=== PATIENT | female | born 1960 ===

== ENCOUNTER 2016-11-27 08:57 | Emergency (ER) | payer OTHER ==
[2016-11-27 09:00] VITALS: BP 109/67; PULSE 66; TEMP 98
[2016-11-27 09:01] VITALS: BMI 28.7
[2016-11-27 09:21] VITALS: O2SAT 98
[2016-11-27] MEDS ORDERED: Bacitracin OINT 15GM TOP STA (09:41)
--- NOTE | 2016-11-27 09:45 | ED PDOC ---
Arrival/HPI - General Chief Complaint: Trauma Time Seen by Provider: 11/27/16 09:14 - History of Present Illness Narrative History of Present Illness (Text): 11/27/16 10:08 Patient is a 55 y/o F with hx of DM, presenting after fall. She reports that she was walking into work today when she tripped on uneven step and fell forward , landing on her hands and knees. Denies head trauma. Denies LOC. She reports that she has numbness from her diabetic neuropathy in her feet and reports that because of this she trips easier. She denies any near syncope, dizziness or weakness causing fall. She denies chest pain or shortness of breath. She denies anticoagulant use and denies drug or alcohol use. She reports that she has ambulated since the fall and is complaining of abrasions to b/l knees and R elbow. Past Medical History - Provider Review Nursing Documentation Reviewed: Yes - Reproductive Menopause: No Family/Social History - Physician Review Nursing Documentation Reviewed: Yes Family/Social History: Diabetes Allergies/Home Meds Allergies/Adverse Reactions: Allergies No Known Allergies Allergy (Verified 11/27/16 09:12) Review of Systems - Review of Systems Constitutional: absent: Fevers Eyes: absent: Vision Changes Respiratory: absent: SOB, Cough, Sputum, Wheezing Cardiovascular: absent: Chest Pain, Palpitations, Edema, Calf Pain, HUDSON, Orthopnea, Syncope Gastrointestinal: absent: Abdominal Pain, Constipation, Nausea, Vomiting Genitourinary Female: absent: Dysuria Musculoskeletal: absent: Arthralgias, Back Pain, Neck Pain, Joint Swelling Skin: Other (abrasions) Neurological: absent: Headache, Dizziness, Focal Weakness, Gait Changes, Speech Changes, Facial Droop, Disequilibrium, Seizure Psychiatric: absent: Anxiety, Depression Physical Exam Vital Signs Temp Pulse BP Pulse Ox 11/27/16 09:13 98 11/27/16 09:00 98 F 66 109/67 97 Temperature: Afebrile Blood Pressure: Normal Pulse: Regular Respiratory Rate: Normal Appearance: Positive for: Well-Appearing, Non-Toxic, Comfortable Pain Distress: None Mental Status: Positive for: Alert and Oriented X 3 Finger Stick Blood Glucose: 428 - Systems Exam Head: Present: Atraumatic, Normocephalic Pupils: Present: PERRL Extroacular Muscles: Present: EOMI Conjunctiva: Present: Normal Mouth: Present: Moist Mucous Membranes Nose (External): Present: Atraumatic Neck: Present: Normal Range of Motion. No: MIDLINE TENDERNESS Respiratory/Chest: Present: Clear to Auscultation, Good Air Exchange. No: Respiratory Distress, Accessory Muscle Use Cardiovascular: Present: Regular Rate and Rhythm, Normal S1, S2. No: Murmurs Abdomen: No: Tenderness, Distention, Rebound, Guarding Genitourinary/Pelvic Exam: Present: Other (stable pelvis with no bony tenderness ) Upper Extremity: Present: Normal ROM, NORMAL PULSES, Neurovascularly Intact, Capillary Refill < 2s, Norm 2-Pt Discrimination, Other (abrasion to R elbow. Normal ROM and no bony tenderness). No: Edema, Tenderness, Swelling, Deformity Lower Extremity: Present: Normal ROM, Other (abrasions to b/l knees. Normal ROM. No bony tenderness. ). No: CALF TENDERNESS, Cyanosis, Tenderness, Swelling , Erythema, Deformity Neurological: Present: GCS=15, CN II-XII Intact, Speech Normal, Gait Normal ( steady gait) Psychiatric: Present: Alert, Oriented x 3 Medical Decision Making ED Course and Treatment: 11/27/16 09:42 Patient had fall from standing with abrasions to b/l knees and R arm. No head trauma. Normal gait and no bony tenderness. Spoke to Dr. Glaser about patient' s hyperglycemia and he is aware that her sugars have been running 300-400 and will follow-up with her in his office today. Spoke to patient at length and she agrees that xrays are not indicated and she has no pain with movement and will follow-up with her PMD for hyperglycemia and diabetic neuropathy. - Medication Orders Current Medication Orders: Discontinued Medications Bacitracin (Bacitracin Oint) 1 applic TOP STAT STA Stop: 11/27/16 09:42 Last Admin: 11/27/16 09:50 Dose: 1 applic Disposition/Present on Arrival - Present on Arrival Any Indicators Present on Arrival: No - Disposition Have Diagnosis and Disposition been Completed?: Yes Diagnosis: Fall, Hyperglycemia Disposition: HOME/ ROUTINE Disposition Time: 09:43 Patient Plan: Discharge Condition: GOOD Discharge Instructions (ExitCare): Diabetic Neuropathy (ED), Fall Prevention ( ED) Additional Instructions: Follow up with Dr. Glaser today or tmrw. Return to ED if condition worsens. Use neosporin twice daily on wounds.
== END 2016-11-27 10:07 | disposition home or self-care (01) ==
LOC: H.ER 08:57
DX: E11.65 Type 2 diabetes mellitus with hyperglycemia (principal); W10.9XXA Fall (on) (from) unspecified stairs and steps, initial encounter

== ENCOUNTER 2017-07-30 08:55 | Inpatient (IN) | payer OTHER ==
[2017-07-30 08:55] VITALS: BMI 28.7
--- NOTE | 2017-07-30 11:10 | ED PDOC ---
HPI:STROKE - Notes: Notes:: Pt reports lightheadedness X 1 month, unsteadiness X 1 week and visual loss X 2 seconds that occurred @ 8:30 AM today. Also reports L sided head pressure, L arm weakness, L leg weakness and bilateral foot weakness X 1 week. Denies CP, SOB, nausea, vomiting, LOC, incontinence. NIHSS Stroke Scale - Date/Time Evaluation Performed When Was NIHSS Performed: 24 hours post onset S/S - How Severe is the Stroke Level of Consciousness: 0=Alert LOC to Questions: 0=Both comments correct LOC to commands: 0=Obeys both correctly Best Gaze: 0=Normal Visual: 0=No visual loss Facial: 0=Normal Motor Arm - Left: 0=No drift Motor Arm - Right: 0=No drift Motor Leg - Left: 0=No drift Motor Leg - Right: 0=No drift Limb Ataxia: 0=Absent Sensory: 0=Normal Best Language: 0=No aphasia Dysarthia: 0=Normal articulation Extinction & Inattention (Neglect): 0=Normal, no object Score: 0 rTPA Inclusion/Exclusion - Refusal of Treatment Patient Refused Treatment: No - Inclusion Criteria for Altepase Patient is 18 years or Older: Yes The Clinical Diagnosis of Ischemic Stroke That is Causing a Potentially Disabling Neurological Deficit: No Time of Onset is Well Established to be Less Than 270 Minute Before Treatment Would Begin: No Risk/Benefit Discussed With Patient/Family Member Present: No Past Medical History Reviewed: Nursing Documentation, Vital Signs Vital Signs: Last Vital Signs Temp 97.0 F L 07/30/17 09:49 Pulse 72 07/30/17 09:49 Resp 18 07/30/17 09:49 BP 102/64 07/30/17 09:49 Pulse Ox 97 07/30/17 09:49 - Medical History PMH: Diabetes, Hypercholesterolemia - Family History Family History: States: Unknown Family Hx - Social History Current smoker - smoking cessation education provided: No Alcohol: None - Immunization History Hx Tetanus Toxoid Vaccination: No Hx Influenza Vaccination: No Hx Pneumococcal Vaccination: No - Home Medications Home Medications: Ambulatory Orders Medication Instructions Recorded ARIPiprazole [Abilify] 2 mg PO DAILY 07/30/17 Aspirin [Ecotrin] 81 mg PO DAILY 07/30/17 Desmopressin (Nonrefrigerated) 1 spray YAMILE BID 07/30/17 [Desmopressin 10 Mcg/0.1 ml Spr] Glimepiride [amaRYL] 4 mg PO BID 07/30/17 Insulin Detemir [Levemir] 30 unit SC BID 07/30/17 Insulin Lispro [humALOG] 20 unit SC ACTID 07/30/17 Isosorbide Mononitrate ER [Imdur 30 mg PO DAILY 07/30/17 ER] MetFORMIN [glucoPHAGE] 1,000 mg PO BID 07/30/17 Metoprolol Succinate [Toprol XL] 12.5 mg PO DAILY 07/30/17 Ranolazine [Ranexa] 500 mg PO Q12H 07/30/17 Rosuvastatin Calcium [Crestor] 20 mg PO HS 07/30/17 Sertraline [Zoloft] 50 mg PO DAILY 07/30/17 - Allergies Allergies/Adverse Reactions: Allergies Allergy/AdvReac Type Severity Reaction Status Date / Time No Known Allergies Allergy Verified 11/27/16 09:12 Review of Systems Constitutional: Negative for: Fever, Chills Eyes: Positive for: Vision Change Cardiovascular: Negative for: Chest Pain, Palpitations Gastrointestinal: Negative for: Nausea, Vomiting, Abdominal Pain, Diarrhea Genitourinary Female: Negative for: Dysuria, Hematuria Musculoskeletal: Negative for: Neck Pain, Back Pain Skin: Negative for: Rash, Lesions Neurological: Positive for: Weakness, Headache, Dizziness. Negative for: Numbness, Incoordination, Change in Speech, Confusion, Seizures, Altered Mental Status Physical Exam - Reviewed Nursing Documentation Reviewed: Yes Vital Signs Reviewed: Yes - Physical Exam Appears: Positive for: Well, No Acute Distress Head Exam: Positive for: ATRAUMATIC, NORMAL INSPECTION Skin: Positive for: Normal Color, Warm, Dry Eye Exam: Positive for: Normal appearance, EOMI, PERRL Neck: Positive for: Normal, Painless ROM, Supple Cardiovascular/Chest: Positive for: Regular Rate, Rhythm Respiratory: Positive for: Normal Breath Sounds Gastrointestinal/Abdominal: Positive for: Normal Exam Back: Positive for: Normal Inspection Extremity: Positive for: Normal ROM. Negative for: Deformity, Swelling Neurologic/Psych: Positive for: Alert, mold bunch trimmer II-XII, Oriented, Cerebellar Tests ( WNL). Negative for: Motor/Sensory Deficits, Aphasia, Facial Droop - Laboratory Results Result Diagrams: 08/05/17 04:20 08/05/17 04:20 - ECG O2 Sat by Pulse Oximetry: 97 Pulse Ox Interpretation: Normal - Critical Care Total Time (In Min): 45 Medical Decision Making Medical Decision Makin yo female with lightheadedness and temporary vision loss. - labs - EKG - CXR - CT head - Neuro consutl 11:18 CXR FINDINGS: LUNGS: Slight elevation right hemidiaphragm likely due to eventration. There may also be some minimal passive- dependent atelectasis right lung base PLEURA: No significant pleural effusion identified, no pneumothorax apparent. CARDIOVASCULAR: Cardiomegaly. OSSEOUS STRUCTURES: No mild scoliotic deformity centered at the lower thoracic region possibly compensatory for a mild levoscoliosis in the lumbar region. VISUALIZED UPPER ABDOMEN: Normal. OTHER FINDINGS: None. IMPRESSION: Slight elevation right hemidiaphragm likely due to eventration with suspected minimal passive/dependent atelectasis right lung base cardiomegaly. 12:[address] FINDINGS: HEMORRHAGE: No acute parenchymal, subarachnoid nor extra-axial hemorrhage. BRAIN: Mild diffuse/ confluent chronic white matter ischemic changes seen extending peripherally into the deep and subcortical white matter both cerebral hemispheres. Moderate generalized volume loss. VENTRICLES: No obstructive hydrocephalus. CALVARIUM: Unremarkable. PARANASAL SINUSES: There is complete opacification left chamber sphenoid sinus. Minor mucosal thickening right chamber sphenoid sinus as well as the several ethmoid air cells. MASTOID AIR CELLS: Unremarkable as visualized. No inflammatory changes. OTHER FINDINGS: Changes of bilateral cataract surgery noted. IMPRESSION: Mild chronic white matter ischemic changes. Moderate generalized volume loss. 14:10 --Spoke to Dr. Metz, notified on consult. --Patient will be admitted. Disposition - Clinical Impression Clinical Impression: TIA (transient ischemic attack) - Disposition Disposition Time: 14:14 Condition: STABLE - Pt Status Changed To: Hospital Disposition Of: Inpatient - Admit Certification Admit to Inpatient:: After my assessment, the patient will require hospitalization for at least two midnights. This is because of the severity of symptoms shown, intensity of services needed, and/or the medical risk in this patient being treated as an outpatient. - POA Present On Arrival: None
--- NOTE | 2017-07-30 11:23 | RAD ---
HISTORY: Code Stroke COMPARISON: No prior. FINDINGS: LUNGS: Slight elevation right hemidiaphragm likely due to eventration. There may also be some minimal passive- dependent atelectasis right lung base PLEURA: No significant pleural effusion identified, no pneumothorax apparent. CARDIOVASCULAR: Cardiomegaly. OSSEOUS STRUCTURES: No mild scoliotic deformity centered at the lower thoracic region possibly compensatory for a mild levoscoliosis in the lumbar region. VISUALIZED UPPER ABDOMEN: Normal. OTHER FINDINGS: None. IMPRESSION: Slight elevation right hemidiaphragm likely due to eventration with suspected minimal passive/dependent atelectasis right lung base cardiomegaly.
[2017-07-30 11:48] LABS: BASO % 0.5 % (0.0-2.0); EOS # 0.1 K/uL (0.0-0.7); EOS % 1.9 % (0.0-4.0); HEMOGLOBIN 12.8 g/dL (12.0-16.0); LYMPH # 1.9 K/uL (1.0-4.3); LYMPH % 29.3 % (20.0-40.0); MEAN CELL VOLUME 89.5 fl (81.0-99.0); MEAN CORPUSCULAR HEMOGLOBIN 29.8 pg (27.0-31.0); MEAN CORPUSCULAR HGB CONC 33.4 g/dL (33.0-37.0); MEAN PLATELET VOLUME 9.1 fl (7.2-11.7); MONO # 0.4 K/uL (0.0-0.8); MONO % 5.9 % (0.0-10.0); NEUT % 62.4 % (50.0-75.0); RBC 4.3 Mil/uL (3.80-5.20); RED CELL DISTRIBUTION WIDTH 14.1 % (11.5-14.5); WHITE BLOOD COUNT 6.4 K/uL (4.8-10.8)
[2017-07-30 11:52] LABS: PARTIAL THROMBOPLASTIN TIME 26.7 Seconds (25.6-37.1); PROTHROMBIN TIME 10.8 Seconds (9.8-13.1)
[2017-07-30 12:07] LABS: ALB/GLOB RATIO 1.2 (1.0-2.1); ALBUMIN 4.3 g/dL (3.5-5.0); ALT/SGPT 36 U/L (9-52); AST/SGOT 25 U/L (14-36); BLOOD UREA NITROGEN 21 mg/dl (7-17); CALCIUM 9.5 mg/dL (8.4-10.2); GFR AFRICAN-AMERICAN > 60; GFR NON-AFRICAN AMERICAN > 60; HDL CHOLESTEROL 46 MG/DL (30-70)
[2017-07-30] MEDS ORDERED: Sodium Chloride 0.9% 1,000 ML IV STA (12:15)
[2017-07-30 12:19] LABS: LDL CHOLESTEROL 137 mg/dL (0-129)
--- NOTE | 2017-07-30 12:26 | CT ---
PROCEDURE: CT HEAD WITHOUT CONTRAST. HISTORY: Lightheadedness, vision loss X 2 seconds COMPARISON: None available. TECHNIQUE: Axial computed tomography images were obtained through the head/brain without intravenous contrast. Radiation dose: Total exam DLP = 859.17 mGy-cm. This CT exam was performed using one or more of the following dose reduction techniques: Automated exposure control, adjustment of the mA and/or kV according to patient size, and/or use of iterative reconstruction technique. FINDINGS: HEMORRHAGE: No acute parenchymal, subarachnoid nor extra-axial hemorrhage. BRAIN: Mild diffuse/ confluent chronic white matter ischemic changes seen extending peripherally into the deep and subcortical white matter both cerebral hemispheres. Moderate generalized volume loss. VENTRICLES: No obstructive hydrocephalus. CALVARIUM: Unremarkable. PARANASAL SINUSES: There is complete opacification left chamber sphenoid sinus. Minor mucosal thickening right chamber sphenoid sinus as well as the several ethmoid air cells. MASTOID AIR CELLS: Unremarkable as visualized. No inflammatory changes. OTHER FINDINGS: Changes of bilateral cataract surgery noted. IMPRESSION: Mild chronic white matter ischemic changes. Moderate generalized volume loss.
[2017-07-30] MEDS: Sodium Chloride 0.9% 1,000 ML IV SCH ×2 (14:51→21:09)
[2017-07-30] MEDS ORDERED: Sodium Chloride 0.9% 50 ML IV ONE (15:43)
[2017-07-30] MEDS ORDERED: Iodixanol 320 MG/ML 100 ML BOTTLE IV ONE (15:43)
--- NOTE | 2017-07-30 17:18 | CT ---
PROCEDURE: CT Angiography of the neck and brain dated 07/30/2017 HISTORY: TIA. COMPARISON: Comparison made with prior CT scan brain earlier same day TECHNIQUE: Contiguous helical/transaxial images of the neck were obtained from the level of the skull-base to the superior mediastinum in the arteriographic phase of enhancement. Coronal and sagittal reformats or also generated. IV contrast dose: 90 cc Visipaque 320 contrast material Radiation Dose - DLP: 2142.74 mGy-cm This CT exam was performed using one or more of the following dose reduction techniques: Automated exposure control, adjustment of the mA and/or kV according to patient size, and/or use of iterative reconstruction technique. . FINDINGS: Minor partially calcified atherosclerotic plaque seen along the transverse portion of the aortic arch and origin of the left subclavian artery and at the bifurcation of the right brachiocephalic artery. The common carotid arteries are widely patent despite tiny partially calcified plaque seen proximally and then again at the level of the bifurcations. No evidence of significant stenosis. . The distal internal carotid arteries including the petrous, cavernous and supraclinoid segments are widely patent despite some tiny plaque changes along both carotid siphons. . The vertebral arteries are slightly asymmetric right-sided which is slightly larger in caliber/more dominant than the left however the vertebral arteries are patent throughout. The visualized major branches of the [place] including the distal cerebral vasculature of the anterior and posterior circulations are also patent and appear relatively symmetric. No evidence of large aneurysm nor vascular malformation. Apparent partially empty sella. IMPRESSION: No evidence of occlusion or significant stenosis. No evidence of large aneurysm nor vascular malformation.
[2017-07-30] MEDS: Insulin Detemir 100 Units/ml Inj SC SCH (22:50)
[2017-07-30] MEDS ORDERED: INSULIN DETEMIR 30 UNIT SC SCH (23:30)
[2017-07-31] MEDS ORDERED: Glucagon Recombinant 1 mg Inj IM PRN (08:03)
[2017-07-31] MEDS ORDERED: Dextrose 50% SYRINGE Inj (50 ml) IVP PRN (08:03)
[2017-07-31] MEDS: Insulin Detemir 100 Units/ml Inj SC SCH ×3 (08:32→10:10)
[2017-07-31] MEDS: Insulin Lispro (humaLOG) 100 Units/ml Inj SC SCH ×5 (08:33→22:00)
[2017-07-31] MEDS: Enoxaparin 40 mg Syringe SC SCH ×2 (08:34→08:43)
--- NOTE | 2017-07-31 09:41 | CP.PCM.HP ---
<SamCole - Last Filed: 07/31/17 14:40> History of Present Illness - History of Present Illness History of Present Illness: 56 y/o F with PMHx of IDDM, HTN, Bipolar disoder and Hyperchol, non compliant with meds, that presented to ED c/o persistent but brief episodes of vision loss in the past week that had happened about 3 times in the past weeks. She also c/o B/L UE and LE paresthesias. Patient also reported sensation of unsteadiness for the past few weeks, intermittent while at work. 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 Visual symptoms she describes them as "blackout" that resolve spontaneously and denies syncope, CP, SOB or headaches. Patient admits she stopped taking Levemir as prescribed about 6 m/a after 2 episodes of hypoglycemia. She currently uses only Glempiride and HUmalog BID adjusted dose. 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 SHx: Denies PMHx: Bipolar, IDDM, HTN, Hyperchol Diabetes Insipidus Present on Admission - Present on Admission Any Indicators Present on Admission: Yes History of Uncontrolled Diabetes: Yes Review of Systems - Review of Systems All systems: reviewed and no additional remarkable complaints except - EENT Eyes: Loss of Vision (Transient, as per HPI) - Neurological Neurological: Abnormal Gait, Paresthesias Past Patient History - Past Medical History & Family History Past Medical History?: Yes - Past Social History Smoking Status: Never Smoked - CARDIAC Hx Hypercholesterolemia: Yes - ENDOCRINE/METABOLIC Hx Endocrine Disorders: Yes (DM) Hx Diabetes Mellitus Type 2: Yes - MUSCULOSKELETAL/RHEUMATOLOGICAL Hx Falls: No - PSYCHIATRIC Hx Substance Use: No - SURGICAL HISTORY Other/Comment: X2 - ANESTHESIA Hx Anesthesia: Yes Hx Anesthesia Reactions: No Hx Malignant Hyperthermia: No Meds Allergies/Adverse Reactions: Allergies Allergy/AdvReac Type Severity Reaction Status Date / Time No Known Allergies Allergy Verified 11/27/16 09:12 Physical Exam - Constitutional Appears: Non-toxic, No Acute Distress - Eye Exam Eye Exam: EOMI, PERRL. absent: Nystagmus - ENT Exam ENT Exam: Mucous Membranes Moist - Neck Exam Neck exam: Positive for: Full Rom - Respiratory Exam Respiratory Exam: Clear to Auscultation Bilateral, NORMAL BREATHING PATTERN. absent: Decreased Breath Sounds, Rales - Cardiovascular Exam Cardiovascular Exam: REGULAR RHYTHM, +S1, +S2. absent: Systolic Murmur - GI/Abdominal Exam GI & Abdominal Exam: Normal Bowel Sounds, Soft. absent: Tenderness - Extremities Exam Extremities exam: Positive for: normal capillary refill, pedal pulses present. Negative for: calf tenderness, tenderness - Neurological Exam Neurological exam: Alert, CN II-XII Intact, Oriented x3 - Psychiatric Exam Psychiatric exam: Normal Affect, Normal Mood - Skin Skin Exam: Normal Color, Warm Results - Vital Signs Recent Vital Signs: Last Vital Signs Temp 98.2 F 07/31/17 08:00 Pulse 64 07/31/17 08:00 Resp 18 07/31/17 08:00 BP 98/63 L 07/31/17 08:00 Pulse Ox 97 07/31/17 08:00 - Labs Result Diagrams: 07/30/17 11:33 07/30/17 11:33 Labs: Laboratory Results - last 24 hr 07/30/17 07/30/17 07/30/17 11:33 11:33 11:33 WBC 6.4 RBC 4.30 Hgb 12.8 Hct 38.5 MCV 89.5 MCH 29.8 MCHC 33.4 RDW 14.1 Plt Count 261 MPV 9.1 Neut % (Auto) 62.4 Lymph % (Auto) 29.3 Kings % (Auto) 5.9 Eos % (Auto) 1.9 Baso % (Auto) 0.5 Neut # (Auto) 4.0 Lymph # (Auto) 1.9 Kings # (Auto) 0.4 Eos # (Auto) 0.1 Baso # (Auto) 0.0 PT INR APTT Sodium 134 Potassium 4.3 Chloride 97 L Carbon Dioxide 24 Anion Gap 17 BUN 21 H Creatinine 0.6 L Est GFR ( Amer) > 60 Est GFR (Non-Af Amer) > 60 POC Glucose (mg/dL) Random Glucose 376 H Hemoglobin A1c 13.2 H Calcium 9.5 Total Bilirubin 0.4 AST 25 ALT 36 Alkaline Phosphatase 71 Troponin I < 0.0120 Total Protein 7.8 Albumin 4.3 Globulin 3.6 Albumin/Globulin Ratio 1.2 Triglycerides 154 H Cholesterol 223 H LDL Cholesterol Direct 137 H HDL Cholesterol 46 Blood Type Blood Type Confirm Antibody Screen BBK History Checked 07/30/17 07/30/17 07/30/17 11:33 11:33 12:20 WBC RBC Hgb Hct MCV MCH MCHC RDW Plt Count MPV Neut % (Auto) Lymph % (Auto) Kings % (Auto) Eos % (Auto) Baso % (Auto) Neut # (Auto) Lymph # (Auto) Kings # (Auto) Eos # (Auto) Baso # (Auto) PT 10.8 INR 1.0 APTT 26.7 Sodium Potassium Chloride Carbon Dioxide Anion Gap BUN Creatinine Est GFR ( Amer) Est GFR (Non-Af Amer) POC Glucose (mg/dL) Random Glucose Hemoglobin A1c Calcium Total Bilirubin AST ALT Alkaline Phosphatase Troponin I Total Protein Albumin Globulin Albumin/Globulin Ratio Triglycerides Cholesterol LDL Cholesterol Direct HDL Cholesterol Blood Type A POSITIVE Blood Type Confirm A POSITIVE Antibody Screen Negative BBK History Checked No verified bt 07/30/17 07/30/17 07/31/17 16:34 23:26 05:45 WBC RBC Hgb Hct MCV MCH MCHC RDW Plt Count MPV Neut % (Auto) Lymph % (Auto) Kings % (Auto) Eos % (Auto) Baso % (Auto) Neut # (Auto) Lymph # (Auto) Kings # (Auto) Eos # (Auto) Baso # (Auto) PT INR APTT Sodium Potassium Chloride Carbon Dioxide Anion Gap BUN Creatinine Est GFR ( Amer) Est GFR (Non-Af Amer) POC Glucose (mg/dL) 246 H 276 H 323 H Random Glucose Hemoglobin A1c Calcium Total Bilirubin AST ALT Alkaline Phosphatase Troponin I Total Protein Albumin Globulin Albumin/Globulin Ratio Triglycerides Cholesterol LDL Cholesterol Direct HDL Cholesterol Blood Type Blood Type Confirm Antibody Screen BBK History Checked Assessment & Plan - Assessment and Plan (Free Text) Assessment: 56 y/o with PMHX of IDDM, HTN and bipolar disorder admitted for possible TIA and uncontrolled DM Near syncope vs TIA Acute on chronic Brief episodes of vision loss, unsteadiness and paresthesias CT and CTA of the head no acute changes: Please see full report VS: Slightly bradycardic on admission, rest WNL Still c/o mild UE paresthesias now No motorsensory impairment present at this time Neuro consult appreciated Patient refusing further imaging studies Uncontrolled IDDM with hyperglycemia Poss cause of patient's symptoms HgbA1c 13s Noncompliant with home treatment Endocrinology consult appreciated Levemir 30 units q12h. Patient refused AM dose and was given at noon after BS= 400 On Metformin and Glimepiride ISS AC CAD Chronic Asymptomatic Hold betablocker and isosorbide for now due to carole and near syncope Bipolar disorder C/w home meds <Wilfredo Katz - Last Filed: 07/31/17 16:55> Results - Vital Signs Recent Vital Signs: Last Vital Signs Temp 98.1 F 07/31/17 16:42 Pulse 64 07/31/17 16:42 Resp 14 07/31/17 16:42 BP 124/71 07/31/17 16:42 Pulse Ox 97 07/31/17 16:42 - Labs Result Diagrams: 07/30/17 11:33 07/30/17 11:33 Labs: Laboratory Results - last 24 hr 07/30/17 07/30/17 07/31/17 11:33 23:26 05:45 POC Glucose (mg/dL) 276 H 323 H Hemoglobin A1c 13.2 H 07/31/17 07/31/17 07/31/17 09:57 11:34 16:08 POC Glucose (mg/dL) 401 H* 300 H 102 Hemoglobin A1c Assessment & Plan - Assessment and Plan (Free Text) Assessment: Patient was personally seen and examined by me in rounds with residents. Available labs and diagnostic data reviewed. Case, Patient's condition and management plan discussed with residents in rounds. Agree with resident's documentation. Plan: As ordered. Wilfredo Katz MD
--- NOTE | 2017-07-31 12:13 | CP.PCM.CON ---
History of Present Illness - History of Present Illness History of Present Illness: Mrs. Frias is a 56-year-old woman with a past medical history of DM, HLD, bipolar depression, who presented with complaints of light-headedness and a very brief episode of bilateral visual loss that took place yesterday. She states that she is normally hypotensive, but was placed on anti-hypertensive medications and feels tired as a result and sleepy. She denies any recurrent episodes of vision loss and has refused testing, other than the CTA of the head/ neck, which was normal. Review of Systems - Review of Systems All systems: reviewed and no additional remarkable complaints except Past Patient History - Past Medical History & Family History Past Medical History?: Yes - Past Social History Smoking Status: Never Smoked - CARDIAC Hx Hypercholesterolemia: Yes - ENDOCRINE/METABOLIC Hx Endocrine Disorders: Yes (DM) Hx Diabetes Mellitus Type 2: Yes - MUSCULOSKELETAL/RHEUMATOLOGICAL Hx Falls: No - PSYCHIATRIC Hx Substance Use: No - SURGICAL HISTORY Other/Comment: X2 - ANESTHESIA Hx Anesthesia: Yes Hx Anesthesia Reactions: No Hx Malignant Hyperthermia: No Meds Allergies/Adverse Reactions: Allergies Allergy/AdvReac Type Severity Reaction Status Date / Time No Known Allergies Allergy Verified 11/27/16 09:12 - Medications Medications: Current Medications Aripiprazole (Abilify) 2 mg PO DAILY [facility] Last Admin: 07/31/17 08:38 Dose: 2 mg Aspirin (Ecotrin) 81 mg PO DAILY [facility] Last Admin: 07/31/17 08:33 Dose: 81 mg Atorvastatin Calcium (Lipitor) 20 mg PO DAILY [facility] Last Admin: 07/31/17 08:34 Dose: 20 mg Clopidogrel Bisulfate (Plavix) 75 mg PO DAILY [facility] Last Admin: 07/31/17 12:07 Dose: Not Given Desmopressin Acetate (Ddavp) 1 spr YAMILE BID [facility] Last Admin: 07/31/17 00:58 Dose: 1 spr Dextrose (Dextrose 50% Inj) 0 ml IVP STAT PRN; Protocol PRN Reason: Hypoglycemia Protocol Enoxaparin Sodium (Lovenox) 40 mg SC DAILY [facility] PRN Reason: Protocol Last Admin: 07/31/17 08:43 Dose: Not Given Glucagon (Glucagen Diagnostic Kit) 0 mg IM STAT PRN; Protocol PRN Reason: Hypoglycemia Protocol Insulin Detemir (Levemir) 30 units SC BID [facility] Last Admin: 07/31/17 10:10 Dose: 30 units Insulin Human Lispro (Humalog) 20 units SC ACTID [facility] Last Admin: 07/31/17 12:06 Dose: 20 unit Metformin HCl (Glucophage) 1,000 mg PO BID [facility] Last Admin: 07/31/17 08:33 Dose: 1,000 mg Sertraline HCl (Zoloft) 50 mg PO DAILY [facility] Last Admin: 07/31/17 08:34 Dose: 50 mg Physical Exam - Constitutional Appears: Well - Head Exam Head Exam: ATRAUMATIC, NORMAL INSPECTION, NORMOCEPHALIC - Eye Exam Pupil Exam: NORMAL ACCOMODATION, PERRL - Neck Exam Neck exam: Positive for: Normal Inspection - Cardiovascular Exam Cardiovascular Exam: REGULAR RHYTHM - GI/Abdominal Exam GI & Abdominal Exam: Normal Bowel Sounds, Soft. absent: Tenderness - Rectal Exam Rectal Exam: Deferred - Extremities Exam Extremities exam: Positive for: normal inspection - Neurological Exam Neurological exam: Alert, CN II-XII Intact, Normal Gait, Oriented x3, Reflexes Normal - Psychiatric Exam Psychiatric exam: Normal Affect, Normal Mood Results - Vital Signs Recent Vital Signs: Last Vital Signs Temp 98.2 F 07/31/17 08:00 Pulse 64 07/31/17 08:00 Resp 18 07/31/17 08:00 BP 98/63 L 07/31/17 08:00 Pulse Ox 97 07/31/17 08:00 - Labs Result Diagrams: 07/30/17 11:33 07/30/17 11:33 Labs: Laboratory Results - last 24 hr 07/30/17 07/30/17 07/30/17 11:33 11:33 11:33 POC Glucose (mg/dL) Hemoglobin A1c 13.2 H Troponin I < 0.0120 LDL Cholesterol Direct 137 H Blood Type A POSITIVE Blood Type Confirm Antibody Screen Negative 07/30/17 07/30/17 07/30/17 12:20 16:34 23:26 POC Glucose (mg/dL) 246 H 276 H Hemoglobin A1c Troponin I LDL Cholesterol Direct Blood Type Blood Type Confirm A POSITIVE Antibody Screen 07/31/17 07/31/17 07/31/17 05:45 09:57 11:34 POC Glucose (mg/dL) 323 H 401 H* 300 H Hemoglobin A1c Troponin I LDL Cholesterol Direct Blood Type Blood Type Confirm Antibody Screen Assessment & Plan (1) Neurocardiogenic pre-syncope Assessment and Plan: The visual loss took place for 2-3 seconds and resolved completely. She is currently asymptomatic. Her symptoms occurred while she was light-headed and possibly hypotensive. I recommend re-evaluation of her medications by the primary team. No further recommendations from a neurological stand point. Thank you. Status: Acute Priority: High
--- NOTE | 2017-07-31 19:17 | CARD ---
APPROVED REPORT EKG Measurement Heart [id number] <Conclusion> Normal sinus rhythm Normal ECG
[2017-07-31] MEDS ORDERED: Insulin Detemir 100 Units/ml Inj SC SCH (22:00)
--- NOTE | 2017-08-01 04:16 | CON ---
DATE: ENDOCRINOLOGY CONSULTATION LOCATION: In room 404. HISTORY OF PRESENT ILLNESS: This is a 56-year-old female with known history of type 2 insulin-requiring diabetes, admitted here with a constellation of symptoms suggestive of possible transient ischemic event and is now being referred for diabetic evaluation and management. She admits to having a progressively worsening left upper and lower extremity weakness over the last week or so prior to admission. Moreover, she also admits to dizziness and lightheadedness with instability in ambulation over the last month or so prior to admission. PAST MEDICAL HISTORY: As mentioned above, history of type 2 insulin-requiring diabetes on a combination of Humalog given as 20 units t.i.d. before meals with Levemir given as 30 units subcu b.i.d. as ordered. She was also taking metformin at 1 g b.i.d. and Amaryl at 4 mg b.i.d., history of hypertensive cardiovascular disease and dyslipidemia, history of generalized anxiety and depression with underlying chronic schizoaffective disorder, currently using Abilify at 2 mg daily as noted, history of coronary artery disease with previous admissions for congestive heart failure, history of generalized anxiety and depression and currently Zoloft at 50 mg daily as noted. FAMILY HISTORY: Positive for hypertension and diabetes. SOCIAL HISTORY: The patient has supportive family and has a prior history of smoking with no other substance use. REVIEW OF SYSTEMS: Admits to generalized body weakness with increasing bouts of dizziness and lightheadedness, worse in the last month or so prior to admission. Also admits to increasing insomnia and agitation with bifrontal headaches with supervening left upper and lower extremity weakness. No chest pains or palpitations, but admits to episodic shortness of breath especially on exertion. Her oral intake has been variable with nausea, dyspepsia and vague upper abdominal pains. Also admits to marked polyuria and nocturia, polydipsia, and about a 5-pound or so weight loss. PHYSICAL EXAMINATION: GENERAL: This is an average built female in no apparent distress with a blood pressure of 150/90, pulse of 100 beats per minute, regular. VITAL SIGNS: Temperature 98, respirations 20, height is 5 feet 1 inch, weight is 150 pounds. HEENT: Head normocephalic. Eyes; anicteric with pink conjunctivae. Funduscopy is not possible at this time. Ears, nose and throat otherwise normal. Neck: Supple. Thyroid gland is normal in size. No carotid bruits or cervical adenopathy. CARDIOPULMONARY: Some adynamic precordium. S1, S2 is rapid and regular. LUNGS: Clear to auscultation. ABDOMEN: Flat, soft with positive bowel sounds. EXTREMITIES: No peripheral edema. Pulses are +2 bilaterally. LABORATORY: Her chemistry showed BUN of 21, sodium 134, potassium 4.3, chloride 97, CO2 24, glucose 376 and creatinine 0.6. Her hemoglobin A1c is 13.2%, which is quite elevated and indicative of suboptimal metabolic control of her diabetic condition. Her glucose values today are ranging from 323-401 mg/dL. Her cholesterol is 223, triglycerides of 154, an LDL of 137 and HDL of 46. ASSESSMENT: This is a 56-year-old female with uncontrolled and decompensated type 2 insulin-requiring diabetes presenting here with a transient ischemic attack and the possibility of a evolving cerebrovascular accident has to be excluded at this point in time. She also has diabetic microvascular complications of retinopathy and polyneuropathy with diabetic macrovascular complications of coronary artery disease and peripheral arterial disease and vasculopathy. Plan of management as discussed with the patient and staff. We will modify her current insulin regimen and switch her over to basal and bolus insulin drug combination and increase the Humalog to 26 units subcu t.i.d. before meals to start today as ordered. We will also titrate her basal insulin to once daily only at bedtime with Levemir given as 40 units subcu at bedtime daily as given. We have available on the outpatient a longer acting basal insulin called Tarceva, which would ideal for this patient considering that her A1c levels have been quite elevated with the current Levemir therapy given at bedtime. We will modify the coverage scale to obviate hypoglycemia and detailed orders have been given for Humalog insulin as given. We will obtain serial chemistries and supplement accordingly as needed. We will follow. Kelsey Rosenbaum MD
[2017-08-01 06:52] LABS: HEMOGLOBIN 12.6 g/dL (12.0-16.0); MEAN CELL VOLUME 89.4 fl (81.0-99.0); MEAN CORPUSCULAR HEMOGLOBIN 30.2 pg (27.0-31.0); MEAN CORPUSCULAR HGB CONC 33.8 g/dL (33.0-37.0); RBC 4.19 Mil/uL (3.80-5.20); RED CELL DISTRIBUTION WIDTH 14.2 % (11.5-14.5); WHITE BLOOD COUNT 7.2 K/uL (4.8-10.8)
[2017-08-01 07:14] LABS: BLOOD UREA NITROGEN 12 mg/dl (7-17); CALCIUM 9.2 mg/dL (8.4-10.2); GFR AFRICAN-AMERICAN > 60; GFR NON-AFRICAN AMERICAN > 60; HDL CHOLESTEROL 39 MG/DL (30-70)
[2017-08-01 07:16] LABS: LDL CHOLESTEROL 126 mg/dL (0-129)
[2017-08-01 07:44] LABS: ALB/GLOB RATIO 1.1 (1.0-2.1); ALBUMIN 3.6 g/dL (3.5-5.0); ALT/SGPT 38 U/L (9-52); AST/SGOT 25 U/L (14-36); BLOOD UREA NITROGEN 12 mg/dl (7-17); CALCIUM 9.1 mg/dL (8.4-10.2); GFR AFRICAN-AMERICAN > 60; GFR NON-AFRICAN AMERICAN > 60
[2017-08-01] MEDS: Enoxaparin 40 mg Syringe SC SCH (08:55)
[2017-08-01] MEDS: Insulin Lispro (humaLOG) 100 Units/ml Inj SC SCH ×7 (08:58→22:30)
--- NOTE | 2017-08-01 10:27 | PN ---
DATE: 08/01/2017 SUBJECTIVE: The patient is seen and examined. Interim events noted. Consults noted and appreciated. Endocrinology and Neurology consult and interventions noted and appreciated. The patient remains in Progressive Care Unit. The patient feels better. No dizziness. No palpitation. No loss of consciousness. No chest pain. No shortness of breath. The patient overall feels little better. PHYSICAL EXAMINATION: GENERAL: The patient is in no acute distress. VITAL SIGNS: Stable. HEART: S1 and S2, normal and regular. LUNGS: Good bilateral air exchange. ABDOMEN: Soft and nontender. EXTREMITIES: No edema. No calf swelling. No tenderness. No acute ischemia. CENTRAL NERVOUS SYSTEM: Exam is essentially unchanged. There is no sign of any acute gross focal, motor or sensory neurological deficit. DIAGNOSTIC DATA: Available diagnostic data reviewed. Accu-Cheks are improving. ASSESSMENT AND PLAN: Overall, the patient is slowly improving. Plan as ordered. Wilfredo Katz MD
[2017-08-01] MEDS ORDERED: Sodium Chloride 0.9% 1,000 ML IV SCH (12:45)
[2017-08-01] MEDS: Timolol 0.25% Ophth SOLN OU SCH ×2 (15:26→18:41)
--- NOTE | 2017-08-01 17:33 | PN ---
DATE: ENDO FOLLOWUP NOTE LOCATION: In room 404. SUBJECTIVE: This is a 56-year-old female with known history of type 2 insulin-requiring diabetes presenting here with a transient ischemic event and currently undergoing neurological workup at this time and is also being followed closely for metabolic management. Her glycemic levels are fluctuating but improved and the glucose values overnight have ranged from 102-179 and 255 mg/dL. Her latest chemistry showed a BUN of 12, sodium 134, potassium 3.9, chloride 97, CO2 27, glucose 234 and creatinine 0.5. Her hemoglobin A1c is 13.2% as noted and clearly indicative of suboptimal metabolic control of her diabetic condition even prior to this admission. So at this time, we will modify once again her basal and bolus insulin regimen and increase the Humalog to 26 units subcu t.i.d. before meals to start today as ordered. We will also increase the basal insulin with Levemir to be given as 44 units subcu at bedtime daily as given. We will continue the modified correction scale using a low dose Humalog insulin to obviate hypoglycemia and detailed orders have been given. We will continue her metformin given as 1 g b.i.d. as ordered. We will titrate incrementally as indicated to optimize metabolic control. We will follow. Kelsey Rosenbaum MD
[2017-08-01] MEDS ORDERED: Insulin Detemir 100 Units/ml Inj SC SCH ×2 (22:00)
[2017-08-01 22:38] LABS: SQUAMOUS EPITHIAL 2 /hpf (0-5); URINE BACTERIA MOD (<OCC); URINE BILIRUBIN NEGATIVE (NEGATIVE); URINE BLOOD NEGATIVE (NEGATIVE); URINE CLARITY SLIGHTY-CLOUDY (Clear); URINE COLOR YELLOW (YELLOW); URINE GLUCOSE (UA) 50 mg/dL (Normal); URINE LEUKOCYTE ESTERASE NEG Leu/uL (Negative); URINE NITRATE NEGATIVE (NEGATIVE); URINE PROTEIN NEGATIVE (NEGATIVE); URINE UROBILINOGEN 0.2-1.0 mg/dL (0.2-1.0)
[2017-08-02] MEDS: Insulin Detemir 100 Units/ml Inj SC SCH ×2 (00:02→22:04)
--- NOTE | 2017-08-02 04:20 | CON ---
CARDIOLOGY CONSULTATION DATE: REASON FOR CONSULTATION: TIA as well as dizziness and near syncope. HISTORY OF PRESENT ILLNESS: The patient is a 56-year-old female who has a history of diabetes mellitus for the past 20 years. She is on insulin. She presented because of dizziness and unsteadiness while standing or walking as well as darkness of her vision that has few seconds when she stands up. The patient denies any syncope. The patient does have history of diabetic neuropathy and regarding her retinopathy, the patient stated that she both eyes in the past and required laser treatment. At that time, the patient stated that she had lost vision on her both eyes temporarily. The patient has no history of hypertension and when she placed on cardiac medication according to her, her blood pressure is going down and they stopped that medication, which she does not recall. SOCIAL HISTORY: Nonsmoker. Nondrinker. 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 HOME MEDICATIONS: Including Zoloft, Crestor, Ranexa, Amaryl, Humalog insulin, Abilify, desmopressin spray, aspirin, Toprol-XL, metformin, Levemir, and Imdur. The patient also on medications are Abilify 2 mg daily, desmopressin acetate one nasal spray twice a day, aspirin 81 mg once a day, Glucophage 1 g twice a day, Levemir units subcutaneously at bedtime, Lovenox 40 mg subcutaneously once a day, Plavix 75 mg once a day, and Zoloft 50 mg once a day. REVIEW OF SYSTEMS: The patient had one episode of diarrhea yesterday. No fever or chills. The patient did report nausea, but no vomiting. No retrosternal chest pain. No palpitation. PHYSICAL EXAMINATION: GENERAL: The patient is a middle-aged female who does not appear to be in any distress. VITAL SIGNS: Blood pressure 148/77, heart rate 78, temperature 98.2, and respirations 17. HEENT: Normocephalic. NECK: No JVD. CHEST: Clear. HEART: S1 and S2 regular. ABDOMEN: Soft. EXTREMITIES: No edema. LABORATORY DATA: SMA-7, sodium 134, potassium 3.9, chloride 97, CO2 of 27, glucose 234, BUN 12, and creatinine 0.5. TSH level is within normal limits. CBC is entirely within normal limits. PT, INR, and PTT are within normal limits. EKG revealed normal sinus rhythm. Echocardiac study report revealed normal left ventricular size with mild concentric LVH, ejection fraction estimated at 70%, mild dilated left atrium, mitral aortic and tricuspid valves are normal, trace aortic insufficiency, and mild pulmonary hypertension. CT angio of the head and neck, no evidence of occlusion or significant stenosis, no evidence of large aneurysm or vascular malformation. Chest x-ray 2-views, no active disease. CT scan without contrast, mild chronic white matter ischemic changes, moderate generalized volume loss. EKG with normal sinus rhythm with rate of 61. ASSESSMENT: 1. Rule out transient ischemic attack. 2. Consider postural hypotension. 3. Peripheral neuropathy. 4. Uncontrolled diabetes mellitus. RECOMMENDATIONS: Continue aspirin 81 mg once a day, desmopressin spray, Lipitor 20 mg once a day, and Lovenox 20 mg once a day. Obtain blood pressure in the flat as well as standing position and consider tilt-table test if neuro workup is completely negative. Hesham Anand MD
[2017-08-02] MEDS: Insulin Lispro (humaLOG) 100 Units/ml Inj SC SCH ×7 (09:01→22:01)
[2017-08-02] MEDS: Timolol 0.25% Ophth SOLN OU SCH ×2 (09:01→17:25)
[2017-08-02] MEDS: Enoxaparin 40 mg Syringe SC SCH (09:02)
--- NOTE | 2017-08-02 09:07 | PN ---
DATE: 08/02/2017 SUBJECTIVE: The patient is seen and examined. Interim events noted. Consults noted and appreciated. Cardiology and neurology followup and intervention noted and appreciated. The patient remains in progressive care unit on telemetry monitoring. of dizziness and orthostatic hypotension. The patient now feels okay. No chest pain or shortness of breath. No dizziness. PHYSICAL EXAMINATION: GENERAL: The patient is in no acute distress. VITAL SIGNS: Stable. No orthostatic changes. HEART: S1 and S2, normal and regular. LUNGS: Good bilateral air entry. ABDOMEN: Soft and nontender. EXTREMITIES: No edema, no calf swelling. No tenderness. No acute ischemia. [employer]: Essentially unchanged. DIAGNOSTIC DATA: Available diagnostic data reviewed. Telemetry monitoring does not show any significant arrhythmia. Accu-Cheks are acceptable. Endocrinology followup and intervention noted and appreciated. PLAN: Plan as ordered. Wilfredo Katz MD
--- NOTE | 2017-08-02 09:10 | CP.PCM.PN ---
Subjective - Date & Time of Evaluation Date of Evaluation: 08/02/17 Time of Evaluation: 09:09 - Subjective Subjective: Ms. Frias was seen and examined at the bedside. She is alert, oriented in all spheres. She further states of feeling dizzy with change of position. Her latest blood pressure is 92/60, HR-70. She denies any room spinning, blurred vision, nausea, or vomiting. She is able to follow simple commands. CTA of the head and neck showed no significant stenosis, occlusion, no AVM or aneuryms.There was no untoward events overnight. Objective - Vital Signs/Intake and Output Vital Signs (last 24 hours): Temp Pulse Resp BP Pulse Ox 98.1 F 75 18 92/60 L 97 08/02/17 08:09 08/02/17 08:09 08/02/17 08:09 08/02/17 08:09 08/02/17 08:09 - Medications Medications: Current Medications Aripiprazole (Abilify) 2 mg PO DAILY [facility] Last Admin: 08/02/17 09:02 Dose: 2 mg Aspirin (Ecotrin) 81 mg PO DAILY [facility] Last Admin: 08/02/17 09:02 Dose: 81 mg Atorvastatin Calcium (Lipitor) 20 mg PO DAILY [facility] Last Admin: 08/02/17 09:00 Dose: 20 mg Clopidogrel Bisulfate (Plavix) 75 mg PO DAILY [facility] Last Admin: 08/02/17 09:00 Dose: 75 mg Desmopressin Acetate (Ddavp) 1 spr YAMILE BID [facility] Last Admin: 08/02/17 09:00 Dose: 1 spr Dextrose (Dextrose 50% Inj) 0 ml IVP STAT PRN; Protocol PRN Reason: Hypoglycemia Protocol Enoxaparin Sodium (Lovenox) 40 mg SC DAILY [facility] PRN Reason: Protocol Last Admin: 08/02/17 09:02 Dose: Not Given Glucagon (Glucagen Diagnostic Kit) 0 mg IM STAT PRN; Protocol PRN Reason: Hypoglycemia Protocol Insulin Detemir (Levemir) 30 units SC HS [facility] Last Admin: 08/02/17 00:02 Dose: Not Given Insulin Human Lispro (Humalog) 0 units SC ACHS [facility] Last Admin: 08/02/17 09:01 Dose: Not Given Insulin Human Lispro (Humalog) 14 units SC ACTID [facility] Last Admin: 08/02/17 09:01 Dose: 14 units Metformin HCl (Glucophage) 1,000 mg PO BID [facility] Last Admin: 08/02/17 09:00 Dose: 1,000 mg Sertraline HCl (Zoloft) 50 mg PO DAILY [facility] Last Admin: 08/02/17 09:03 Dose: 50 mg Timolol Maleate (Timoptic 0.25% Ophth Soln) 1 drop OU BID [facility] Last Admin: 08/02/17 09:01 Dose: 1 drop - Labs Labs: 08/01/17 06:07 08/01/17 06:07 PT 10.8 Seconds (9.8-13.1) 07/30/17 11:33 INR 1.0 (0.9-1.2) 07/30/17 11:33 APTT 26.7 Seconds (25.6-37.1) 07/30/17 11:33 - Constitutional Appears: No Acute Distress - Head Exam Head Exam: NORMAL INSPECTION - Neurological Exam Neurological Exam: Alert, Awake, Oriented x3 Neuro motor strength exam: Left Upper Extremity: 5, Right Upper Extremity: 5, Left Lower Extremity: 5, Right Lower Extremity: 5 Additional comments: She is able to move all extremities spontaneously, follows commands. sensation remains intact. Assessment and Plan (1) Neurocardiogenic pre-syncope Assessment & Plan: Case discussed with Dr. Metz, continue all current medical regimen. Recommend for blood sugar control and re-evaluation of her other medications by the primary physician. Status: Acute
--- NOTE | 2017-08-02 17:43 | PN ---
ENDOCRINOLOGY FOLLOWUP NOTE DATE: LOCATION: In room 404 SUBJECTIVE: This is a 56-year-old female with recent uncontrolled type 2 insulin-requiring diabetes presenting here with a transient ischemic event and underwent both cardiac and neurologic workup as noted thereof. Her glycemic levels are fluctuating, but improved and glucose values have ranged from 68 to 83 mg/dL today and it was 147 at bedtime last night. Her oral intake has been quite variable at this time as noted. Her latest chemistry showed a BUN of 21, sodium 134, potassium 4.3, chloride 97, CO2 of 24, glucose 376, and creatinine 0.6. Her A1c level is 13.2%, which is quite elevated and indicative of suboptimal metabolic control of her diabetic condition even prior to this admission. So, at this time, we will modify once again her basal and bolus insulin regimen to obviate hypoglycemia and detailed orders have been given. We will lower the Humalog to 12 units subcutaneously t.i.d. before meals to start today as ordered. We will also lower her basal insulin with Levemir to be given as 30 units subcutaneously at bedtime daily to start tonight. We will titrate incremental as indicated to optimize metabolic control. We will follow and advise accordingly. Kelsey Rosenbaum MD
--- NOTE | 2017-08-02 19:03 | PN ---
DATE: SUBJECTIVE: The patient denies any bouts of dizziness at this time, she is ambulatory. No reported arrhythmia on the monitor. The patient has difference in systolic blood pressure of about 20 mm of Hg. PHYSICAL EXAMINATION VITAL SIGNS: According to the nurse, most recent blood pressure 97/58, heart rate 66, temperature 97.4 and respirations 16. HEENT: Normocephalic. CHEST: Clear. HEART: S1 and S2 regular. ABDOMEN: Soft. EXTREMITIES: No edema. LABORATORY DATA: Today's blood sugar is 147. TSH level and B12 level are within normal limits. ASSESSMENT: 1. Rule out transient ischemic attack. 2. Postural hypotension. 3. Peripheral neuropathy. 4. Uncontrolled diabetes mellitus. 5. History of depression on Abilify. RECOMMENDATIONS: Continue current aspirin, metformin, Lipitor and Lovenox. EKG. There is no reported arrhythmia on the monitor and EKG remains within normal limits. The patient can be discharged to be followed by her primary physician Dr. Glaser, as an outpatient. If symptoms of dizziness recur and tilt-table test should be considered and adding ProAmatine should be considered. Hesham Anand MD
[2017-08-03] MEDS: Insulin Lispro (humaLOG) 100 Units/ml Inj SC SCH ×7 (06:35→22:10)
[2017-08-03 07:36] LABS: HEMOGLOBIN 12.9 g/dL (12.0-16.0); MEAN CELL VOLUME 88.5 fl (81.0-99.0); MEAN CORPUSCULAR HEMOGLOBIN 29.8 pg (27.0-31.0); MEAN CORPUSCULAR HGB CONC 33.7 g/dL (33.0-37.0); RBC 4.32 Mil/uL (3.80-5.20); RED CELL DISTRIBUTION WIDTH 13.8 % (11.5-14.5); WHITE BLOOD COUNT 6.9 K/uL (4.8-10.8)
[2017-08-03 07:56] LABS: ALB/GLOB RATIO 1.2 (1.0-2.1); ALBUMIN 4.1 g/dL (3.5-5.0); ALT/SGPT 38 U/L (9-52); AST/SGOT 27 U/L (14-36); BLOOD UREA NITROGEN 12 mg/dl (7-17); CALCIUM 9.2 mg/dL (8.4-10.2); GFR AFRICAN-AMERICAN > 60; GFR NON-AFRICAN AMERICAN > 60
--- NOTE | 2017-08-03 08:56 | CARD ---
APPROVED REPORT EXAM: Two-dimensional and M-mode echocardiogram with Doppler and color Doppler. Other Information Quality : AverageRhythm : INDICATION CVA/TIA 2D DIMENSIONS IVSd1.50 (0.7-1.1cm)LVDd3.88 (3.9-5.9cm) PWd1.02 (0.7-1.1cm)LVDs3.15 (2.5-4.0cm) FS (%) 18.9 % M-Mode DIMENSIONS Left Atrium (MM)4.93 (2.5-4.0cm)IVSd1.37 (0.7-1.1cm) Aortic Root2.47 (2.2-3.7cm)LVDd4.73 (4.0-5.6cm) Aortic Cusp Exc.1.67 (1.5-2.0cm)PWd1.00 (0.7-1.1cm) FS (%) 35 %LVDs3.07 (2.0-3.8cm) Mitral Valve MV E Vfhhxxvk69.3cm/sMV DECEL [id number] A Fszevhxq86.9cm/s MV OXW70idH/A ratio0.8MVA (PHT)2.62cm2 TDI Lateral E' Peak V6.19cm/sMedial E' Peak V4.48cm/sE/Lateral E'12.0 E/Medial E'16.6 Pulmonary Valve PV Peak Gvnzlxct07.2cm/s Tricuspid Valve TR Peak Vwoygjfk382ny/sTR Peak Gr.15mmHg LEFT VENTRICLE The left ventricle is normal in size. There is mild left ventricular hypertrophy. The left ventricular function is normal. The left ventricular ejection fraction is 70%. There is normal LV segmental wall motion. Transmitral Doppler flow pattern is Grade I-abnormal relaxation pattern. No left ventricle thrombus noted on this study. There is no ventricular septal defect visualized. There is no left ventricular aneurysm. There is no mass noted in the left ventricle. RIGHT VENTRICLE The right ventricle is normal size. There is normal right ventricular wall thickness. The right ventricular systolic function is normal. ATRIA The left atrium is mildly dilated. There is no thrombus suspected in the left atrium. The right atrium size is normal. The interatrial septum is intact with no evidence for an atrial septal defect. AORTIC VALVE The aortic valve is normal in structure. No aortic regurgitation is present. There is no aortic valvular stenosis. MITRAL VALVE The mitral valve is normal in structure. There is no evidence of mitral valve prolapse. There is no mitral valve stenosis. There is no mitral valve regurgitation noted. TRICUSPID VALVE The tricuspid valve is normal in structure. There is trace tricuspid regurgitation. Right ventricular systolic pressure is estimated at 27 mmHg. There is no tricuspid valve prolapse or vegetation. There is no tricuspid valve stenosis. PULMONIC VALVE The pulmonary valve is normal in structure. There is mild pulmonic valvular regurgitation. GREAT VESSELS The aortic root is normal in size. The IVC was not visualized well visualized. PERICARDIAL EFFUSION The pericardium appears normal. There is no pleural effusion. <Conclusion> The left ventricle is normal in size. There is mild concentric left ventricular hypertrophy. The left ventricular function is normal. The left ventricular ejection fraction is 70%. The left atrium is mildly dilated. The mitral, aortic and tricuspid valves are normal. There is trace tricuspid regurgitation and mild pulmonary regurgitation.
--- NOTE | 2017-08-03 09:00 | CARD ---
APPROVED REPORT EKG Measurement Heart [id number] <Conclusion> Normal sinus rhythm Low voltage QRS Borderline ECG
[2017-08-03] MEDS: Timolol 0.25% Ophth SOLN OU SCH ×2 (09:44→18:47)
[2017-08-03] MEDS: Enoxaparin 40 mg Syringe SC SCH (09:45)
--- NOTE | 2017-08-03 10:05 | PN ---
DATE: 08/03/2017 SUBJECTIVE: The patient is seen and examined. Interim events noted. Consults noted and appreciated. Neurology and Cardiology followup and intervention noted and appreciated. The patient remains in Progressive Care Unit on telemetry monitoring. She complains of nausea, vomiting, diarrhea and dizziness with episodes of almost passing off. The patient also reported to have orthostatic hypotension. PHYSICAL EXAMINATION: GENERAL: The patient is in no acute distress. VITAL SIGNS: Stable. HEART: S1 and S2, normal and regular. LUNGS: Good bilateral air exchange. ABDOMEN: Soft and nontender. EXTREMITIES: No edema. No calf swelling. No tenderness. No acute ischemia. CENTRAL NERVOUS SYSTEM: Exam is essentially unchanged. DIAGNOSTIC DATA: Available diagnostic data is reviewed. Telemetry monitoring does not reveal significant arrhythmias. IMPRESSION AND PLAN: Overall, the patient is clinically stable, but does orthostatic hypotension, most likely related to her diabetic neuropathy. Also developing nausea, vomiting and diarrhea today. Plan as ordered. Case and plan discussed with the patient. Wilfredo Katz MD
--- NOTE | 2017-08-03 10:20 | CP.PCM.PN ---
Subjective - Date & Time of Evaluation Date of Evaluation: 08/03/17 Time of Evaluation: 10:17 - Subjective Subjective: Ms. Frias was seen and examined at the bedside. She is alert, oriented in all spheres. She denies any headache, diplopia, blurred vision. She claims of experiencing near syncope early this morning with nausea. She further claims of her blood pressure was low at that time. Her Na-127 and glucose- 267 mg/dl, currently being treated. She is able to stand and ambulate within the room in steady gait. She is actively having a pleasant conversation with her roommate. Objective - Vital Signs/Intake and Output Vital Signs (last 24 hours): Temp Pulse Resp BP Pulse Ox 98.1 F 64 18 133/81 98 08/03/17 07:42 08/03/17 08:28 08/03/17 07:42 08/03/17 07:42 08/03/17 07:42 - Medications Medications: Current Medications Aripiprazole (Abilify) 2 mg PO DAILY [facility] Last Admin: 08/03/17 09:45 Dose: 2 mg Aspirin (Ecotrin) 81 mg PO DAILY [facility] Last Admin: 08/03/17 09:44 Dose: 81 mg Atorvastatin Calcium (Lipitor) 20 mg PO DAILY [facility] Last Admin: 08/03/17 09:45 Dose: 20 mg Clopidogrel Bisulfate (Plavix) 75 mg PO DAILY [facility] Last Admin: 08/03/17 09:44 Dose: 75 mg Desmopressin Acetate (Ddavp) 1 spr YAMILE BID [facility] Last Admin: 08/03/17 09:44 Dose: 1 spr Dextrose (Dextrose 50% Inj) 0 ml IVP STAT PRN; Protocol PRN Reason: Hypoglycemia Protocol Glucagon (Glucagen Diagnostic Kit) 0 mg IM STAT PRN; Protocol PRN Reason: Hypoglycemia Protocol Insulin Detemir (Levemir) 30 units SC HS [facility] Last Admin: 08/02/17 22:04 Dose: 30 units Insulin Human Lispro (Humalog) 0 units SC ACHS [facility] Last Admin: 08/03/17 06:35 Dose: Not Given Insulin Human Lispro (Humalog) 12 units SC ACTID [facility] Last Admin: 08/03/17 07:35 Dose: 12 units Meclizine HCl (Antivert) 25 mg PO TID [facility] Metformin HCl (Glucophage) 1,000 mg PO BID [facility] Last Admin: 08/03/17 09:44 Dose: 1,000 mg Sertraline HCl (Zoloft) 50 mg PO DAILY [facility] Last Admin: 08/03/17 09:44 Dose: 50 mg Sodium Chloride (Sodium Chloride Tab) 1 gm PO BID [facility] Timolol Maleate (Timoptic 0.25% Ophth Soln) 1 drop OU BID [facility] Last Admin: 08/03/17 09:44 Dose: 1 drop - Labs Labs: 08/03/17 06:54 08/03/17 06:54 PT 10.8 Seconds (9.8-13.1) 07/30/17 11:33 INR 1.0 (0.9-1.2) 07/30/17 11:33 APTT 26.7 Seconds (25.6-37.1) 07/30/17 11:33 - Constitutional Appears: No Acute Distress - Head Exam Head Exam: NORMAL INSPECTION - Neurological Exam Neurological Exam: Alert, Awake, Oriented x3 Neuro motor strength exam: Left Upper Extremity: 4, Right Upper Extremity: 4, Left Lower Extremity: 4, Right Lower Extremity: 4 Additional comments: She is able to stand and ambulate within the room in steady gait, follow commands. Assessment and Plan (1) Neurocardiogenic pre-syncope Assessment & Plan: Case discussed with Dr. Balbuena, continue all current medical, physical therapies. Recommend glycemic control to alleviate some of her near syncopal episode. Status: Acute
--- NOTE | 2017-08-03 13:47 | PN ---
DATE: SUBJECTIVE: The patient did experience abdominal pain, nausea and vomiting today. She had one episode of diarrhea. She experience postural dizziness. There was 20 mmHg postural change in systolic blood pressure. No reported arrhythmia. PHYSICAL EXAMINATION: VITAL SIGNS: Blood pressure of 134/80, heart rate of 65, temperature of 97.5, and respirations of 18. HEENT: Normocephalic. NECK: No JVD. CHEST: Clear. HEART: S1 and S2 regular. ABDOMEN: Soft. EXTREMITIES: No edema. LABORATORY DATA: SMA-7: Sodium of 127, potassium of 4.5, chloride of 91, CO2 of 24, glucose of 267, BUN of 12 and creatinine of 0.5. Today's CBC is entirely within normal limit. ASSESSMENT: 1. Postural dizziness. 2. Diabetes insipidus. 3. Hyponatremia. 4. Abdominal discomfort with nausea and vomiting. 5. Uncontrolled diabetes mellitus. 6. Depression. RECOMMENDATIONS: Continue current Ability 2 mg daily. Meclizine was started at 25 mg t.i.d. today. Continue desmopressin spray. Continue aspirin 81 mg once a day, metformin 1 g twice a day, Lipitor 20 mg once a day, and Plavix 75 mg once a day. Start ProAmatine at 2.5 mg daily. Obtain amylase and lipase level as well as scheduled abdominal ultrasound. Hesham Anand MD
[2017-08-03 14:29] LABS: AMYLASE 157 U/L (30-110); LIPASE 284 U/L (23-300)
[2017-08-03] MEDS: Insulin Detemir 100 Units/ml Inj SC SCH (22:14)
--- NOTE | 2017-08-03 22:28 | PN ---
ENDOCRINOLOGY FOLLOWUP NOTE DATE: LOCATION: In room 404 SUBJECTIVE: This is a 56-year-old female with recent uncontrolled type 2 insulin-requiring diabetes, now being followed closely for metabolic management. Her glycemic levels are fluctuating, but improved and the glucose values today have ranged from 225 to 244 mg/dL. Her latest chemistry showed a BUN of 12, sodium 127, potassium 4.5, chloride 91, CO2 of 24, glucose 265, and creatinine 0.5. So, at this time, we will modify once again her basal and bolus insulin regimen and increase the Humalog to 14 units subcutaneously t.i.d. before meals to start today as ordered. We will also modify the basal insulin with Levemir to be given as 24 units subcutaneously at bedtime daily as given. We will continue the low-dose correction scale using Humalog insulin as ordered. We will follow and advise accordingly. Kelsey Rosenbaum MD
[2017-08-04 06:09] LABS: ALB/GLOB RATIO 1.2 (1.0-2.1); ALBUMIN 3.9 g/dL (3.5-5.0); ALT/SGPT 38 U/L (9-52); AST/SGOT 28 U/L (14-36); BLOOD UREA NITROGEN 10 mg/dl (7-17); CALCIUM 8.9 mg/dL (8.4-10.2); GFR AFRICAN-AMERICAN > 60; GFR NON-AFRICAN AMERICAN > 60
[2017-08-04] MEDS: Insulin Lispro (humaLOG) 100 Units/ml Inj SC SCH ×7 (06:43→22:13)
--- NOTE | 2017-08-04 09:58 | US ---
HISTORY: vomiting COMPARISON: None. TECHNIQUE: Sonographic evaluation of the abdomen. FINDINGS: LIVER: Measures 16.4 cm. Normal echogenicity of the liver parenchyma. No mass. No intrahepatic bile duct dilatation. GALLBLADDER: Unremarkable. No gallstones. COMMON BILE DUCT: Measures 3 mm. No stones. No dilatation. PANCREAS: Unremarkable as visualized. No mass. No ductal dilatation. RIGHT KIDNEY: Measures 12.2 x 5.9 x 4.3cm. Normal echogenicity. No calculus, mass, or hydronephrosis. LEFT KIDNEY: Measures 11.1 x 6.1 x 5.8cm. Fullness of the left calyceal system. Nonobstructive upper pole tiny calculus. SPLEEN: Normal in size and contour. No mass. AORTA: No aneurysmal dilatation. IVC: Unremarkable. OTHER FINDINGS: None. IMPRESSION: Nonobstructive left nephrolithiasis with nonspecific fullness of the left calyceal system. Obstructive left ureteral calculus cannot be excluded.
[2017-08-04] MEDS: Enoxaparin 40 mg Syringe SC SCH (10:00)
[2017-08-04] MEDS: Timolol 0.25% Ophth SOLN OU SCH ×2 (10:02→16:30)
--- NOTE | 2017-08-04 11:24 | CP.PCM.PN ---
Subjective - Date & Time of Evaluation Date of Evaluation: 08/04/17 Time of Evaluation: 07:00 - Subjective Subjective: Patient evaluated at bedside with Dr Katz. Feeling better. Still c/o mild dizziness with exertion. Denies vomiting, diarrhea or nausea at this time. Objective - Vital Signs/Intake and Output Vital Signs (last 24 hours): Temp Pulse Resp BP Pulse Ox 98.2 F 73 20 99/60 L 97 08/04/17 08:00 08/04/17 08:00 08/04/17 08:00 08/04/17 08:00 08/04/17 08:00 - Medications Medications: Current Medications Aripiprazole (Abilify) 2 mg PO DAILY [facility] Last Admin: 08/04/17 09:57 Dose: 2 mg Aspirin (Ecotrin) 81 mg PO DAILY [facility] Last Admin: 08/04/17 09:58 Dose: 81 mg Atorvastatin Calcium (Lipitor) 20 mg PO DAILY [facility] Last Admin: 08/04/17 10:00 Dose: 20 mg Clopidogrel Bisulfate (Plavix) 75 mg PO DAILY [facility] Last Admin: 08/04/17 10:00 Dose: 75 mg Desmopressin Acetate (Ddavp) 1 spr YAMILE BID [facility] Last Admin: 08/04/17 09:58 Dose: 1 spr Dextrose (Dextrose 50% Inj) 0 ml IVP STAT PRN; Protocol PRN Reason: Hypoglycemia Protocol Enoxaparin Sodium (Lovenox) 40 mg SC DAILY [facility] PRN Reason: Protocol Last Admin: 08/04/17 10:00 Dose: 40 mg Glucagon (Glucagen Diagnostic Kit) 0 mg IM STAT PRN; Protocol PRN Reason: Hypoglycemia Protocol Insulin Detemir (Levemir) 34 units SC HS [facility] Last Admin: 08/03/17 22:14 Dose: Not Given Insulin Human Lispro (Humalog) 0 units SC ACHS [facility] Last Admin: 08/04/17 06:43 Dose: Not Given Insulin Human Lispro (Humalog) 14 units SC ACTID [facility] Last Admin: 08/04/17 09:59 Dose: 14 units Meclizine HCl (Antivert) 25 mg PO TID [facility] Last Admin: 08/04/17 09:57 Dose: 25 mg Metformin HCl (Glucophage) 1,000 mg PO BID [facility] Last Admin: 08/04/17 09:58 Dose: 1,000 mg Midodrine (Proamatine) 2.5 mg PO DAILY [facility] Last Admin: 08/04/17 10:01 Dose: 2.5 mg Sertraline HCl (Zoloft) 50 mg PO DAILY [facility] Last Admin: 08/04/17 10:02 Dose: 50 mg Sodium Chloride (Sodium Chloride Tab) 1 gm PO BID [facility] Last Admin: 08/03/17 18:48 Dose: 1 gm Timolol Maleate (Timoptic 0.25% Ophth Soln) 1 drop OU BID [facility] Last Admin: 08/04/17 10:02 Dose: 1 drop - Labs Labs: 08/03/17 06:54 08/04/17 04:30 PT 10.8 Seconds (9.8-13.1) 07/30/17 11:33 INR 1.0 (0.9-1.2) 07/30/17 11:33 APTT 26.7 Seconds (25.6-37.1) 07/30/17 11:33 - Constitutional Appears: Non-toxic, No Acute Distress - Head Exam Head Exam: ATRAUMATIC - Eye Exam Eye Exam: EOMI, PERRL - ENT Exam ENT Exam: Mucous Membranes Moist - Respiratory Exam Respiratory Exam: Clear to Ausculation Bilateral, NORMAL BREATHING PATTERN. absent: Rales, Wheezes - Cardiovascular Exam Cardiovascular Exam: REGULAR RHYTHM, +S1, +S2. absent: Gallop - GI/Abdominal Exam GI & Abdominal Exam: Soft, Normal Bowel Sounds. absent: Guarding, Rigid, Tenderness - Neurological Exam Neurological Exam: Alert, Awake, Oriented x3 - Psychiatric Exam Psychiatric exam: Normal Mood - Skin Skin Exam: Normal Color, Warm Assessment and Plan - Assessment and Plan (Free Text) Assessment: Near syncope Stable Found to be orthostatic during hosp stay and started on Midodrine Cardio consult appreciated Neuro consult appreciated Orthostatic hypotension Poss due hyponatremia vs med SE C/W Midodrine as per Cardiology recs F/U Abd US Hyponatremia Mild S/p Diarrhea Encourage PO intake Correct hyperglycemia Uncontrolled IDDM with hyperglycemia Improved Endocrinology consult appreciated C/W Insulin management as per Endocrinology CAD Chronic Asymptomatic Hold betablocker and isosorbide for now due to carole and near syncope Bipolar disorder C/w home meds
[2017-08-04] MEDS ORDERED: Pneumococcal 23-Valent Vaccine IM ONE (13:24)
--- NOTE | 2017-08-04 14:00 | PN ---
DATE: SUBJECTIVE: The patient is still experiencing diarrhea and abdominal discomfort. She is also experiencing postural dizziness. PHYSICAL EXAMINATION: VITAL SIGNS: Blood pressure of 122/70, heart rate of 73, temperature of 98.7, and respirations of 18. HEENT: Normocephalic. CHEST: Clear. HEART: S1 and S2 regular. ABDOMEN: Soft. EXTREMITIES: No edema. LABORATORY DATA: SMA-7: Sodium of 127, potassium of 4.1, chloride of 89, CO2 of 24, glucose of 157, BUN of 10 and creatinine of 0.5. RADIOLOGIC DATA: Abdominal ultrasound; nonobstructive left nephrolithiasis and nonspecific fullness of the left calyceal system. Obstructive left ureteral calculus could not be excluded. Amylase was elevated somewhat at 167 and lipase was within normal limits. ASSESSMENT: 1. Abdominal pain and diarrhea with occasional nausea and vomiting. 2. Postural hypotension. 3. Uncontrolled diabetes mellitus. 4. History of abdominal surgery some 20 years ago and questionable bowel resection at that time. 5. Nonobstructive left nephrolithiasis and possible obstructive left urolithiasis. RECOMMENDATIONS: Continue current Abilify 2 mg once a day, desmopressin nasal spray twice a day, aspirin 81 mg once a day, metformin 1 gram twice a day, Lovenox 20 mg subcutaneous once a day, and Plavix 75 mg once a day. Consider Urology consultation as well as CT scan of the abdomen and pelvis. Hesham Anand MD
[2017-08-04] MEDS: Insulin Detemir 100 Units/ml Inj SC SCH (22:14)
[2017-08-05 05:32] LABS: MEAN CELL VOLUME 88.6 fl (81.0-99.0); MEAN CORPUSCULAR HEMOGLOBIN 30.4 pg (27.0-31.0); MEAN CORPUSCULAR HGB CONC 34.3 g/dL (33.0-37.0); RBC 4.28 Mil/uL (3.80-5.20); RED CELL DISTRIBUTION WIDTH 13.9 % (11.5-14.5); WHITE BLOOD COUNT 7.8 K/uL (4.8-10.8)
[2017-08-05 06:21] LABS: ALB/GLOB RATIO 1.2 (1.0-2.1); ALT/SGPT 35 U/L (9-52); AST/SGOT 31 U/L (14-36); BLOOD UREA NITROGEN 20 mg/dl (7-17); CALCIUM 8.8 mg/dL (8.4-10.2); GFR AFRICAN-AMERICAN > 60; GFR NON-AFRICAN AMERICAN > 60
[2017-08-05] MEDS: Insulin Lispro (humaLOG) 100 Units/ml Inj SC SCH ×7 (08:25→22:55)
--- NOTE | 2017-08-05 08:26 | PN ---
ENDOCRINOLOGY FOLLOWUP NOTE DATE: LOCATION: In room 404 SUBJECTIVE: This is a 56-year-old female with recent uncontrolled type 2 insulin-requiring diabetes, now being followed closely for metabolic management. Her glycemic levels are fluctuating, but much improved at this time and the latest glucose levels have ranged from 148 to 240 mg/dL. It was 130 at bedtime last night. The latest chemistry showed a BUN of 10, sodium 127, potassium 4.1, chloride 89, CO2 of 24, glucose 157, and creatinine 0.5. So, at this time, we will continue the same basal and bolus insulin regimen to allow for dose equilibration and keep her on the Humalog given as 14 units subcutaneously t.i.d. before meals as ordered. We will also continue the basal insulin given as Levemir at 34 units subcutaneously at bedtime daily as given. We will titrate incremental as indicated to optimize metabolic control. We will follow and advise accordingly. Kelsey Rosenbaum MD
--- NOTE | 2017-08-05 09:21 | PN ---
DATE: 08/05/2017 SUBJECTIVE: The patient is seen and examined. Interim events noted. Consults noted and appreciated. The patient remains in Progressive Care Unit on telemetry monitoring. The patient complaints of diarrhea and episode of vomiting. No abdominal pain. No chest pain. No shortness of breath. Dizziness is improving. PHYSICAL EXAMINATION: GENERAL: The patient is in no acute distress. VITAL SIGNS: Stable. HEART: S1 and S2, normal and regular. LUNGS: Good bilateral air exchange. ABDOMEN: Soft and nontender. No organomegaly. No fluid. Bowel sounds are plus and normal. No guarding. No rigidity and no rebound. EXTREMITIES: No edema. No calf swelling. No tenderness. No acute ischemia. CENTRAL NERVOUS SYSTEM: Essentially unchanged. DIAGNOSTIC DATA: Available diagnostic data reviewed. Telemetry monitoring does not reveal significant arrhythmia. IMPRESSION AND PLAN: Overall, the patient's general medical condition is stable, but has episodes of diarrhea. Plan as ordered. Wilfredo Katz MD
[2017-08-05] MEDS: Saccharomyces Boulardi 250 mg Cap PO SCH ×2 (09:22→17:07)
[2017-08-05] MEDS: Enoxaparin 40 mg Syringe SC SCH (09:32)
[2017-08-05] MEDS: Timolol 0.25% Ophth SOLN OU SCH (09:33)
--- NOTE | 2017-08-05 10:06 | CP.PCM.PN ---
Subjective - Date & Time of Evaluation Date of Evaluation: 08/05/17 Time of Evaluation: 10:04 - Subjective Subjective: Ms. Frias was seen and examined at the bedside. She is alert, oriented in all spheres. She claims of her dizziness is improving. She denies any headache, weakness, blurred vision, nausea, or vomiting. She is able to follow simple commands. There was no untoward events overnight. Objective - Vital Signs/Intake and Output Vital Signs (last 24 hours): Temp Pulse Resp BP Pulse Ox 98.7 F 75 18 110/69 97 08/05/17 07:57 08/05/17 07:57 08/05/17 07:57 08/05/17 07:57 08/05/17 07:57 - Medications Medications: Current Medications Aripiprazole (Abilify) 2 mg PO DAILY [facility] Last Admin: 08/05/17 09:29 Dose: 2 mg Aspirin (Ecotrin) 81 mg PO DAILY [facility] Last Admin: 08/05/17 09:30 Dose: 81 mg Atorvastatin Calcium (Lipitor) 20 mg PO DAILY [facility] Last Admin: 08/05/17 09:32 Dose: 20 mg Clopidogrel Bisulfate (Plavix) 75 mg PO DAILY [facility] Last Admin: 08/05/17 09:32 Dose: 75 mg Desmopressin Acetate (Ddavp) 1 spr YAMILE BID [facility] Last Admin: 08/05/17 09:30 Dose: 1 spr Dextrose (Dextrose 50% Inj) 0 ml IVP STAT PRN; Protocol PRN Reason: Hypoglycemia Protocol Enoxaparin Sodium (Lovenox) 40 mg SC DAILY [facility] PRN Reason: Protocol Last Admin: 08/05/17 09:32 Dose: 40 mg Glucagon (Glucagen Diagnostic Kit) 0 mg IM STAT PRN; Protocol PRN Reason: Hypoglycemia Protocol Insulin Detemir (Levemir) 34 units SC HS [facility] Last Admin: 08/04/17 22:14 Dose: Not Given Insulin Human Lispro (Humalog) 0 units SC ACHS [facility] Last Admin: 08/04/17 22:13 Dose: Not Given Insulin Human Lispro (Humalog) 14 units SC ACTID [facility] Last Admin: 08/04/17 17:50 Dose: Not Given Meclizine HCl (Antivert) 25 mg PO TID [facility] Last Admin: 08/05/17 09:30 Dose: 25 mg Metformin HCl (Glucophage) 1,000 mg PO BID [facility] Last Admin: 08/05/17 09:31 Dose: 1,000 mg Midodrine (Proamatine) 2.5 mg PO DAILY [facility] Last Admin: 08/05/17 09:33 Dose: 2.5 mg Saccharomyces Boulardii (Florastor) 250 mg PO BID [facility] Sertraline HCl (Zoloft) 50 mg PO DAILY [facility] Last Admin: 08/05/17 09:34 Dose: 50 mg Sodium Chloride (Sodium Chloride Tab) 1 gm PO BID [facility] Last Admin: 08/05/17 09:33 Dose: 1 gm Timolol Maleate (Timoptic 0.25% Ophth Soln) 1 drop OU BID [facility] Last Admin: 08/05/17 09:33 Dose: 1 drop - Labs Labs: 08/05/17 04:20 08/05/17 04:20 PT 10.8 Seconds (9.8-13.1) 07/30/17 11:33 INR 1.0 (0.9-1.2) 07/30/17 11:33 APTT 26.7 Seconds (25.6-37.1) 07/30/17 11:33 - Constitutional Appears: No Acute Distress - Head Exam Head Exam: NORMAL INSPECTION - Neurological Exam Neurological Exam: Alert, Awake Neuro motor strength exam: Left Upper Extremity: 5, Right Upper Extremity: 5, Left Lower Extremity: 5, Right Lower Extremity: 5 Additional comments: Neurological unchanged from previous examination. Assessment and Plan (1) Neurocardiogenic pre-syncope Assessment & Plan: Case discussed with Dr. Balbuena, continue all current medical and physical therapies. Recommend to treat any underlying infection and electrolyte abnormalities. Status: Acute
--- NOTE | 2017-08-05 16:54 | CP.CCUPN ---
CCU Subjective - Physician Review Subjective (Free Text): 56F with h/o of Psych disorder on Abilify and Zoloft admitted 7 days ago for dizziness and left sided weakness, underwent Code Stroke eval with an NIHSS scale score of zero. Initial CT brain showed mild chronic white matter ischemic changes with moderate generalized volume loss. While on telemetry monitoring had at least 3 episodes of 3.6 sec pauses with periods of Wenkebach AV block. Had also been on Midodrine for postural dizziness. Lowest HR has been in the 60s. She is currently awake and slightly appears nervous, but in no distress. Denies any CP, SOB, N/V, dizziness, vertigo, visual changes, headaches , nor focal weakness. Orthostatic BP measurements have been documented with a 20 mmHg difference. Other VS and I/Os reviewed. ROS: No other pertinent negs or positives on 10+ system review. Allergies: NKDA Home Meds: Abilify, ASA, Desmopresin, Glimiprimide, Levemir, Lispro, Imdur, Metformin, Toproll XL, Ranexa, Crestor, Zoloft. PMSFH: All other Nursing and physician documentation reviewed to date; no new pertinent info noted relevant to current medical problems. CXR: ( my interp): done on shows slightly elevated R hemidiaphragm, no other consolidation. CT Head: results reviewed: negative for acute changes. IMPRESSION / MAJOR PROBLEMS NOW: 1. Low Grade AV Block: Type I observed. r/o 2 Hyponatremia, Psych meds, Midodrine, also on Timolol eye gtts. 2. New Hyponatremia occurring 4 days after admission 3. Increasing Azotemia 4. Uncontrolled DM II 5. h/o BiPolar Disorder: admits to not having seen a Psychiatrist in over 5 yrs. Meds refilled by my Primary MD (Dr. Huey Glaser) in consultation with a Psychiatrist. 6. h/o Diabetes Insipidus PLAN: 1. ICU monitoring. Cardio EP eval for appropriateness of PPM. 2. Stop Midodrine, Meclizine. 3. Get Psych eval: re- necessity of Abilify and Zoloft, both of which have Cardio AV blocking effects. 4. Correct serum Na levels: may need short term infusion of Saline / 3% saline to bring Na level above 125-128, if stopping Desmopressin and / or water restriction has no effect. CCU Objective - Vital Signs / Intake & Output Vital Signs (Last 4 hours): Vital Signs Temp Pulse Resp BP Pulse Ox 08/05/17 16:00 98.0 F 72 14 95/56 L 98 08/05/17 15:51 98.3 F 75 20 96/63 L 98 - Physical Exam Head: Positive for: Normocephalic Pupils: Positive for: PERRL Extroacular Muscles: Positive for: EOMI Conjunctiva: Positive for: Normal. Negative for: Icteric Mouth: Positive for: Moist Mucous Membranes Neck: Positive for: Normal Range of Motion. Negative for: JVD Respiratory/Chest: Positive for: Clear to Auscultation Cardiovascular: Positive for: Regular Rate and Rhythm Abdomen: Positive for: Normal Bowel Sounds. Negative for: Tenderness, Distention, Mass/Organomegaly Lower Extremity: Positive for: NORMAL PULSES, Capillary Refill < 2 s. Negative for: CALF TENDERNESS, Cyanosis Neurological: Positive for: GCS=15, Motor Func Grossly Intact, Normal Sensory Function Skin: Positive for: Warm, Dry. Negative for: Rashes Psychiatric: Positive for: Alert, Oriented x 3, Normal Affect - Medications Active Medications: Active Medications Generic Name Dose Route Start Last Admin Trade Name Freq PRN Reason Stop Dose Admin Aripiprazole 2 mg 07/31/17 09:00 08/05/17 09:29 Abilify PO 2 mg DAILY [facility] Administration Aspirin 81 mg 07/31/17 09:00 08/05/17 09:30 Ecotrin PO 81 mg DAILY [facility] Administration Atorvastatin Calcium 20 mg 07/30/17 17:00 08/05/17 09:32 Lipitor PO 20 mg DAILY [facility] Administration Clopidogrel Bisulfate 75 mg 07/31/17 10:15 08/05/17 09:32 Plavix PO 75 mg DAILY [facility] Administration Desmopressin Acetate 1 spr 07/30/17 23:30 08/05/17 09:30 Ddavp YAMILE 1 spr BID [facility] Administration Dextrose 0 ml 07/31/17 08:03 Dextrose 50% Inj IVP STAT PRN Hypoglycemia Protocol Protocol Enoxaparin Sodium 40 mg 08/04/17 09:00 08/05/17 09:32 Lovenox SC 40 mg DAILY [facility] Administration Protocol Glucagon 0 mg 07/31/17 08:03 Glucagen Diagnostic Kit IM STAT PRN Hypoglycemia Protocol Protocol Insulin Detemir 36 units 08/05/17 22:00 Levemir SC HS [facility] Insulin Human Lispro 0 units 07/31/17 16:30 08/05/17 16:25 Humalog SC Not Given ACHS [facility] Insulin Human Lispro 14 units 08/03/17 16:30 08/05/17 13:00 Humalog SC Not Given ACTID [facility] Meclizine HCl 25 mg 08/03/17 09:00 08/05/17 13:22 Antivert PO 25 mg TID [facility] Administration Metformin HCl 1,000 mg 07/30/17 17:00 08/05/17 09:31 Glucophage PO 1,000 mg BID [facility] Administration Midodrine 2.5 mg 08/03/17 14:26 08/05/17 09:33 Proamatine PO 2.5 mg DAILY [facility] Administration Saccharomyces Boulardii 250 mg 08/05/17 09:00 08/05/17 09:22 Florastor PO 250 mg BID [facility] Administration Sertraline HCl 50 mg 07/31/17 09:00 08/05/17 09:34 Zoloft PO 50 mg DAILY [facility] Administration Sodium Chloride 1 gm 08/03/17 09:00 08/05/17 09:33 Sodium Chloride Tab PO 1 gm BID [facility] Administration Timolol Maleate 1 drop 08/01/17 14:15 08/05/17 09:33 Timoptic 0.25% Ophth Soln OU 1 drop BID [facility] Administration - Patient Studies Lab Studies: Microbiology Studies 08/03/17 16:28 Stool Culture - Final Stool NO SALMONELLA, SHIGELLA OR CAMPYLOBACTER ISOLATED. Lab Studies 08/05/17 08/05/17 08/05/17 Range/Units 16:08 10:35 04:58 WBC (4.8-10.8) K/uL RBC (3.80-5.20) Mil/uL Hgb (12.0-16.0) g/dL Hct (34.0-47.0) % MCV (81.0-99.0) fl MCH (27.0-31.0) pg MCHC (33.0-37.0) g/dL RDW (11.5-14.5) % Plt Count (130-400) K/uL Sodium (132-148) mmol/l Potassium (3.6-5.0) MMOL/L Chloride (98-107) mmol/L Carbon Dioxide (22-30) mmol/L Anion Gap (10-20) BUN (7-17) mg/dl Creatinine (0.7-1.2) mg/dl Est GFR ( Amer) Est GFR (Non-Af Amer) POC Glucose (mg/dL) 315 H 322 H 271 H (65-110) mg/dL Random Glucose (65-105) mg/dL Calcium (8.4-10.2) mg/dL Total Bilirubin (0.2-1.3) mg/dl AST (14-36) U/L ALT (9-52) U/L Alkaline Phosphatase (38-126) U/L Total Protein (6.3-8.2) G/DL Albumin (3.5-5.0) g/dL Globulin (2.2-3.9) gm/dL Albumin/Globulin Ratio (1.0-2.1) 08/05/17 08/05/17 08/04/17 Range/Units 04:20 04:20 21:21 WBC 7.8 (4.8-10.8) K/uL RBC 4.28 (3.80-5.20) Mil/uL Hgb 13.0 (12.0-16.0) g/dL Hct 37.9 (34.0-47.0) % MCV 88.6 (81.0-99.0) fl MCH 30.4 (27.0-31.0) pg MCHC 34.3 (33.0-37.0) g/dL RDW 13.9 (11.5-14.5) % Plt Count 257 (130-400) K/uL Sodium 124 L (132-148) mmol/l Potassium 4.5 (3.6-5.0) MMOL/L Chloride 89 L (98-107) mmol/L Carbon Dioxide 22 (22-30) mmol/L Anion Gap 18 (10-20) BUN 20 H (7-17) mg/dl Creatinine 0.7 (0.7-1.2) mg/dl Est GFR ( Amer) > 60 Est GFR (Non-Af Amer) > 60 POC Glucose (mg/dL) 158 H (65-110) mg/dL Random Glucose 257 H (65-105) mg/dL Calcium 8.8 (8.4-10.2) mg/dL Total Bilirubin 0.5 (0.2-1.3) mg/dl AST 31 (14-36) U/L ALT 35 (9-52) U/L Alkaline Phosphatase 67 (38-126) U/L Total Protein 7.3 (6.3-8.2) G/DL Albumin 4.0 (3.5-5.0) g/dL Globulin 3.3 (2.2-3.9) gm/dL Albumin/Globulin Ratio 1.2 (1.0-2.1) 08/04/17 Range/Units 15:39 WBC (4.8-10.8) K/uL RBC (3.80-5.20) Mil/uL Hgb (12.0-16.0) g/dL Hct (34.0-47.0) % MCV (81.0-99.0) fl MCH (27.0-31.0) pg MCHC (33.0-37.0) g/dL RDW (11.5-14.5) % Plt Count (130-400) K/uL Sodium (132-148) mmol/l Potassium (3.6-5.0) MMOL/L Chloride (98-107) mmol/L Carbon Dioxide (22-30) mmol/L Anion Gap (10-20) BUN (7-17) mg/dl Creatinine (0.7-1.2) mg/dl Est GFR ( Amer) Est GFR (Non-Af Amer) POC Glucose (mg/dL) 114 H (65-110) mg/dL Random Glucose (65-105) mg/dL Calcium (8.4-10.2) mg/dL Total Bilirubin (0.2-1.3) mg/dl AST (14-36) U/L ALT (9-52) U/L Alkaline Phosphatase (38-126) U/L Total Protein (6.3-8.2) G/DL Albumin (3.5-5.0) g/dL Globulin (2.2-3.9) gm/dL Albumin/Globulin Ratio (1.0-2.1) Laboratory Results - last 24 hr 08/04/17 08/04/17 08/05/17 15:39 21:21 04:20 WBC 7.8 RBC 4.28 Hgb 13.0 Hct 37.9 MCV 88.6 MCH 30.4 MCHC 34.3 RDW 13.9 Plt Count 257 Sodium Potassium Chloride Carbon Dioxide Anion Gap BUN Creatinine Est GFR ( Amer) Est GFR (Non-Af Amer) POC Glucose (mg/dL) 114 H 158 H Random Glucose Calcium Total Bilirubin AST ALT Alkaline Phosphatase Total Protein Albumin Globulin Albumin/Globulin Ratio 08/05/17 08/05/17 08/05/17 04:20 04:58 10:35 WBC RBC Hgb Hct MCV MCH MCHC RDW Plt Count Sodium 124 L Potassium 4.5 Chloride 89 L Carbon Dioxide 22 Anion Gap 18 BUN 20 H Creatinine 0.7 Est GFR ( Amer) > 60 Est GFR (Non-Af Amer) > 60 POC Glucose (mg/dL) 271 H 322 H Random Glucose 257 H Calcium 8.8 Total Bilirubin 0.5 AST 31 ALT 35 Alkaline Phosphatase 67 Total Protein 7.3 Albumin 4.0 Globulin 3.3 Albumin/Globulin Ratio 1.2 08/05/17 16:08 WBC RBC Hgb Hct MCV MCH MCHC RDW Plt Count Sodium Potassium Chloride Carbon Dioxide Anion Gap BUN Creatinine Est GFR ( Amer) Est GFR (Non-Af Amer) POC Glucose (mg/dL) 315 H Random Glucose Calcium Total Bilirubin AST ALT Alkaline Phosphatase Total Protein Albumin Globulin Albumin/Globulin Ratio EKG/Cardiology Interpretations (Free Text): Today's 08/05 study: Sinus 73/min, normal, no acute changes. Fingerstick Blood Sugar Results: 271 Review of Systems - Review of Systems All systems: reviewed and no additional remarkable complaints except (as above) Critical Care Progress Note - Extremities/Vascular Does the Patient have a Central Venous Catheter?: No Does the Patient need a Central Venous Catheter?: No Does the Patient have a Galvan Catheter?: No Does the Patient need a Galvan Catheter?: No - Prophylaxis GI Prophylaxis GI: Not Indicated - Prophylaxis DVT Prophylaxis DVT: Lovenox - Nutrition Nutrition: Nutrition Category Date Time Status Heart Healthy Diet [DIET] Diets 08/03/17 Breakfast Active
--- NOTE | 2017-08-05 18:46 | CP.CCUPN ---
CCU Subjective - Physician Review Subjective (Free Text): Just developed an episode of nausea and vomiting associated with drop chanel HR to 30s manifest a sinus carole, bradycardia quickly resolved back to usual HR of 75 in sinus rhythm, and BP at 115/73. No Wenkebach or Mobitz II phenomenon observed. Review of meds show she had rec d a dose of Meclizine approx 90 mins earlier. Will continue close cardiac monitoring, transcutaneous pacer kept at the bedside and pads placed in the interim. Settings ordered for MA 10, rate = 70, on demand should significant bradycardia occur again with HR below 50.
--- NOTE | 2017-08-05 19:47 | CP.PCM.PN ---
Subjective - Date & Time of Evaluation Date of Evaluation: 08/05/17 Time of Evaluation: 16:00 - Subjective Subjective: 56 yo female with bipolar disease,DM, and hypertension admitted with episodes of transient vision loss and feeling unsteady. While in the telemetry unit some pauses seen in her heart rhythm and she was transferred to the ICU. Was having before the tranfer some nausea and diarrhea. She states that those symptoms have resolved. Objective - Vital Signs/Intake and Output Vital Signs (last 24 hours): Temp Pulse Resp BP Pulse Ox 98.7 F 72 16 109/68 98 08/05/17 17:00 08/05/17 17:00 08/05/17 17:00 08/05/17 17:00 08/05/17 17:00 - Medications Medications: Current Medications Aripiprazole (Abilify) 2 mg PO DAILY [facility] Last Admin: 08/05/17 09:29 Dose: 2 mg Aspirin (Ecotrin) 81 mg PO DAILY [facility] Last Admin: 08/05/17 09:30 Dose: 81 mg Atorvastatin Calcium (Lipitor) 20 mg PO DAILY [facility] Last Admin: 08/05/17 09:32 Dose: 20 mg Clopidogrel Bisulfate (Plavix) 75 mg PO DAILY [facility] Last Admin: 08/05/17 09:32 Dose: 75 mg Desmopressin Acetate (Ddavp) 1 spr YAMILE BID [facility] Last Admin: 08/05/17 17:14 Dose: Not Given Dextrose (Dextrose 50% Inj) 0 ml IVP STAT PRN; Protocol PRN Reason: Hypoglycemia Protocol Enoxaparin Sodium (Lovenox) 40 mg SC DAILY [facility] PRN Reason: Protocol Last Admin: 08/05/17 09:32 Dose: 40 mg Glucagon (Glucagen Diagnostic Kit) 0 mg IM STAT PRN; Protocol PRN Reason: Hypoglycemia Protocol Insulin Detemir (Levemir) 36 units SC HS [facility] Insulin Human Lispro (Humalog) 0 units SC ACHS [facility] Last Admin: 08/05/17 17:11 Dose: 2 units Insulin Human Lispro (Humalog) 16 units SC ACTID [facility] Meclizine HCl (Antivert) 25 mg PO TID [facility] Last Admin: 08/05/17 17:06 Dose: 25 mg Metformin HCl (Glucophage) 1,000 mg PO BID [facility] Last Admin: 08/05/17 17:08 Dose: 1,000 mg Saccharomyces Boulardii (Florastor) 250 mg PO BID [facility] Last Admin: 08/05/17 17:07 Dose: 250 mg Sertraline HCl (Zoloft) 50 mg PO DAILY [facility] Last Admin: 08/05/17 09:34 Dose: 50 mg Sodium Chloride (Sodium Chloride Tab) 1 gm PO BID [facility] Last Admin: 08/05/17 17:08 Dose: 1 gm Timolol Maleate (Timoptic 0.25% Ophth Soln) 1 drop OU BID [facility] Last Admin: 08/05/17 09:33 Dose: 1 drop - Labs Labs: 08/05/17 04:20 08/05/17 04:20 PT 10.8 Seconds (9.8-13.1) 07/30/17 11:33 INR 1.0 (0.9-1.2) 07/30/17 11:33 APTT 26.7 Seconds (25.6-37.1) 07/30/17 11:33 - Head Exam Head Exam: ATRAUMATIC - Eye Exam Eye Exam: Normal appearance - ENT Exam ENT Exam: Normal Exam - Neck Exam Neck Exam: Full ROM - Respiratory Exam Respiratory Exam: Clear to Ausculation Bilateral - Cardiovascular Exam Cardiovascular Exam: REGULAR RHYTHM, +S1, +S2 - GI/Abdominal Exam GI & Abdominal Exam: Soft, Normal Bowel Sounds. absent: Tenderness - Rectal Exam Rectal Exam: Deferred - Extremities Exam Extremities Exam: Normal Inspection Assessment and Plan (1) Diarrhea Assessment & Plan: Patient today feeling better and symptoms have resolved. Status: Acute
--- NOTE | 2017-08-05 20:23 | PN ---
DATE: SUBJECTIVE: Around 03:30 p.m. in my medical rounds, I was first notified about the patient's significant pauses. The patient on the monitor was noted to have had three 3.6 second pauses of non-conducted sinus beats as well as runs of Mobitz I second degree AV block, periods of 2:1 conduction. The patient did experience darkening of her vision at that time as she was in bed. The patient stated that similar to what happened to her in the past. The patient did present on admission because of dizziness, but there was no syncope. The patient at this time, was comfortable. PHYSICAL EXAMINATION VITAL SIGNS: Blood pressure 110/63, heart rate 70, temperature 98.4 and respirations 18. HEENT: Normocephalic. CHEST: Clear. HEART: S1 and S2 regular. EXTREMITIES: No edema. LABORATORY DATA: SMA-7, sodium 124, potassium 4.5, chloride 89, CO2 of 22, glucose 257, BUN 20 and creatinine 0.7. Calcium is 8.8. Today's CBC is entirely within normal limit. Today's EKG after the episodes of high-grade AV block revealed normal sinus rhythm at rate of 73. ASSESSMENT: 1. High-grade atrioventricular block with recurrent pauses of 3.6 seconds of non-conducted sinus beats as well as periods of 2:1 conduction. 2. History of depression, the patient is on Abilify. 3. Diabetes insipidus. 4. Uncontrolled diabetes mellitus. RECOMMENDATIONS: Case was discussed with video editing intern Dr. Art Flor, who will observe the patient in ICU. I will discuss with Dr. Iqbal, the decision about having relations coordinator evaluate the patient for possible need for pacemaker as at this time there is none available at [facility]. In the meantime, I requested Psychiatry evaluation to make decision of discontinuing Abilify as according to the review it can be incriminated in AV block pauses. An external pacemaker will be placed on a standby. In the meantime, TSH level on the day of admission was within normal limits. The patient has not seen a psychiatrist for almost 5 years. Abilify is being prescribed by her PMD who happens to be her brother in Law Addendum The patient was transferred to ICU Dr. Schreiber was called for EP consult, case was discussed with him Episodes of High grade AV block recurred this evening and I ordered Atropine 0.5 mg IVP PRN External standby pacemaker settings were ordered Hesham Anand MD QASIM
--- NOTE | 2017-08-05 21:11 | CARD ---
APPROVED REPORT EKG Measurement Heart [id number] <Conclusion> Normal sinus rhythm Normal ECG
[2017-08-05] MEDS: Insulin Detemir 100 Units/ml Inj SC SCH (22:51)
--- NOTE | 2017-08-05 22:54 | PN ---
ENDOCRINOLOGY FOLLOWUP NOTE DATE: LOCATION: Room 404. SUBJECTIVE: This is a 56-year-old female with recent uncontrolled type 2 insulin-requiring diabetes now being followed closely for metabolic management. Her glycemic levels continue to fluctuate with the variability of her oral intake as noted. Her glucose values today have ranged from 271 to 322 mg/dL. Her latest chemistry showed a BUN of 20, sodium 124, potassium 4.5, chloride 89, CO2 of 22, glucose 257 and creatinine 0.7. So at this time we will modify once again her basal insulin and increase the Levemir to 36 units subcu at bedtime daily to start tonight. We will also increase her Humalog to 16 units subcu t.i.d. before meals to start tomorrow morning as ordered. We will titrate incrementally as indicated to optimize metabolic control. We will also continue the low-dose correction scale given a.c. and at bedtime as ordered to hypoglycemia and detailed orders have been given. We will follow and advise accordingly. Kelsey Rosenbaum MD
[2017-08-06 05:36] LABS: HEMOGLOBIN 13.4 g/dL (12.0-16.0); MEAN CELL VOLUME 88.8 fl (81.0-99.0); MEAN CORPUSCULAR HEMOGLOBIN 29.9 pg (27.0-31.0); MEAN CORPUSCULAR HGB CONC 33.6 g/dL (33.0-37.0); RBC 4.5 Mil/uL (3.80-5.20); RED CELL DISTRIBUTION WIDTH 13.7 % (11.5-14.5); WHITE BLOOD COUNT 5.8 K/uL (4.8-10.8)
[2017-08-06 05:54] LABS: BLOOD UREA NITROGEN 16 mg/dl (7-17); CALCIUM 9.1 mg/dL (8.4-10.2); GFR AFRICAN-AMERICAN > 60; GFR NON-AFRICAN AMERICAN > 60
[2017-08-06] MEDS: Insulin Lispro (humaLOG) 100 Units/ml Inj SC SCH ×7 (06:49→22:54)
--- NOTE | 2017-08-06 08:26 | CP.PCM.PN ---
Subjective - Date & Time of Evaluation Date of Evaluation: 08/06/17 Time of Evaluation: 07:00 - Subjective Subjective: Patient evaluated at bedside with Dr Katz this morning during rounds. Stable. Yesterday events noted. Patient on ICU after episodes of complete HB on monitor. She denies any headache, dizziness, weakness, but states of experiencing nausea, vomiting, and diarrhea yesterday that resolved. Afebrile. Objective - Vital Signs/Intake and Output Vital Signs (last 24 hours): Temp Pulse Resp BP Pulse Ox 97.6 F 63 14 108/71 94 L 08/06/17 04:00 08/06/17 06:00 08/06/17 06:00 08/06/17 06:00 08/06/17 06:00 Intake and Output: 08/06/17 08/06/17 06:59 18:59 Intake Total 220 Output Total 150 Balance 70 - Medications Medications: Current Medications Aripiprazole (Abilify) 2 mg PO DAILY [facility] Last Admin: 08/05/17 09:29 Dose: 2 mg Aspirin (Ecotrin) 81 mg PO DAILY [facility] Last Admin: 08/05/17 09:30 Dose: 81 mg Atorvastatin Calcium (Lipitor) 20 mg PO DAILY [facility] Last Admin: 08/05/17 09:32 Dose: 20 mg Atropine Sulfate (Atropine) 0.5 mg IVP PRN PRN PRN Reason: LOW HR Clopidogrel Bisulfate (Plavix) 75 mg PO DAILY [facility] Last Admin: 08/05/17 09:32 Dose: 75 mg Desmopressin Acetate (Ddavp) 1 spr YAMILE BID [facility] Last Admin: 08/05/17 17:14 Dose: Not Given Dextrose (Dextrose 50% Inj) 0 ml IVP STAT PRN; Protocol PRN Reason: Hypoglycemia Protocol Enoxaparin Sodium (Lovenox) 40 mg SC DAILY [facility] PRN Reason: Protocol Last Admin: 08/05/17 09:32 Dose: 40 mg Glucagon (Glucagen Diagnostic Kit) 0 mg IM STAT PRN; Protocol PRN Reason: Hypoglycemia Protocol Insulin Detemir (Levemir) 36 units SC HS [facility] Last Admin: 08/05/17 22:51 Dose: 36 units Insulin Human Lispro (Humalog) 0 units SC ACHS [facility] Last Admin: 08/06/17 06:49 Dose: Not Given Insulin Human Lispro (Humalog) 16 units SC ACTID [facility] Meclizine HCl (Antivert) 25 mg PO TID [facility] Last Admin: 08/05/17 17:06 Dose: 25 mg Metformin HCl (Glucophage) 1,000 mg PO BID [facility] Last Admin: 08/05/17 17:08 Dose: 1,000 mg Ondansetron HCl (Zofran Inj) 4 mg IVP Q6 PRN PRN Reason: Nausea/Vomiting Saccharomyces Boulardii (Florastor) 250 mg PO BID [facility] Last Admin: 08/05/17 17:07 Dose: 250 mg Sertraline HCl (Zoloft) 50 mg PO DAILY [facility] Last Admin: 08/05/17 09:34 Dose: 50 mg Sodium Chloride (Sodium Chloride Tab) 1 gm PO BID [facility] Last Admin: 08/05/17 17:08 Dose: 1 gm Timolol Maleate (Timoptic 0.25% Ophth Soln) 1 drop OU BID [facility] Last Admin: 08/05/17 09:33 Dose: 1 drop - Labs Labs: 08/06/17 05:00 08/06/17 05:00 PT 10.8 Seconds (9.8-13.1) 07/30/17 11:33 INR 1.0 (0.9-1.2) 07/30/17 11:33 APTT 26.7 Seconds (25.6-37.1) 07/30/17 11:33 - Constitutional Appears: Non-toxic, No Acute Distress - Head Exam Head Exam: NORMAL INSPECTION - Eye Exam Eye Exam: EOMI, PERRL - ENT Exam ENT Exam: Mucous Membranes Moist - Respiratory Exam Respiratory Exam: Clear to Ausculation Bilateral, NORMAL BREATHING PATTERN - Cardiovascular Exam Cardiovascular Exam: REGULAR RHYTHM, +S1, +S2. absent: Gallop - GI/Abdominal Exam GI & Abdominal Exam: Soft, Normal Bowel Sounds. absent: Tenderness - Neurological Exam Neurological Exam: Alert, Awake - Skin Skin Exam: Normal Color, Warm Assessment and Plan - Assessment and Plan (Free Text) Assessment: Near syncope Complete HB yesterday on monitor and intermittent episodes of bradycardia noticed Cardiology consult appreciated Vomiting/Diarrhea improving Complete HB Likely chronic Intermittent Poss cause of near syncope episodes EKG unremarkable Cardiology consulted EP consulted: No intervention at this time noted Psych meds held as well Timolol drops, Desmopressin and Midodrin Monitor
[2017-08-06] MEDS: Saccharomyces Boulardi 250 mg Cap PO SCH ×2 (08:45→17:42)
[2017-08-06] MEDS: Enoxaparin 40 mg Syringe SC SCH (09:16)
--- NOTE | 2017-08-06 10:07 | CP.PCM.PN ---
Subjective - Date & Time of Evaluation Date of Evaluation: 08/06/17 Time of Evaluation: 10:01 - Subjective Subjective: Ms. Frias was seen and examined at the bedside in ICU. She is alert, oriented in all spheres. She denies any headache, dizziness, weakness, but states of experiencing nausea, vomiting, and diarrhea yesterday. The patient had an episode of heart blocks which she was transferred from the telemetry to ICU. Physical Therapy Nurse is on board. Objective - Vital Signs/Intake and Output Vital Signs (last 24 hours): Temp Pulse Resp BP Pulse Ox 98.0 F 64 16 93/60 L 98 08/06/17 08:00 08/06/17 08:00 08/06/17 08:00 08/06/17 08:00 08/06/17 08:00 Intake and Output: 08/06/17 08/06/17 06:59 18:59 Intake Total 220 Output Total 150 Balance 70 - Medications Medications: Current Medications Aripiprazole (Abilify) 2 mg PO DAILY [facility] Last Admin: 08/05/17 09:29 Dose: 2 mg Aspirin (Ecotrin) 81 mg PO DAILY [facility] Last Admin: 08/06/17 08:45 Dose: 81 mg Atorvastatin Calcium (Lipitor) 20 mg PO DAILY [facility] Last Admin: 08/06/17 09:02 Dose: Not Given Atropine Sulfate (Atropine) 0.5 mg IVP PRN PRN PRN Reason: LOW HR Clopidogrel Bisulfate (Plavix) 75 mg PO DAILY [facility] Last Admin: 08/06/17 08:45 Dose: 75 mg Desmopressin Acetate (Ddavp) 1 spr YAMILE BID [facility] Last Admin: 08/05/17 17:14 Dose: Not Given Dextrose (Dextrose 50% Inj) 0 ml IVP STAT PRN; Protocol PRN Reason: Hypoglycemia Protocol Enoxaparin Sodium (Lovenox) 40 mg SC DAILY [facility] PRN Reason: Protocol Last Admin: 08/06/17 09:16 Dose: 40 mg Glucagon (Glucagen Diagnostic Kit) 0 mg IM STAT PRN; Protocol PRN Reason: Hypoglycemia Protocol Insulin Detemir (Levemir) 36 units SC HS [facility] Last Admin: 08/05/17 22:51 Dose: 36 units Insulin Human Lispro (Humalog) 0 units SC ACHS [facility] Last Admin: 08/06/17 06:49 Dose: Not Given Insulin Human Lispro (Humalog) 16 units SC ACTID [facility] Last Admin: 08/06/17 08:47 Dose: 16 units Meclizine HCl (Antivert) 25 mg PO TID [facility] Last Admin: 08/05/17 17:06 Dose: 25 mg Metformin HCl (Glucophage) 1,000 mg PO BID [facility] Last Admin: 08/06/17 08:45 Dose: 1,000 mg Ondansetron HCl (Zofran Inj) 4 mg IVP Q6 PRN PRN Reason: Nausea/Vomiting Saccharomyces Boulardii (Florastor) 250 mg PO BID [facility] Last Admin: 08/06/17 08:45 Dose: 250 mg Sertraline HCl (Zoloft) 50 mg PO DAILY [facility] Last Admin: 08/05/17 09:34 Dose: 50 mg Sodium Chloride (Sodium Chloride Tab) 1 gm PO BID [facility] Last Admin: 08/06/17 08:45 Dose: 1 gm Timolol Maleate (Timoptic 0.25% Ophth Soln) 1 drop OU BID [facility] Last Admin: 08/05/17 09:33 Dose: 1 drop - Labs Labs: 08/06/17 05:00 08/06/17 05:00 PT 10.8 Seconds (9.8-13.1) 07/30/17 11:33 INR 1.0 (0.9-1.2) 07/30/17 11:33 APTT 26.7 Seconds (25.6-37.1) 07/30/17 11:33 - Constitutional Appears: No Acute Distress - Head Exam Head Exam: NORMAL INSPECTION - Neurological Exam Neurological Exam: Alert, Awake, Oriented x3 Neuro motor strength exam: Left Upper Extremity: 5, Right Upper Extremity: 5, Left Lower Extremity: 5, Right Lower Extremity: 5 Additional comments: Neurological unchanged from previous examination. Assessment and Plan (1) Neurocardiogenic pre-syncope Assessment & Plan: case discussed with Dr. Balbuena, continue all current medical regimen. Follow ant recommendations from the liquor merchant. Status: Acute
--- NOTE | 2017-08-06 13:12 | CP.CCUPN ---
CCU Subjective - Physician Review Subjective (Free Text): Awake and alert. No recurrent bradycardic episodes or pauses since last event yesterday early evening. Aware patient refused advice for PPM after evaluation by EP Grip Wrapper. Oral intake of flood and fluids have been satisfactory and not excessive. No further nausea or vomiting, and even Diarrhea has resolved. She denies any abdominal discomfort now. Other VS and I/Os reviewed. ROS: No other pertinent negs or positives on 10+ system review. PMSFH: All other Nursing and physician documentation reviewed to date; no new pertinent info noted relevant to current medical problems IMPRESSION / MAJOR PROBLEMS NOW: 1. Correction: High Grade AV Block: r/o 2 Electrolyte abnormalities versus Psych meds, Midodrine, also on Timolol eye gtts. 2. New Hyponatremia occurring 4 days after admission- resolving 3. Increasing Azotemia-resolving 4. Uncontrolled DM II 5. h/o BiPolar Disorder: admits to not having seen a Psychiatrist in over 5 yrs. Meds refilled by my Primary MD (Dr. Huey Glaser) in consultation with a Psychiatrist. PLAN: 1. Telemetry / ICU monitoring. Continue to hold all Psych meds and other meds with PROJECT ENG effects. Unclear if bradycardia causing vagal GI effects, or v.v. 2. Stopped Midodrine, Meclizine. Patient states usual SBP has been in the mid 90s low 100s. 3. Consider Psych eval: assess necessity of Abilify and Zoloft, both of which have Cardio AV-blocking effects. 4. Correcting serum Na levels over the next 48-72 hours: no need now for short term infusion of Saline / 3% saline to bring Na level above 125-128. Stopped Desmopressin since yesterday afternoon. Patient states she usually takes Desmopressin only once a day at home. CCU Objective - Vital Signs / Intake & Output Vital Signs (Last 4 hours): Vital Signs Pulse Resp BP Pulse Ox 08/06/17 10:00 77 18 106/72 99 Intake and Output (Last 8hrs): Intake & Output 08/05/17 08/06/17 08/06/17 22:59 06:59 14:59 Intake Total 10 210 240 Output Total 150 Balance 10 60 240 Intake: IV 10 10 Oral 200 240 Output: Urine 150 Urine, Voided 150 Other: # Bowel Movements 1 - Physical Exam Head: Positive for: Normocephalic Pupils: Positive for: PERRL Extroacular Muscles: Positive for: EOMI Conjunctiva: Positive for: Normal. Negative for: Icteric Mouth: Positive for: Moist Mucous Membranes Neck: Positive for: Normal Range of Motion. Negative for: JVD Respiratory/Chest: Positive for: Clear to Auscultation Cardiovascular: Positive for: Regular Rate and Rhythm Abdomen: Positive for: Normal Bowel Sounds. Negative for: Tenderness, Distention, Mass/Organomegaly Lower Extremity: Positive for: NORMAL PULSES, Capillary Refill < 2 s. Negative for: CALF TENDERNESS, Cyanosis Neurological: Positive for: GCS=15, Motor Func Grossly Intact, Normal Sensory Function Skin: Positive for: Warm, Dry. Negative for: Rashes Psychiatric: Positive for: Alert, Oriented x 3, Normal Affect - Medications Active Medications: Active Medications Generic Name Dose Route Start Last Admin Trade Name Freq PRN Reason Stop Dose Admin Aripiprazole 2 mg 07/31/17 09:00 08/05/17 09:29 Abilify PO 2 mg DAILY [facility] Administration Aspirin 81 mg 07/31/17 09:00 08/06/17 08:45 Ecotrin PO 81 mg DAILY [facility] Administration Atorvastatin Calcium 20 mg 07/30/17 17:00 08/06/17 09:02 Lipitor PO Not Given DAILY [facility] Atropine Sulfate 0.5 mg 08/06/17 04:00 Atropine IVP PRN PRN LOW HR Clopidogrel Bisulfate 75 mg 07/31/17 10:15 08/06/17 08:45 Plavix PO 75 mg DAILY [facility] Administration Desmopressin Acetate 1 spr 07/30/17 23:30 08/05/17 17:14 Ddavp YAMILE Not Given BID [facility] Dextrose 0 ml 07/31/17 08:03 Dextrose 50% Inj IVP STAT PRN Hypoglycemia Protocol Protocol Enoxaparin Sodium 40 mg 08/04/17 09:00 08/06/17 09:16 Lovenox SC 40 mg DAILY [facility] Administration Protocol Glucagon 0 mg 07/31/17 08:03 Glucagen Diagnostic Kit IM STAT PRN Hypoglycemia Protocol Protocol Insulin Detemir 36 units 08/05/17 22:00 08/05/17 22:51 Levemir SC 36 units HS [facility] Administration Insulin Human Lispro 0 units 07/31/17 16:30 08/06/17 06:49 Humalog SC Not Given ACHS [facility] Insulin Human Lispro 16 units 08/06/17 07:30 08/06/17 08:47 Humalog SC 16 units ACTID [facility] Administration Meclizine HCl 25 mg 08/03/17 09:00 08/05/17 17:06 Antivert PO 25 mg TID [facility] Administration Metformin HCl 1,000 mg 07/30/17 17:00 08/06/17 08:45 Glucophage PO 1,000 mg BID [facility] Administration Ondansetron HCl 4 mg 08/06/17 00:54 Zofran Inj IVP Q6 PRN Nausea/Vomiting Saccharomyces Boulardii 250 mg 08/05/17 09:00 08/06/17 08:45 Florastor PO 250 mg BID [facility] Administration Sertraline HCl 50 mg 07/31/17 09:00 08/05/17 09:34 Zoloft PO 50 mg DAILY [facility] Administration Sodium Chloride 1 gm 08/03/17 09:00 08/06/17 08:45 Sodium Chloride Tab PO 1 gm BID [facility] Administration Timolol Maleate 1 drop 08/01/17 14:15 08/05/17 09:33 Timoptic 0.25% Ophth Soln OU 1 drop BID [facility] Administration - Patient Studies Lab Studies: Microbiology Studies 08/03/17 16:28 Stool Culture - Final Stool NO SALMONELLA, SHIGELLA OR CAMPYLOBACTER ISOLATED. Lab Studies 08/06/17 08/06/17 08/06/17 Range/Units 06:30 05:00 05:00 WBC 5.8 (4.8-10.8) K/uL RBC 4.50 (3.80-5.20) Mil/uL Hgb 13.4 (12.0-16.0) g/dL Hct 40.0 (34.0-47.0) % MCV 88.8 (81.0-99.0) fl MCH 29.9 (27.0-31.0) pg MCHC 33.6 (33.0-37.0) g/dL RDW 13.7 (11.5-14.5) % Plt Count 252 (130-400) K/uL Sodium 128 L (132-148) mmol/l Potassium 3.9 (3.6-5.0) MMOL/L Chloride 94 L (98-107) mmol/L Carbon Dioxide 24 (22-30) mmol/L Anion Gap 14 (10-20) BUN 16 (7-17) mg/dl Creatinine 0.5 L (0.7-1.2) mg/dl Est GFR ( Amer) > 60 Est GFR (Non-Af Amer) > 60 POC Glucose (mg/dL) 142 H (65-110) mg/dL Random Glucose 146 H (65-105) mg/dL Calcium 9.1 (8.4-10.2) mg/dL 08/05/17 08/05/17 08/05/17 Range/Units 21:32 16:08 15:41 WBC (4.8-10.8) K/uL RBC (3.80-5.20) Mil/uL Hgb (12.0-16.0) g/dL Hct (34.0-47.0) % MCV (81.0-99.0) fl MCH (27.0-31.0) pg MCHC (33.0-37.0) g/dL RDW (11.5-14.5) % Plt Count (130-400) K/uL Sodium (132-148) mmol/l Potassium (3.6-5.0) MMOL/L Chloride (98-107) mmol/L Carbon Dioxide (22-30) mmol/L Anion Gap (10-20) BUN (7-17) mg/dl Creatinine (0.7-1.2) mg/dl Est GFR ( Amer) Est GFR (Non-Af Amer) POC Glucose (mg/dL) 176 H 315 H 304 H (65-110) mg/dL Random Glucose (65-105) mg/dL Calcium (8.4-10.2) mg/dL Laboratory Results - last 24 hr 08/05/17 08/05/17 08/05/17 15:41 16:08 21:32 WBC RBC Hgb Hct MCV MCH MCHC RDW Plt Count Sodium Potassium Chloride Carbon Dioxide Anion Gap BUN Creatinine Est GFR ( Amer) Est GFR (Non-Af Amer) POC Glucose (mg/dL) 304 H 315 H 176 H Random Glucose Calcium 08/06/17 08/06/17 08/06/17 05:00 05:00 06:30 WBC 5.8 RBC 4.50 Hgb 13.4 Hct 40.0 MCV 88.8 MCH 29.9 MCHC 33.6 RDW 13.7 Plt Count 252 Sodium 128 L Potassium 3.9 Chloride 94 L Carbon Dioxide 24 Anion Gap 14 BUN 16 Creatinine 0.5 L Est GFR ( Amer) > 60 Est GFR (Non-Af Amer) > 60 POC Glucose (mg/dL) 142 H Random Glucose 146 H Calcium 9.1 Fingerstick Blood Sugar Results: 142 Review of Systems - Review of Systems All systems: reviewed and no additional remarkable complaints except (as above) Critical Care Progress Note - Nutrition Nutrition: Nutrition Category Date Time Status Heart Healthy Diet [DIET] Diets 08/03/17 Breakfast Active
[2017-08-06] MEDS: Timolol 0.25% Ophth SOLN OU SCH (16:06)
--- NOTE | 2017-08-06 21:37 | PN ---
ENDOCRINOLOGY FOLLOWUP NOTE DATE: LOCATION: Room 434, ICU. SUBJECTIVE: This is a 56-year-old female with recent uncontrolled type 2 insulin-requiring diabetes with near optimal metabolic control as noted and is now also being followed closely for metabolic management. Her glycemic levels are fluctuating, but much improved at this time and the latest glucose levels have ranged from 115 to 142 mg/dL. It was 176 at bedtime last night. Her latest chemistry showed a BUN of 16, sodium 128, potassium 3.9, chloride 94, CO2 of 24, glucose 146 and creatinine 0.5. She was transferred to ICU for closer hemodynamic monitoring because of sudden onset of bradycardia and hypotension as noted at this time. She is being followed closely now by Cardiology for possible pacemaker insertion as hemodynamically indicated. We will continue her basal insulin given as Levemir at 36 units subcu at bedtime daily as ordered. We will continue also the Humalog given as 16 units subcu t.i.d. before meals as ordered. We will titrate incrementally as indicated to optimize metabolic control. We will follow and advise accordingly. Kelsey Rosenbaum MD
[2017-08-06] MEDS: Insulin Detemir 100 Units/ml Inj SC SCH ×2 (21:59→22:02)
[2017-08-07 05:58] LABS: HEMOGLOBIN 13.1 g/dL (12.0-16.0); MEAN CELL VOLUME 89.3 fl (81.0-99.0); MEAN CORPUSCULAR HEMOGLOBIN 30.5 pg (27.0-31.0); MEAN CORPUSCULAR HGB CONC 34.1 g/dL (33.0-37.0); RBC 4.29 Mil/uL (3.80-5.20); RED CELL DISTRIBUTION WIDTH 14.2 % (11.5-14.5); WHITE BLOOD COUNT 6.2 K/uL (4.8-10.8)
[2017-08-07 06:39] LABS: BLOOD UREA NITROGEN 20 mg/dl (7-17); CALCIUM 9.2 mg/dL (8.4-10.2); GFR AFRICAN-AMERICAN > 60; GFR NON-AFRICAN AMERICAN > 60
[2017-08-07] MEDS: Insulin Lispro (humaLOG) 100 Units/ml Inj SC SCH ×7 (08:00→22:17)
[2017-08-07] MEDS: Saccharomyces Boulardi 250 mg Cap PO SCH ×2 (08:41→16:14)
--- NOTE | 2017-08-07 08:41 | PN ---
DATE: SUBJECTIVE: The patient did have an episode of bradycardia that started yesterday. She was in atrioventricular arrhythmia at that time. She also did have a case of 4-second AV block. The patient did experience vomiting after that. The patient denies any dizziness or syncope. PHYSICAL EXAMINATION: VITAL SIGNS: Blood pressure 106/72, heart rate 77, temperature 98 and respirations 18. HEENT: Normocephalic. CHEST: Clear. HEART: S1 and S2 regular. ABDOMEN: Soft. EXTREMITIES: No edema. LABORATORY DATA: SMA-7, sodium 128, potassium 3.9, chloride 94, CO2 of 24, glucose 146, BUN 16, and creatinine 0.5. Calcium is 9.1. Today's CBC; WBC 5.8, hemoglobin 13.4, hematocrit 40.0, and platelet count . The case was evaluated by Dr. Katz yesterday. According to Dr. Katz, he symptoms and paroxysmal high-grade AV block, but could be due to nausea and vomiting and the , however, is not definite. The patient would at least need an EP study for a regular exercise stress test for , but she is very reluctant for any procedures. ASSESSMENT: 1. Paroxysmal high-grade atrioventricular block. 2. Dizziness on presentation and history of syncope in the past. 3. Diabetes mellitus. 4. Depression. RECOMMENDATIONS: Continue atropine 0.5 mg IV push p.r.n. Continue desmopressin spray. Continue aspirin, Lipitor, and Plavix. When I spoke to the patient today, she refuses either EP study or the idea of pacemaker placement. I discussed the case with the Bilingual Research Interviewer and Psychiatry consult will be requested today. Hesham Anand MD
[2017-08-07] MEDS: Enoxaparin 40 mg Syringe SC SCH (08:42)
--- NOTE | 2017-08-07 10:41 | CP.PCM.PN ---
<JailynHuey - Last Filed: 08/07/17 12:21> Objective - Vital Signs/Intake and Output Vital Signs (last 24 hours): Temp Pulse Resp BP Pulse Ox 98.2 F 77 23 104/67 100 08/07/17 12:00 08/07/17 12:00 08/07/17 12:00 08/07/17 12:00 08/07/17 12:00 Intake and Output: 08/07/17 08/07/17 06:59 18:59 Intake Total 360 360 Output Total 200 300 Balance 160 60 - Medications Medications: Current Medications Aripiprazole (Abilify) 2 mg PO DAILY [facility] Last Admin: 08/05/17 09:29 Dose: 2 mg Aspirin (Ecotrin) 81 mg PO DAILY [facility] Last Admin: 08/07/17 08:42 Dose: 81 mg Atorvastatin Calcium (Lipitor) 20 mg PO DAILY [facility] Last Admin: 08/07/17 08:40 Dose: 20 mg Atropine Sulfate (Atropine) 0.5 mg IVP PRN PRN PRN Reason: LOW HR Clopidogrel Bisulfate (Plavix) 75 mg PO DAILY [facility] Last Admin: 08/07/17 08:41 Dose: 75 mg Desmopressin Acetate (Ddavp) 1 spr YAMILE BID [facility] Last Admin: 08/05/17 17:14 Dose: Not Given Dextrose (Dextrose 50% Inj) 0 ml IVP STAT PRN; Protocol PRN Reason: Hypoglycemia Protocol Glucagon (Glucagen Diagnostic Kit) 0 mg IM STAT PRN; Protocol PRN Reason: Hypoglycemia Protocol Insulin Detemir (Levemir) 36 units SC HS [facility] Last Admin: 08/06/17 22:02 Dose: Not Given Insulin Human Lispro (Humalog) 0 units SC ACHS [facility] Last Admin: 08/07/17 11:17 Dose: Not Given Insulin Human Lispro (Humalog) 16 units SC ACTID [facility] Last Admin: 08/07/17 12:03 Dose: Not Given Meclizine HCl (Antivert) 25 mg PO TID [facility] Last Admin: 08/05/17 17:06 Dose: 25 mg Metformin HCl (Glucophage) 1,000 mg PO BID [facility] Last Admin: 08/07/17 08:40 Dose: 1,000 mg Ondansetron HCl (Zofran Inj) 4 mg IVP Q6 PRN PRN Reason: Nausea/Vomiting Saccharomyces Boulardii (Florastor) 250 mg PO BID [facility] Last Admin: 08/07/17 08:41 Dose: 250 mg Sertraline HCl (Zoloft) 50 mg PO DAILY [facility] Last Admin: 08/05/17 09:34 Dose: 50 mg Sodium Chloride (Sodium Chloride Tab) 1 gm PO BID [facility] Last Admin: 08/07/17 08:41 Dose: 1 gm Timolol Maleate (Timoptic 0.25% Ophth Soln) 1 drop OU BID [facility] Last Admin: 08/06/17 16:06 Dose: Not Given - Labs Labs: 08/07/17 04:41 08/07/17 04:41 PT 10.8 Seconds (9.8-13.1) 07/30/17 11:33 INR 1.0 (0.9-1.2) 07/30/17 11:33 APTT 26.7 Seconds (25.6-37.1) 07/30/17 11:33 <Cole Vargas - Last Filed: 08/07/17 12:50> Subjective - Date & Time of Evaluation Date of Evaluation: 08/07/17 Time of Evaluation: 07:30 - Subjective Subjective: Patient evaluated with Dr Katz during morning rounds. No acute events overnight. Patient stable. She refused EP evaluation/Pacemaker placement. Patient made aware of risk and condition discussed in detail with her today. She has no complains at this time. Objective - Vital Signs/Intake and Output Vital Signs (last 24 hours): Temp Pulse Resp BP Pulse Ox 97.9 F 74 13 111/70 100 08/07/17 08:00 08/07/17 08:00 08/07/17 08:00 08/07/17 08:00 08/07/17 08:00 Intake and Output: 08/07/17 08/07/17 06:59 18:59 Intake Total 360 Output Total 200 Balance 160 - Medications Medications: Current Medications Aripiprazole (Abilify) 2 mg PO DAILY [facility] Last Admin: 08/05/17 09:29 Dose: 2 mg Aspirin (Ecotrin) 81 mg PO DAILY [facility] Last Admin: 08/07/17 08:42 Dose: 81 mg Atorvastatin Calcium (Lipitor) 20 mg PO DAILY [facility] Last Admin: 08/07/17 08:40 Dose: 20 mg Atropine Sulfate (Atropine) 0.5 mg IVP PRN PRN PRN Reason: LOW HR Clopidogrel Bisulfate (Plavix) 75 mg PO DAILY [facility] Last Admin: 08/07/17 08:41 Dose: 75 mg Desmopressin Acetate (Ddavp) 1 spr YAMILE BID [facility] Last Admin: 08/05/17 17:14 Dose: Not Given Dextrose (Dextrose 50% Inj) 0 ml IVP STAT PRN; Protocol PRN Reason: Hypoglycemia Protocol Glucagon (Glucagen Diagnostic Kit) 0 mg IM STAT PRN; Protocol PRN Reason: Hypoglycemia Protocol Insulin Detemir (Levemir) 36 units SC HS [facility] Last Admin: 08/06/17 22:02 Dose: Not Given Insulin Human Lispro (Humalog) 0 units SC ACHS [facility] Last Admin: 08/07/17 08:00 Dose: Not Given Insulin Human Lispro (Humalog) 16 units SC ACTID [facility] Last Admin: 08/07/17 08:03 Dose: 16 units Meclizine HCl (Antivert) 25 mg PO TID [facility] Last Admin: 08/05/17 17:06 Dose: 25 mg Metformin HCl (Glucophage) 1,000 mg PO BID [facility] Last Admin: 08/07/17 08:40 Dose: 1,000 mg Ondansetron HCl (Zofran Inj) 4 mg IVP Q6 PRN PRN Reason: Nausea/Vomiting Saccharomyces Boulardii (Florastor) 250 mg PO BID [facility] Last Admin: 08/07/17 08:41 Dose: 250 mg Sertraline HCl (Zoloft) 50 mg PO DAILY [facility] Last Admin: 08/05/17 09:34 Dose: 50 mg Sodium Chloride (Sodium Chloride Tab) 1 gm PO BID [facility] Last Admin: 08/07/17 08:41 Dose: 1 gm Timolol Maleate (Timoptic 0.25% Ophth Soln) 1 drop OU BID [facility] Last Admin: 08/06/17 16:06 Dose: Not Given - Labs Labs: 08/07/17 04:41 08/07/17 04:41 PT 10.8 Seconds (9.8-13.1) 07/30/17 11:33 INR 1.0 (0.9-1.2) 07/30/17 11:33 APTT 26.7 Seconds (25.6-37.1) 07/30/17 11:33 - Constitutional Appears: Non-toxic, No Acute Distress - Head Exam Head Exam: NORMAL INSPECTION - Eye Exam Eye Exam: EOMI, PERRL - ENT Exam ENT Exam: Mucous Membranes Moist - Respiratory Exam Respiratory Exam: Clear to Ausculation Bilateral, NORMAL BREATHING PATTERN. absent: Rales - Cardiovascular Exam Cardiovascular Exam: REGULAR RHYTHM, +S1, +S2. absent: Gallop - GI/Abdominal Exam GI & Abdominal Exam: Soft, Normal Bowel Sounds. absent: Tenderness - Extremities Exam Extremities Exam: Normal Capillary Refill - Back Exam Back Exam: absent: CVA tenderness (L), CVA tenderness (R) - Neurological Exam Neurological Exam: Alert, Awake, Oriented x3 - Psychiatric Exam Psychiatric exam: Normal Mood - Skin Skin Exam: Normal Color, Warm Assessment and Plan - Assessment and Plan (Free Text) Assessment: 56 y/o F with near syncope episode happened to be diagnosed with paroxysmal complete heart block while in the hosp Paroxysmal complete heart block likely present on admission and the cause of patient's symptoms Cardiology consult appreciated Psych meds stopped for concerns of SE Patient refused PPM Psych consult placed will f/u recs
--- NOTE | 2017-08-07 13:03 | CP.PCM.CON ---
History of Present Illness - History of Present Illness History of Present Illness: 56 y/o F with PMHx of IDDM, HTN, Bipolar disoder and Hyperchol, non compliant with meds, that presented to ED c/o persistent but brief episodes of vision loss in the past week that had happened about 3 times in the past weeks. according to pt she has been diagnosed with bipolar disorder 20 years ago, since then she has been on abilify and zoloft , she currently gets them from her PMD , and has not been seeing her psychiatrist pt reported for a long time with her medications she continues to feel depressed , low energy, increased sleep, denied changes in appetite, denied manic symptoms denied psychotic symptoms denied any current suicidal or homicidal ideations Past Patient History - Past Medical History & Family History Past Medical History?: Yes - Past Social History Alcohol: None - CARDIAC Hx Hypercholesterolemia: Yes - ENDOCRINE/METABOLIC Hx Endocrine Disorders: Yes (DM) Hx Diabetes Mellitus Type 2: Yes - MUSCULOSKELETAL/RHEUMATOLOGICAL Hx Falls: No - PSYCHIATRIC Hx Substance Use: No - SURGICAL HISTORY Other/Comment: X2 - ANESTHESIA Hx Anesthesia: Yes Hx Anesthesia Reactions: No Hx Malignant Hyperthermia: No Meds Allergies/Adverse Reactions: Allergies Allergy/AdvReac Type Severity Reaction Status Date / Time No Known Allergies Allergy Verified 11/27/16 09:12 - Medications Medications: Current Medications Aripiprazole (Abilify) 2 mg PO DAILY [facility] Last Admin: 08/05/17 09:29 Dose: 2 mg Aspirin (Ecotrin) 81 mg PO DAILY [facility] Last Admin: 08/07/17 08:42 Dose: 81 mg Atorvastatin Calcium (Lipitor) 20 mg PO DAILY [facility] Last Admin: 08/07/17 08:40 Dose: 20 mg Atropine Sulfate (Atropine) 0.5 mg IVP PRN PRN PRN Reason: LOW HR Clopidogrel Bisulfate (Plavix) 75 mg PO DAILY [facility] Last Admin: 08/07/17 08:41 Dose: 75 mg Desmopressin Acetate (Ddavp) 1 spr YAMILE BID [facility] Last Admin: 08/05/17 17:14 Dose: Not Given Dextrose (Dextrose 50% Inj) 0 ml IVP STAT PRN; Protocol PRN Reason: Hypoglycemia Protocol Glucagon (Glucagen Diagnostic Kit) 0 mg IM STAT PRN; Protocol PRN Reason: Hypoglycemia Protocol Insulin Detemir (Levemir) 36 units SC [facility] Last Admin: 08/06/17 22:02 Dose: Not Given Insulin Human Lispro (Humalog) 0 units SC ACHS [facility] Last Admin: 08/07/17 11:17 Dose: Not Given Insulin Human Lispro (Humalog) 16 units SC ACTID [facility] Last Admin: 08/07/17 12:03 Dose: Not Given Meclizine HCl (Antivert) 25 mg PO TID [facility] Last Admin: 08/05/17 17:06 Dose: 25 mg Metformin HCl (Glucophage) 1,000 mg PO BID [facility] Last Admin: 08/07/17 08:40 Dose: 1,000 mg Ondansetron HCl (Zofran Inj) 4 mg IVP Q6 PRN PRN Reason: Nausea/Vomiting Saccharomyces Boulardii (Florastor) 250 mg PO BID [facility] Last Admin: 08/07/17 08:41 Dose: 250 mg Sertraline HCl (Zoloft) 50 mg PO DAILY [facility] Last Admin: 08/05/17 09:34 Dose: 50 mg Sodium Chloride (Sodium Chloride Tab) 1 gm PO BID [facility] Last Admin: 08/07/17 08:41 Dose: 1 gm Timolol Maleate (Timoptic 0.25% Ophth Soln) 1 drop OU BID [facility] Last Admin: 08/06/17 16:06 Dose: Not Given Physical Exam - Psychiatric Exam Additional comments: pt seen in bed , calm cooperative, speech normal thought form coherent , mood reported down affect constricted , denied any current suicidal or homicidal ideations denied perceptual disturbances, alert awake ox3 fair insight and judgement Results - Vital Signs Recent Vital Signs: Last Vital Signs Temp 98.2 F 08/07/17 12:00 Pulse 77 08/07/17 12:00 Resp 23 08/07/17 12:00 BP 104/67 08/07/17 12:00 Pulse Ox 100 08/07/17 12:00 - Labs Result Diagrams: 08/07/17 04:41 08/07/17 04:41 Labs: Laboratory Results - last 24 hr 08/06/17 08/06/17 08/06/17 13:14 16:53 21:53 WBC RBC Hgb Hct MCV MCH MCHC RDW Plt Count Sodium Potassium Chloride Carbon Dioxide Anion Gap BUN Creatinine Est GFR ( Amer) Est GFR (Non-Af Amer) POC Glucose (mg/dL) 115 H 118 H 131 H Random Glucose Calcium 08/07/17 08/07/17 08/07/17 04:41 04:41 05:50 WBC 6.2 RBC 4.29 Hgb 13.1 Hct 38.3 MCV 89.3 MCH 30.5 MCHC 34.1 RDW 14.2 Plt Count 256 Sodium 132 Potassium 4.7 Chloride 99 Carbon Dioxide 22 Anion Gap 16 BUN 20 H Creatinine 0.7 Est GFR ( Amer) > 60 Est GFR (Non-Af Amer) > 60 POC Glucose (mg/dL) 158 H Random Glucose 153 H Calcium 9.2 08/07/17 08/07/17 07:58 11:14 WBC RBC Hgb Hct MCV MCH MCHC RDW Plt Count Sodium Potassium Chloride Carbon Dioxide Anion Gap BUN Creatinine Est GFR ( Amer) Est GFR (Non-Af Amer) POC Glucose (mg/dL) 173 H 180 H Random Glucose Calcium Assessment & Plan - Assessment and Plan (Free Text) Assessment: bipolar II disorder MRE depressed MILD TO MODERATE Plan: As pt is presenting with hyponatremia, recommend replacing zoloft with wellbutrin due to less tendency to cause hyponatremia, starting dose of wellbutrin 75mg pt at current mental status not danger to self or others pt psychiatricaly cleared for discharge upon medical clearence discussed with pt the need to follow up with private psychiatrist on discharge for medication management community mental health social worker may provide referral to outpatient clinic
--- NOTE | 2017-08-07 18:51 | PN ---
DATE: SUBJECTIVE: The patient has no recurrence of high grade AV block. She denies any depression at this time or suicidal ideation. The patient was given Abilify for depression in the past and she was evaluated by , Psychiatrist today. The recommendation was to replace Zoloft with Wellbutrin due to cause hyponatremia. PHYSICAL EXAMINATION VITAL SIGNS: Blood pressure of 112/57, heart rate 80, temperature of 98.2, and respirations of 26. HEENT: Normocephalic. CHEST: Clear. HEART: S1 and S2 regular. ABDOMEN: Soft. EXTREMITIES: No edema. LABORATORY DATA: SMA-7: Sodium of 132, potassium of 4.7, chloride of 99, CO2 of 22, glucose of 153, BUN of 20 and creatinine of 0.7. Calcium is within normal limit of 9.2. CBC of 6.2, hemoglobin 13.1, hematocrit 38.3, platelet count 156,000. ASSESSMENT: 1. High-grade atrioventricular block. 2. History of depression. 3. Uncontrolled diabetes mellitus. RECOMMENDATIONS: Continue current Lipitor, Plavix, metformin, aspirin and p.r.n. atropine. I did request Lyme disease, IgM and IgG antibody assays as well as lupus panel and rheumatoid factor. The patient has not made her decision about EPS or electrophysiology study yet and she wants to be given a chance until tomorrow. Case was discussed with the [employer], Dr. Art Flor. Hesham Anand MD
[2017-08-07 21:12] LABS: LYME IGG NEGATIVE (NEGATIVE); LYME IGM NEGATIVE (NEGATIVE)
[2017-08-07] MEDS: Insulin Detemir 100 Units/ml Inj SC SCH (22:18)
--- NOTE | 2017-08-07 22:59 | PN ---
DATE: ENDO FOLLOWUP NOTE LOCATION: In room 434 ICU. This is a 56-year-old female with recent uncontrolled type 2 insulin-requiring diabetes, now being followed closely for metabolic management. She was transferred to ICU for hemodynamic monitoring because of episodic bouts of symptomatic bradycardia as noted thereof. Her latest glucose values have improved and have ranged from 153-173 and 180 mg/dl. Her bedtime glucose was 131. The latest chemistry showed a BUN of 20, sodium 132, potassium 4.7, chloride 99, CO2 of 22, glucose 153 and creatinine 0.7. So at this time, we will continue the same basal and bolus insulin regimen as ordered with Humalog given as 16 units subcu t.i.d. before meals as given. We will continue the Levemir given as 36 units subcu at bedtime daily as ordered. We will titrate incremental as indicated to optimize metabolic control. We will follow and advise accordingly. Kelsey Rosenbaum MD
[2017-08-08 04:51] LABS: HEMOGLOBIN 13.2 g/dL (12.0-16.0); MEAN CELL VOLUME 90.1 fl (81.0-99.0); MEAN CORPUSCULAR HEMOGLOBIN 30.4 pg (27.0-31.0); MEAN CORPUSCULAR HGB CONC 33.8 g/dL (33.0-37.0); RBC 4.33 Mil/uL (3.80-5.20); RED CELL DISTRIBUTION WIDTH 13.9 % (11.5-14.5); WHITE BLOOD COUNT 6.4 K/uL (4.8-10.8)
[2017-08-08 06:40] LABS: BLOOD UREA NITROGEN 25 mg/dl (7-17); CALCIUM 9.4 mg/dL (8.4-10.2); GFR AFRICAN-AMERICAN > 60; GFR NON-AFRICAN AMERICAN > 60
[2017-08-08] MEDS: Insulin Lispro (humaLOG) 100 Units/ml Inj SC SCH ×7 (07:29→22:39)
--- NOTE | 2017-08-08 07:44 | CP.CCUPN ---
CCU Subjective - Physician Review Events Since Last Encounter (Free Text): 08/08/17 07:35 Patient awake, no distress, no fever, no vomiting, no chest pain, follow commands, events reviewed CCU Objective - Vital Signs / Intake & Output Vital Signs (Last 4 hours): Vital Signs Temp Pulse Resp BP Pulse Ox 08/08/17 06:00 88 18 103/80 99 08/08/17 04:00 98.4 F 87 14 103/68 97 Intake and Output (Last 8hrs): Intake & Output 08/07/17 08/08/17 08/08/17 22:59 06:59 14:59 Intake Total 280 240 Output Total 750 Balance 280 -510 Intake: Oral 120 240 Tube Feeding 60 Free Water Flush 100 Output: Urine 750 Urine, Voided 750 - Physical Exam Head: Positive for: Normocephalic Pupils: Positive for: PERRL Extroacular Muscles: Positive for: EOMI Conjunctiva: Positive for: Normal. Negative for: Icteric Mouth: Positive for: Moist Mucous Membranes Neck: Positive for: Normal Range of Motion. Negative for: JVD Respiratory/Chest: Positive for: Clear to Auscultation Cardiovascular: Positive for: Regular Rate and Rhythm Abdomen: Positive for: Normal Bowel Sounds. Negative for: Tenderness, Distention, Mass/Organomegaly Lower Extremity: Positive for: NORMAL PULSES, Capillary Refill < 2 s. Negative for: CALF TENDERNESS, Cyanosis Neurological: Positive for: GCS=15, Motor Func Grossly Intact, Normal Sensory Function Skin: Positive for: Warm, Dry. Negative for: Rashes Psychiatric: Positive for: Alert, Oriented x 3, Normal Affect - Medications Active Medications: Active Medications Generic Name Dose Route Start Last Admin Trade Name Freq PRN Reason Stop Dose Admin Aspirin 81 mg 07/31/17 09:00 08/07/17 08:42 Ecotrin PO 81 mg DAILY [facility] Administration Atorvastatin Calcium 20 mg 07/30/17 17:00 08/07/17 08:40 Lipitor PO 20 mg DAILY [facility] Administration Atropine Sulfate 0.5 mg 08/06/17 04:00 Atropine IVP PRN PRN LOW HR Clopidogrel Bisulfate 75 mg 07/31/17 10:15 08/07/17 08:41 Plavix PO 75 mg DAILY [facility] Administration Desmopressin Acetate 1 spr 07/30/17 23:30 02/21/18 17:14 Ddavp YAMILE Not Given BID [facility] Dextrose 0 ml 07/31/17 08:03 Dextrose 50% Inj IVP STAT PRN Hypoglycemia Protocol Protocol Glucagon 0 mg 07/31/17 08:03 Glucagen Diagnostic Kit IM STAT PRN Hypoglycemia Protocol Protocol Insulin Detemir 36 units 08/05/17 22:00 08/07/17 22:18 Levemir SC 36 units HS [facility] Administration Insulin Human Lispro 0 units 07/31/17 16:30 08/08/17 07:29 Humalog SC Not Given ACHS [facility] Insulin Human Lispro 16 units 08/06/17 07:30 08/08/17 07:32 Humalog SC 16 units ACTID [facility] Administration Meclizine HCl 25 mg 08/03/17 09:00 08/05/17 17:06 Antivert PO 25 mg TID [facility] Administration Metformin HCl 1,000 mg 07/30/17 17:00 08/07/17 16:15 Glucophage PO 1,000 mg BID [facility] Administration Ondansetron HCl 4 mg 08/06/17 00:54 Zofran Inj IVP Q6 PRN Nausea/Vomiting Saccharomyces Boulardii 250 mg 08/05/17 09:00 08/07/17 16:14 Florastor PO 250 mg BID [facility] Administration Sodium Chloride 1 gm 08/03/17 09:00 08/07/17 16:14 Sodium Chloride Tab PO 1 gm BID [facility] Administration Timolol Maleate 1 drop 08/01/17 14:15 08/06/17 16:06 Timoptic 0.25% Ophth Soln OU Not Given BID [facility] - Patient Studies Lab Studies: Microbiology Studies 08/05/17 10:24 Urine Culture - Final Urine,Clean Catch No Growth (<1,000 CFU/ML) Lab Studies 08/08/17 08/08/17 08/08/17 Range/Units 05:53 04:15 04:15 WBC 6.4 (4.8-10.8) K/uL RBC 4.33 (3.80-5.20) Mil/uL Hgb 13.2 (12.0-16.0) g/dL Hct 39.0 (34.0-47.0) % MCV 90.1 (81.0-99.0) fl MCH 30.4 (27.0-31.0) pg MCHC 33.8 (33.0-37.0) g/dL RDW 13.9 (11.5-14.5) % Plt Count 283 (130-400) K/uL Sodium 140 (132-148) mmol/l Potassium 5.3 H (3.6-5.0) MMOL/L Chloride 103 (98-107) mmol/L Carbon Dioxide 22 (22-30) mmol/L Anion Gap 20 (10-20) BUN 25 H (7-17) mg/dl Creatinine 0.6 L (0.7-1.2) mg/dl Est GFR ( Amer) > 60 Est GFR (Non-Af Amer) > 60 POC Glucose (mg/dL) 241 H (65-110) mg/dL Random Glucose 254 H (65-105) mg/dL Calcium 9.4 (8.4-10.2) mg/dL Lyme Disease IgG Ab (IFA) (NEGATIVE) Lyme Disease IgM Ab (NEGATIVE) 08/07/17 08/07/17 08/07/17 Range/Units 22:07 16:04 14:48 WBC (4.8-10.8) K/uL RBC (3.80-5.20) Mil/uL Hgb (12.0-16.0) g/dL Hct (34.0-47.0) % MCV (81.0-99.0) fl MCH (27.0-31.0) pg MCHC (33.0-37.0) g/dL RDW (11.5-14.5) % Plt Count (130-400) K/uL Sodium (132-148) mmol/l Potassium (3.6-5.0) MMOL/L Chloride (98-107) mmol/L Carbon Dioxide (22-30) mmol/L Anion Gap (10-20) BUN (7-17) mg/dl Creatinine (0.7-1.2) mg/dl Est GFR ( Amer) Est GFR (Non-Af Amer) POC Glucose (mg/dL) 212 H 219 H (65-110) mg/dL Random Glucose (65-105) mg/dL Calcium (8.4-10.2) mg/dL Lyme Disease IgG Ab (IFA) Negative (NEGATIVE) Lyme Disease IgM Ab Negative (NEGATIVE) 08/07/17 08/07/17 Range/Units 11:14 07:58 WBC (4.8-10.8) K/uL RBC (3.80-5.20) Mil/uL Hgb (12.0-16.0) g/dL Hct (34.0-47.0) % MCV (81.0-99.0) fl MCH (27.0-31.0) pg MCHC (33.0-37.0) g/dL RDW (11.5-14.5) % Plt Count (130-400) K/uL Sodium (132-148) mmol/l Potassium (3.6-5.0) MMOL/L Chloride (98-107) mmol/L Carbon Dioxide (22-30) mmol/L Anion Gap (10-20) BUN (7-17) mg/dl Creatinine (0.7-1.2) mg/dl Est GFR ( Amer) Est GFR (Non-Af Amer) POC Glucose (mg/dL) 180 H 173 H (65-110) mg/dL Random Glucose (65-105) mg/dL Calcium (8.4-10.2) mg/dL Lyme Disease IgG Ab (IFA) (NEGATIVE) Lyme Disease IgM Ab (NEGATIVE) Laboratory Results - last 24 hr 08/07/17 08/07/17 08/07/17 07:58 11:14 14:48 WBC RBC Hgb Hct MCV MCH MCHC RDW Plt Count Sodium Potassium Chloride Carbon Dioxide Anion Gap BUN Creatinine Est GFR ( Amer) Est GFR (Non-Af Amer) POC Glucose (mg/dL) 173 H 180 H Random Glucose Calcium Lyme Disease IgG Ab (IFA) Negative Lyme Disease IgM Ab Negative 08/07/17 08/07/17 08/08/17 16:04 22:07 04:15 WBC 6.4 RBC 4.33 Hgb 13.2 Hct 39.0 MCV 90.1 MCH 30.4 MCHC 33.8 RDW 13.9 Plt Count 283 Sodium Potassium Chloride Carbon Dioxide Anion Gap BUN Creatinine Est GFR ( Amer) Est GFR (Non-Af Amer) POC Glucose (mg/dL) 219 H 212 H Random Glucose Calcium Lyme Disease IgG Ab (IFA) Lyme Disease IgM Ab 08/08/17 08/08/17 04:15 05:53 WBC RBC Hgb Hct MCV MCH MCHC RDW Plt Count Sodium 140 Potassium 5.3 H Chloride 103 Carbon Dioxide 22 Anion Gap 20 BUN 25 H Creatinine 0.6 L Est GFR ( Amer) > 60 Est GFR (Non-Af Amer) > 60 POC Glucose (mg/dL) 241 H Random Glucose 254 H Calcium 9.4 Lyme Disease IgG Ab (IFA) Lyme Disease IgM Ab Fingerstick Blood Sugar Results: 241 Critical Care Progress Note - Nutrition Nutrition: Nutrition Category Date Time Status Heart Healthy Diet [DIET] Diets 08/03/17 Breakfast Active Assessment/Plan - Assessment and Plan (Free Text) Assessment: A/P Heart block, DM, HTN, hypercholestrolemia, bipolar disorder - Cardiology follow up - Continue meds - DVT prophylaxis
[2017-08-08] MEDS: Saccharomyces Boulardi 250 mg Cap PO SCH ×2 (08:31→16:24)
--- NOTE | 2017-08-08 09:17 | PN ---
DATE: 08/08/2017 SUBJECTIVE: The patient is seen and examined. Interim events noted. Consults noted and appreciated. Psychiatry and Cardiology followup and intervention noted and appreciated. The patient remains in Intensive Care Unit. The patient is refusing pacemaker. The patient also has sensitive right carotid syndrome. The patient about pacemaker. She is refusing, but will think about it. We also discussed with Cardiology. At this time, the patient denies any chest pain, no shortness of breath or dizziness. PHYSICAL EXAMINATION: GENERAL: The patient is in no acute distress. VITAL SIGNS: Stable. HEART: S1 and S2, normal and regular. LUNGS: Good bilateral air exchange. ABDOMEN: Soft and nontender. No organomegaly. No fluid. Bowel sounds are plus and normal. EXTREMITIES: No edema. No calf swelling. No tenderness. No acute ischemia. CENTRAL NERVOUS SYSTEM: Essentially unchanged. DIAGNOSTIC DATA: Available diagnostic data reviewed. 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 Again the patient was explained the need of pacemaker in case Cardiology offer. The patient will think about it. Wilfredo Katz MD
--- NOTE | 2017-08-08 12:58 | PN ---
DATE: ENDOCRINOLOGY FOLLOWUP NOTE SUBJECTIVE: This is a 56-year-old female with recent uncontrolled type 2 insulin-requiring diabetes, now being followed closely for metabolic management. Her glycemic levels are fluctuating as noted and the glucose levels overnight have ranged from 212 to 241 mg/dL. LABORATORY DATA: Her latest chemistry showed a BUN of 25, sodium of 140, potassium of 5.3, chloride of 103, CO2 of 22, glucose of 254 and creatinine of 0.6. IMPRESSION AND PLAN: So at this time, we will modify once again her basal and bolus insulin regimen and increase the Levemir to 40 units subcutaneous at bedtime daily to start tonight. We will continue the low-dose correction scale using Humalog insulin as given. We will also continue the prandial insulin with Humalog given as 16 units subcutaneous t.i.d. before meals as ordered. We will titrate incrementally as indicated to optimize metabolic control. We will obtain serial chemistries and supplement accordingly needed. She is also being followed closely now in the ICU for hemodynamic monitoring and management because of recent bouts of intermittent bradycardia and hypotension as noted thereof. The possibility of a pacemaker insertion is being considered at this time as noted. We will continue also the metformin given as 1 gram b.i.d. after meals as ordered. We will follow and advise accordingly. Kelsey Rosenbaum MD
--- NOTE | 2017-08-08 20:17 | PN ---
DATE: SUBJECTIVE: The patient denies any chest pain or dizziness. No reported bradycardia. PHYSICAL EXAMINATION VITAL SIGNS: Blood pressure 109/71, heart rate 80, temperature 97.1 and respirations 17. HEENT: Normocephalic. NECK: No JVD. CHEST: Clear. HEART: S1 and S2 regular. ABDOMEN: Soft. EXTREMITIES: No edema. LABORATORY DATA: SMA-7, sodium 140, potassium 5.3, chloride 103, CO2 of 22, glucose 258, BUN 25, creatinine 0.6 and calcium is 9.4. Today's CBC; WBC is 6.4, hemoglobin , hematocrit 39.0 and platelet count _WNL_. ASSESSMENT: 1. High-grade atrioventricular block, which is symptomatic. 2. Uncontrolled diabetes mellitus. 3. Depression. 4. Diabetes insipidus. RECOMMENDATIONS: Continue current Plavix 75 mg once daily, Lipitor 20 mg once a day, Levemir 40 units subcutaneous at bedtime, metformin 1 g twice a day, aspirin 81 mg once a day, atropine 0.5 mg IV p.r.n. for heart rate below 35, Antivert 25 mg t.i.d. I discussed the case with the primary physician Dr. Katz and with Diet Technician Registered. I discussed the plan of management with the patient's and the patient's daughter at the bedside. So far, the patient has not given a clear agreement for electrophysiologic study and she requested to talk to Dr. Katz one more time prior to accepting the procedure. I will discuss with Dr. Katz the School Vocational Educator the patient's request. In the meantime, the patient will be transferred to telemetry. Hesham Anand MD [facility]
[2017-08-08] MEDS: Insulin Detemir 100 Units/ml Inj SC SCH (22:40)
[2017-08-09 06:18] LABS: HEMOGLOBIN 12.4 g/dL (12.0-16.0); MEAN CORPUSCULAR HEMOGLOBIN 30.2 pg (27.0-31.0); MEAN CORPUSCULAR HGB CONC 33.5 g/dL (33.0-37.0); RBC 4.13 Mil/uL (3.80-5.20); RED CELL DISTRIBUTION WIDTH 14.1 % (11.5-14.5); WHITE BLOOD COUNT 6.6 K/uL (4.8-10.8)
[2017-08-09] MEDS: Insulin Lispro (humaLOG) 100 Units/ml Inj SC SCH ×7 (06:34→21:40)
[2017-08-09 06:47] LABS: ALB/GLOB RATIO 1.1 (1.0-2.1); ALT/SGPT 31 U/L (9-52); AST/SGOT 31 U/L (14-36); BLOOD UREA NITROGEN 21 mg/dl (7-17); CALCIUM 9.6 mg/dL (8.4-10.2); GFR AFRICAN-AMERICAN > 60; GFR NON-AFRICAN AMERICAN > 60
[2017-08-09] MEDS: Saccharomyces Boulardi 250 mg Cap PO SCH ×2 (08:18→16:13)
--- NOTE | 2017-08-09 08:19 | PN ---
DATE: 08/09/2017 SUBJECTIVE: The patient is seen and examined. Interim events noted. Consults noted and appreciated. The patient remains in Intensive Care Unit and transferred to telemetry. Feels okay. Denies any specific complaint of chest pain or shortness of breath. PHYSICAL EXAMINATION: GENERAL: The patient is in no acute distress. VITAL SIGNS: Stable. HEART: S1 and S2, normal and regular. LUNGS: Good bilateral air exchange. ABDOMEN: Soft and nontender. EXTREMITIES: No edema. No calf swelling. No tenderness. No acute ischemia. POMPOM MAKER: Essentially unchanged. DIAGNOSTIC DATA: Available diagnostic data reviewed. Telemetry monitoring does not reveal significant arrhythmia. PLAN: Cardiology Electrophysiology intervention noted and appreciated. The patient is tentatively scheduled for next week. Case and plan discussed with patient. Wilfredo Katz MD
--- NOTE | 2017-08-09 08:31 | CP.PCM.PN ---
Subjective - Date & Time of Evaluation Date of Evaluation: 08/09/17 Time of Evaluation: 08:29 - Subjective Subjective: Ms. Frias was seen and examined at the bedside in ICU. She is alert, oriented. She denies any headache, dizziness, lightheadedness. She further states of going for a electrophysiology test with her medical office professional instructor. She remains with bedside defib. pads for patient safety. She is able to follow simple commands. There was no untoward events overnight. Objective - Vital Signs/Intake and Output Vital Signs (last 24 hours): Temp Pulse Resp BP Pulse Ox 98 F 67 13 122/70 99 08/09/17 08:01 08/09/17 08:01 08/09/17 08:01 08/09/17 08:01 08/09/17 08:01 Intake and Output: 08/09/17 08/09/17 06:59 18:59 Intake Total 300 Output Total 650 Balance -350 - Medications Medications: Current Medications Aspirin (Ecotrin) 81 mg PO DAILY [facility] Last Admin: 08/09/17 08:18 Dose: 81 mg Atorvastatin Calcium (Lipitor) 20 mg PO DAILY [facility] Last Admin: 08/09/17 08:18 Dose: 20 mg Atropine Sulfate (Atropine) 0.5 mg IVP PRN PRN PRN Reason: LOW HR Clopidogrel Bisulfate (Plavix) 75 mg PO DAILY [facility] Last Admin: 08/09/17 08:19 Dose: 75 mg Desmopressin Acetate (Ddavp) 1 spr [facility]ILE BID [facility] Last Admin: 08/05/17 17:14 Dose: Not Given Dextrose (Dextrose 50% Inj) 0 ml IVP STAT PRN; Protocol PRN Reason: Hypoglycemia Protocol Glucagon (Glucagen Diagnostic Kit) 0 mg IM STAT PRN; Protocol PRN Reason: Hypoglycemia Protocol Insulin Detemir (Levemir) 40 units SC HS [facility] Last Admin: 08/08/17 22:40 Dose: 40 unit Insulin Human Lispro (Humalog) 0 units SC ACHS [facility] Last Admin: 08/09/17 06:34 Dose: Not Given Insulin Human Lispro (Humalog) 10 units SC ACTID [facility] Last Admin: 08/09/17 06:52 Dose: 10 units Meclizine HCl (Antivert) 25 mg PO TID [facility] Last Admin: 08/05/17 17:06 Dose: 25 mg Metformin HCl (Glucophage) 1,000 mg PO BID [facility] Last Admin: 08/09/17 08:18 Dose: 1,000 mg Ondansetron HCl (Zofran Inj) 4 mg IVP Q6 PRN PRN Reason: Nausea/Vomiting Saccharomyces Boulardii (Florastor) 250 mg PO BID [facility] Last Admin: 08/09/17 08:18 Dose: 250 mg Sodium Chloride (Sodium Chloride Tab) 1 gm PO BID [facility] Last Admin: 08/09/17 08:19 Dose: 1 gm Timolol Maleate (Timoptic 0.25% Ophth Soln) 1 drop OU BID [facility] Last Admin: 08/06/17 16:06 Dose: Not Given - Labs Labs: 08/09/17 05:30 08/09/17 05:30 PT 10.8 Seconds (9.8-13.1) 07/30/17 11:33 INR 1.0 (0.9-1.2) 07/30/17 11:33 APTT 26.7 Seconds (25.6-37.1) 07/30/17 11:33 - Constitutional Appears: No Acute Distress - Head Exam Head Exam: NORMAL INSPECTION - Neurological Exam Neurological Exam: Alert, Awake Neuro motor strength exam: Left Upper Extremity: 5, Right Upper Extremity: 5, Left Lower Extremity: 5, Right Lower Extremity: 5 Additional comments: Neurological unchanged from previous examination. Assessment and Plan (1) Neurocardiogenic pre-syncope Assessment & Plan: Case discussed with Dr. Balbuena, continue all current medical regimen. Recommend to follow any orders from the medical office professional instructor. There is no new recommendations from neurology. Status: Acute
--- NOTE | 2017-08-09 13:52 | PN ---
DATE: ENDOCRINOLOGY FOLLOWUP NOTE LOCATION: ICU, room 434. HISTORY OF PRESENT ILLNESS: This is a 56-year-old female with recent uncontrolled type 2 insulin-requiring diabetes now being followed closely for metabolic management. Her oral intake remains quite variable as per the nursing staff. She has low normal glycemic profile last night at bedtime with the glucose of 98-125 mg/dL. This morning, the glucose levels have improved with overnight dose adjustments as undertaken. Her glucose levels today have ranged from 172 to 229 mg/dL. The latest chemistry showed a BUN of 21, sodium 142, potassium 4.7, chloride 103, CO2 27, glucose 186 and creatinine 0.8. She is being followed closely in ICU for hemodynamic monitoring because of episodic bradycardia and hypotension as noted thereof. PLAN: So at this time, we will modify her basal and bolus insulin regimen and lower the Humalog to 10 units subcu t.i.d. before meals as ordered to start today. We will continue the basal insulin given as Levemir at 40 units subcu at bedtime daily as given. We will titrate incrementally as indicated to optimize metabolic control. We will obtain serial chemistries and supplement accordingly as needed. We will also continue the same low-dose correction scale using Humalog insulin as given. We will titrate incrementally as indicated to optimize metabolic control. We will follow. Kelsey Rosenbaum MD
--- NOTE | 2017-08-09 18:15 | PN ---
DATE: SUBJECTIVE: The patient was evaluated by Dr. Katz, the Wood Preserving Plant [employer]orer yesterday. Now, she is willing to go for Electrophysiology study. The patient denies any dizziness or chest pain. She is still experiencing constipation. She did receive lactulose 30 mL p.o. yesterday without any progress moving her bowel. No reported bradyarrhythmia or high-grade AV block. PHYSICAL EXAMINATION: VITAL SIGNS: Blood pressure 119/67, heart rate 87, temperature 98.4 and respirations 16. HEENT: Normocephalic. NECK: No JVD. CHEST: Clear. HEART: S1 and S2 regular. ABDOMEN: Soft. EXTREMITIES: No edema. LABORATORY DATA: SMA-7; sodium 142, potassium 4.7, chloride 103, CO2 27, glucose 186, BUN 21 and creatinine 0.8. CBC; WBC 6.6, hemoglobin 12.4, hematocrit 37.1, platelet count 266,000. ASSESSMENT: 1. Recurrent high-grade atrioventricular block. 2. Uncontrolled diabetes mellitus. 3. Depression. 4. Urolithiasis. 5. Diabetes insipidus. RECOMMENDATIONS: 1. Continue current Plavix 75 mg once a day. 2. Lipitor 20 mg once a day. 3. Humalog insulin. 4. Glucophage 1 g twice a day. 5. Aspirin 81 mg once a day. 6. Desmopressin one nasal spray twice a day. 7. Antivert 25 mg twice a day. PLAN: I will order Dulcolax suppository now. The patient is awaiting a telemetry bed. She is awaiting [employer] to be scheduled at [facility]. Hesham Anand MD
[2017-08-09] MEDS: Insulin Detemir 100 Units/ml Inj SC SCH (21:40)
[2017-08-10 05:31] LABS: HEMOGLOBIN 11.9 g/dL (12.0-16.0); MEAN CELL VOLUME 90.2 fl (81.0-99.0); MEAN CORPUSCULAR HGB CONC 33.2 g/dL (33.0-37.0); RBC 3.96 Mil/uL (3.80-5.20); RED CELL DISTRIBUTION WIDTH 14.1 % (11.5-14.5); WHITE BLOOD COUNT 5.8 K/uL (4.8-10.8)
[2017-08-10 05:39] LABS: ALB/GLOB RATIO 1.2 (1.0-2.1); ALBUMIN 3.7 g/dL (3.5-5.0); ALT/SGPT 33 U/L (9-52); AST/SGOT 21 U/L (14-36); BLOOD UREA NITROGEN 18 mg/dl (7-17); CALCIUM 9.6 mg/dL (8.4-10.2); GFR AFRICAN-AMERICAN > 60; GFR NON-AFRICAN AMERICAN > 60
[2017-08-10] MEDS: Insulin Lispro (humaLOG) 100 Units/ml Inj SC SCH ×7 (06:29→21:37)
--- NOTE | 2017-08-10 07:06 | PN ---
DATE: 08/10/2017 SUBJECTIVE: The patient is seen and examined. Interim events noted. Consults noted and appreciated. Cardiology followup and interventions noted and appreciated. The patient remains in Intensive Care Unit. The patient feels okay. Denies any complaint of chest pain, shortness of breath, dizziness or loss of consciousness. PHYSICAL EXAMINATION: GENERAL: The patient is in no acute distress. VITAL SIGNS: Stable. HEART: S1 and S2, normal and regular. LUNGS: Good bilateral air exchange. ABDOMEN: Soft and, nontender. EXTREMITIES: No edema. No calf swelling. No tenderness. No acute ischemia. CENTRAL NERVOUS SYSTEM: Exam is essentially unchanged. DIAGNOSTIC DATA: Available diagnostic data reviewed. Telemetry monitoring does not reveal significant arrhythmia. ASSESSMENT AND PLAN: The patient had agreed for electrophysiologic study, which will be scheduled by speech language pathologist travel. Plan as ordered. Wilfredo Katz MD
[2017-08-10] MEDS: Saccharomyces Boulardi 250 mg Cap PO SCH ×2 (08:13→16:00)
--- NOTE | 2017-08-10 08:19 | CP.CCUPN ---
CCU Objective - Vital Signs / Intake & Output Vital Signs (Last 4 hours): Vital Signs Temp Pulse Resp BP Pulse Ox 08/10/17 08:02 98.1 F 65 13 129/45 L 100 08/10/17 06:17 98.1 F 66 16 125/68 99 Intake and Output (Last 8hrs): Intake & Output 08/09/17 08/10/17 08/10/17 22:59 06:59 14:59 Intake Total 250 600 500 Output Total 450 650 Balance -200 -50 500 Weight 138 lb 11.2 oz Intake: IV 10 0 Oral 240 600 500 Output: Urine 450 650 Urine, Voided 450 650 Other: # Voids Urine, Voided 1 1 - Physical Exam Head: Positive for: Normocephalic Pupils: Positive for: PERRL Extroacular Muscles: Positive for: EOMI Conjunctiva: Positive for: Normal. Negative for: Icteric Mouth: Positive for: Moist Mucous Membranes Neck: Positive for: Normal Range of Motion. Negative for: JVD Respiratory/Chest: Positive for: Clear to Auscultation Cardiovascular: Positive for: Regular Rate and Rhythm Abdomen: Positive for: Normal Bowel Sounds. Negative for: Tenderness, Distention, Mass/Organomegaly Lower Extremity: Positive for: NORMAL PULSES, Capillary Refill < 2 s. Negative for: CALF TENDERNESS, Cyanosis Neurological: Positive for: GCS=15, Motor Func Grossly Intact, Normal Sensory Function Skin: Positive for: Warm, Dry. Negative for: Rashes Psychiatric: Positive for: Alert, Oriented x 3, Normal Affect - Medications Active Medications: Active Medications Generic Name Dose Route Start Last Admin Trade Name Freq PRN Reason Stop Dose Admin Aspirin 81 mg 07/31/17 09:00 08/10/17 08:13 Ecotrin PO 81 mg DAILY [facility] Administration Atorvastatin Calcium 20 mg 07/30/17 17:00 08/10/17 08:14 Lipitor PO 20 mg DAILY [facility] Administration Atropine Sulfate 0.5 mg 08/06/17 04:00 Atropine IVP PRN PRN LOW HR Clopidogrel Bisulfate 75 mg 07/31/17 10:15 08/10/17 08:14 Plavix PO 75 mg DAILY [facility] Administration Desmopressin Acetate 1 spr 07/30/17 23:30 08/05/17 17:14 Ddavp YAMILE Not Given BID [facility] Dextrose 0 ml 07/31/17 08:03 Dextrose 50% Inj IVP STAT PRN Hypoglycemia Protocol Protocol Glucagon 0 mg 07/31/17 08:03 Glucagen Diagnostic Kit IM STAT PRN Hypoglycemia Protocol Protocol Insulin Detemir 40 units 08/08/17 22:00 08/09/17 21:40 Levemir SC 40 unit HS [facility] Administration Insulin Human Lispro 0 units 07/31/17 16:30 08/10/17 06:29 Humalog SC Not Given ACHS [facility] Insulin Human Lispro 10 units 08/09/17 07:30 08/10/17 06:30 Humalog SC 10 units ACTID [facility] Administration Meclizine HCl 25 mg 08/03/17 09:00 08/05/17 17:06 Antivert PO 25 mg TID [facility] Administration Metformin HCl 1,000 mg 07/30/17 17:00 08/10/17 08:13 Glucophage PO 1,000 mg BID [facility] Administration Ondansetron HCl 4 mg 08/06/17 00:54 Zofran Inj IVP Q6 PRN Nausea/Vomiting Saccharomyces Boulardii 250 mg 08/05/17 09:00 08/10/17 08:13 Florastor PO 250 mg BID [facility] Administration Sodium Chloride 1 gm 08/03/17 09:00 08/10/17 08:14 Sodium Chloride Tab PO 1 gm BID [facility] Administration Timolol Maleate 1 drop 08/01/17 14:15 08/06/17 16:06 Timoptic 0.25% Ophth Soln OU Not Given BID [facility] - Patient Studies Lab Studies: Lab Studies 08/10/17 08/10/17 08/10/17 Range/Units 05:35 04:15 04:15 WBC 5.8 (4.8-10.8) K/uL RBC 3.96 (3.80-5.20) Mil/uL Hgb 11.9 L (12.0-16.0) g/dL Hct 35.7 (34.0-47.0) % MCV 90.2 (81.0-99.0) fl MCH 30.0 (27.0-31.0) pg MCHC 33.2 (33.0-37.0) g/dL RDW 14.1 (11.5-14.5) % Plt Count 259 (130-400) K/uL Sodium 141 (132-148) mmol/l Potassium 4.4 (3.6-5.0) MMOL/L Chloride 99 (98-107) mmol/L Carbon Dioxide 25 (22-30) mmol/L Anion Gap 21 H (10-20) BUN 18 H (7-17) mg/dl Creatinine 0.6 L (0.7-1.2) mg/dl Est GFR ( Amer) > 60 Est GFR (Non-Af Amer) > 60 POC Glucose (mg/dL) 294 H (65-110) mg/dL Random Glucose 315 H (65-105) mg/dL Calcium 9.6 (8.4-10.2) mg/dL Total Bilirubin 0.2 (0.2-1.3) mg/dl AST 21 (14-36) U/L ALT 33 (9-52) U/L Alkaline Phosphatase 57 (38-126) U/L Total Protein 6.9 (6.3-8.2) G/DL Albumin 3.7 (3.5-5.0) g/dL Globulin 3.1 (2.2-3.9) gm/dL Albumin/Globulin Ratio 1.2 (1.0-2.1) 08/09/17 08/09/17 08/09/17 Range/Units 21:35 16:05 11:18 WBC (4.8-10.8) K/uL RBC (3.80-5.20) Mil/uL Hgb (12.0-16.0) g/dL Hct (34.0-47.0) % MCV (81.0-99.0) fl MCH (27.0-31.0) pg MCHC (33.0-37.0) g/dL RDW (11.5-14.5) % Plt Count (130-400) K/uL Sodium (132-148) mmol/l Potassium (3.6-5.0) MMOL/L Chloride (98-107) mmol/L Carbon Dioxide (22-30) mmol/L Anion Gap (10-20) BUN (7-17) mg/dl Creatinine (0.7-1.2) mg/dl Est GFR ( Amer) Est GFR (Non-Af Amer) POC Glucose (mg/dL) 156 H 117 H 229 H (65-110) mg/dL Random Glucose (65-105) mg/dL Calcium (8.4-10.2) mg/dL Total Bilirubin (0.2-1.3) mg/dl AST (14-36) U/L ALT (9-52) U/L Alkaline Phosphatase (38-126) U/L Total Protein (6.3-8.2) G/DL Albumin (3.5-5.0) g/dL Globulin (2.2-3.9) gm/dL Albumin/Globulin Ratio (1.0-2.1) Laboratory Results - last 24 hr 08/09/17 08/09/17 08/09/17 11:18 16:05 21:35 WBC RBC Hgb Hct MCV MCH MCHC RDW Plt Count Sodium Potassium Chloride Carbon Dioxide Anion Gap BUN Creatinine Est GFR ( Amer) Est GFR (Non-Af Amer) POC Glucose (mg/dL) 229 H 117 H 156 H Random Glucose Calcium Total Bilirubin AST ALT Alkaline Phosphatase Total Protein Albumin Globulin Albumin/Globulin Ratio 08/10/17 08/10/17 08/10/17 04:15 04:15 05:35 WBC 5.8 RBC 3.96 Hgb 11.9 L Hct 35.7 MCV 90.2 MCH 30.0 MCHC 33.2 RDW 14.1 Plt Count 259 Sodium 141 Potassium 4.4 Chloride 99 Carbon Dioxide 25 Anion Gap 21 H BUN 18 H Creatinine 0.6 L Est GFR ( Amer) > 60 Est GFR (Non-Af Amer) > 60 POC Glucose (mg/dL) 294 H Random Glucose 315 H Calcium 9.6 Total Bilirubin 0.2 AST 21 ALT 33 Alkaline Phosphatase 57 Total Protein 6.9 Albumin 3.7 Globulin 3.1 Albumin/Globulin Ratio 1.2 Fingerstick Blood Sugar Results: 294 Critical Care Progress Note - Nutrition Nutrition: Nutrition Category Date Time Status Heart Healthy Diet [DIET] Diets 08/03/17 Breakfast Active
--- NOTE | 2017-08-10 15:19 | PN ---
DATE: ENDO FOLLOWUP NOTE LOCATION: ICU, room 434. SUBJECTIVE: This is a 56-year-old female with recent uncontrolled type 2 insulin-requiring diabetes, now being followed closely for metabolic management. She has developed episodic bouts of symptomatic bradycardia and hypotension and is being followed closely in the ICU for hemodynamic monitoring as noted thereof. The patient has refused a pacemaker insertion as noted. Her latest glucose values are fluctuating and are ranging from 199 mg/dL to 294 mg/dL. The bedtime glucose was 156 mg/dL. The latest chemistry showed BUN of 18, sodium of 141, potassium of 4.4, chloride of 99, CO2 of 25, glucose of 315, and creatinine of 0.6. So at this time we will modify once again her basal and bolus insulin regimen and modify the Levemir to 34 units subcu at bedtime daily to start tonight. We will continue the low-dose correction scale using Humalog insulin as given to hypoglycemia and detailed orders have been given. We will obtain serial chemistries and supplement accordingly as needed. We will also modify the Humalog to a higher dose of 12 units subcu t.i.d. before meals to start at dinnertime today as ordered. We will obtain serial chemistries and supplement accordingly as needed. We will also continue the metformin given as 1 g b.i.d. after meals as ordered. We will titrate incrementally as indicated to optimize metabolic control. We will follow and advice accordingly. Kelsey Rosenbaum MD
--- NOTE | 2017-08-10 20:03 | PN ---
DATE: SUBJECTIVE: The patient denies any dizziness, chest pain or shortness of breath. No reported high-grade AV block. The patient still experiencing constipation. PHYSICAL EXAMINATION VITAL SIGNS: Blood pressure 108/70, heart rate 81, temperature 98 and respirations 18. HEENT: Normocephalic. NECK: No JVD. CHEST: Clear. HEART: S1 and S2 regular. ABDOMEN: Soft. EXTREMITIES: No edema. LABORATORY DATA: CBC; WBC of 5.8, hemoglobin 11.9, hematocrit 35.7 and platelet count . SMA-7; sodium 141, potassium 4.4, chloride 99, CO2 of 25, glucose , BUN 18 and creatinine 0.6. ASSESSMENT: 1. Symptomatic recurrent high-grade atrioventricular block. 2. History of depression. 3. Uncontrolled diabetes mellitus. 4. Diabetes insipidus. RECOMMENDATIONS: Continue current desmopressin nasal spray. Continue meclizine 25 mg twice a day, aspirin 81 mg once a day, Levemir at 34 units subcutaneous once a day, Lipitor 20 mg once a day, Plavix 75 mg once a day, Zofran 40 mg intravenously q.6 hours p.r.n. We will start lactulose 20 mL p.o. daily awaiting scheduling for electrophysiology study at [facility]. So far the patient has no objection to go to [facility] for the procedure. Hesham Anand MD
[2017-08-10] MEDS: Insulin Detemir 100 Units/ml Inj SC SCH (21:36)
[2017-08-10] MEDS ORDERED: Insulin Detemir 100 Units/ml Inj SC SCH (22:00)
[2017-08-11 05:24] LABS: HEMOGLOBIN 12.7 g/dL (12.0-16.0); MEAN CORPUSCULAR HEMOGLOBIN 30.1 pg (27.0-31.0); MEAN CORPUSCULAR HGB CONC 33.1 g/dL (33.0-37.0); RBC 4.2 Mil/uL (3.80-5.20); RED CELL DISTRIBUTION WIDTH 14.1 % (11.5-14.5); WHITE BLOOD COUNT 7.3 K/uL (4.8-10.8)
[2017-08-11 05:33] LABS: ALBUMIN 4.2 g/dL (3.5-5.0); BLOOD UREA NITROGEN 17 mg/dl (7-17); CALCIUM 9.9 mg/dL (8.4-10.2); GFR AFRICAN-AMERICAN > 60; GFR NON-AFRICAN AMERICAN > 60
[2017-08-11 05:34] LABS: ALB/GLOB RATIO 1.1 (1.0-2.1); ALT/SGPT 36 U/L (9-52); AST/SGOT 27 U/L (14-36)
[2017-08-11] MEDS: Insulin Lispro (humaLOG) 100 Units/ml Inj SC SCH ×7 (09:01→22:17)
[2017-08-11] MEDS: Saccharomyces Boulardi 250 mg Cap PO SCH ×2 (09:02→18:17)
--- NOTE | 2017-08-11 14:24 | CP.PCM.PN ---
Subjective - Date & Time of Evaluation Date of Evaluation: 08/11/17 Time of Evaluation: 07:00 - Subjective Subjective: Patient evaluated with Dr Katz during rounds this morning. No acute distress, no acute events overnight. Patient has no new complains. No new episodes of syncope/near syncope reported Objective - Vital Signs/Intake and Output Vital Signs (last 24 hours): Temp Pulse Resp BP Pulse Ox 98.2 F 68 18 114/66 98 08/11/17 12:00 08/11/17 12:00 08/11/17 12:00 08/11/17 12:00 08/11/17 12:00 - Medications Medications: Current Medications Aspirin (Ecotrin) 81 mg PO DAILY [facility] Last Admin: 08/11/17 09:03 Dose: 81 mg Atorvastatin Calcium (Lipitor) 20 mg PO DAILY [facility] Last Admin: 08/11/17 09:03 Dose: 20 mg Atropine Sulfate (Atropine) 0.5 mg IVP PRN PRN PRN Reason: LOW HR Desmopressin Acetate (Ddavp) 1 spr YAMILE BID [facility] Last Admin: 08/05/17 17:14 Dose: Not Given Dextrose (Dextrose 50% Inj) 0 ml IVP STAT PRN; Protocol PRN Reason: Hypoglycemia Protocol Glucagon (Glucagen Diagnostic Kit) 0 mg IM STAT PRN; Protocol PRN Reason: Hypoglycemia Protocol Insulin Detemir (Levemir) 34 units SC HS [facility] Last Admin: 08/10/17 21:36 Dose: 34 units Insulin Human Lispro (Humalog) 0 units SC ACHS [facility] Last Admin: 08/11/17 09:02 Dose: Not Given Insulin Human Lispro (Humalog) 12 units SC ACTID [facility] Last Admin: 08/11/17 09:01 Dose: 12 unit Lactulose (Enulose) 20 gm PO DAILY [facility] Last Admin: 08/11/17 09:03 Dose: Not Given Meclizine HCl (Antivert) 25 mg PO TID [facility] Last Admin: 08/05/17 17:06 Dose: 25 mg Metformin HCl (Glucophage) 1,000 mg PO BID [facility] Last Admin: 08/11/17 09:03 Dose: 1,000 mg Ondansetron HCl (Zofran Inj) 4 mg IVP Q6 PRN PRN Reason: Nausea/Vomiting Saccharomyces Boulardii (Florastor) 250 mg PO BID [facility] Last Admin: 08/11/17 09:02 Dose: 250 mg Sodium Chloride (Sodium Chloride Tab) 1 gm PO BID [facility] Last Admin: 08/11/17 09:03 Dose: 1 gm Timolol Maleate (Timoptic 0.25% Ophth Soln) 1 drop OU BID [facility] Last Admin: 08/06/17 16:06 Dose: Not Given - Labs Labs: 08/11/17 04:20 08/11/17 04:20 PT 10.8 Seconds (9.8-13.1) 07/30/17 11:33 INR 1.0 (0.9-1.2) 07/30/17 11:33 APTT 26.7 Seconds (25.6-37.1) 07/30/17 11:33 - Constitutional Appears: Non-toxic, No Acute Distress - Eye Exam Eye Exam: EOMI, PERRL - ENT Exam ENT Exam: Mucous Membranes Moist - Respiratory Exam Respiratory Exam: Clear to Ausculation Bilateral, NORMAL BREATHING PATTERN. absent: Decreased Breath Sounds, Rales - Cardiovascular Exam Cardiovascular Exam: REGULAR RHYTHM, +S1, +S2. absent: Gallop - GI/Abdominal Exam GI & Abdominal Exam: Soft, Normal Bowel Sounds. absent: Tenderness - Neurological Exam Neurological Exam: Alert, Awake, Oriented x3 - Psychiatric Exam Psychiatric exam: Normal Mood - Skin Skin Exam: Normal Color, Warm Assessment and Plan - Assessment and Plan (Free Text) Assessment: Paroxysmal high grade heart block Stable Cardiology consult appreciated For [place] eval tomorrow [place] [facility] C/W holding abilify/Zoloft If needed can start welbutrin as per Psych recs Hyponatremia corrected. Possible due to desmopressin SE. Will continue holding Uncontrolled DM Improved C/W current treatment as per Endocrinology
--- NOTE | 2017-08-11 15:55 | PN ---
DATE: SUBJECTIVE: The patient denies any palpitation or dizziness. She is currently on telemetry. No reported high-grade AV block. PHYSICAL EXAMINATION: VITAL SIGNS: Blood pressure 114/66, heart rate 68, temperature 98.2, and respirations 18. HEENT: Normocephalic. NECK: No JVD. CHEST: Clear. HEART: S1 and S2 regular. ABDOMEN: Soft. EXTREMITIES: No edema. LABORATORY DATA: Today's CBC is entirely within normal limits. Today's SMA-7 is within normal limits except for glucose of 234 and creatinine of 0.6. ASSESSMENT: 1. High-grade atrioventricular block. 2. Uncontrolled diabetes mellitus. 3. Depression. 4. Diabetes insipidus. RECOMMENDATIONS: Continue current desmopressin nasal spray. Continue Antivert, aspirin, Glucophage, Lipitor, and Zofran. Hold Plavix starting tomorrow. The patient is scheduled to have study at [facility]. Hesham Anand MD
--- NOTE | 2017-08-11 19:00 | PN ---
ENDOCRINOLOGY FOLLOWUP NOTE DATE: LOCATION: In room 403. SUBJECTIVE: This is a 56-year-old female with recent uncontrolled type 2 insulin-requiring diabetes and is now being followed closely for metabolic management. Her glycemic levels are fluctuating but much improved at this time and the latest glucose levels have ranged from 129 to 215 mg/dL. Her latest chemistry showed a BUN of 17, sodium 143, potassium 4.1, chloride 101, CO2 of 28, glucose and creatinine 0.6. So at this time, we will continue the modified basal and bolus insulin regimen to allow for dose equilibration and keep her on the Humalog given as 12 units subcutaneous t.i.d. before meals as ordered. We will continue the Levemir given as modified dose of 34 units subcutaneous at bedtime daily as given. We will titrate incrementally as indicated to optimize metabolic control. We will obtain serial chemistries and supplement accordingly as needed. We will follow. Kelsey Rosenbaum MD
[2017-08-11] MEDS: Insulin Detemir 100 Units/ml Inj SC SCH (22:16)
--- NOTE | 2017-08-12 08:12 | PN ---
DATE: 08/12/2017 SUBJECTIVE: The patient is seen and examined. Interim events noted. Consults noted and appreciated. Cardiology and Endocrinology followup and interventions noted and appreciated. The patient remains in Progressive Care Unit on telemetry monitoring. The patient is tentatively scheduled for studies today at [facility]. The patient feels okay. Denies any chest pain, shortness of breath or dizziness. PHYSICAL EXAMINATION: GENERAL: The patient is in no acute distress. VITAL SIGNS: Stable. HEART: S1 and S2, normal and regular. LUNGS: Good bilateral air exchange. ABDOMEN: Soft and nontender. No organomegaly. No fluid. Bowel sounds are present and normal. EXTREMITIES: No edema. No calf swelling. No tenderness. No acute ischemia. [employer]: Essentially unchanged. DIAGNOSTIC DATA: Available diagnostic data reviewed. Telemetry monitoring does not reveal significant arrhythmia. PLAN: Overall, the patient's general medical condition is stable. The patient is going to go to the [facility] for study. Plan as ordered. Case and plan discussed with the patient. Wilfredo Katz MD
[2017-08-12] MEDS: Insulin Lispro (humaLOG) 100 Units/ml Inj SC SCH ×5 (09:42→22:10)
[2017-08-12] MEDS: Saccharomyces Boulardi 250 mg Cap PO SCH (09:42)
--- NOTE | 2017-08-12 10:07 | CP.PCM.PN ---
Subjective - Date & Time of Evaluation Date of Evaluation: 08/12/17 Time of Evaluation: 10:05 - Subjective Subjective: Ms. Frias was seen and examined at the bedside. She is laert, oriented in all spheres. She denies any dizziness, lightheadedness, nausea, or vomiting. 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 She is able to follow simple commands, sensation remains intact. There was no untoward events overnight. Objective - Vital Signs/Intake and Output Vital Signs (last 24 hours): Temp Pulse Resp BP Pulse Ox 98.3 F 67 18 104/65 98 08/12/17 08:00 08/12/17 08:00 08/12/17 08:00 08/12/17 08:00 08/12/17 08:00 - Medications Medications: Current Medications Aspirin (Ecotrin) 81 mg PO DAILY [facility] Last Admin: 08/12/17 09:42 Dose: Not Given Atorvastatin Calcium (Lipitor) 20 mg PO DAILY [facility] Last Admin: 08/12/17 09:43 Dose: Not Given Atropine Sulfate (Atropine) 0.5 mg IVP PRN PRN PRN Reason: LOW HR Desmopressin Acetate (Ddavp) 1 spr YAMILE BID [facility] Last Admin: 08/05/17 17:14 Dose: Not Given Dextrose (Dextrose 50% Inj) 0 ml IVP STAT PRN; Protocol PRN Reason: Hypoglycemia Protocol Glucagon (Glucagen Diagnostic Kit) 0 mg IM STAT PRN; Protocol PRN Reason: Hypoglycemia Protocol Insulin Detemir (Levemir) 34 units SC HS [facility] Last Admin: 08/11/17 22:16 Dose: 34 units Insulin Human Lispro (Humalog) 0 units SC ACHS [facility] Last Admin: 08/12/17 09:42 Dose: Not Given Insulin Human Lispro (Humalog) 12 units SC ACTID [facility] Last Admin: 08/12/17 09:42 Dose: Not Given Lactulose (Enulose) 20 gm PO DAILY [facility] Last Admin: 08/12/17 09:42 Dose: Not Given Meclizine HCl (Antivert) 25 mg PO TID [facility] Last Admin: 08/05/17 17:06 Dose: 25 mg Metformin HCl (Glucophage) 1,000 mg PO BID [facility] Last Admin: 08/12/17 09:42 Dose: Not Given Ondansetron HCl (Zofran Inj) 4 mg IVP Q6 PRN PRN Reason: Nausea/Vomiting Saccharomyces Boulardii (Florastor) 250 mg PO BID [facility] Last Admin: 08/12/17 09:42 Dose: Not Given Sodium Chloride (Sodium Chloride Tab) 1 gm PO BID [facility] Last Admin: 08/12/17 09:43 Dose: Not Given Timolol Maleate (Timoptic 0.25% Ophth Soln) 1 drop OU BID [facility] Last Admin: 08/06/17 16:06 Dose: Not Given - Labs Labs: 08/11/17 04:20 08/11/17 04:20 PT 10.8 Seconds (9.8-13.1) 07/30/17 11:33 INR 1.0 (0.9-1.2) 07/30/17 11:33 APTT 26.7 Seconds (25.6-37.1) 07/30/17 11:33 - Constitutional Appears: No Acute Distress - Head Exam Head Exam: NORMAL INSPECTION - Neurological Exam Neurological Exam: Alert, Awake, Oriented x3 Neuro motor strength exam: Left Upper Extremity: 5, Right Upper Extremity: 5, Left Lower Extremity: 5, Right Lower Extremity: 5 Additional comments: Neurological unchanged from previous examination. Assessment and Plan (1) Neurocardiogenic pre-syncope Assessment & Plan: Case discussed with Dr. Metz, continue all current medical regimen. Recommend to defer to cardiology with her dizziness management. Status: Acute
--- NOTE | 2017-08-12 18:19 | PN ---
ENDOCRINOLOGY FOLLOWUP NOTE DATE: LOCATION: Room 403. SUBJECTIVE: This is a 56-year-old female with recent uncontrolled type 2 insulin-requiring diabetes now being followed closely for metabolic management. Her glycemic levels are fluctuating but improved and her oral intake also remains quite variable as per the nursing staff. Her glucose values today have ranged from 202-227 mg/dL. It was 146 at bedtime last night. The latest chemistry showed a BUN of 17, sodium 143, potassium 4.1, chloride 101, CO2 of 28, glucose 234 and creatinine 0.6. So at this time, we will continue the same basal and bolus insulin regimen to allow for dose equilibration and keep her on the Levemir given as 34 units subcu at bedtime daily as ordered. We will continue the Humalog given as 12 units subcu t.i.d. before meals as ordered. We will titrate incrementally as indicated to optimize metabolic control. We will follow and advise accordingly. Kelsey Rosenbaum MD
[2017-08-12] MEDS: Insulin Detemir 100 Units/ml Inj SC SCH (22:09)
[2017-08-13 00:24] VITALS: RESP 18
[2017-08-13 05:54] LABS: BASO % 0.6 % (0.0-2.0); EOS # 0.2 K/uL (0.0-0.7); EOS % 2.4 % (0.0-4.0); HEMOGLOBIN 11.9 g/dL (12.0-16.0); LYMPH # 1.9 K/uL (1.0-4.3); LYMPH % 27.8 % (20.0-40.0); MEAN CELL VOLUME 89.9 fl (81.0-99.0); MEAN CORPUSCULAR HEMOGLOBIN 29.9 pg (27.0-31.0); MEAN CORPUSCULAR HGB CONC 33.3 g/dL (33.0-37.0); MEAN PLATELET VOLUME 8.6 fl (7.2-11.7); MONO # 0.4 K/uL (0.0-0.8); MONO % 5.4 % (0.0-10.0); NEUT # 4.2 K/uL (1.8-7.0); NEUT % 63.8 % (50.0-75.0); NRBC % 0.2 % (0.0-0.0); RBC 3.96 Mil/uL (3.80-5.20); RED CELL DISTRIBUTION WIDTH 14.2 % (11.5-14.5); WHITE BLOOD COUNT 6.7 K/uL (4.8-10.8)
[2017-08-13 06:41] LABS: ALB/GLOB RATIO 1.2 (1.0-2.1); ALBUMIN 3.8 g/dL (3.5-5.0); ALT/SGPT 32 U/L (9-52); AST/SGOT 21 U/L (14-36); BLOOD UREA NITROGEN 21 mg/dl (7-17); CALCIUM 9.5 mg/dL (8.4-10.2); GFR AFRICAN-AMERICAN > 60; GFR NON-AFRICAN AMERICAN > 60
[2017-08-13] MEDS: Insulin Lispro (humaLOG) 100 Units/ml Inj SC SCH ×3 (06:43→13:00)
--- NOTE | 2017-08-13 09:01 | CP.PCM.PN ---
Subjective - Date & Time of Evaluation Date of Evaluation: 08/13/17 Time of Evaluation: 08:57 - Subjective Subjective: Ms. Frias was seen and examined at the bedside. She is alert, oriented in all spheres. She has a small dressing in the left anterior cheat area, no s/s of bleeding or hematoma. She has an EPS yesterday, Right groin is soft, non- tender, no hematoma noted. She denies any dizziness, lightheadedness, nausea, or vomiting. She is able to ambulate within her room in steady gait. She is able to answer and follow commands appropriately. There was no untoward events overnight. Objective - Vital Signs/Intake and Output Vital Signs (last 24 hours): Temp Pulse Resp BP Pulse Ox 98.2 F 71 18 112/67 97 08/13/17 05:37 08/13/17 05:37 08/13/17 05:37 08/13/17 05:37 08/13/17 05:37 Intake and Output: 08/13/17 08/13/17 06:59 18:59 Intake Total 300 Balance 300 - Medications Medications: Current Medications Acetaminophen (Tylenol 325mg Tab) 650 mg PO Q6 PRN PRN Reason: Pain, Mild (1-3) Last Admin: 08/13/17 05:44 Dose: 650 mg Aspirin (Ecotrin) 81 mg PO DAILY [facility] Last Admin: 08/12/17 09:42 Dose: Not Given Atorvastatin Calcium (Lipitor) 20 mg PO DAILY [facility] Last Admin: 08/12/17 09:43 Dose: Not Given Atropine Sulfate (Atropine) 0.5 mg IVP PRN PRN PRN Reason: LOW HR Desmopressin Acetate (Ddavp) 1 spr YAMILE BID [facility] Last Admin: 08/05/17 17:14 Dose: Not Given Dextrose (Dextrose 50% Inj) 0 ml IVP STAT PRN; Protocol PRN Reason: Hypoglycemia Protocol Glucagon (Glucagen Diagnostic Kit) 0 mg IM STAT PRN; Protocol PRN Reason: Hypoglycemia Protocol Insulin Detemir (Levemir) 34 units SC HS [facility] Last Admin: 08/12/17 22:09 Dose: 34 units Insulin Human Lispro (Humalog) 0 units SC ACHS [facility] Last Admin: 08/13/17 06:43 Dose: Not Given Insulin Human Lispro (Humalog) 12 units SC ACTID [facility] Last Admin: 08/12/17 18:33 Dose: Not Given Lactulose (Enulose) 20 gm PO DAILY [facility] Last Admin: 08/12/17 09:42 Dose: Not Given Meclizine HCl (Antivert) 25 mg PO TID [facility] Last Admin: 08/05/17 17:06 Dose: 25 mg Metformin HCl (Glucophage) 1,000 mg PO BID [facility] Last Admin: 08/12/17 09:42 Dose: Not Given Ondansetron HCl (Zofran Inj) 4 mg IVP Q6 PRN PRN Reason: Nausea/Vomiting Saccharomyces Boulardii (Florastor) 250 mg PO BID [facility] Last Admin: 08/12/17 09:42 Dose: Not Given Sodium Chloride (Sodium Chloride Tab) 1 gm PO BID [facility] Last Admin: 08/12/17 09:43 Dose: Not Given Timolol Maleate (Timoptic 0.25% Ophth Soln) 1 drop OU BID [facility] Last Admin: 08/06/17 16:06 Dose: Not Given - Labs Labs: 08/13/17 04:30 08/13/17 04:30 PT 10.8 Seconds (9.8-13.1) 07/30/17 11:33 INR 1.0 (0.9-1.2) 07/30/17 11:33 APTT 26.7 Seconds (25.6-37.1) 07/30/17 11:33 - Constitutional Appears: No Acute Distress - Head Exam Head Exam: NORMAL INSPECTION - Neurological Exam Neurological Exam: Alert, Awake Neuro motor strength exam: Left Upper Extremity: 5, Right Upper Extremity: 5, Left Lower Extremity: 5, Right Lower Extremity: 5 Additional comments: Neurological unchanged from previous examination. Assessment and Plan (1) Neurocardiogenic pre-syncope Assessment & Plan: Case discussed with Dr. Metz, continue all current medical and physical therapies. Recommend to follow any orders from cardiology. There is no new recommendations from neurology. Status: Acute
[2017-08-13 09:04] VITALS: O2SAT 98
[2017-08-13] MEDS: Saccharomyces Boulardi 250 mg Cap PO SCH (09:30)
[2017-08-13 12:09] VITALS: BP 102/66; PULSE 70; TEMP 97.5
[2017-08-13] MEDS ORDERED: Insulin Lispro (humaLOG) 100 Units/ml Inj SC SCH (16:30)
[2017-08-13] MEDS ORDERED: Insulin Detemir 100 Units/ml Inj SC SCH (22:00)
--- NOTE | 2017-08-14 00:18 | PN ---
DATE: ENDO FOLLOWUP NOTE LOCATION: In room 403. This is a 56-year-old female with recent uncontrolled type 2 insulin-requiring diabetes now being followed closely for metabolic management. Her glycemic levels are fluctuating and overnight had hyperglycemic accelerations as noted thereof. Her glucose values have ranged from 293-299 mg/dL. Her latest chemistries showed a BUN of 21, sodium 141, potassium 4.3, chloride 99, CO2 29, glucose 305 and creatinine 0.7. So at this time we will modify once again her basal and bolus insulin regimen and increase the Humalog to 14 units subcu t.i.d. before meals as ordered to start today. We will also increase the Levemir to 40 units subcu at bedtime daily to start tonight. We will titrate incrementally as indicated to optimize metabolic control. She is possibly scheduled for discharge today as noted. She will follow with her medical doctors for outpatient diabetic and medical management. Kelsey Rosenbaum MD
--- NOTE | 2017-08-14 08:33 | PN ---
DATE: SUBJECTIVE: The patient underwent electrophysiology study, which was reported to be negative. The patient also has monitor implanted. She has no symptoms of dizziness. PHYSICAL EXAMINATION VITAL SIGNS: Blood pressure 102/66, heart rate 70, temperature 97.5, and respirations 18. HEENT: Normocephalic. NECK: No JVD. CHEST: Clear. HEART: S1 and S2 regular. ABDOMEN: Soft. EXTREMITIES: No chronic hematoma and no pedal edema. LABORATORY DATA: Hemoglobin and hematocrit 11.9 and 35.6, white count and platelet count are within normal limits. SMA-7; sodium 141, potassium 4.3, chloride 99, CO2 of 29, glucose 305, BUN 21 and creatinine 0.7. Connective tissue disease markers as well as Lyme titers are negative. ASSESSMENT: 1. Dizziness and near syncope. 2. High grade atrioventricular block, however, electrophysiology study was unremarkable. 3. Diabetes insipidus. 4. Uncontrolled diabetes mellitus. RECOMMENDATIONS: Case was discussed with [employer]. The patient's Plavix can be discontinued and the patient will be maintained on aspirin 81 mg once a day which she has at home. Continue desmopressin nasal spray, continue Glucophage, Lipitor, Levemir and the patient can be followed by her primary physician Dr. Glaser as an outpatient. Hesham Anand MD
== END 2017-08-13 16:17 | disposition home or self-care (01) | DRG 309 ==
LOC: H.ER 08:55 → H.ERHOLD 14:14 → H.TEL 16:51 → H.ICU/CCU 08-05 15:59 → H.TEL 08-10 16:18
PROVIDERS: ADMIT Internal Medicine; ATTEND Internal Medicine
DX: I44.1 Atrioventricular block, second degree (principal); E23.2 Diabetes insipidus; E87.1 Hypo-osmolality and hyponatremia; I95.1 Orthostatic hypotension; E11.42 Type 2 diabetes mellitus with diabetic polyneuropathy; E11.51 Type 2 diabetes mellitus with diabetic peripheral angiopathy without gangrene; E11.319 Type 2 diabetes mellitus with unspecified diabetic retinopathy without macular edema; F31.81 Bipolar II disorder; E11.65 Type 2 diabetes mellitus with hyperglycemia; I11.9 Hypertensive heart disease without heart failure; I25.10 Atherosclerotic heart disease of native coronary artery without angina pectoris; E78.5 Hyperlipidemia, unspecified; N20.0 Calculus of kidney; E78.00 Pure hypercholesterolemia, unspecified; F41.1 Generalized anxiety disorder; K59.00 Constipation, unspecified; Z91.14 Patient's other noncompliance with medication regimen; Z87.891 Personal history of nicotine dependence; Z79.4 Long term (current) use of insulin; Z79.02 Long term (current) use of antithrombotics/antiplatelets; Z79.82 Long term (current) use of aspirin; Z79.84 Long term (current) use of oral hypoglycemic drugs

== ENCOUNTER 2018-01-27 09:09 | Inpatient (IN) | payer OTHER ==
[2018-01-27 09:09] VITALS: BMI 28.7
[2018-01-27] MEDS ORDERED: Sodium Chloride 0.9% 1,000 ML IV STA (09:28)
--- NOTE | 2018-01-27 09:31 | ED PDOC ---
Syncope/Near Syncope/Dizziness Time Seen by Provider: 01/27/18 09:22 History Per: Patient Onset/Duration Of Symptoms: Days (7) Current Symptoms Are (Timing): Intermittent Episodes Associated Symptoms Preceding Syncopal Episode: No Predromal Symptoms (Sudden Onset) Seizure Or Post-ictal Symptoms: None Fall Associated With With Symptoms: No Severity: Mild Additional Complaint(s): Lightheadedness assoc with disorientation x 1 week. Denies headache, chest pain or palpitations. No focal weakness or LOC. Past Medical History Vital Signs: Last Vital Signs Temp 98.5 F 01/27/18 09:18 Pulse 79 01/27/18 09:18 Resp 21 01/27/18 09:18 BP 106/63 01/27/18 09:18 Pulse Ox 98 01/27/18 09:18 - Medical History PMH: CHF, Diabetes, HTN, Hypercholesterolemia - Family History Family History: States: Unknown Family Hx - Immunization History Hx Tetanus Toxoid Vaccination: No Hx Influenza Vaccination: No Hx Pneumococcal Vaccination: No - Home Medications Home Medications: Ambulatory Orders Medication Instructions Recorded ARIPiprazole [Abilify] 2 mg PO DAILY 07/30/17 Aspirin [Ecotrin] 81 mg PO DAILY 07/30/17 Glimepiride [amaRYL] 4 mg PO BID 07/30/17 MetFORMIN [glucoPHAGE] 1,000 mg PO BID 07/30/17 Ranolazine [Ranexa] 500 mg PO Q12H 07/30/17 Rosuvastatin Calcium [Crestor] 20 mg PO HS 07/30/17 Sertraline [Zoloft] 50 mg PO DAILY 07/30/17 Insulin Detemir [Levemir] 40 units SC HS vial 08/13/17 Insulin Lispro [humALOG] 14 unit SC ACTID #0 08/13/17 - Allergies Allergies/Adverse Reactions: Allergies Allergy/AdvReac Type Severity Reaction Status Date / Time Penicillins Allergy RASH Verified 01/27/18 09:28 Review of Systems ROS Statement: Except As Marked, All Systems Reviewed And Found Negative Neurological: Positive for: Dizziness Physical Exam - Reviewed Nursing Documentation Reviewed: Yes Vital Signs Reviewed: Yes - Physical Exam Appears: Positive for: Non-toxic, No Acute Distress Head Exam: Positive for: ATRAUMATIC, NORMAL INSPECTION, NORMOCEPHALIC Skin: Positive for: Normal Color, Warm, DRY Eye Exam: Positive for: EOMI, Normal appearance, PERRL ENT: Positive for: Normal ENT Inspection Neck: Positive for: Normal, Painless ROM Cardiovascular/Chest: Positive for: Regular Rate, Rhythm Respiratory: Positive for: CNT, Normal Breath Sounds Gastrointestinal/Abdominal: Positive for: Normal Exam, Soft Back: Positive for: Normal Inspection Extremity: Positive for: Normal ROM Neurologic/Psych: Positive for: Alert, Oriented. Negative for: Motor/Sensory Deficits - Laboratory Results Result Diagrams: 01/27/18 09:45 01/27/18 09:45 - ECG O2 Sat by Pulse Oximetry: 98 Disposition - Clinical Impression Clinical Impression: Hyperglycemia, Chest pain - Patient ED Disposition Is Patient to be Admitted: Yes - Disposition Disposition Time: 14:13 Condition: FAIR - Pt Status Changed To: Hospital Disposition Of: Observation - POA Present On Arrival: None
[2018-01-27] MEDS ORDERED: Insulin Regular 100 units/ml SC STA (09:45)
[2018-01-27 09:59] LABS: BASO # 0.1 K/uL (0.0-0.2); BASO % 0.8 % (0.0-2.0); EOS # 0.1 K/uL (0.0-0.7); EOS % 1.9 % (0.0-4.0); HEMOGLOBIN 12.1 g/dL (12.0-16.0); LYMPH # 1.6 K/uL (1.0-4.3); LYMPH % 21.5 % (20.0-40.0); MEAN CELL VOLUME 90.2 fl (81.0-99.0); MEAN CORPUSCULAR HEMOGLOBIN 30.6 pg (27.0-31.0); MEAN CORPUSCULAR HGB CONC 33.9 g/dL (33.0-37.0); MEAN PLATELET VOLUME 8.8 fl (7.2-11.7); MONO # 0.4 K/uL (0.0-0.8); MONO % 5.3 % (0.0-10.0); NEUT # 5.2 K/uL (1.8-7.0); NEUT % 70.5 % (50.0-75.0); RBC 3.95 Mil/uL (3.80-5.20); RED CELL DISTRIBUTION WIDTH 13.9 % (11.5-14.5); WHITE BLOOD COUNT 7.3 K/uL (4.8-10.8)
[2018-01-27] MEDS ORDERED: Insulin Regular 100 units/ml ONE (10:08)
[2018-01-27 10:30] LABS: ALB/GLOB RATIO 1.2 (1.0-2.1); ALBUMIN 4.3 g/dL (3.5-5.0); ALT/SGPT 25 U/L (9-52); AST/SGOT 47 U/L (14-36); BLOOD UREA NITROGEN 31 mg/dl (7-17); CALCIUM 9.5 mg/dL (8.4-10.2); GFR AFRICAN-AMERICAN > 60; GFR NON-AFRICAN AMERICAN > 60
[2018-01-27 12:14] LABS: SQUAMOUS EPITHIAL < 1 /hpf (0-5); URINE BACTERIA RARE (<OCC); URINE BILIRUBIN NEGATIVE (NEGATIVE); URINE BLOOD NEGATIVE (NEGATIVE); URINE CLARITY SLIGHTY-CLOUDY (Clear); URINE COLOR YELLOW (YELLOW); URINE GLUCOSE (UA) >=500 mg/dL (Normal); URINE LEUKOCYTE ESTERASE NEG Leu/uL (Negative); URINE PROTEIN NEGATIVE (NEGATIVE); URINE UROBILINOGEN 0.2-1.0 mg/dL (0.2-1.0)
[2018-01-27] MEDS ORDERED: Glucagon Recombinant 1 mg Inj IM PRN (18:22)
[2018-01-27] MEDS ORDERED: Dextrose 50% SYRINGE Inj (50 ml) IV PRN (18:22)
[2018-01-27] MEDS: Ranolazine 500 mg Extended Release Tablets PO SCH (21:55)
[2018-01-27] MEDS ORDERED: Insulin Lispro (humaLOG) 100 Units/ml Inj SC SCH (22:00)
[2018-01-27] MEDS ORDERED: Insulin Detemir 100 Units/ml Inj SC SCH (22:00)
[2018-01-28 05:44] LABS: BASO % 0.8 % (0.0-2.0); EOS # 0.2 K/uL (0.0-0.7); EOS % 3.1 % (0.0-4.0); HEMOGLOBIN 11.6 g/dL (12.0-16.0); LYMPH # 2.1 K/uL (1.0-4.3); LYMPH % 34.5 % (20.0-40.0); MEAN CELL VOLUME 90.7 fl (81.0-99.0); MEAN CORPUSCULAR HEMOGLOBIN 30.6 pg (27.0-31.0); MEAN CORPUSCULAR HGB CONC 33.8 g/dL (33.0-37.0); MEAN PLATELET VOLUME 8.9 fl (7.2-11.7); MONO # 0.4 K/uL (0.0-0.8); NEUT # 3.3 K/uL (1.8-7.0); NEUT % 55.6 % (50.0-75.0); NRBC % 0.1 % (0.0-0.0); RBC 3.79 Mil/uL (3.80-5.20); RED CELL DISTRIBUTION WIDTH 13.9 % (11.5-14.5)
[2018-01-28] MEDS: Ranolazine 500 mg Extended Release Tablets PO SCH ×2 (06:31→18:35)
[2018-01-28 06:39] LABS: T4 6.61 ug/dl (5.5-11.0)
[2018-01-28 06:53] LABS: T3 0.894 nmol/L (1.49-2.60)
[2018-01-28 06:58] LABS: ALB/GLOB RATIO 1.2 (1.0-2.1); ALT/SGPT 36 U/L (9-52); AST/SGOT 27 U/L (14-36); BLOOD UREA NITROGEN 22 mg/dl (7-17); CALCIUM 9.5 mg/dL (8.4-10.2); GFR AFRICAN-AMERICAN > 60; GFR NON-AFRICAN AMERICAN > 60; HDL CHOLESTEROL 38 MG/DL (30-70); LDL CHOLESTEROL 111 mg/dL (0-129)
--- NOTE | 2018-01-28 07:49 | CARD ---
APPROVED REPORT Date of service: 01/27/2018 <Conclusion> Normal sinus rhythm Normal ECG
--- NOTE | 2018-01-28 07:51 | CARD ---
APPROVED REPORT Date of service: 01/28/2018 EKG Measurement Heart [id number] <Conclusion> Sinus bradycardia otherwise normal ECG
[2018-01-28] MEDS: GlipiZIDE 10 mg SR Tab PO SCH ×2 (09:22→17:08)
--- NOTE | 2018-01-28 10:19 | CON ---
Copied To: Kelsey Rosenbaum MD Attending MD: Kelsey Rosenbaum MD DATE: 01/27/2018 LOCATION: Room 408. HISTORY OF PRESENT ILLNESS: This is a 57-year-old female with known history of type 2 insulin-requiring diabetes, presenting here with generalized body weakness and supervening dizziness and lightheadedness with episodic bouts of confusion and disorientation for about a week or so prior to admission and is now being admitted for further workup and management, and is also referred for diabetic evaluation and management. PAST MEDICAL HISTORY: As mentioned above, history of type 2 diabetes, currently on a combination of Levemir given as 40 units subcutaneous at bedtime daily, with Humalog given as 14 units t.i.d. before meals as ordered. She is also on oral hypoglycemic therapy given in a combination of Amaryl at 4 mg b.i.d. and metformin at 1 g b.i.d. as ordered. History of hypertension and dyslipidemia, history of previous admissions for congestive heart failure, history of generalized anxiety and with underlying chronic schizoaffective disorder, currently on Abilify and Zoloft medications as noted. FAMILY HISTORY: Positive for hypertension, and diabetes. SOCIAL HISTORY: The patient has supportive family. No known substance use. REVIEW OF SYSTEMS: As mentioned above. Admits to generalized body weakness with episodic bouts of dizziness and lightheadedness, worse on the day of admission. Also admits to intermittent bouts of confusion and disorientation with anxiety spells as noted. Also admits to precordial chest pain especially on exertion with occasional bouts of shortness of breath also on exertion. Her oral intake has been variable with occasional dyspepsia and vague upper abdominal pains, also admits to occasional nocturia and habitual constipation. PHYSICAL EXAMINATION: GENERAL: This is an average-built female, in no apparent distress. VITAL SIGNS: Blood pressure of 130/80, pulse of 70 beats per minute regular, temperature 98, respirations 20, height is 5 feet 2 inches, weight is 155 pounds. HEENT: Head normocephalic. Eyes: Anicteric with pink conjunctivae. Funduscopy not possible at this time. Ears, Nose, and Throat: Otherwise, normal. NECK: Supple. Thyroid gland is normal size. No carotid bruits or cervical adenopathy. CARDIOPULMONARY: Adynamic precordium. S1, S2 is rapid and regular. LUNGS: Clear to auscultation. ABDOMEN: Flat, soft, with positive bowel sounds. EXTREMITIES: No peripheral edema. Pulses are +2 bilaterally. LABORATORY DATA: Her initial chemistries showed a BUN of 31, sodium 136, potassium 4.8, chloride 101, CO2 23, glucose 406, and creatinine 0.9. Her glucose levels have ranged from 236 to 341 and 390 mg/dL. Her troponin level is less than 0.01. ASSESSMENT: This is a 57-year-old female with uncontrolled and decompensated type 2 insulin-requiring diabetes, presenting here with episodic bouts of confusion and disorientation with progressively worsening generalized body weakness, dizziness, and lightheadedness, currently undergoing cardiac workup for acute coronary syndrome and is also being referred now for diabetic and metabolic evaluation and management. PLAN OF MANAGEMENT: We will switch her over to a more physiologic basal and bolus insulin drug combination and we will add Humalog given as 12 units subcu t.i.d. before meals to start tomorrow morning as ordered. We will also continue the Levemir given as 40 units subcu at bedtime daily as ordered and we will titrate incrementally as indicated to optimize metabolic control. We will modify the coverage scale with the low-dose algorithm using Humalog insulin to obviate hypoglycemia and detailed orders have been given. A hemoglobin A1c has been ordered to assess her under her prior glycemic control even prior to this admission with baseline thyroid function studies and lipid panel as ordered. We will obtain serial chemistries and supplement accordingly as needed. We will follow. Kelsey Rosenbaum MD
[2018-01-28] MEDS: Insulin Lispro (humaLOG) 100 Units/ml Inj SC SCH ×6 (10:29→22:36)
--- NOTE | 2018-01-28 14:08 | CARD ---
APPROVED REPORT Date of service: 01/28/2018 EXAM: Two-dimensional and M-mode echocardiogram with Doppler and color Doppler. Other Information Quality : GoodRhythm : NSR INDICATION Chest Pain 2D DIMENSIONS LVDd3.86 (3.9-5.9cm)LVOT Diameter1.96 (1.8-2.4cm) IVSs1.33 (0.8-1.2cm)LVDs2.16 (2.5-4.0cm) FS (%) 44.0 %PWs1.53 (0.8-1.2cm) M-Mode DIMENSIONS Left Atrium (MM)4.82 (2.5-4.0cm)IVSd1.20 (0.7-1.1cm) Aortic Root2.62 (2.2-3.7cm)LVDd4.20 (4.0-5.6cm) Aortic Cusp Exc.1.85 (1.5-2.0cm)PWd1.24 (0.7-1.1cm) IVSs1.62 cmFS (%) 44 % LVDs2.24 (2.0-3.8cm)PWs1.76 cm Aortic Valve AoV Peak Lssmvcun753.6cm/sAoV VTI22.7cmAO Peak GR.4mmHg LVOT Peak Yhrwmbnf73.0cm/sLVOT VTI19.12cmAO Mean GR.3mmHg AI P 1/2 [id number] Mitral Valve MV E Grdgraqy07.0cm/sMV DECEL [id number] A Tdscpifs819.0cm/s MV CLL58lgH/A ratio0.8MVA (PHT)2.44cm2 TDI Lateral E' Peak V8.23cm/sMedial E' Peak V5.46cm/sE/Lateral E'10.7 E/Medial E'16.1 Pulmonary Valve PV Peak Gnwdzspd318.1cm/s LEFT VENTRICLE The left ventricle is normal size. There is mild concentric left ventricular hypertrophy.. The left ventricular ejection fraction is within the normal range. The Ejection Fraction is 60-65%. No regional wall motion abnormalities noted.. Transmitral Doppler flow pattern is Grade I-abnormal relaxation pattern. No left ventricle thrombus noted on this study. There is no ventricular septal defect visualized. There is no mass noted in the left ventricle. RIGHT VENTRICLE The right ventricle is normal size. There is normal right ventricular wall thickness. The right ventricular systolic function is normal. ATRIA The left atrium size is normal. The right atrium size is normal. The interatrial septum is intact with no evidence for an atrial septal defect. AORTIC VALVE The aortic valve is normal in structure. Mild aortic regurgitation is present. There is no aortic valvular stenosis. MITRAL VALVE The mitral valve is normal in structure. There is no mitral valve stenosis. There is no mitral valve regurgitation noted. TRICUSPID VALVE The tricuspid valve is normal in structure. There is no tricuspid valve regurgitation noted. PULMONIC VALVE The pulmonary valve is normal in structure. There is no pulmonic valvular regurgitation. GREAT VESSELS The aortic root is normal in size. The ascending aorta is normal in size. The pulmonary artery is normal. The IVC is normal in size and collapses >50% with inspiration. PERICARDIAL EFFUSION There is no pericardial effusion. <Conclusion> Mild aortic insufficiency Mild LVH Normal left ventricular systolic function with doppler hemodynamics consistent with abnormal relaxation The Ejection Fraction is 60-65%.
[2018-01-28] MEDS ORDERED: Insulin Lispro (humaLOG) 100 Units/ml Inj SC SCH (16:30)
--- NOTE | 2018-01-28 17:01 | CP.PCM.HP ---
History of Present Illness - History of Present Illness History of Present Illness: CC: Syncope. 57 y/o F, with multiple chronic medical conditions, including chronic uncontrolled DMII (IDDM), Hx of been declared legally blind 2nd to Diabetes Retinopathy, Diabetes Insipudus 2nd to Fall/Trauma more than 30 yrs ago, recent admission on Jul 2017 due to Vasovagal syncope, Orthostatic hypotension, also found with High grade AV block. After discharge patient had a loop recorder inserted , in the past months She recall two times having chest pain pressure time, but She did not activate the loop recorder. Pt came to ER [facility] [place] on 01/27/18 to be evaluated for syncope with LOC while at work on DOA associated to Dizziness and chest pain pressure type, Patient did not activate the loop recorder. Patient with intermittent episodes of lightheadedness and progressive generalized body weakness from one week [employer] with no relief. Worsening symptoms: BS 406 while in the ER, Bouts of confusion, disoriented, anxiety. Aggravated factor: Walking/Exercise. Pt denied: Fever, chills, n/v/d, abdominal pain, urinary symptoms, SOB, cough, numbness, tingles, fall/trauma, sick contact, recent travel out of [facility]. EKst: Sinus Bradycardia, 2nd RSR Echo: LVEF: 60-65%, mild aortic insufficiency, mild LVH. Present on Admission - Present on Admission Any Indicators Present on Admission: Yes History of Uncontrolled Diabetes: Yes Review of Systems - Constitutional Constitutional: Weakness - EENT Eyes: Requires Corrective Lenses, Loss of Vision Ears: Other (negative) Nose/Mouth/Throat: Other (negative) - Cardiovascular Cardiovascular: Chest Pain (mild), Lightheadedness, Slow Heart Rate - Respiratory Respiratory: Other (negative) - Gastrointestinal Gastrointestinal: Other (negative) - Genitourinary Genitourinary: Other (negative) - Musculoskeletal Musculoskeletal: Muscle Weakness - Integumentary Integumentary: Other (negative) - Neurological Neurological: Confusion, Dizziness, Loss of Vision, Syncope, Weakness, Other ( LOC) - Psychiatric Psychiatric: Anxiety, Confusion, Depression - Endocrine Endocrine: Other (negative) - Hematologic/Lymphatic Hematologic: Other (negative) Past Patient History - Past Medical History & Family History Past Medical History?: Yes Pertinent Family History: Hx DM, HTN - Past Social History Smoking Status: Never Smoked Alcohol: None Drugs: Denies Home Situation {Lives}: With Family - CARDIAC Hx Cardiac Disorders: Yes Hx Congestive Heart Failure: Yes Hx Hypercholesterolemia: Yes Hx Hypertension: Yes - PULMONARY Hx Respiratory Disorders: No - NEUROLOGICAL Hx Neurological Disorder: Yes Hx Dizziness: Yes - HEENT Hx HEENT Problems: Yes (Loss of vision 2nd to Diabetes Neuropathy.) - RENAL Hx Chronic Kidney Disease: No - ENDOCRINE/METABOLIC Hx Endocrine Disorders: Yes (DM) Hx Diabetes Insipidus: Yes Hx Diabetes Mellitus Type 2: Yes - HEMATOLOGICAL/ONCOLOGICAL Hx Blood Disorders: No - INTEGUMENTARY Hx Dermatological Problems: No - MUSCULOSKELETAL/RHEUMATOLOGICAL Hx Musculoskeletal Disorders: No Hx Falls: No - GASTROINTESTINAL Hx Gastrointestinal Disorders: No - GENITOURINARY/GYNECOLOGICAL Hx Genitourinary Disorders: No - PSYCHIATRIC Hx Psychophysiologic Disorder: Yes Hx Anxiety: Yes Hx Bipolar Disorder: Yes Hx Depression: Yes Hx Substance Use: No - SURGICAL HISTORY Hx Surgeries: Yes Hx Section: Yes (x2) Other/Comment: "intestinal surgery" - ANESTHESIA Hx Anesthesia: Yes Hx Anesthesia Reactions: No Hx Malignant Hyperthermia: No Meds Allergies/Adverse Reactions: Allergies Allergy/AdvReac Type Severity Reaction Status Date / Time Penicillins Allergy RASH Verified 01/27/18 09:28 Physical Exam - Constitutional Appears: Chronically Ill - Head Exam Head Exam: NORMAL INSPECTION - Eye Exam Eye Exam: PERRL - ENT Exam ENT Exam: Normal Oropharynx - Neck Exam Neck exam: Positive for: Normal Inspection - Respiratory Exam Respiratory Exam: NORMAL BREATHING PATTERN - Cardiovascular Exam Cardiovascular Exam: Bradycardia, Systolic Murmur Additional comments: loop recorder Left chest wall - GI/Abdominal Exam GI & Abdominal Exam: Normal Bowel Sounds, Soft - Extremities Exam Extremities exam: Positive for: normal inspection - Back Exam Back exam: NORMAL INSPECTION - Neurological Exam Neurological exam: Alert, Oriented x3, Reflexes Normal Additional comments: no motor/sensory deficit. - Psychiatric Exam Psychiatric exam: Anxious, Depressed - Skin Skin Exam: Warm Results - Vital Signs Recent Vital Signs: Last Vital Signs Temp 98.0 F 01/28/18 15:45 Pulse 70 01/28/18 15:45 Resp 20 01/28/18 15:45 BP 96/60 L 01/28/18 15:45 Pulse Ox 99 01/28/18 15:45 reviewed [place] - Labs Result Diagrams: 01/28/18 05:20 01/29/18 05:22 Labs: Laboratory Results - last 24 hr 01/27/18 01/27/18 01/28/18 19:56 21:17 05:08 WBC RBC Hgb Hct MCV MCH MCHC RDW Plt Count MPV Neut % (Auto) Lymph % (Auto) [place] % (Auto) Eos % (Auto) Baso % (Auto) Neut # (Auto) Lymph # (Auto) [place] # (Auto) Eos # (Auto) Baso # (Auto) Sodium Potassium Chloride Carbon Dioxide Anion Gap BUN Creatinine Est GFR ( Amer) Est GFR (Non-Af Amer) POC Glucose (mg/dL) 289 H 278 H Random Glucose Hemoglobin A1c Calcium Phosphorus Magnesium Total Bilirubin AST ALT Alkaline Phosphatase Troponin I < 0.0120 Total Protein Albumin Globulin Albumin/Globulin Ratio Triglycerides Cholesterol LDL Cholesterol Direct HDL Cholesterol Thyroxine (T4) Total T3 TSH 3rd Generation 01/28/18 01/28/18 01/28/18 05:20 05:20 05:20 WBC 6.0 RBC 3.79 L Hgb 11.6 L Hct 34.4 MCV 90.7 MCH 30.6 MCHC 33.8 RDW 13.9 Plt Count 282 MPV 8.9 Neut % (Auto) 55.6 Lymph % (Auto) 34.5 [place] % (Auto) 6.0 Eos % (Auto) 3.1 Baso % (Auto) 0.8 Neut # (Auto) 3.3 Lymph # (Auto) 2.1 [place] # (Auto) 0.4 Eos # (Auto) 0.2 Baso # (Auto) 0.0 Sodium 140 Potassium 5.0 Chloride 104 Carbon Dioxide 28 Anion Gap 13 BUN 22 H Creatinine 0.8 Est GFR ( Amer) > 60 Est GFR (Non-Af Amer) > 60 POC Glucose (mg/dL) Random Glucose 282 H Hemoglobin A1c 12.1 H Calcium 9.5 Phosphorus 4.3 Magnesium 1.8 Total Bilirubin 0.4 AST 27 ALT 36 Alkaline Phosphatase 61 Troponin I < 0.0120 Total Protein 7.2 Albumin 4.0 Globulin 3.2 Albumin/Globulin Ratio 1.2 Triglycerides 186 H Cholesterol 196 LDL Cholesterol Direct 111 HDL Cholesterol 38 Thyroxine (T4) 6.61 Total T3 0.894 L TSH 3rd Generation 1.83 01/28/18 01/28/18 01/28/18 10:13 10:58 12:07 WBC RBC Hgb Hct MCV MCH MCHC RDW Plt Count MPV Neut % (Auto) Lymph % (Auto) [place] % (Auto) Eos % (Auto) Baso % (Auto) Neut # (Auto) Lymph # (Auto) [place] # (Auto) Eos # (Auto) Baso # (Auto) Sodium Potassium Chloride Carbon Dioxide Anion Gap BUN Creatinine Est GFR ( Amer) Est GFR (Non-Af Amer) POC Glucose (mg/dL) 447 H* 364 H Random Glucose Hemoglobin A1c Calcium Phosphorus Magnesium Total Bilirubin AST ALT Alkaline Phosphatase Troponin I < 0.0120 Total Protein Albumin Globulin Albumin/Globulin Ratio Triglycerides Cholesterol LDL Cholesterol Direct HDL Cholesterol Thyroxine (T4) Total T3 TSH 3rd Generation 01/28/18 15:54 WBC RBC Hgb Hct MCV MCH MCHC RDW Plt Count MPV Neut % (Auto) Lymph % (Auto) [place] % (Auto) Eos % (Auto) Baso % (Auto) Neut # (Auto) Lymph # (Auto) [place] # (Auto) Eos # (Auto) Baso # (Auto) Sodium Potassium Chloride Carbon Dioxide Anion Gap BUN Creatinine Est GFR ( Amer) Est GFR (Non-Af Amer) POC Glucose (mg/dL) 108 Random Glucose Hemoglobin A1c Calcium Phosphorus Magnesium Total Bilirubin AST ALT Alkaline Phosphatase Troponin I Total Protein Albumin Globulin Albumin/Globulin Ratio Triglycerides Cholesterol LDL Cholesterol Direct HDL Cholesterol Thyroxine (T4) Total T3 TSH 3rd Generation reviewed J.P. - EKG Data EKG comments: reviewed J.P. - Impressions Impression: Echo: Reviewed J.P. Assessment & Plan (1) Syncope Status: Acute Priority: High (2) Chest pain Status: Acute Priority: High (3) Uncontrolled insulin dependent diabetes mellitus Status: Chronic Priority: High (4) Hyperglycemia Status: Acute Priority: High (5) Generalized weakness Status: Acute Priority: High (6) Diabetes insipidus Status: Chronic Priority: High (7) Diabetic retinopathy of both eyes Status: Chronic Priority: High (8) Anxiety and depression Status: Chronic Priority: High (9) Bipolar disorder Status: Chronic Priority: Medium - Assessment and Plan (Free Text) Plan: F/U CXR. Continue Insulin management as per Endocrinology, ASA 81 mg, Ranexa, Lipitor, Abilify, Zoloft, Endocrinology consult appreciated, Cardiology consult. - Date & Time Date: 01/28/18 Time: 10:50
--- NOTE | 2018-01-28 17:54 | PN ---
Copied To: Kelsey Rosenbaum MD Attending MD: Kelsey Rosenbaum MD DATE: 01/28/2018 ENDO FOLLOWUP NOTE LOCATION: In room 408. SUBJECTIVE: This is a 57-year-old female with recent uncontrolled type 2 insulin-requiring diabetes, presenting here with generalized body weakness and progressive bouts of dizziness and lightheadedness with supervening chest pain and is now undergoing cardiac workup and management and is also being followed closely for metabolic management because of recent hyperglycemic accelerations as noted thereof. Her glycemic levels today are still fluctuating and have ranged from 364 to 447 mg/dL. Her hemoglobin A1c is 12.1%, which is extremely elevated and indicative of suboptimal metabolic control of her diabetic condition even on the outpatient as noted. LABORATORY DATA: Her chemistry showed a BUN of 22, sodium 140, potassium 5, chloride 104, CO2 of 28, glucose 282, and creatinine 0.8. Her thyroid studies showed a T4 of 6.6 with a TSH of 1.83. ASSESSMENT: This is a 57-year-old female with uncontrolled and decompensated type 2 insulin-requiring diabetes, presenting here with hyperosmolar hyperglycemic state and dehydration and is now being followed closely for metabolic management. PLAN OF MANAGEMENT: We will modify once again her basal and bolus insulin regimen and increase the Humalog to 20 units subcu t.i.d. before meals to start today as ordered. We will also continue the low-dose correction scale using Humalog insulin as given. This is meant to obviate hypoglycemia and detailed orders have been given. We will also titrate her basal insulin with Levemir to be given at 50 units subcu at bedtime daily to start tonight. We will titrate incrementally as indicated to optimize metabolic control. We will obtain serial chemistries and supplement accordingly as needed. We will follow. Kelsey Rosenbaum MD
--- NOTE | 2018-01-28 21:59 | CP.PCM.CON ---
History of Present Illness - History of Present Illness History of Present Illness: Consultation for chest pain HPI: Anna is a pleasant 57-year-old female with past medical history significant for hypertension diabetes mellitus for the last 15 years on insulin therapy with visual problems secondary to diabetic retinopathy as per H&P Dr. Glaser mentions diabetes insipidus secondary to a trauma and fall had an episode of vasovagal syncope back in July 2017 at which time she had a similar episode which brought her to the hospital this time she was walking to her work it in the morning when she felt somewhat dizzy associated with mild chest pressure described as a sensation of fullness in her chest and a near syncope episode. She takes intranasal DDAVP for diabetes insipidus for her blood pressure been running on the low side she was seen by Dr. Mitchell Martínez 6 months ago at which time she had undergone a stress test which showed no evidence of ischemia. She had a loop recorder placed in back in July by Dr. Katz for evaluation of a vasovagal versus arrhythmic syncopal episode. Review of Systems - Review of Systems Systems not reviewed;Unavailable: Acuity of Condition - Constitutional Constitutional: As Per HPI - EENT Eyes: As Per HPI Ears: As Per HPI Nose/Mouth/Throat: As Per HPI - Breasts Breasts: As Per HPI - Cardiovascular Cardiovascular: As Per HPI - Respiratory Respiratory: As Per HPI - Gastrointestinal Gastrointestinal: As Per HPI - Genitourinary Genitourinary: As Per HPI - Reproductive: Female Reproductive:Female: As Per HPI - Menstruation Menstruation: As Per HPI - Musculoskeletal Musculoskeletal: As Per HPI - Integumentary Integumentary: As Per HPI - Neurological Neurological: As Per HPI - Psychiatric Psychiatric: As Per HPI - Endocrine Endocrine: As Per HPI - Hematologic/Lymphatic Hematologic: As Per HPI Past Patient History - Past Medical History & Family History Past Medical History?: Yes - Past Social History Smoking Status: Never Smoked Alcohol: None Drugs: Denies Home Situation {Lives}: With Family - CARDIAC Hx Cardiac Disorders: Yes Hx Congestive Heart Failure: Yes Hx Hypercholesterolemia: Yes Hx Hypertension: Yes - PULMONARY Hx Respiratory Disorders: No - NEUROLOGICAL Hx Neurological Disorder: Yes Hx Dizziness: Yes - HEENT Hx HEENT Problems: Yes (Loss of vision 2nd to Diabetes Neuropathy.) - RENAL Hx Chronic Kidney Disease: No - ENDOCRINE/METABOLIC Hx Endocrine Disorders: Yes (DM) Hx Diabetes Insipidus: Yes Hx Diabetes Mellitus Type 2: Yes - HEMATOLOGICAL/ONCOLOGICAL Hx Blood Disorders: No - INTEGUMENTARY Hx Dermatological Problems: No - MUSCULOSKELETAL/RHEUMATOLOGICAL Hx Musculoskeletal Disorders: No Hx Falls: No - GASTROINTESTINAL Hx Gastrointestinal Disorders: No - GENITOURINARY/GYNECOLOGICAL Hx Genitourinary Disorders: No - PSYCHIATRIC Hx Psychophysiologic Disorder: Yes Hx Anxiety: Yes Hx Bipolar Disorder: Yes Hx Depression: Yes Hx Substance Use: No - SURGICAL HISTORY Hx Surgeries: Yes Hx Section: Yes (x2) Other/Comment: "intestinal surgery" - ANESTHESIA Hx Anesthesia: Yes Hx Anesthesia Reactions: No Hx Malignant Hyperthermia: No Meds Allergies/Adverse Reactions: Allergies Allergy/AdvReac Type Severity Reaction Status Date / Time Penicillins Allergy RASH Verified 01/27/18 09:28 - Medications Medications: Current Medications Aripiprazole (Abilify) 2 mg PO DAILY [facility] Last Admin: 01/28/18 09:21 Dose: 2 mg Aspirin (Ecotrin) 81 mg PO [facility] Last Admin: 01/28/18 21:14 Dose: 81 mg Atorvastatin Calcium (Lipitor) 40 mg PO [facility] Last Admin: 01/28/18 21:14 Dose: 40 mg Dextrose (Dextrose 50% Inj) 0 ml IV STAT PRN; Protocol PRN Reason: Hypoglycemia Protocol Dextrose (Glutose 15) 0 gm PO ONCE PRN; Protocol PRN Reason: Hypoglycemia Protocol Glipizide (Glucotrol Xl) 10 mg PO BIDWM [facility] Last Admin: 01/28/18 17:08 Dose: 10 mg Glucagon (Glucagen Diagnostic Kit) 0 mg IM STAT PRN; Protocol PRN Reason: Hypoglycemia Protocol Insulin Detemir (Levemir) 50 units SC [facility] Last Admin: 01/28/18 21:21 Dose: 50 units Insulin Human Lispro (Humalog) 0 units SC [facility] PRN Reason: Protocol Last Admin: 01/28/18 17:47 Dose: Not Given Insulin Human Lispro (Humalog) 20 units SC AC [facility] Last Admin: 01/28/18 17:46 Dose: Not Given Metformin HCl (Glucophage) 1,000 mg PO BIDWM [facility] Last Admin: 01/28/18 17:07 Dose: 1,000 mg Ranolazine (Ranexa) 500 mg PO Q12H [facility] Last Admin: 01/28/18 18:35 Dose: 500 mg Sertraline HCl (Zoloft) 50 mg PO DAILY [facility] Last Admin: 01/28/18 09:24 Dose: 50 mg Physical Exam - Constitutional Appears: Well - Head Exam Head Exam: ATRAUMATIC, NORMAL INSPECTION, NORMOCEPHALIC - Eye Exam Eye Exam: EOMI, Normal appearance, PERRL Pupil Exam: NORMAL ACCOMODATION, PERRL - ENT Exam ENT Exam: Mucous Membranes Moist, Normal Exam - Neck Exam Neck exam: Positive for: Normal Inspection - Respiratory Exam Respiratory Exam: Clear to Auscultation Bilateral, NORMAL BREATHING PATTERN - Cardiovascular Exam Cardiovascular Exam: REGULAR RHYTHM, +S1, +S2, Systolic Murmur - GI/Abdominal Exam GI & Abdominal Exam: Normal Bowel Sounds, Soft. absent: Tenderness - Extremities Exam Extremities exam: Positive for: normal inspection - Back Exam Back exam: NORMAL INSPECTION - Neurological Exam Neurological exam: Alert, CN II-XII Intact, Normal Gait, Oriented x3, Reflexes Normal - Psychiatric Exam Psychiatric exam: Normal Affect, Normal Mood - Skin Skin Exam: Dry, Intact, Normal Color, Warm Results - Vital Signs Recent Vital Signs: Last Vital Signs Temp 98.4 F 01/28/18 19:39 Pulse 65 01/28/18 20:48 Resp 20 01/28/18 19:39 BP 103/63 01/28/18 19:39 Pulse Ox 99 01/28/18 19:39 - Labs Result Diagrams: 01/28/18 05:20 01/28/18 05:20 Labs: Laboratory Results - last 24 hr 01/28/18 01/28/18 01/28/18 05:08 05:20 05:20 WBC 6.0 RBC 3.79 L Hgb 11.6 L Hct 34.4 MCV 90.7 MCH 30.6 MCHC 33.8 RDW 13.9 Plt Count 282 MPV 8.9 Neut % (Auto) 55.6 Lymph % (Auto) 34.5 [place] % (Auto) 6.0 Eos % (Auto) 3.1 Baso % (Auto) 0.8 Neut # (Auto) 3.3 Lymph # (Auto) 2.1 [place] # (Auto) 0.4 Eos # (Auto) 0.2 Baso # (Auto) 0.0 Sodium 140 Potassium 5.0 Chloride 104 Carbon Dioxide 28 Anion Gap 13 BUN 22 H Creatinine 0.8 Est GFR ( Amer) > 60 Est GFR (Non-Af Amer) > 60 POC Glucose (mg/dL) 278 H Random Glucose 282 H Hemoglobin A1c Calcium 9.5 Phosphorus 4.3 Magnesium 1.8 Total Bilirubin 0.4 AST 27 ALT 36 Alkaline Phosphatase 61 Troponin I < 0.0120 Total Protein 7.2 Albumin 4.0 Globulin 3.2 Albumin/Globulin Ratio 1.2 Triglycerides 186 H Cholesterol 196 LDL Cholesterol Direct 111 HDL Cholesterol 38 Thyroxine (T4) 6.61 Total T3 0.894 L TSH 3rd Generation 1.83 01/28/18 01/28/18 01/28/18 05:20 10:13 10:58 WBC RBC Hgb Hct MCV MCH MCHC RDW Plt Count MPV Neut % (Auto) Lymph % (Auto) [place] % (Auto) Eos % (Auto) Baso % (Auto) Neut # (Auto) Lymph # (Auto) [place] # (Auto) Eos # (Auto) Baso # (Auto) Sodium Potassium Chloride Carbon Dioxide Anion Gap BUN Creatinine Est GFR ( Amer) Est GFR (Non-Af Amer) POC Glucose (mg/dL) 447 H* Random Glucose Hemoglobin A1c 12.1 H Calcium Phosphorus Magnesium Total Bilirubin AST ALT Alkaline Phosphatase Troponin I < 0.0120 Total Protein Albumin Globulin Albumin/Globulin Ratio Triglycerides Cholesterol LDL Cholesterol Direct HDL Cholesterol Thyroxine (T4) Total T3 TSH 3rd Generation 01/28/18 01/28/18 01/28/18 12:07 15:54 21:18 WBC RBC Hgb Hct MCV MCH MCHC RDW Plt Count MPV Neut % (Auto) Lymph % (Auto) [place] % (Auto) Eos % (Auto) Baso % (Auto) Neut # (Auto) Lymph # (Auto) [place] # (Auto) Eos # (Auto) Baso # (Auto) Sodium Potassium Chloride Carbon Dioxide Anion Gap BUN Creatinine Est GFR ( Amer) Est GFR (Non-Af Amer) POC Glucose (mg/dL) 364 H 108 135 H Random Glucose Hemoglobin A1c Calcium Phosphorus Magnesium Total Bilirubin AST ALT Alkaline Phosphatase Troponin I Total Protein Albumin Globulin Albumin/Globulin Ratio Triglycerides Cholesterol LDL Cholesterol Direct HDL Cholesterol Thyroxine (T4) Total T3 TSH 3rd Generation Assessment & Plan - Assessment and Plan (Free Text) Assessment: Chest pain hypotension - r/o acs - stress test in am - random cortisol - orthostatics - evaluation of loop recorder
[2018-01-28] MEDS ORDERED: Insulin Detemir 100 Units/ml Inj SC SCH (22:00)
[2018-01-29 05:38] LABS: ALB/GLOB RATIO 1.2 (1.0-2.1); ALBUMIN 3.9 g/dL (3.5-5.0); ALT/SGPT 33 U/L (9-52); AST/SGOT 25 U/L (14-36); BLOOD UREA NITROGEN 21 mg/dl (7-17); CALCIUM 9.8 mg/dL (8.4-10.2); GFR AFRICAN-AMERICAN > 60; GFR NON-AFRICAN AMERICAN > 60
[2018-01-29] MEDS: Ranolazine 500 mg Extended Release Tablets PO SCH ×2 (05:51→17:42)
--- NOTE | 2018-01-29 06:38 | CP.PCM.PN ---
Subjective - Date & Time of Evaluation Date of Evaluation: 01/29/18 Objective - Vital Signs/Intake and Output Vital Signs (last 24 hours): Temp Pulse Resp BP Pulse Ox 98.2 F 77 18 121/68 97 01/29/18 04:37 01/29/18 04:37 01/29/18 04:37 01/29/18 04:37 01/29/18 04:37 Intake and Output: 01/28/18 01/29/18 18:59 06:59 Intake Total 1000 Balance 1000 - Medications Medications: Current Medications Aripiprazole (Abilify) 2 mg PO DAILY [facility] Last Admin: 01/28/18 09:21 Dose: 2 mg Aspirin (Ecotrin) [address] [facility] Last Admin: 01/28/18 21:14 Dose: 81 mg Atorvastatin Calcium (Lipitor) [address] [facility] Last Admin: 01/28/18 21:14 Dose: 40 mg Dextrose (Dextrose 50% Inj) 0 ml IV STAT PRN; Protocol PRN Reason: Hypoglycemia Protocol Dextrose (Glutose 15) 0 gm PO ONCE PRN; Protocol PRN Reason: Hypoglycemia Protocol Glipizide (Glucotrol Xl) 10 mg PO BIDWM [facility] Last Admin: 01/28/18 17:08 Dose: 10 mg Glucagon (Glucagen Diagnostic Kit) 0 mg IM STAT PRN; Protocol PRN Reason: Hypoglycemia Protocol Insulin Detemir (Levemir) [address] [facility] Last Admin: 01/28/18 21:21 Dose: 50 units Insulin Human Lispro (Humalog) 0 units SC [facility] PRN Reason: Protocol Last Admin: 01/28/18 22:36 Dose: Not Given Insulin Human Lispro (Humalog) 12 units SC [facility] Metformin HCl (Glucophage) 1,000 mg PO BIDWM [facility] Last Admin: 01/28/18 17:07 Dose: 1,000 mg Ranolazine (Ranexa) 500 mg PO Q12H [facility] Last Admin: 01/29/18 05:51 Dose: 500 mg Sertraline HCl (Zoloft) 50 mg PO DAILY [facility] Last Admin: 01/28/18 09:24 Dose: 50 mg - Labs Labs: 01/28/18 05:20 01/29/18 05:22
[2018-01-29 08:32] VITALS: RESP 20
[2018-01-29] MEDS: GlipiZIDE 10 mg SR Tab PO SCH ×2 (09:06→17:19)
[2018-01-29] MEDS: Insulin Lispro (humaLOG) 100 Units/ml Inj SC SCH ×6 (09:07→17:17)
--- NOTE | 2018-01-29 10:08 | RAD ---
Date of service: 01/29/2018 HISTORY: Chest pain COMPARISON: 07/30/2017 TECHNIQUE: Chest PA and lateral FINDINGS: LUNGS: No active pulmonary disease. PLEURA: No significant pleural effusion identified. No pneumothorax apparent. CARDIOVASCULAR: Normal. OSSEOUS STRUCTURES: No significant abnormalities. VISUALIZED UPPER ABDOMEN: Normal. OTHER FINDINGS: None. IMPRESSION: No active disease.
[2018-01-29 12:00] VITALS: O2SAT 99
--- NOTE | 2018-01-29 14:43 | CP.PCM.PN ---
Subjective - Date & Time of Evaluation Date of Evaluation: 01/29/18 Objective - Vital Signs/Intake and Output Vital Signs (last 24 hours): Temp Pulse Resp BP Pulse Ox 97.8 F 70 20 102/66 99 01/29/18 12:00 01/29/18 12:00 01/29/18 12:00 01/29/18 12:00 01/29/18 12:00 - Medications Medications: Current Medications Aripiprazole (Abilify) 2 mg PO DAILY [facility] Last Admin: 01/29/18 09:05 Dose: 2 mg Aspirin (Ecotrin) 81 mg PO [facility] Last Admin: 01/28/18 21:14 Dose: 81 mg Atorvastatin Calcium (Lipitor) 40 mg PO [facility] Last Admin: 01/28/18 21:14 Dose: 40 mg Dextrose (Dextrose 50% Inj) 0 ml IV STAT PRN; Protocol PRN Reason: Hypoglycemia Protocol Dextrose (Glutose 15) 0 gm PO ONCE PRN; Protocol PRN Reason: Hypoglycemia Protocol Glipizide (Glucotrol Xl) 10 mg PO BIDWM [facility] Last Admin: 01/29/18 09:06 Dose: 10 mg Glucagon (Glucagen Diagnostic Kit) 0 mg IM STAT PRN; Protocol PRN Reason: Hypoglycemia Protocol Insulin Detemir (Levemir) 50 units SC [facility] Last Admin: 01/28/18 21:21 Dose: 50 units Insulin Human Lispro (Humalog) 0 units SC [facility] PRN Reason: Protocol Last Admin: 01/29/18 12:51 Dose: 3 units Insulin Human Lispro (Humalog) 12 units SC AC [facility] Last Admin: 01/29/18 12:52 Dose: 12 units Metformin HCl (Glucophage) 1,000 mg PO BIDWM [facility] Last Admin: 01/29/18 09:05 Dose: 1,000 mg Ranolazine (Ranexa) 500 mg PO Q12H [facility] Last Admin: 01/29/18 05:51 Dose: 500 mg Sertraline HCl (Zoloft) 50 mg PO DAILY [facility] Last Admin: 01/29/18 09:09 Dose: 50 mg - Labs Labs: 01/28/18 05:20 01/29/18 05:22 Assessment and Plan (1) Syncope Status: Acute (2) Chest pain Status: Acute (3) Uncontrolled insulin dependent diabetes mellitus Status: Chronic (4) Hyperglycemia Status: Acute (5) Generalized weakness Status: Acute (6) Diabetes insipidus Status: Chronic (7) Diabetic retinopathy of both eyes Status: Chronic (8) Anxiety and depression Status: Chronic (9) Bipolar disorder Status: Chronic
[2018-01-29 15:38] VITALS: BP 113/62; PULSE 81; TEMP 98.4
--- NOTE | 2018-01-29 18:38 | PN ---
Copied To: Kelsey Rosenbaum MD Attending MD: Kelsey Rosenbaum MD DATE: 01/29/2018 ENDO FOLLOWUP NOTE LOCATION: In room 408. SUBJECTIVE: This is a 57-year-old female with recent uncontrolled type 2 insulin-requiring diabetes, now being followed closely for metabolic management. Her glycemic levels are fluctuating as noted overnight, but have improved today as noted. Her glucose values have ranged from 135 to 197 mg/dL. It was 364 to 447 yesterday as noted. LABORATORY DATA: Her chemistry showed a BUN of 21, sodium 141, potassium 4.5, chloride 105, CO2 of 29, glucose 226, and creatinine 0.8. ASSESSMENT AND PLAN: So at this time we will modify her basal and bolus insulin regimen and change the Humalog to 12 units subcutaneously t.i.d. before meals to start today as ordered. We will also continue the basal insulin given as Levemir at 50 units subcutaneously at bedtime daily as given. We will continue the low dose correction scale using Humalog insulin as ordered. We will obtain serial chemistries and supplement accordingly as needed. We will follow. Kelsey Rosenbaum MD
--- NOTE | 2018-01-29 19:55 | CP.PCM.DIS ---
Provider - Provider Date of Admission: 01/29/18 15:11 Attending physician: Huey Glaser MD Consults: Cardiology-Dr. Herrera Endocrinology-Dr. Rosenbaum Time Spent in preparation of Discharge (in minutes): 35 Diagnosis - Discharge Diagnosis (1) Syncope Status: Acute Priority: High (2) Chest pain Status: Acute Priority: High (3) Uncontrolled insulin dependent diabetes mellitus Status: Chronic Priority: High (4) Hyperglycemia Status: Acute Priority: High (5) Generalized weakness Status: Acute Priority: High (6) Diabetes insipidus Status: Chronic Priority: High (7) Diabetic retinopathy of both eyes Status: Chronic Priority: High (8) Anxiety and depression Status: Chronic Priority: High (9) Bipolar disorder Status: Chronic Priority: Medium Hospital Course - Lab Results Lab Results: Most Recent Lab Values WBC 6.0 K/uL (4.8-10.8) 01/28/18 05:20 RBC 3.79 Mil/uL (3.80-5.20) L 01/28/18 05:20 Hgb 11.6 g/dL (12.0-16.0) L 01/28/18 05:20 Hct 34.4 % (34.0-47.0) 01/28/18 05:20 MCV 90.7 fl (81.0-99.0) 01/28/18 05:20 MCH 30.6 pg (27.0-31.0) 01/28/18 05:20 MCHC 33.8 g/dL (33.0-37.0) 01/28/18 05:20 RDW 13.9 % (11.5-14.5) 01/28/18 05:20 Plt Count 282 K/uL (130-400) 01/28/18 05:20 MPV 8.9 fl (7.2-11.7) 01/28/18 05:20 Neut % (Auto) 55.6 % (50.0-75.0) 01/28/18 05:20 Lymph % (Auto) 34.5 % (20.0-40.0) 01/28/18 05:20 [place] % (Auto) 6.0 % (0.0-10.0) 01/28/18 05:20 Eos % (Auto) 3.1 % (0.0-4.0) 01/28/18 05:20 Baso % (Auto) 0.8 % (0.0-2.0) 01/28/18 05:20 Neut # (Auto) 3.3 K/uL (1.8-7.0) 01/28/18 05:20 Lymph # (Auto) 2.1 K/uL (1.0-4.3) 01/28/18 05:20 [place] # (Auto) 0.4 K/uL (0.0-0.8) 01/28/18 05:20 Eos # (Auto) 0.2 K/uL (0.0-0.7) 01/28/18 05:20 Baso # (Auto) 0.0 K/uL (0.0-0.2) 01/28/18 05:20 Sodium 141 mmol/l (132-148) 01/29/18 05:22 Potassium 4.5 MMOL/L (3.6-5.0) 01/29/18 05:22 Chloride 105 mmol/L (98-107) 01/29/18 05:22 Carbon Dioxide 29 mmol/L (22-30) 01/29/18 05:22 Anion Gap 12 (10-20) 01/29/18 05:22 BUN 21 mg/dl (7-17) H 01/29/18 05:22 Creatinine 0.8 mg/dl (0.7-1.2) 01/29/18 05:22 Est GFR ( Amer) > 60 01/29/18 05:22 Est GFR (Non-Af Amer) > 60 01/29/18 05:22 POC Glucose (mg/dL) 85 mg/dL (65-110) 01/29/18 16:53 Random Glucose 226 mg/dL (65-105) H 01/29/18 05:22 Hemoglobin A1c 12.1 % (4.2-6.5) H 01/28/18 05:20 Calcium 9.8 mg/dL (8.4-10.2) 01/29/18 05:22 Phosphorus 4.3 mg/dl (2.5-4.5) 01/28/18 05:20 Magnesium 1.8 MG/DL (1.6-2.3) 01/28/18 05:20 Total Bilirubin 0.4 mg/dl (0.2-1.3) 01/29/18 05:22 AST 25 U/L (14-36) 01/29/18 05:22 ALT 33 U/L (9-52) 01/29/18 05:22 Alkaline Phosphatase 60 U/L (38-126) 01/29/18 05:22 Troponin I < 0.0120 ng/mL (0.00-0.120) 01/28/18 10:13 Total Protein 7.1 G/DL (6.3-8.2) 01/29/18 05:22 Albumin 3.9 g/dL (3.5-5.0) 01/29/18 05:22 Globulin 3.2 gm/dL (2.2-3.9) 01/29/18 05:22 Albumin/Globulin Ratio 1.2 (1.0-2.1) 01/29/18 05:22 Triglycerides 186 mg/DL (0-149) H 01/28/18 05:20 Cholesterol 196 mg/dL (0-199) 01/28/18 05:20 LDL Cholesterol Direct 111 mg/dL (0-129) 01/28/18 05:20 HDL Cholesterol 38 MG/DL (30-70) 01/28/18 05:20 Thyroxine (T4) 6.61 ug/dl (5.5-11.0) 01/28/18 05:20 Total T3 0.894 nmol/L (1.49-2.60) L 01/28/18 05:20 TSH 3rd Generation 1.83 mIU/ML (0.46-4.68) 01/28/18 05:20 Urine Color Yellow (YELLOW) 01/27/18 12:00 Urine Clarity Slighty-cloudy (Clear) 01/27/18 12:00 Urine pH 6.0 (5.0-8.0) 01/27/18 12:00 Ur Specific [place] 1.021 (1.003-1.030) 01/27/18 12:00 Urine Protein Negative mg/dL (NEGATIVE) 01/27/18 12:00 Urine Glucose (UA) >=500 mg/dL (Normal) 01/27/18 12:00 Urine Ketones Negative mg/dL (NEGATIVE) 01/27/18 12:00 Urine Blood Negative (NEGATIVE) 01/27/18 12:00 Urine Nitrate Negative (NEGATIVE) 01/27/18 12:00 Urine Bilirubin Negative (NEGATIVE) 01/27/18 12:00 Urine Urobilinogen 0.2-1.0 mg/dL (0.2-1.0) 01/27/18 12:00 Ur Leukocyte Esterase Neg [place]/uL (Negative) 01/27/18 12:00 Urine RBC (Auto) 1 /hpf (0-3) 01/27/18 12:00 Urine Microscopic WBC 3 /hpf (0-5) 01/27/18 12:00 Ur Squamous Epith Cells < 1 /hpf (0-5) 01/27/18 12:00 Urine Bacteria Rare (<OCC) 01/27/18 12:00 - Date & Time of H&P Date of H&P: 01/28/18 Time of H&P: 10:50 Discharge Exam - Head Exam Head Exam: NORMAL INSPECTION - Eye Exam Eye Exam: PERRL - ENT Exam ENT Exam: Normal Oropharynx - Neck Exam Neck exam: Normal Inspection - Respiratory Exam Respiratory Exam: NORMAL BREATHING PATTERN - Cardiovascular Exam Cardiovascular Exam: Bradycardia, Systolic Murmur Additional comments: loop recorder left chest wall - GI/Abdominal Exam GI & Abdominal Exam: Normal Bowel Sounds, Soft - Extremities Exam Extremities exam: normal inspection - Back Exam Back exam: NORMAL INSPECTION - Neurological Exam Neurological exam: Alert, Oriented x3, Reflexes Normal Additional comments: No motor sensory deficit. - Psychiatric Exam Psychiatric exam: Anxious, Depressed - Skin Skin Exam: Warm Discharge Plan - Follow Up Plan Condition: FAIR Disposition: HOME/ ROUTINE Patient education suggested?: Yes Instructions: Syncope (Fainting), Chest Pain (DC), Generalized Weakness (DC) Additional Instructions: follow up with pmd in 1 week Referrals: Benedicto Herrera MD [Staff Provider] - Huey Glaser MD [Staff Provider] -
== END 2018-01-29 19:34 | disposition home or self-care (01) | DRG 638 ==
LOC: H.ER 09:09 → H.ERHOLD 14:11 → H.TEL 15:55 → OBSVTOIN 01-29 15:11
PROVIDERS: ADMIT Internal Medicine Pulmonary Disease; ATTEND Internal Medicine Pulmonary Disease
DX: E11.00 Type 2 diabetes mellitus with hyperosmolarity without nonketotic hyperglycemic-hyperosmolar coma (NKHHC) (principal); E23.2 Diabetes insipidus; E11.40 Type 2 diabetes mellitus with diabetic neuropathy, unspecified; E11.319 Type 2 diabetes mellitus with unspecified diabetic retinopathy without macular edema; I11.0 Hypertensive heart disease with heart failure; I50.9 Heart failure, unspecified; I35.1 Nonrheumatic aortic (valve) insufficiency; F25.8 Other schizoaffective disorders; F31.9 Bipolar disorder, unspecified; E86.0 Dehydration; I44.39 Other atrioventricular block; F41.1 Generalized anxiety disorder; E78.5 Hyperlipidemia, unspecified; E78.00 Pure hypercholesterolemia, unspecified; I95.9 Hypotension, unspecified; H54.8 Legal blindness, as defined in USA; Z79.4 Long term (current) use of insulin; Z79.84 Long term (current) use of oral hypoglycemic drugs; Z79.82 Long term (current) use of aspirin; Z88.0 Allergy status to penicillin

== ENCOUNTER 2018-02-07 13:12 | Inpatient (IN) | payer OTHER ==
[2018-02-07 13:12] VITALS: BMI 28.7
--- NOTE | 2018-02-07 13:47 | ED PDOC ---
Upper Extremity Pain/Injury Time Seen by Provider: 02/07/18 13:47 Chief Complaint (Nursing): Upper Extremity Problem/Injury Chief Complaint (Provider): right arm pain History Per: Patient Additional Complaint(s): 57 y/o right hand dominant female presents with pain to right arm s/p almost falling yesterday and placing right arm out in front of her to break her fall. Patient took aleve this morning but still has pain prompting ED visit. She cannot lift right arm without severe pain. Patient offers no other complaints. PMD: Dr. Glaser Past Medical History Reviewed: Historical Data, Nursing Documentation, Vital Signs Vital Signs: Last Vital Signs Temp 98.3 F 02/07/18 13:44 Pulse 78 02/07/18 13:44 Resp 16 02/07/18 13:44 BP 87/50 L 02/07/18 13:44 Pulse Ox 98 02/07/18 13:44 - Medical History PMH: Anxiety, Bipolar Disorder, CHF, Depression, Diabetes, HTN, Hypercholesterolemia - Surgical History Surgical History: (x 2) Other surgeries: "intestinal surgery" - Family History Family History: States: No Known Family Hx - Living Arrangements Living Arrangements: With Family - Social History Current smoker - smoking cessation education provided: No Alcohol: None Drugs: Denies - Home Medications Home Medications: Ambulatory Orders Medication Instructions Recorded ARIPiprazole [Abilify] 2 mg PO DAILY 07/30/17 Aspirin [Ecotrin] 81 mg PO HS 07/30/17 Glimepiride [amaRYL] 4 mg PO BID 07/30/17 MetFORMIN [glucoPHAGE] 1,000 mg PO BID 07/30/17 Rosuvastatin Calcium [Crestor] 20 mg PO HS 07/30/17 Sertraline [Zoloft] 50 mg PO DAILY 07/30/17 Desmopressin (Nonrefrigerated) 1 spray YAMILE BID 01/27/18 [Desmopressin 10 Mcg/0.1 ml Spr] Insulin Detemir [Levemir] 40 units SC HS 01/27/18 Insulin Lispro [humALOG] 20 unit SC ACTID 01/27/18 - Allergies Allergies/Adverse Reactions: Allergies Allergy/AdvReac Type Severity Reaction Status Date / Time Penicillins Allergy RASH Verified 01/27/18 09:28 Review of Systems ROS Statement: Except As Marked, All Systems Reviewed And Found Negative Musculoskeletal: Positive for: Other (right arm injury) Physical Exam - Reviewed Nursing Documentation Reviewed: Yes Vital Signs Reviewed: Yes - Physical Exam Appears: Positive for: Well Skin: Positive for: Normal Color. Negative for: Rash Eye Exam: Positive for: Normal appearance Neck: Positive for: Normal Cardiovascular/Chest: Positive for: Regular Rate, Rhythm Respiratory: Positive for: Normal Breath Sounds. 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) Neurologic/Psych: Positive for: Alert, Oriented - Laboratory Results Result Diagrams: 02/07/18 16:00 02/07/18 16:00 - ECG Interpretation Of ECG: Normal sinus rhythm 62 bpm, no acute changes, reviewed by PA and ED attending O2 Sat by Pulse Oximetry: 98 Pulse Ox Interpretation: Normal - Other Rad X-rays right shoulder, humerus and elbow X-Ray: Interpreted by Me, Viewed By Me X-Ray Interpretation: see below CXR X-Ray: Read By Radiologist X-Ray Interpretation: see below CT right shoulder X-Ray: Read By Radiologist X-Ray Interpretation: see below Medical Decision Making Medical Decision Makin57 y/o F with right arm pain Plan: IM toradol PO tramadol X-rays right shoulder, humerus and elbow 4 mg IV morphine given as tramadol did not provide adequate pain relief. X-ray: IMPRESSION: Comminuted fracture of the right humeral head and neck. No evidence of dislocation however there is slight inferior position of the right humeral head possibly due to some impaction of fragments and open joint space hemorrhage. Few tiny calcifications within the soft tissues adjacent to the humeral head may represent small fracture fragments though pre-existing calcific tendinitis not excluded. CXR: IMPRESSION: Cardiomegaly. No acute infiltrates. Probable scalloping right hemidiaphragm. CT right shoulder: HISTORY: Assess for shoulder fracture. COMPARISON: Correlation made with the prior radiographs of the right shoulder earlier same day TECHNIQUE: Contiguous helical/ transaxial images of the right shoulder were obtained. Coronal and sagittal reformats were generated. This CT exam was performed using one or more of the following dose reduction techniques: Automated exposure control, adjustment of the mA and/or kV according to patient size, and/or use of iterative reconstruction technique. Radiation dose: Total DLP = 404.06 mGy - cm FINDINGS: BONES: Re- demonstrated is a comminuted fracture of the right humeral head and neck. RIGHT SHOULDER: No evidence of dislocation. Very minor degenerative changes of the right acromioclavicular joint. SOFT TISSUES: Unremarkable. IMPRESSION: Comminuted fracture right humeral head and neck. Case was d/w ortho quality control operator, Dr. Laguerre who states to order CT of shoulder and admit patient. Patient agrees with plan. PMD is Dr. Glaser - case was d/w him and he states to admit patient to his service and states to call Dr. Herrera for cardiology consult for medical clearance. I spoke with Dr. Herrera regarding this. Disposition - Clinical Impression Clinical Impression: Humeral head fracture - Patient ED Disposition Is Patient to be Admitted: Yes - Disposition Disposition Time: 15:34 Condition: FAIR Results - Lab Results Lab Results: 02/07/18 02/07/18 02/07/18 16:04 16:00 16:00 WBC RBC Hgb Hct MCV MCH MCHC RDW Plt Count MPV Neut % (Auto) Lymph % (Auto) [place] % (Auto) Eos % (Auto) Baso % (Auto) Neut # (Auto) Lymph # (Auto) [place] # (Auto) Eos # (Auto) Baso # (Auto) PT 11.4 INR 1.0 APTT 25.9 Sodium 135 Potassium 4.3 Chloride 97 L Carbon Dioxide 29 Anion Gap 13 BUN 22 H Creatinine 0.7 Est GFR ( Amer) > 60 Est GFR (Non-Af Amer) > 60 POC Glucose (mg/dL) 460 H* Random Glucose 481 H* D Calcium 9.2 Total Bilirubin 0.6 AST 26 ALT 38 Alkaline Phosphatase 73 Total Protein 7.2 Albumin 4.1 Globulin 3.1 Albumin/Globulin Ratio 1.3 02/07/18 16:00 WBC 8.4 RBC 3.76 L Hgb 11.2 L Hct 33.9 L MCV 90.3 MCH 29.9 MCHC 33.1 RDW 13.8 Plt Count 262 MPV 9.0 Neut % (Auto) 79.8 H Lymph % (Auto) 11.6 L [place] % (Auto) 6.3 Eos % (Auto) 1.8 Baso % (Auto) 0.5 Neut # (Auto) 6.7 Lymph # (Auto) 1.0 [place] # (Auto) 0.5 Eos # (Auto) 0.1 Baso # (Auto) 0.0 PT INR APTT Sodium Potassium Chloride Carbon Dioxide Anion Gap BUN Creatinine Est GFR ( Amer) Est GFR (Non-Af Amer) POC Glucose (mg/dL) Random Glucose Calcium Total Bilirubin AST ALT Alkaline Phosphatase Total Protein Albumin Globulin Albumin/Globulin Ratio
--- NOTE | 2018-02-07 14:57 | RAD ---
Date of service: 02/07/2018 PROCEDURE: Radiographs of the Right Shoulder HISTORY: trauma COMPARISON: Comparison made with concurrent radiographs of the right humerus and right elbow. FINDINGS: BONES: Comminuted fracture of the right humeral head and neck. No evidence of dislocation however there is slight inferior position of the right humeral head possibly due to some impaction of fragments and open joint space hemorrhage JOINTS: Minor degenerative osteoarthritis right acromioclavicular joint. . Few tiny calcifications within the soft tissues adjacent to the humeral head may represent small fracture fragments though pre-existing calcific tendinitis not excluded. SOFT TISSUES: As above. OTHER FINDINGS: None. IMPRESSION: Comminuted fracture of the right humeral head and neck. No evidence of dislocation however there is slight inferior position of the right humeral head possibly due to some impaction of fragments and open joint space hemorrhage Few tiny calcifications within the soft tissues adjacent to the humeral head may represent small fracture fragments though pre-existing calcific tendinitis not excluded.
--- NOTE | 2018-02-07 14:58 | RAD ---
PROCEDURE: Radiographs of the right humerus. HISTORY: trauma COMPARISON: Comparison made with concurrent radiographs of the right humerus and right elbow. FINDINGS: BONES: Comminuted fracture of the right humeral head and neck. No evidence of dislocation however there is slight inferior position of the right humeral head possibly due to some impaction of fragments and open joint space hemorrhage Minor degenerative osteoarthritis right acromioclavicular joint. . Few tiny calcifications within the soft tissues adjacent to the humeral head may represent small fracture fragments though pre-existing calcific tendinitis not excluded. SOFT TISSUES: As above OTHER FINDINGS: None. IMPRESSION: Comminuted fracture right humeral head and neck. See above discussion for additional details
--- NOTE | 2018-02-07 15:02 | RAD ---
Date of service: 02/07/2018 PROCEDURE: Radiographs of the right elbow. Study is slightly limited due to poor patient positioning in the lateral projection. HISTORY: trauma COMPARISON: No prior. FINDINGS: BONES: There is a cortical step along the medial aspect of the right distal humeral metaphysis that the the that most likely represents anatomic cortical variation however the possibility of a nondisplaced fracture cannot be completely excluded. Clinical correlation with physical exam could be performed to determine whether this may represent fracture JOINTS: Minor spurring along of the coronoid process of the ulna SOFT TISSUES: Normal. JOINT EFFUSION: None. OTHER FINDINGS: None. IMPRESSION: There is a cortical step along the medial aspect of the right distal humeral metaphysis that most likely represents anatomic cortical variation however the possibility of a nondisplaced fracture cannot be completely excluded. Clinical correlation with physical exam could be performed to determine whether this may represent fracture
[2018-02-07] MEDS ORDERED: Sodium Chloride 0.9% 1,000 ML IV STA (15:35)
[2018-02-07] MEDS ORDERED: Morphine 4 MG/ML VIAL ONE (16:04)
[2018-02-07] MEDS ORDERED: Insulin Regular 100 units/ml IV STA (16:14)
--- NOTE | 2018-02-07 16:18 | RAD ---
Date of service: 02/07/2018 PROCEDURE: CHEST RADIOGRAPH, 1 VIEW HISTORY: clearance COMPARISON: None available. FINDINGS: LUNGS: Normal elliptical shaped cardiac device overlies the left upper/mid thorax slight elevation right hemidiaphragm possibly due to scalloping of the hemidiaphragm PLEURA: No pneumothorax or pleural fluid seen. CARDIOVASCULAR: Cardiomegaly. OSSEOUS STRUCTURES: No significant abnormalities. VISUALIZED UPPER ABDOMEN: Normal. OTHER FINDINGS: None. IMPRESSION: Cardiomegaly. No acute infiltrates. Probable scalloping right hemidiaphragm
[2018-02-07] MEDS ORDERED: Insulin Regular 100 units/ml ONE (16:19)
[2018-02-07 16:52] LABS: BASO % 0.5 % (0.0-2.0); EOS # 0.1 K/uL (0.0-0.7); EOS % 1.8 % (0.0-4.0); HEMOGLOBIN 11.2 g/dL (12.0-16.0); LYMPH % 11.6 % (20.0-40.0); MEAN CELL VOLUME 90.3 fl (81.0-99.0); MEAN CORPUSCULAR HEMOGLOBIN 29.9 pg (27.0-31.0); MEAN CORPUSCULAR HGB CONC 33.1 g/dL (33.0-37.0); MONO # 0.5 K/uL (0.0-0.8); MONO % 6.3 % (0.0-10.0); NEUT # 6.7 K/uL (1.8-7.0); NEUT % 79.8 % (50.0-75.0); RBC 3.76 Mil/uL (3.80-5.20); RED CELL DISTRIBUTION WIDTH 13.8 % (11.5-14.5); WHITE BLOOD COUNT 8.4 K/uL (4.8-10.8)
[2018-02-07 16:59] LABS: PROTHROMBIN TIME 11.4 Seconds (9.8-13.1)
[2018-02-07 17:01] LABS: PARTIAL THROMBOPLASTIN TIME 25.9 Seconds (25.6-37.1)
[2018-02-07 17:17] LABS: ALB/GLOB RATIO 1.3 (1.0-2.1); ALBUMIN 4.1 g/dL (3.5-5.0); ALT/SGPT 38 U/L (9-52); AST/SGOT 26 U/L (14-36); BLOOD UREA NITROGEN 22 mg/dl (7-17); CALCIUM 9.2 mg/dL (8.4-10.2); GFR NON-AFRICAN AMERICAN > 60
--- NOTE | 2018-02-07 17:51 | CT ---
Date of service: 02/07/2018. PROCEDURE: CT of the right shoulder. HISTORY: Assess for shoulder fracture. COMPARISON: Correlation made with the prior radiographs of the right shoulder earlier same day TECHNIQUE: Contiguous helical/ transaxial images of the right shoulder were obtained. Coronal and sagittal reformats were generated. This CT exam was performed using one or more of the following dose reduction techniques: Automated exposure control, adjustment of the mA and/or kV according to patient size, and/or use of iterative reconstruction technique. Radiation dose: Total DLP = 404.06 mGy - cm FINDINGS: BONES: Re- demonstrated is a comminuted fracture of the right humeral head and neck. . RIGHT SHOULDER : No evidence of dislocation. Very minor degenerative changes of the right acromioclavicular joint. SOFT TISSUES: Unremarkable. IMPRESSION: Comminuted fracture right humeral head and neck.
[2018-02-07] MEDS: Sodium Chloride 0.45% 1,000 ML IV SCH (21:15)
[2018-02-07] MEDS ORDERED: Insulin Detemir 100 Units/ml Inj SC SCH (22:00)
[2018-02-07] MEDS: Insulin Lispro (humaLOG) 100 Units/ml Inj SC SCH (23:02)
[2018-02-08 06:18] LABS: PROTHROMBIN TIME 11.2 Seconds (9.8-13.1)
[2018-02-08 06:20] LABS: PARTIAL THROMBOPLASTIN TIME 25.5 Seconds (25.6-37.1)
[2018-02-08 06:27] LABS: HEMOGLOBIN 10.5 g/dL (12.0-16.0); MEAN CELL VOLUME 90.7 fl (81.0-99.0); MEAN CORPUSCULAR HGB CONC 33.1 g/dL (33.0-37.0); RBC 3.5 Mil/uL (3.80-5.20); RED CELL DISTRIBUTION WIDTH 13.7 % (11.5-14.5); WHITE BLOOD COUNT 7.7 K/uL (4.8-10.8)
[2018-02-08 06:48] LABS: LDL CHOLESTEROL 80 mg/dL (0-129)
[2018-02-08 06:53] LABS: T4 5.99 ug/dl (5.5-11.0)
[2018-02-08 07:28] LABS: ALB/GLOB RATIO 1.2 (1.0-2.1); ALBUMIN 3.7 g/dL (3.5-5.0); ALT/SGPT 28 U/L (9-52); AST/SGOT 26 U/L (14-36); BLOOD UREA NITROGEN 24 mg/dl (7-17); CALCIUM 8.8 mg/dL (8.4-10.2); GFR NON-AFRICAN AMERICAN > 60; HDL CHOLESTEROL 39 MG/DL (30-70)
[2018-02-08] MEDS ORDERED: Insulin Lispro (humaLOG) 100 Units/ml Inj SC SCH (07:30)
--- NOTE | 2018-02-08 08:04 | CP.PCM.CON ---
History of Present Illness - History of Present Illness History of Present Illness: Orthopedic consultation Patient is a 57 y/o RHD female with PMH of IDDM, HTN, hypercholesterolemia, CHF , Bipolar and possible diabetes insipidus admitted due to right shoulder fracture. Dr. Garrett was consulted for orthopedic evaluation. Patient reports tripping over area rug at home bracing her fall onto a chair and onto the floor. She experienced immediate R shoulder pain and was brought to [facility] ER for evaluation. Currently, her pain is moderate, dull and aching in quality and located duffuse about the shoulder region. The pain is worsened with activity and relieved by rest and pain medication. The pain is associated with swelling of the shoulder. She denies radiation of pain/numbness/tingling. She also denies CP/SOB/N/V/D/fever/melena/dysuria. 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 Neuropathy.) - RENAL Hx Chronic Kidney Disease: No - ENDOCRINE/METABOLIC Hx Endocrine Disorders: Yes Hx Diabetes Insipidus: Yes Hx Diabetes Mellitus Type 2: Yes - HEMATOLOGICAL/ONCOLOGICAL Hx AIDS: No Hx Human Immunodeficiency Virus (HIV): No - INTEGUMENTARY Hx Dermatological Problems: No - MUSCULOSKELETAL/RHEUMATOLOGICAL Hx Falls: Yes - GASTROINTESTINAL Hx Gastrointestinal Disorders: No Hx Bowel Surgery: Yes (1981) - GENITOURINARY/GYNECOLOGICAL Hx Genitourinary Disorders: No - PSYCHIATRIC Hx Anxiety: Yes Hx Bipolar Disorder: Yes Hx Depression: Yes - SURGICAL HISTORY Hx Surgeries: Yes Hx Section: Yes (x2) Other/Comment: "intestinal surgery" - ANESTHESIA Hx Anesthesia: Yes Hx Anesthesia Reactions: No Hx Malignant Hyperthermia: No Meds Allergies/Adverse Reactions: Allergies Allergy/AdvReac Type Severity Reaction Status Date / Time Penicillins Allergy RASH Verified 01/27/18 09:28 - Medications Medications: Current Medications Atorvastatin Calcium (Lipitor) 40 mg PO HS [facility] Last Admin: 02/07/18 23:07 Dose: 40 mg Desmopressin Acetate (Ddavp) 1 spr YAMILE BID [facility] Glipizide (Glucotrol Xl) 10 mg PO BID [facility] Sodium Chloride (Sodium Chloride 0.45%) 1,000 mls @ 80 mls/hr IV .[id number] [facility] Stop: 02/08/18 20:24 Last Admin: 02/07/18 21:15 Dose: 80 mls/hr Insulin Detemir (Levemir) 40 units SC HS [facility] Last Admin: 02/07/18 23:04 Dose: 40 u Insulin Human Lispro (Humalog) 20 units SC ACTID [facility] Insulin Human Lispro (Humalog) 0 units SC ACHS [facility] PRN Reason: Protocol Last Admin: 02/07/18 23:02 Dose: 4 u Morphine Sulfate (Morphine) 2 mg IVP Q4 PRN PRN Reason: Pain, moderate (4-7) Last Admin: 02/08/18 02:13 Dose: 2 mg Sertraline HCl (Zoloft) 50 mg PO DAILY [facility] Physical Exam - Constitutional Appears: Well, No Acute Distress - Head Exam Head Exam: ATRAUMATIC, NORMOCEPHALIC - Eye Exam Eye Exam: EOMI, Normal appearance, PERRL - ENT Exam ENT Exam: Mucous Membranes Moist - Respiratory Exam Respiratory Exam: Clear to Auscultation Bilateral, NORMAL BREATHING PATTERN - Cardiovascular Exam Cardiovascular Exam: +S1, +S2 - Extremities Exam Additional comments: RUE: sling intact, mild swelling to shoulder, diffuse tenderness sensation intact AXN/MN/UN/RN motor intact MN/UN/RN radial pulse intact LUE: no tenderness, no swelling sensation intact AXN/MN/UN/RN motor intact MN/UN/RN radial pulse intact - Neurological Exam Neurological exam: Alert, Oriented x3 - Psychiatric Exam Psychiatric exam: Normal Affect, Normal Mood - Skin Skin Exam: Normal Color, Warm Results - Vital Signs Recent Vital Signs: Last Vital Signs Temp 97.7 F 02/07/18 23:26 Pulse 70 02/07/18 23:26 Resp 18 02/07/18 23:26 BP 134/72 02/07/18 23:26 Pulse Ox 96 02/07/18 23:26 - Labs Result Diagrams: 02/08/18 05:20 02/08/18 05:20 Labs: Laboratory Results - last 24 hr 02/07/18 02/07/18 02/07/18 16:00 16:00 16:00 WBC 8.4 RBC 3.76 L Hgb 11.2 L Hct 33.9 L MCV 90.3 MCH 29.9 MCHC 33.1 RDW 13.8 Plt Count 262 MPV 9.0 Neut % (Auto) 79.8 H Lymph % (Auto) 11.6 L Andrew % (Auto) 6.3 Eos % (Auto) 1.8 Baso % (Auto) 0.5 Neut # (Auto) 6.7 Lymph # (Auto) 1.0 Andrew # (Auto) 0.5 Eos # (Auto) 0.1 Baso # (Auto) 0.0 PT 11.4 INR 1.0 APTT 25.9 Sodium 135 Potassium 4.3 Chloride 97 L Carbon Dioxide 29 Anion Gap 13 BUN 22 H Creatinine 0.7 Est GFR ( Amer) > 60 Est GFR (Non-Af Amer) > 60 POC Glucose (mg/dL) Random Glucose 481 H* D Calcium 9.2 Total Bilirubin 0.6 AST 26 ALT 38 Alkaline Phosphatase 73 Total Protein 7.2 Albumin 4.1 Globulin 3.1 Albumin/Globulin Ratio 1.3 Triglycerides Cholesterol LDL Cholesterol Direct HDL Cholesterol Thyroxine (T4) TSH 3rd Generation 02/07/18 02/07/18 02/07/18 16:04 20:09 21:43 WBC RBC Hgb Hct MCV MCH MCHC RDW Plt Count MPV Neut % (Auto) Lymph % (Auto) Andrew % (Auto) Eos % (Auto) Baso % (Auto) Neut # (Auto) Lymph # (Auto) Andrew # (Auto) Eos # (Auto) Baso # (Auto) PT INR APTT Sodium Potassium Chloride Carbon Dioxide Anion Gap BUN Creatinine Est GFR ( Amer) Est GFR (Non-Af Amer) POC Glucose (mg/dL) 460 H* 463 H* 481 H* Random Glucose Calcium Total Bilirubin AST ALT Alkaline Phosphatase Total Protein Albumin Globulin Albumin/Globulin Ratio Triglycerides Cholesterol LDL Cholesterol Direct HDL Cholesterol Thyroxine (T4) TSH 3rd Generation 02/08/18 02/08/18 02/08/18 05:07 05:20 05:20 WBC 7.7 RBC 3.50 L Hgb 10.5 L Hct 31.8 L MCV 90.7 MCH 30.0 MCHC 33.1 RDW 13.7 Plt Count 236 MPV Neut % (Auto) Lymph % (Auto) Andrew % (Auto) Eos % (Auto) Baso % (Auto) Neut # (Auto) Lymph # (Auto) Andrew # (Auto) Eos # (Auto) Baso # (Auto) PT INR APTT Sodium 137 Potassium 4.2 Chloride 99 Carbon Dioxide 29 Anion Gap 13 BUN 24 H Creatinine 0.7 Est GFR ( Amer) > 60 Est GFR (Non-Af Amer) > 60 POC Glucose (mg/dL) 346 H Random Glucose 359 H Calcium 8.8 Total Bilirubin 0.4 AST 26 ALT 28 Alkaline Phosphatase 67 Total Protein 6.8 Albumin 3.7 Globulin 3.1 Albumin/Globulin Ratio 1.2 Triglycerides 134 D Cholesterol 161 LDL Cholesterol Direct 80 HDL Cholesterol 39 Thyroxine (T4) 5.99 TSH 3rd Generation 1.91 02/08/18 05:20 WBC RBC Hgb Hct MCV MCH MCHC RDW Plt Count MPV Neut % (Auto) Lymph % (Auto) Andrew % (Auto) Eos % (Auto) Baso % (Auto) Neut # (Auto) Lymph # (Auto) Andrew # (Auto) Eos # (Auto) Baso # (Auto) PT 11.2 INR 1.0 APTT 25.5 L Sodium Potassium Chloride Carbon Dioxide Anion Gap BUN Creatinine Est GFR ( Amer) Est GFR (Non-Af Amer) POC Glucose (mg/dL) Random Glucose Calcium Total Bilirubin AST ALT Alkaline Phosphatase Total Protein Albumin Globulin Albumin/Globulin Ratio Triglycerides Cholesterol LDL Cholesterol Direct HDL Cholesterol Thyroxine (T4) TSH 3rd Generation Assessment & Plan (1) Humeral head fracture Assessment and Plan: Patient is a 57 y/o with multiple commorbidities with a comminuted fracture right humeral head and neck -medical clearance -cardiac clearance -Dr. Garrett proposes a R TSR versus ORIF once medically cleared, likely Thursday -pain control -maintain sling -above d/w Dr. Garrett in agreement Status: Acute Priority: High - Date & Time Date: 02/08/18 Time: 07:30 Radiology Interpretation - Notes: Notes:: Accession No. 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 FINDINGS: BONES: Comminuted fracture of the right humeral head and neck. No evidence of dislocation however there is slight inferior position of the right humeral head possibly due to some impaction of fragments and open joint space hemorrhage JOINTS: Minor degenerative osteoarthritis right acromioclavicular joint. . Few tiny calcifications within the soft tissues adjacent to the humeral head may represent small fracture fragments though pre-existing calcific tendinitis not excluded. SOFT TISSUES: As above. OTHER FINDINGS: None. IMPRESSION: Comminuted fracture of the right humeral head and neck. No evidence of dislocation however there is slight inferior position of the right humeral head possibly due to some impaction of fragments and open joint space hemorrhage Few tiny calcifications within the soft tissues adjacent to the humeral head may represent small fracture fragments though pre-existing calcific tendinitis not excluded. - Radiology Interpretation #2 Interpretation: Accession No. 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 PROCEDURE: CT of the right shoulder. HISTORY: Assess for shoulder fracture. COMPARISON: Correlation made with the prior radiographs of the right shoulder earlier same day TECHNIQUE: Contiguous helical/ transaxial images of the right shoulder were obtained. Coronal and sagittal reformats were generated. This CT exam was performed using one or more of the following dose reduction techniques: Automated exposure control, adjustment of the mA and/or kV according to patient size, and/or use of iterative reconstruction technique. Radiation dose: Total DLP = 404.06 mGy - cm FINDINGS: BONES: Re- demonstrated is a comminuted fracture of the right humeral head and neck. . RIGHT SHOULDER : No evidence of dislocation. Very minor degenerative changes of the right acromioclavicular joint. SOFT TISSUES: Unremarkable. IMPRESSION: Comminuted fracture right humeral head and neck. - Radiology Interpretation #3 Interpretation: Accession No. 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 Clinical correlation with physical exam could be performed to determine whether this may represent fracture [ Addendum Report Added by Virgil Sanchez MD at 02/07/2018 15:00:42 ] PROCEDURE: Radiographs of the right humerus. HISTORY: trauma COMPARISON: Comparison made with concurrent radiographs of the right humerus and right elbow. FINDINGS: BONES: Comminuted fracture of the right humeral head and neck. No evidence of dislocation however there is slight inferior position of the right humeral head possibly due to some impaction of fragments and open joint space hemorrhage Minor degenerative osteoarthritis right acromioclavicular joint. . Few tiny calcifications within the soft tissues adjacent to the humeral head may represent small fracture fragments though pre-existing calcific tendinitis not excluded. SOFT TISSUES: As above OTHER FINDINGS: None. IMPRESSION: Comminuted fracture right humeral head and neck. See above discussion for additional details
[2018-02-08] MEDS: GlipiZIDE 10 mg SR Tab PO SCH ×2 (09:31→16:30)
[2018-02-08] MEDS: Insulin Lispro (humaLOG) 100 Units/ml Inj SC SCH ×6 (09:42→22:06)
--- NOTE | 2018-02-08 09:45 | CARD ---
APPROVED REPORT <Conclusion> Normal sinus rhythm Normal ECG
--- NOTE | 2018-02-08 09:47 | CP.PCM.CON ---
History of Present Illness - History of Present Illness History of Present Illness: Consultation for preop cardiac evaluation HPI: 57 year old female with hx of recurrent syncopal episodes recently was admitted about 2 weeks ago for evaluation of syncope. She had ischemic w/u about 6 months ago by results of which are not available. apparently her BP has been running on the low side. Was on desmopressin for dx of DI. echo done on recent admission showed EF was normal. Review of Systems - Review of Systems Systems not reviewed;Unavailable: Acuity of Condition - Constitutional Constitutional: As Per HPI - EENT Eyes: As Per HPI Ears: As Per HPI Nose/Mouth/Throat: As Per HPI - Breasts Breasts: As Per HPI - Cardiovascular Cardiovascular: As Per HPI - Respiratory Respiratory: As Per HPI - Gastrointestinal Gastrointestinal: As Per HPI - Genitourinary Genitourinary: As Per HPI - Reproductive: Female Reproductive:Female: As Per HPI - Menstruation Menstruation: As Per HPI - Musculoskeletal Musculoskeletal: As Per HPI - Integumentary Integumentary: As Per HPI - Neurological Neurological: As Per HPI - Psychiatric Psychiatric: As Per HPI - Endocrine Endocrine: As Per HPI - Hematologic/Lymphatic Hematologic: As Per HPI Past Patient History - Past Medical History & Family History Past Medical History?: Yes - Past Social History Alcohol: None Drugs: Denies - CARDIAC Hx Congestive Heart Failure: Yes Hx Hypercholesterolemia: Yes Hx Hypertension: Yes - PULMONARY Hx Respiratory Disorders: No - NEUROLOGICAL Hx Neurological Disorder: Yes Hx Dizziness: Yes - HEENT Hx HEENT Problems: Yes (Loss of vision 2nd to Diabetes Neuropathy.) - RENAL Hx Chronic Kidney Disease: No - ENDOCRINE/METABOLIC Hx Endocrine Disorders: Yes Hx Diabetes Mellitus Type 2: Yes - HEMATOLOGICAL/ONCOLOGICAL Hx AIDS: No Hx Human Immunodeficiency Virus (HIV): No - INTEGUMENTARY Hx Dermatological Problems: No - MUSCULOSKELETAL/RHEUMATOLOGICAL Hx Falls: Yes - GASTROINTESTINAL Hx Gastrointestinal Disorders: No Hx Bowel Surgery: Yes (1981) - GENITOURINARY/GYNECOLOGICAL Hx Genitourinary Disorders: No - PSYCHIATRIC Hx Anxiety: Yes Hx Bipolar Disorder: Yes Hx Depression: Yes - SURGICAL HISTORY Hx Surgeries: Yes Hx Section: Yes (x2) Other/Comment: "intestinal surgery" - ANESTHESIA Hx Anesthesia: Yes Hx Anesthesia Reactions: No Hx Malignant Hyperthermia: No Meds Allergies/Adverse Reactions: Allergies Allergy/AdvReac Type Severity Reaction Status Date / Time Penicillins Allergy RASH Verified 01/27/18 09:28 - Medications Medications: Current Medications Atorvastatin Calcium (Lipitor) 40 mg PO HS [facility] Last Admin: 02/07/18 23:07 Dose: 40 mg Desmopressin Acetate (Ddavp) 1 spr YAMILE BID [facility] Glipizide (Glucotrol Xl) 10 mg PO BID [facility] Sodium Chloride (Sodium Chloride 0.45%) 1,000 mls @ 80 mls/hr IV .[id number] [facility] Stop: 02/08/18 20:24 Last Admin: 02/07/18 21:15 Dose: 80 mls/hr Insulin Detemir (Levemir) 40 units SC HS [facility] Last Admin: 02/07/18 23:04 Dose: 40 u Insulin Human Lispro (Humalog) 20 units SC ACTID [facility] Insulin Human Lispro (Humalog) 0 units SC ACHS [facility] PRN Reason: Protocol Last Admin: 02/07/18 23:02 Dose: 4 u Morphine Sulfate (Morphine) 2 mg IVP Q4 PRN PRN Reason: Pain, moderate (4-7) Last Admin: 02/08/18 02:13 Dose: 2 mg Sertraline HCl (Zoloft) 50 mg PO DAILY [facility] Physical Exam - Constitutional Appears: Well - Head Exam Head Exam: ATRAUMATIC, NORMAL INSPECTION, NORMOCEPHALIC - Eye Exam Eye Exam: EOMI, Normal appearance, PERRL Pupil Exam: NORMAL ACCOMODATION, PERRL - ENT Exam ENT Exam: Mucous Membranes Moist, Normal Exam - Neck Exam Neck exam: Positive for: Normal Inspection - Respiratory Exam Respiratory Exam: Clear to Auscultation Bilateral, NORMAL BREATHING PATTERN - Cardiovascular Exam Cardiovascular Exam: REGULAR RHYTHM, +S1, +S2, Systolic Murmur - GI/Abdominal Exam GI & Abdominal Exam: Normal Bowel Sounds, Soft. absent: Tenderness - Extremities Exam Extremities exam: Positive for: normal inspection - Back Exam Back exam: NORMAL INSPECTION - Neurological Exam Neurological exam: Alert, CN II-XII Intact, Normal Gait, Oriented x3, Reflexes Normal - Psychiatric Exam Psychiatric exam: Normal Affect, Normal Mood - Skin Skin Exam: Dry, Intact, Normal Color, Warm Results - Vital Signs Recent Vital Signs: Last Vital Signs Temp 98.2 F 02/08/18 08:57 Pulse 67 02/08/18 08:57 Resp 19 02/08/18 08:57 BP 126/69 02/08/18 08:57 Pulse Ox 95 02/08/18 08:57 - Labs Result Diagrams: 02/08/18 05:20 02/08/18 05:20 Labs: Laboratory Results - last 24 hr 02/07/18 02/07/18 02/07/18 16:00 16:00 16:00 WBC 8.4 RBC 3.76 L Hgb 11.2 L Hct 33.9 L MCV 90.3 MCH 29.9 MCHC 33.1 RDW 13.8 Plt Count 262 MPV 9.0 Neut % (Auto) 79.8 H Lymph % (Auto) 11.6 L Yell % (Auto) 6.3 Eos % (Auto) 1.8 Baso % (Auto) 0.5 Neut # (Auto) 6.7 Lymph # (Auto) 1.0 Yell # (Auto) 0.5 Eos # (Auto) 0.1 Baso # (Auto) 0.0 PT 11.4 INR 1.0 APTT 25.9 Sodium 135 Potassium 4.3 Chloride 97 L Carbon Dioxide 29 Anion Gap 13 BUN 22 H Creatinine 0.7 Est GFR ( Amer) > 60 Est GFR (Non-Af Amer) > 60 POC Glucose (mg/dL) Random Glucose 481 H* D Calcium 9.2 Total Bilirubin 0.6 AST 26 ALT 38 Alkaline Phosphatase 73 Total Protein 7.2 Albumin 4.1 Globulin 3.1 Albumin/Globulin Ratio 1.3 Triglycerides Cholesterol LDL Cholesterol Direct HDL Cholesterol Thyroxine (T4) TSH 3rd Generation 02/07/18 02/07/18 02/07/18 16:04 20:09 21:43 WBC RBC Hgb Hct MCV MCH MCHC RDW Plt Count MPV Neut % (Auto) Lymph % (Auto) Yell % (Auto) Eos % (Auto) Baso % (Auto) Neut # (Auto) Lymph # (Auto) Yell # (Auto) Eos # (Auto) Baso # (Auto) PT INR APTT Sodium Potassium Chloride Carbon Dioxide Anion Gap BUN Creatinine Est GFR ( Amer) Est GFR (Non-Af Amer) POC Glucose (mg/dL) 460 H* 463 H* 481 H* Random Glucose Calcium Total Bilirubin AST ALT Alkaline Phosphatase Total Protein Albumin Globulin Albumin/Globulin Ratio Triglycerides Cholesterol LDL Cholesterol Direct HDL Cholesterol Thyroxine (T4) TSH 3rd Generation 02/08/18 02/08/18 02/08/18 05:07 05:20 05:20 WBC 7.7 RBC 3.50 L Hgb 10.5 L Hct 31.8 L MCV 90.7 MCH 30.0 MCHC 33.1 RDW 13.7 Plt Count 236 MPV Neut % (Auto) Lymph % (Auto) Yell % (Auto) Eos % (Auto) Baso % (Auto) Neut # (Auto) Lymph # (Auto) Yell # (Auto) Eos # (Auto) Baso # (Auto) PT INR APTT Sodium 137 Potassium 4.2 Chloride 99 Carbon Dioxide 29 Anion Gap 13 BUN 24 H Creatinine 0.7 Est GFR ( Amer) > 60 Est GFR (Non-Af Amer) > 60 POC Glucose (mg/dL) 346 H Random Glucose 359 H Calcium 8.8 Total Bilirubin 0.4 AST 26 ALT 28 Alkaline Phosphatase 67 Total Protein 6.8 Albumin 3.7 Globulin 3.1 Albumin/Globulin Ratio 1.2 Triglycerides 134 D Cholesterol 161 LDL Cholesterol Direct 80 HDL Cholesterol 39 Thyroxine (T4) 5.99 TSH 3rd Generation 1.91 02/08/18 05:20 WBC RBC Hgb Hct MCV MCH MCHC RDW Plt Count MPV Neut % (Auto) Lymph % (Auto) Yell % (Auto) Eos % (Auto) Baso % (Auto) Neut # (Auto) Lymph # (Auto) Yell # (Auto) Eos # (Auto) Baso # (Auto) PT 11.2 INR 1.0 APTT 25.5 L Sodium Potassium Chloride Carbon Dioxide Anion Gap BUN Creatinine Est GFR ( Amer) Est GFR (Non-Af Amer) POC Glucose (mg/dL) Random Glucose Calcium Total Bilirubin AST ALT Alkaline Phosphatase Total Protein Albumin Globulin Albumin/Globulin Ratio Triglycerides Cholesterol LDL Cholesterol Direct HDL Cholesterol Thyroxine (T4) TSH 3rd Generation Assessment & Plan (1) Preop cardiovascular exam Assessment and Plan: obtain results of recent stress test done at 's office echo reviewed normal EF is stress test -ve can proceed with surgery after evaluation by endo for adrenal insufficiency Status: Acute (2) Syncope Assessment and Plan: random cortisol endo evaluation ? dx of DI Status: Acute
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
[2018-02-08 17:22] LABS: SQUAMOUS EPITHIAL 1 /hpf (0-5); URINE BACTERIA FEW (<OCC); URINE BILIRUBIN NEGATIVE (NEGATIVE); URINE BLOOD NEGATIVE (NEGATIVE); URINE CLARITY SLIGHTY-CLOUDY (Clear); URINE COLOR YELLOW (YELLOW); URINE GLUCOSE (UA) >=500 mg/dL (Normal); URINE LEUKOCYTE ESTERASE NEG Leu/uL (Negative); URINE PROTEIN NEGATIVE (NEGATIVE); URINE UROBILINOGEN 0.2-1.0 mg/dL (0.2-1.0)
[2018-02-08] MEDS ORDERED: Insulin Detemir 100 Units/ml Inj SC SCH (22:00)
[2018-02-08] MEDS: Sodium Chloride 0.45% 1,000 ML IV SCH (22:03)
--- NOTE | 2018-02-09 02:42 | CON ---
Copied To: Kelsey Rosenbaum MD Attending MD: Kelsey Rosenbaum MD DATE: 02/08/2018 ENDOCRINOLOGY CONSULT LOCATION: Room 650. HISTORY OF PRESENT ILLNESS: This is a 57-year-old female with known history of type 2 insulin-requiring diabetes, presenting here with an accidental fall and sustaining a right humeral fracture and is now being referred for diabetic evaluation because of marked hyperglycemic accelerations and also for the possibility of adrenal insufficiency as noted thereof. PAST MEDICAL HISTORY: History of type 2 insulin-requiring diabetes, on a combination of Levemir taken as 40 units subcu at bedtime daily with Humalog taken as 20 units t.i.d. before meals as noted. She is also taking metformin at 1 g b.i.d. History of hypertension and dyslipidemia, history of coronary artery disease with previous admissions for congestive heart failure. She has also had recurrent syncopal episodes with hypotension, more prominent from the previous admission and underwent a neurological workup at that time. She also has history of diabetic retinopathy with impaired visual acuity in both eyes. History of generalized anxiety and depression, on psychotropic medication. She also some kind of colon resection some years ago. History of diabetes insipidus and has been on DDAVP nasal spray or desmopressin spray as given by her primary physician. FAMILY HISTORY: Positive for hypertension and diabetes. SOCIAL HISTORY The patient has a supportive family. No known substance use. REVIEW OF SYSTEMS: As mentioned above, admits to generalized body weakness with episodic bouts of dizziness and lightheadedness, worse on the day of admission. Also admits to occasional bifrontal headaches and visual blurring. No chest pains or palpitations or PND. Her oral intake has been variable with nausea, dyspepsia, and vague upper abdominal pain. Also admits to habitual constipation and recently noted marked polyuria, nocturia, and polydipsia as noted. PHYSICAL EXAMINATION: GENERAL: This is an average built female, in no apparent distress. VITAL SINGS: Blood pressure of 140/80, pulse of 70 beats per minute and regular, temperature 98, respirations 20, height is 5 feet 1 inch, weight is 151 pounds. HEENT: Head normocephalic. Eyes anicteric with pink conjunctivae. Funduscopy not possible at this time. Ears, nose, and throat, otherwise, normal. NECK: Supple. Thyroid gland is normal in size. No carotid bruits or any cervical adenopathy. CARDIOPULMONARY: Some adynamic precordium. S1, S2 rapid and regular. LUNGS: Clear to auscultation. ABDOMEN: Flat, soft with positive bowel sounds. EXTREMITIES: No peripheral edema. Pulses are +2 bilaterally. LABORATORY DATA: Her chemistries showed a BUN of 24, sodium 137, potassium 4.2, chloride 99, CO2 of 29, glucose 359, and creatinine 0.7. Her hemoglobin A1c is 11.8% which is extremely elevated and indicative of suboptimal metabolic control of her diabetic condition as noted. ASSESSMENT: This is a 57-year-old female with uncontrolled and decompensated type 2 insulin-requiring diabetes with marked hyperglycemic accelerations related to a subtherapeutic insulin regimen and presenting here with a right humeral fracture which also contributed to the increased insulin resistance, and further impaired glucose tolerance thereof. There is a question of her having diabetes insipidus but the details of the diagnosis the patient at this time as she has been given desmopressin nasal spray for management of the same. At this time, also she remains clinically euadrenal with biochemical indices not suggestive of any kind of adrenal insufficiency with normal serum sodium and potassium levels as noted. PLAN OF MANAGEMENT: As discussed with the patient at this time, we will try to verify with the family regarding the details of the diagnoses of diabetes insipidus, and in the meantime, we will restart desmopressin nasal spray as ordered. If hypernatremia supervene, then we can start her on subcutaneous desmopressin injection as indicated. In the meantime, we will modify her current insulin regimen and increase the Levemir to 60 units subcu at bedtime daily to start tonight. We will also increase her Humalog to 24 units subcu t.i.d. before meals to start today. We will obtain serial chemistries and supplement accordingly as needed. We will also modify the coverage scale to obviate hypoglycemia and detailed orders have been given. We will increase her Humalog to 24 units subcu t.i.d. before meals to start today. We will also titrate her Levemir to 60 units subcu at bedtime daily to start tonight. We will continue the IV hydration as given and adjust the dose regimen accordingly. We will follow. Kelsey Rosenbaum MD [facility] # [id number]
[2018-02-09 06:43] LABS: ALB/GLOB RATIO 1.1 (1.0-2.1); ALBUMIN 3.7 g/dL (3.5-5.0); ALT/SGPT 34 U/L (9-52); AST/SGOT 30 U/L (14-36); BLOOD UREA NITROGEN 17 mg/dl (7-17); CALCIUM 8.9 mg/dL (8.4-10.2); GFR NON-AFRICAN AMERICAN > 60
[2018-02-09 06:47] LABS: HEMOGLOBIN 10.3 g/dL (12.0-16.0); MEAN CELL VOLUME 90.6 fl (81.0-99.0); MEAN CORPUSCULAR HEMOGLOBIN 30.1 pg (27.0-31.0); MEAN CORPUSCULAR HGB CONC 33.2 g/dL (33.0-37.0); RBC 3.41 Mil/uL (3.80-5.20); RED CELL DISTRIBUTION WIDTH 13.7 % (11.5-14.5)
[2018-02-09] MEDS: GlipiZIDE 10 mg SR Tab PO SCH ×2 (08:26→16:45)
[2018-02-09] MEDS: Insulin Lispro (humaLOG) 100 Units/ml Inj SC SCH ×7 (08:29→21:54)
--- NOTE | 2018-02-09 09:10 | CP.PCM.PN ---
Subjective - Date & Time of Evaluation Date of Evaluation: 02/09/18 Time of Evaluation: 09:08 - Subjective Subjective: Patient states pain is controlled. Denies numbness/tingling. NO new complaints. Objective - Vital Signs/Intake and Output Vital Signs (last 24 hours): Temp Pulse Resp BP Pulse Ox 98.6 F 69 19 132/75 94 L 02/09/18 07:45 02/09/18 07:45 02/09/18 07:45 02/09/18 07:45 02/09/18 07:45 - Medications Medications: Current Medications Atorvastatin Calcium (Lipitor) 40 mg PO [facility] Last Admin: 02/08/18 22:07 Dose: 40 mg Desmopressin Acetate (Ddavp) 1 spr [facility] BID [facility] Last Admin: 02/09/18 08:25 Dose: 1 spr Glipizide (Glucotrol Xl) 10 mg PO BID [facility] Last Admin: 02/09/18 08:26 Dose: 10 mg Insulin Detemir (Levemir) 60 units SC [facility] Last Admin: 02/08/18 22:09 Dose: Not Given Insulin Human Lispro (Humalog) 24 units SC ACTID [facility] Last Admin: 02/09/18 08:30 Dose: 24 unit Insulin Human Lispro (Humalog) 0 units SC [facility] Last Admin: 02/09/18 08:29 Dose: Not Given Morphine Sulfate (Morphine) 2 mg IVP Q4 PRN PRN Reason: Pain, severe (8-10) Last Admin: 02/09/18 05:46 Dose: 2 mg Sertraline HCl (Zoloft) 50 mg PO DAILY [facility] Last Admin: 02/09/18 08:27 Dose: 50 mg Tramadol HCl (Ultram) 50 mg PO Q6 PRN PRN Reason: Pain, moderate (4-7) Last Admin: 02/09/18 08:42 Dose: 50 mg - Labs Labs: 02/09/18 06:05 02/09/18 06:05 PT 11.2 Seconds (9.8-13.1) 02/08/18 05:20 INR 1.0 02/08/18 05:20 APTT 25.5 Seconds (25.6-37.1) L 02/08/18 05:20 - Extremities Exam Additional comments: RUE: sling intact, noted swelling and ecchymosis, sensation itanct, +DP/PT +ROM fingers/wrist Assessment and Plan (1) Closed fracture of right proximal humerus Assessment & Plan: NPO p MN plan OR tomorrow pending optimization labs in am continue sling t&C d/w Dr. Garrett, agrees wtih above Status: Acute
--- NOTE | 2018-02-09 14:42 | PN ---
Copied To: Kelsey Roesnbaum MD Attending MD: Kelsey Rosenbaum MD DATE: 02/09/2018 ENDO FOLLOWUP NOTE LOCATION: In room 650. SUBJECTIVE: This is a 57-year-old female admitted with a right humeral fracture and is now also being followed closely for metabolic management because of recent hyperglycemic accelerations as noted thereof. Her glucose levels overnight have improved and have ranged from 86 to 163 and 181 mg/dL. Her A1c is extremely elevated 11.8% indicative of suboptimal metabolic control of her diabetic condition even prior to this admission. Her serum cortisol level is 15.8, which is actually expected with the intercurrent physical and emotional stressors and clearly will rule out and exclude underlying adrenal insufficiency. The fasting cortisol is still pending at this time. LABORATORY DATA: Her chemistry showed a BUN of 17, sodium 134, potassium 4.4, chloride 98, CO2 of 27, glucose 182, and creatinine 0.6. ASSESSMENT: This is a 57-year-old female with uncontrolled and decompensated type 2 insulin-requiring diabetes with suboptimal metabolic control related to a subtherapeutic insulin regimen with persistent glycemic fluctuations that have improved overnight with the initiation of a basal and bolus insulin drug combination as given. She also has an apparent history of diabetes insipidus, currently on DDAVP nasal spray and remains biochemically stable and in fact with a low normal serum sodium today, which has to be watched and if it persists, then may have to adjust and lower her DDAVP dosing accordingly. PLAN OF MANAGEMENT: We will continue the same basal and bolus insulin drug combination to allow for dose equilibration. We will actually lower her Humalog to 18 units subcutaneous t.i.d. before meals to start today. We will continue the low-dose correction scale using Humalog insulin to obviate hypoglycemia and detailed orders have been given. We will also lower her basal insulin given as Levemir to 50 units subcutaneous at bedtime daily to start tonight. We will titrate incrementally as indicated to optimize metabolic control. We will obtain serial chemistries and supplement accordingly as needed. We will follow. Klesey Rosenbaum MD
--- NOTE | 2018-02-09 15:18 | CP.PCM.PN ---
Subjective - Date & Time of Evaluation Date of Evaluation: 02/09/18 Time of Evaluation: 11:30 - Subjective Subjective: F/U Humeral Head/Neck Pain R shoulder Objective - Vital Signs/Intake and Output Vital Signs (last 24 hours): Temp Pulse Resp BP Pulse Ox 98.6 F 69 19 132/75 94 L 02/09/18 09:00 02/09/18 09:00 02/09/18 09:00 02/09/18 09:00 02/09/18 09:00 - Medications Medications: Current Medications Atorvastatin Calcium (Lipitor) 40 mg PO HS [facility] Last Admin: 02/08/18 22:07 Dose: 40 mg Desmopressin Acetate (Ddavp) 1 spr YAMILE BID [facility] Last Admin: 02/09/18 08:25 Dose: 1 spr Glipizide (Glucotrol Xl) 10 mg PO BID [facility] Last Admin: 02/09/18 08:26 Dose: 10 mg Insulin Detemir (Levemir) 50 units SC HS [facility] Insulin Human Lispro (Humalog) 0 units SC ACHS [facility] Last Admin: 02/09/18 12:39 Dose: Not Given Insulin Human Lispro (Humalog) 18 units SC ACTID [facility] Last Admin: 02/09/18 12:34 Dose: 18 u Morphine Sulfate (Morphine) 2 mg IVP Q4 PRN PRN Reason: Pain, severe (8-10) Last Admin: 02/09/18 12:02 Dose: 2 mg Sertraline HCl (Zoloft) 50 mg PO DAILY [facility] Last Admin: 02/09/18 08:27 Dose: 50 mg Tramadol HCl (Ultram) 50 mg PO Q6 PRN PRN Reason: Pain, moderate (4-7) Last Admin: 02/09/18 08:42 Dose: 50 mg - Labs Labs: 02/09/18 06:05 02/09/18 06:05 PT 11.2 Seconds (9.8-13.1) 02/08/18 05:20 INR 1.0 02/08/18 05:20 APTT 25.5 Seconds (25.6-37.1) L 02/08/18 05:20 - Constitutional Appears: No Acute Distress - Head Exam Head Exam: NORMAL INSPECTION - Eye Exam Eye Exam: PERRL - ENT Exam ENT Exam: Normal Exam - Neck Exam Neck Exam: Normal Inspection - Respiratory Exam Respiratory Exam: NORMAL BREATHING PATTERN - Cardiovascular Exam Cardiovascular Exam: REGULAR RHYTHM - GI/Abdominal Exam GI & Abdominal Exam: Soft, Normal Bowel Sounds - Extremities Exam Additional comments: R arm with sling, able to move fingers, R shoulder tenderness with decreased ROM 2nd to Fx. - Back Exam Back Exam: NORMAL INSPECTION - Neurological Exam Neurological Exam: Alert, CN II-XII Intact, Oriented x3, Reflexes Normal Additional comments: Neuromuscular status distal R shoulder Fx good. - Psychiatric Exam Psychiatric exam: Depressed - Skin Skin Exam: Normal Color, Warm Assessment and Plan (1) Humeral head fracture Status: Acute (2) Fx humeral neck Status: Acute (3) Uncontrolled insulin dependent diabetes mellitus Status: Chronic (4) Hyperglycemia Status: Acute (5) Diabetes insipidus Status: Chronic (6) Diabetic retinopathy of both eyes Status: Chronic - Assessment and Plan (Free Text) Plan: continue DDAVP, Humalog ,Levemir, Morphine and rest of treatment, Hardware not availablle , OR in am
[2018-02-09] MEDS: Insulin Detemir 100 Units/ml Inj SC SCH (21:49)
[2018-02-09] MEDS: Sodium Chloride 0.45% 1,000 ML IV SCH (23:00)
[2018-02-10 06:25] LABS: HEMOGLOBIN 10.8 g/dL (12.0-16.0); MEAN CORPUSCULAR HEMOGLOBIN 30.1 pg (27.0-31.0); MEAN CORPUSCULAR HGB CONC 33.4 g/dL (33.0-37.0); RBC 3.6 Mil/uL (3.80-5.20); RED CELL DISTRIBUTION WIDTH 13.5 % (11.5-14.5); WHITE BLOOD COUNT 6.9 K/uL (4.8-10.8)
[2018-02-10] MEDS ORDERED: Rocuronium 10 mg/ml (5 ml) ONE ×2 (07:03→11:01)
[2018-02-10] MEDS ORDERED: Propofol 10 mg/ml Inj (20 ML) ONE (07:03)
[2018-02-10] MEDS ORDERED: Midazolam 2 MG/2 ML VIAL ONE (07:03)
[2018-02-10] MEDS ORDERED: Succinylcholine 200 mg/10 ml Inj IV ONE (07:03)
[2018-02-10] MEDS ORDERED: Lidocaine 4% (Laryng-O-Jet) Kit MM ONE (07:05)
[2018-02-10 07:06] LABS: BLOOD UREA NITROGEN 13 mg/dl (7-17); CALCIUM 8.9 mg/dL (8.4-10.2); GFR NON-AFRICAN AMERICAN > 60
[2018-02-10] MEDS ORDERED: Neostigmine 1:1000 (1 mg/ml) Inj ONE (07:12)
[2018-02-10] MEDS: Insulin Lispro (humaLOG) 100 Units/ml Inj SC SCH ×7 (08:05→22:30)
[2018-02-10] MEDS ORDERED: EPINEPHrine 1 mg/ml (1:1000) Inj ONE (08:10)
[2018-02-10] MEDS ORDERED: Bacitracin Ointment 30 GM TUBE ONE (08:10)
[2018-02-10] MEDS: GlipiZIDE 10 mg SR Tab PO SCH ×2 (08:34→16:31)
[2018-02-10] MEDS ORDERED: Dexamethasone 4 mg/1 ml ONE (09:55)
[2018-02-10] MEDS ORDERED: Lactated Ringer's 1,000 ML IV ONE (10:09)
[2018-02-10] MEDS ORDERED: Sodium Chloride 0.9% 500 ML IV ONE (10:09)
[2018-02-10] MEDS ORDERED: Sodium Chloride 0.9% 3,000 ML IV ONE (10:11)
[2018-02-10] MEDS: Sodium Chloride 0.45% 1,000 ML IV SCH (11:00)
[2018-02-10] MEDS ORDERED: Phenylephrine 10 mg/ml Inj ONE (11:07)
[2018-02-10] MEDS ORDERED: DiphenhydrAMINE 50 mg/ml Inj IVP PRN (11:49)
[2018-02-10] MEDS ORDERED: HYDROmorphone 0.5 mg/0.5 ml ISec IVP PRN (11:49)
[2018-02-10] MEDS ORDERED: Dexamethasone 4 mg/1 ml IVP PRN (11:49)
[2018-02-10] MEDS ORDERED: oxyCODONE 10 mg Immediate Release Tab PO PRN (11:49)
--- NOTE | 2018-02-10 11:53 | PCM.ANESB1 ---
Interscalene Block - Brachial Plexus Date of Procedure: 02/10/18 Anesthesiologist: James Leavitt Pre-Procedure Diagnosis: R shoulder fracture Post-Procedure Diagnosis: R shoulder fracture Procedure Performed: Interscalene Block of Brachial Plexus Right - Procedure Interscalene Block of Brachial Plexus: This procedure was explained to the patient that it is for post-operative pain management. Consent was obtained after a thorough discussion with the patient regarding the benefits and possible complications of local anesthetic block of the Brachial Plexus at the Interscalene area. The patient was brought to the Operating Room and standard monitors were applied. Time out was held with the circulating nurse to confirm the correct surgery and appropriate block. After applying Oxygen by nasal cannula and administering IV Sedation, the patient's head was gently rotated away from the operative shoulder and the anterior scalene groove was carefully palpated. The ultrasound transducer was then applied to the skin in the transverse plane and the brachial plexus was visualized lateral to the carotid artery and in between the anterior and middle scalene muscles. After identification,the anterior lateral portion of the neck was prepped with Chlorhexidine and Lidocaine 1% was injected subcutaneously for topical analgesia. At this point, a # 22 gauge Stimuplex 2 inches insulated needle was inserted into the interscalene groove and directed in a caudal and midline direction. The needle was inserted lateral to the ultrasound transducer in-plane towards the brachial plexus in a [id number] direction. Needle advancement was performed carefully under direct ultrasound visualization. Nerve stimulator was used and twitched of the affected extremity including the hand brachialis muscles, biceps and the deltoid was obtained at a current of 0.8MA. After repeated negative aspiration,20 cc of 0.5% ropivacaine in 5cc aliquots was injected. Under ultrasound guidance the local anesthetics were observed surrounding the roots of the brachial plexus. The needle was removed intact and sterile dressing was applied. The patient had stable vital signs, was conscious and in no apparent distress. The patient tolerated the interscalene block of the bracheal plexus well with stable vital signs and was prepared for subsequent surgery.
--- NOTE | 2018-02-10 12:46 | RAD ---
Date of service: 02/10/2018 PROCEDURE: Radiographs of the Right Shoulder HISTORY: s/p R reverse TSR COMPARISON: 02/07/2018 FINDINGS: BONES: Status post right glenohumeral arthroplasty. No acute osseous fracture. Postoperative changes. JOINTS: As above SOFT TISSUES: Normal. OTHER FINDINGS: None. IMPRESSION: Right glenohumeral arthroplasty.
[2018-02-10] MEDS: Sodium Chloride 0.9% 1,000 ML IV SCH ×3 (14:17→21:45)
[2018-02-10] MEDS: Clindamycin 600mg/50ml D5W 600 MG/50 ML VIAL IVPB SCH (16:26)
--- NOTE | 2018-02-10 19:19 | PCM.SURG1 ---
Surgeon's Initial Post Op Note - Surgeon's Notes Surgeon: Tami Manager Psychology: EUSEBIO Tai/ 2nd assist brigida PHAM_ C Type of Anesthesia: General Endo, Block Regional Anesthesia Administered By: DR Leavitt Pre-Operative Diagnosis: 3 part pathologic fracture R proximal humerus Operative Findings: 3 pqart proximal humerus fracture R. rotator cuff tear. labral tear. biceps attenuation Post-Operative Diagnosis: as above Operation Performed: R Total shoulder replacement (reverseORIF proximal humerus fracture). repair R rotator cuff. intrarticular biceps tenodesis. arthrotomy - debrisment glenoid labrum Specimen/Specimens Removed: bone/cartilage/synovium Estimated Blood Loss: EBL {In ML}: 75 Blood Products Given: N/A Drains Used: No Drains Post-Op Condition: Fair Date of Surgery/Procedure: 02/10/18 Time of Surgery/Procedure: 09:25 (time in room 8:05)
--- NOTE | 2018-02-10 21:48 | PN ---
Copied To: Kelsey Rosenbaum MD Attending MD: Kelsey Rosenbaum MD DATE: 02/10/2018 ENDO FOLLOWUP NOTE LOCATION: Room 650. SUBJECTIVE: This is a 57-year-old female with recent uncontrolled type 2 insulin-requiring diabetes with improving glycemic profile overnight as noted and is being followed closely for metabolic management. She is scheduled for an open reduction and internal fixation procedure for a right humeral fracture today as noted. Her chemistry showed a BUN of 13, sodium 132, potassium 4.4, chloride 96, CO2 of 26, glucose 246, and creatinine 0.5. Her glucose values have ranged from 138 to 219 mg/dL. Her serum cortisol level is a 21. ASSESSMENT: This is a 57-year-old female with uncontrolled and decompensated type 2 insulin-requiring diabetes with marked hyperglycemic accelerations and is now improving clinically and metabolically with the initiation of insulin drug combination as given. She is scheduled for open reduction internal fixation procedure of her right humeral fracture today. She is actually medically cleared from the endocrine view point to go ahead with the surgical procedure today as noted. PLAN OF MANAGEMENT: As discussed with the nursing staff, she has been cleared medically from the endocrine view point for the orthopedic procedure undertaken for today for her right humeral fracture as noted. We will resume her basal and bolus insulin regimen postoperatively with Humalog to be given as 18 units subcu t.i.d. before meals as ordered. We will also resume her basal insulin given as Levemir at 50 units subcu at bedtime daily as ordered. We will titrate incrementally as indicated to optimize metabolic control. We will obtain serial chemistries and supplement accordingly needed. We will also continue the IV hydration as given and obtain serial chemistries accordingly. We will follow. Kelsey Rosenbaum MD
[2018-02-10] MEDS: Insulin Detemir 100 Units/ml Inj SC SCH (22:25)
[2018-02-11] MEDS: Clindamycin 600mg/50ml D5W 600 MG/50 ML VIAL IVPB SCH ×2 (01:16→08:22)
[2018-02-11 06:34] LABS: HEMOGLOBIN 8.7 g/dL (12.0-16.0); MEAN CELL VOLUME 89.8 fl (81.0-99.0); MEAN CORPUSCULAR HEMOGLOBIN 30.2 pg (27.0-31.0); MEAN CORPUSCULAR HGB CONC 33.7 g/dL (33.0-37.0); RBC 2.89 Mil/uL (3.80-5.20); RED CELL DISTRIBUTION WIDTH 13.7 % (11.5-14.5); WHITE BLOOD COUNT 6.9 K/uL (4.8-10.8)
[2018-02-11 06:53] LABS: BLOOD UREA NITROGEN 12 mg/dl (7-17); CALCIUM 8.4 mg/dL (8.4-10.2); GFR NON-AFRICAN AMERICAN > 60
[2018-02-11] MEDS: Insulin Lispro (humaLOG) 100 Units/ml Inj SC SCH ×8 (07:13→23:00)
[2018-02-11] MEDS: GlipiZIDE 10 mg SR Tab PO SCH ×2 (08:25→17:14)
[2018-02-11] MEDS: Sodium Chloride 0.9% 1,000 ML IV SCH (08:26)
--- NOTE | 2018-02-11 08:31 | CP.PCM.PN ---
Subjective - Date & Time of Evaluation Date of Evaluation: 02/11/18 Time of Evaluation: 07:45 - Subjective Subjective: Patient seen and examined at bedside comfortable. Pain well controlled. No acute events overnight. Denies CP/SOB/N/V/D/fever. Objective - Vital Signs/Intake and Output Vital Signs (last 24 hours): Temp Pulse Resp BP Pulse Ox 97.7 F 70 19 111/72 94 L 02/11/18 07:44 02/11/18 07:44 02/11/18 07:44 02/11/18 07:44 02/11/18 07:44 Intake and Output: 02/11/18 02/11/18 06:59 18:59 Intake Total 1250 Output Total 2950 Balance -1700 - Medications Medications: Current Medications Acetaminophen (Tylenol 325mg Tab) 975 mg PO Q8 [facility] Last Admin: 02/11/18 08:28 Dose: 975 mg Atorvastatin Calcium (Lipitor) 40 mg PO HS [facility] Last Admin: 02/10/18 22:25 Dose: 40 mg Desmopressin Acetate (Ddavp) 1 spr YAMILE BID [facility] Last Admin: 02/11/18 08:24 Dose: 1 spr Ferrous Sulfate (Feosol) 325 mg PO BID [facility] Last Admin: 02/11/18 08:25 Dose: 325 mg Folic Acid (Folic Acid) 1 mg PO DAILY [facility] Last Admin: 02/11/18 08:25 Dose: 1 mg Glipizide (Glucotrol Xl) 10 mg PO BID [facility] Last Admin: 02/11/18 08:25 Dose: 10 mg Clindamycin Phosphate (Cleocin) 600 mg in 50 mls @ 100 mls/hr IVPB Q8 [facility] PRN Reason: Protocol Stop: 02/11/18 09:29 Last Admin: 02/11/18 08:22 Dose: 100 mls/hr Sodium Chloride (Sodium Chloride 0.9%) 1,000 mls @ 100 mls/hr IV .Q10H [facility] Stop: 02/11/18 11:44 Last Admin: 02/11/18 08:26 Dose: 100 mls/hr Insulin Detemir (Levemir) 50 units SC [facility] Last Admin: 02/10/18 22:25 Dose: 50 u Insulin Human Lispro (Humalog) [address] [facility] Last Admin: 02/11/18 07:13 Dose: Not Given Insulin Human Lispro (Humalog) 18 units SC ACTID [facility] Last Admin: 02/11/18 08:25 Dose: 18 units Meperidine HCl (Demerol) 12.5 mg IVP Q5M PRN PRN Reason: Shivering/Rigor Morphine Sulfate (Morphine) 4 mg IVP Q4 PRN PRN Reason: Pain, severe (8-10) Last Admin: 02/11/18 04:49 Dose: 4 mg Ondansetron HCl (Zofran Inj) 4 mg IVP ONCE PRN PRN Reason: Nausea/Vomiting Oxycodone HCl (Oxycodone Immediate Release Tab) 10 mg PO Q6 PRN PRN Reason: Pain, moderate (4-7) Sertraline HCl (Zoloft) 50 mg PO DAILY [facility] Last Admin: 02/11/18 08:27 Dose: 50 mg Tramadol HCl (Ultram) 50 mg PO Q6 PRN PRN Reason: Pain, moderate (4-7) Last Admin: 02/10/18 22:23 Dose: 50 mg - Labs Labs: 02/11/18 05:35 02/11/18 05:35 PT 11.2 Seconds (9.8-13.1) 02/08/18 05:20 INR 1.0 02/08/18 05:20 APTT 25.5 Seconds (25.6-37.1) L 02/08/18 05:20 - Extremities Exam Additional comments: RUE: Aquacel dressing CDI mild swelling and tenderness 2nd to surgery sensation intact AXN/MN/UN/RN motor intact MN/UN/RN radial pulse intact Assessment and Plan (1) Humeral head fracture Assessment & Plan: POD#1 s/p Right reverse TSR doing well -Dr. Garrett recommends 1 unit PRBC transfusion for low HGB -PT/OT NWB RUE -complete postop abx -will change dressings tomorrow -discharge planning to home -above d/w Dr. Garrett in agreement Status: Acute
[2018-02-11] MEDS ORDERED: oxyCODONE 10 mg Immediate Release Tab PO PRN (15:15)
[2018-02-11 16:40] LABS: IRON 15 ug/dL (37-170)
--- NOTE | 2018-02-11 16:53 | OP ---
Copied To: Valentin Garrett MD Attending MD: Valentin Garrett MD PROCEDURE DATE: 02/10/2018 LOCATION: [facility]. PREOPERATIVE DIAGNOSES: 1. Three-part pathological fracture of the right proximal humerus with preexisting osteoarthritic change of the shoulder. 2. Rotator cuff tear. 3. Labral tear. 4. Attenuation of biceps tendon. 5. Again three-part proximal humerus fracture. POSTOPERATIVE DIAGNOSES: 1. Three-part pathological fracture of the right proximal humerus with preexisting osteoarthritic change of the shoulder. 2. Rotator cuff tear. 3. Labral tear. 4. Attenuation of biceps tendon. 5. Again three-part proximal humerus fracture. OPERATIVE FINDINGS: As above. OPERATIONS PERFORMED: 1. Right total shoulder replacement arthroplasty, reverse type. 2. Open reduction and internal fixation of proximal humerus fracture with cerclage FiberWire fixation. 3. Repair of right rotator cuff. 4. Intra-articular biceps tenodesis. 5. Arthrotomy and debridement of glenoid labrum. SPECIMENS: Bone, cartilage, synovium. BLOOD LOSS: Approximately 75 mL. BLOOD PRODUCTS: No blood products given. DRAINS: No drains. POSTOPERATIVE CONDITION: Stable/fair. TIME OF SURGERY: 09:25. INCISION TIME IN THE ROOM: 08:05. OPERATIVE INDICATION: Katy Frias is a 57-year-old woman, who sustained a fall on an outstretched right upper extremity. The patient sustained a pathologic three-part proximal humerus fracture. Pros, cons, risks, and benefits of replacement arthroplasty versus open reduction and internal fixation were discussed at length. The position of the proximal humeral fracture is pathologic in terms of the osteopenic nature of the bone. Preoperative CT scan examination was reviewed carefully and this was discussed at length with the patient. The patient is a [id number] of Dr. Huey Glaser, so informed consent was obtained in several dimensions. The possibility of mechanical failure, nerve injury, thromboembolic disease, secondary or tertiary surgery was discussed. OPERATIVE PROCEDURE: After having obtained informed consent in the above fashion, after having identified side, site, and procedure and a critical pause/time-out, after the satisfactory induction of the anesthetic, the patient identified as Katy Frias. In the modified Monreal chair position, the right upper extremity was prepped and free-draped in usual fashion for upper extremity surgery. The topographic anatomy of the shoulder was marked, the spine of scapula, lateral aspect of the acromion, and coracoid process. An incision was described from the distal third of the clavicle to the lateral aspect of the coracoid process in line with the deltoid tuberosity. The skin incision is insufflated with solution of 1:100,000 epinephrine in 250 mL of saline approximately 10 mL. The skin incision was carried down through the skin and subcutaneous tissue. Hemostasis controlled with the Aquamantys. Dissection was carried out medial to the coracoid process, superficial to the fascia, and carried out laterally as well. The coracoacromial ligament was identified and carefully divided. At this point in time, there was found to be a hematoma and a tear of the rotator cuff with the arm in some external rotation in the area of the rotator cuff tear and using sharp dissection down to the area one fingerbreadth from the fracture of the lesser tuberosity, with further external rotation, the rotator cuff was elevated and tagged. The lateral aspect of the rotator cuff was elevated intact as well. The biceps tendon was found to be attenuated for exposure. This was divided carefully and the biceps tendon was tagged. The remnants of the biceps tendon was debrided. At this point in time, the intramedullary guide for the ARAYA system was placed. The displaced head fragment had been removed. There was a greater tuberosity fragment and a lesser tuberosity fragment as it was a four-part pathologic fracture of the right proximal humerus as demonstrated on CT scan examination. The osteotomy was accomplished with the osteotomy guide. This having been accomplished, due to extremely fragile nature of the bone, a remnant of the proximal humerus fracture was kept intact for humeral height. This was carefully protected. At this point in time, arthrotomy of the shoulder was accomplished. The glenoid labrum was debrided. This having been accomplished, glenoid labrum having been excised, the anterior and posterior retractors were placed. The 10-degree inferior guide was used to find the exact midpoint of the cephalad to caudad rupal and the anterior to posterior rupal and the wire was introduced. Reaming was accomplished for a size small glenoid plate. The reaming having been accomplished, further debridement of the superior aspect of the glenoid was accomplished with a bur. The reaming was accomplished and the small glenoid plate was introduced and impacted and screws were introduced superiorly and inferiorly, 20 degrees superiorly, 25 degrees inferiorly, and the glenosphere was impacted. The glenosphere was impacted and the screw was introduced. This having been accomplished, the wound was thoroughly irrigated. The canal was found and the cutting guide was placed. The cutting guide was introduced and the osteotomy of the proximal humerus having been accomplished, reaming was carried out to a 14 mm stem. Trialing was accomplished with the +3.5 humeral polyethylene. The shoulder was replaced and found to be in excellent position. The proximal humeral fracture was again identified and open reduction and internal fixation of the proximal humeral fracture was accomplished with #5 FiberWire, two cerclage #5 FiberWires were employed to fixate the proximal humeral fracture, which again was osteopenic. This having been accomplished, the real glenoid was introduced and then real humeral component was introduced. The modular aspect is affixed with impaction and with the screw and the 3.5 mm polyethylene of the humeral side was employed. The shoulder was trialed and found to be stable. It should be noted that prior to deciding upon the 3.5 polyethylene, the 6 mm polyethylene had been used and was found to overstuff the joint. The wound was thoroughly irrigated. The polyethylene was impacted. The shoulder was reduced and found to be stable in all planes. The wound was thoroughly irrigated. SPECIMENS REMOVED: Bone, cartilage, and synovium. At this point in time, the rotator cuff was repaired with the humerus in approximately 10 degrees internal rotation. The rotator cuff was repaired with interrupted FiberWire and the biceps was tenodesed to the rotator cuff repair with interrupted suture as well. The wound was thoroughly irrigated. The deltopectoral interval was identified and repaired with 0 Quill followed by Vicryl and 2-0 Quill and miguel for the skin since the patient is diabetic, compression dressing and abduction splint was applied. The operation could not have been performed without the assistantship of Sakina Monge, certified registered nursing senior office assistant and second plastic surgery assistant, William Key PA-C. The patient is stable in Recovery. No drains. Postoperative x-rays revealed acceptable position of the construct. Valentin Garrett MD [facility] # [id number]
[2018-02-11 16:54] LABS: % IRON SATURATION 5 % (20-55); TOTAL IRON BINDING CAPACITY 275 ug/dL (250-450)
--- NOTE | 2018-02-11 17:33 | CP.PCM.PN ---
Subjective - Date & Time of Evaluation Date of Evaluation: 02/11/18 Time of Evaluation: 10:50 - Subjective Subjective: F/U S/P Reverse TSR Objective - Vital Signs/Intake and Output Vital Signs (last 24 hours): Temp Pulse Resp BP Pulse Ox 98.7 F 74 18 114/70 96 02/11/18 17:31 02/11/18 17:31 02/11/18 17:31 02/11/18 17:31 02/11/18 16:47 Intake and Output: 02/11/18 02/11/18 06:59 18:59 Intake Total 1250 Output Total 4950 Balance -3700 - Medications Medications: Current Medications Acetaminophen (Tylenol 325mg Tab) 975 mg PO Q8 [facility] Last Admin: 02/11/18 17:12 Dose: 975 mg Atorvastatin Calcium (Lipitor) 40 mg PO HS [facility] Last Admin: 02/10/18 22:25 Dose: 40 mg Desmopressin Acetate (Ddavp) 1 spr YAMILE BID [facility] Last Admin: 02/11/18 16:39 Dose: Not Given Ferrous Sulfate (Feosol) 325 mg PO BID [facility] Last Admin: 02/11/18 17:13 Dose: 325 mg Folic Acid (Folic Acid) 1 mg PO DAILY [facility] Last Admin: 02/11/18 08:25 Dose: 1 mg Glipizide (Glucotrol Xl) 10 mg PO BID [facility] Last Admin: 02/11/18 17:14 Dose: 10 mg Insulin Detemir (Levemir) 50 units SC HS [facility] Last Admin: 02/10/18 22:25 Dose: 50 u Insulin Human Lispro (Humalog) 0 units SC [facility] Last Admin: 02/11/18 16:39 Dose: Not Given Insulin Human Lispro (Humalog) 18 units SC ACTID [facility] Last Admin: 02/11/18 17:18 Dose: Not Given Meperidine HCl (Demerol) 12.5 mg IVP Q5M PRN PRN Reason: Shivering/Rigor Morphine Sulfate (Morphine) 4 mg IVP Q4 PRN PRN Reason: Pain, severe (8-10) Last Admin: 02/11/18 15:23 Dose: 4 mg Ondansetron HCl (Zofran Inj) 4 mg IVP ONCE PRN PRN Reason: Nausea/Vomiting Oxycodone HCl (Oxycodone Immediate Release Tab) 10 mg PO Q6 PRN PRN Reason: Pain, moderate (4-7) Sertraline HCl (Zoloft) 50 mg PO DAILY [facility] Last Admin: 02/11/18 08:27 Dose: 50 mg - Labs Labs: 02/11/18 05:35 02/11/18 05:35 PT 11.2 Seconds (9.8-13.1) 02/08/18 05:20 INR 1.0 02/08/18 05:20 APTT 25.5 Seconds (25.6-37.1) L 02/08/18 05:20 - Constitutional Appears: No Acute Distress - Head Exam Head Exam: NORMAL INSPECTION - Eye Exam Eye Exam: PERRL - ENT Exam ENT Exam: Normal Exam - Neck Exam Neck Exam: Normal Inspection - Respiratory Exam Respiratory Exam: Clear to Ausculation Bilateral - Cardiovascular Exam Cardiovascular Exam: REGULAR RHYTHM, Murmur (systolic) - GI/Abdominal Exam GI & Abdominal Exam: Soft, Normal Bowel Sounds - Extremities Exam Additional comments: RUE swelling and tenderness 2nd to surgery. R shoulder immobilize - Back Exam Back Exam: NORMAL INSPECTION - Neurological Exam Neurological Exam: Alert, CN II-XII Intact, Oriented x3, Reflexes Normal Additional comments: Neuromuscular status distal R shoulder Fx good. - Psychiatric Exam Psychiatric exam: Depressed - Skin Skin Exam: Normal Color, Warm Assessment and Plan (1) Humeral head fracture Status: Acute (2) Fx humeral neck Status: Acute (3) Uncontrolled insulin dependent diabetes mellitus Status: Chronic (4) Hyperglycemia Status: Acute (5) Diabetes insipidus Status: Chronic (6) Diabetic retinopathy of both eyes Status: Chronic
--- NOTE | 2018-02-11 21:36 | PN ---
Copied To: Kelsey Rosenbaum MD Attending MD: Kelsey Rosenbaum MD DATE: 02/11/2018 ENDO FOLLOWUP NOTE LOCATION: Room 650. SUBJECTIVE: This is a 57-year-old female with recent uncontrolled type 2 insulin-requiring diabetes who presented here with a right humeral fracture and underwent a right total shoulder replacement with a reverse open reduction internal fixation procedure yesterday as noted. Her glycemic levels are fluctuating but improved. Her oral intake remains quite variable as per the nursing staff. LABORATORY DATA: Her glucose levels today have ranged from to 222 to 253 mg/dL. Her latest chemistry showed a BUN of 12, sodium 135, potassium 4.2, chloride 101, CO2 of 26, glucose 166, and creatinine 0.5. ASSESSMENT AND PLAN: So at this time, we will continue the same basal and bolus insulin regimen to allow for dose equilibration and keep her on the Levemir given as 50 units subcutaneously at bedtime daily as ordered. We will also continue her Humalog given as 18 units subcutaneously t.i.d. before meals as given. We will continue the low-dose correction scale using Humalog insulin as ordered. We will follow and advise accordingly. Kelsey Rosenbaum MD
[2018-02-11 22:49] LABS: FOLATE 11.7 ng/mL
[2018-02-11] MEDS: Insulin Detemir 100 Units/ml Inj SC SCH (23:00)
[2018-02-12 06:30] LABS: HEMOGLOBIN 10.4 g/dL (12.0-16.0); MEAN CELL VOLUME 90.3 fl (81.0-99.0); MEAN CORPUSCULAR HEMOGLOBIN 30.7 pg (27.0-31.0); MEAN CORPUSCULAR HGB CONC 33.9 g/dL (33.0-37.0); RBC 3.4 Mil/uL (3.80-5.20); WHITE BLOOD COUNT 7.2 K/uL (4.8-10.8)
[2018-02-12 06:46] LABS: BLOOD UREA NITROGEN 11 mg/dl (7-17); CALCIUM 9.2 mg/dL (8.4-10.2); GFR NON-AFRICAN AMERICAN > 60
[2018-02-12] MEDS: Insulin Lispro (humaLOG) 100 Units/ml Inj SC SCH ×6 (06:54→17:11)
[2018-02-12] MEDS: GlipiZIDE 10 mg SR Tab PO SCH ×2 (08:26→17:04)
--- NOTE | 2018-02-12 11:09 | CP.PCM.PN ---
Subjective - Date & Time of Evaluation Date of Evaluation: 02/12/18 Time of Evaluation: 11:06 - Subjective Subjective: Patient states pain is still severe but improving. Denies numbness/tingling, denies CP/SOB/dizziness. Explained to patient expectation is that she is able to at least get in and out of bed by herself at this point after surgery. Objective - Vital Signs/Intake and Output Vital Signs (last 24 hours): Temp Pulse Resp BP Pulse Ox 98.2 F 110 H 19 106/64 98 02/12/18 07:43 02/12/18 10:41 02/12/18 07:43 02/12/18 10:41 02/12/18 10:41 Intake and Output: 02/12/18 02/12/18 06:59 18:59 Intake Total 375 Balance 375 - Medications Medications: Current Medications Acetaminophen (Tylenol 325mg Tab) 975 mg PO Q8 [facility] Last Admin: 02/12/18 08:25 Dose: 975 mg Aripiprazole (Abilify) 2 mg PO DAILY [facility] Last Admin: 02/12/18 09:17 Dose: 2 mg Atorvastatin Calcium (Lipitor) 40 mg PO HS [facility] Last Admin: 02/11/18 23:00 Dose: 40 mg Desmopressin Acetate (Ddavp) 1 spr YAMILE BID [facility] Last Admin: 02/12/18 08:26 Dose: 1 spr Ferrous Sulfate (Feosol) 325 mg PO BID [facility] Last Admin: 02/12/18 08:26 Dose: 325 mg Folic Acid (Folic Acid) 1 mg PO DAILY [facility] Last Admin: 02/12/18 08:26 Dose: 1 mg Glipizide (Glucotrol Xl) 10 mg PO BID [facility] Last Admin: 02/12/18 08:26 Dose: 10 mg Insulin Detemir (Levemir) 50 units SC HS [facility] Last Admin: 02/11/18 23:00 Dose: 50 u Insulin Human Lispro (Humalog) 0 units SC ACHS [facility] Last Admin: 02/12/18 06:54 Dose: Not Given Insulin Human Lispro (Humalog) 18 units SC ACTID [facility] Last Admin: 02/12/18 08:27 Dose: 18 units Metformin HCl (Glucophage) 1,000 mg PO BID [facility] Last Admin: 02/12/18 09:17 Dose: 1,000 mg Morphine Sulfate (Morphine) 4 mg IVP Q4 PRN PRN Reason: Pain, severe (8-10) Last Admin: 02/12/18 04:56 Dose: 4 mg Ondansetron HCl (Zofran Inj) 4 mg IVP ONCE PRN PRN Reason: Nausea/Vomiting Oxycodone HCl (Oxycodone Immediate Release Tab) 10 mg PO Q6 PRN PRN Reason: Pain, moderate (4-7) Sertraline HCl (Zoloft) 50 mg PO DAILY [facility] Last Admin: 02/12/18 08:26 Dose: 50 mg - Labs Labs: 02/12/18 06:05 02/12/18 06:05 PT 11.2 Seconds (9.8-13.1) 02/08/18 05:20 INR 1.0 02/08/18 05:20 APTT 25.5 Seconds (25.6-37.1) L 02/08/18 05:20 - Extremities Exam Additional comments: RIght shoulder dressing changed. Incision intact, no erythema, +ROM fingers/ wrist/elbow, sensation intact +radial pulse immobilizer intact Assessment and Plan (1) Closed fracture of right proximal humerus Assessment & Plan: POD#2 s/p right TSA ortho stable for d/c maintain immobilizer at all times keep incision clean and dry f/u DR. Garrett in approx 10 days call for appointment d/w Dr. Garrett, agrees with above encourage OOB/PT/OT Status: Acute (2) Acute blood loss anemia Assessment & Plan: s/p PRBC Status: Acute (3) Vitamin D deficiency Assessment & Plan: supp f/u PMD to recheck in 3 months Status: Acute
[2018-02-12] MEDS ORDERED: Cholecalciferol 1,000 INTLU TAB PO SCH (11:15)
--- NOTE | 2018-02-12 12:47 | CP.PCM.PN ---
Objective - Vital Signs/Intake and Output Vital Signs (last 24 hours): Temp Pulse Resp BP Pulse Ox 98.2 F 110 H 19 106/64 98 02/12/18 07:43 02/12/18 10:41 02/12/18 07:43 02/12/18 10:41 02/12/18 10:41 Intake and Output: 02/12/18 02/12/18 06:59 18:59 Intake Total 375 Balance 375 - Medications Medications: Current Medications Acetaminophen (Tylenol 325mg Tab) 975 mg PO Q8 [facility] Last Admin: 02/12/18 08:25 Dose: 975 mg Aripiprazole (Abilify) 2 mg PO DAILY [facility] Last Admin: 02/12/18 09:17 Dose: 2 mg Atorvastatin Calcium (Lipitor) 40 mg PO HS [facility] Last Admin: 02/11/18 23:00 Dose: 40 mg Calcium Carbonate (Oscal) 500 mg PO DAILY [facility] Last Admin: 02/12/18 12:38 Dose: 500 mg Cholecalciferol (Vitamin D) 2,000 intlu PO DAILY [facility] Last Admin: 02/12/18 12:38 Dose: 2,000 intlu Desmopressin Acetate (Ddavp) 1 spr YAMILE BID [facility] Last Admin: 02/12/18 08:26 Dose: 1 spr Ferrous Sulfate (Feosol) 325 mg PO BID [facility] Last Admin: 02/12/18 08:26 Dose: 325 mg Folic Acid (Folic Acid) 1 mg PO DAILY [facility] Last Admin: 02/12/18 08:26 Dose: 1 mg Glipizide (Glucotrol Xl) 10 mg PO BID [facility] Last Admin: 02/12/18 08:26 Dose: 10 mg Insulin Detemir (Levemir) 50 units SC HS [facility] Last Admin: 02/11/18 23:00 Dose: 50 u Insulin Human Lispro (Humalog) 0 units SC ACHS [facility] Last Admin: 02/12/18 12:46 Dose: Not Given Insulin Human Lispro (Humalog) 18 units SC ACTID [facility] Last Admin: 02/12/18 12:45 Dose: 18 units Metformin HCl (Glucophage) 1,000 mg PO BID [facility] Last Admin: 02/12/18 09:17 Dose: 1,000 mg Morphine Sulfate (Morphine) 4 mg IVP Q4 PRN PRN Reason: Pain, severe (8-10) Last Admin: 02/12/18 04:56 Dose: 4 mg Ondansetron HCl (Zofran Inj) 4 mg IVP ONCE PRN PRN Reason: Nausea/Vomiting Oxycodone HCl (Oxycodone Immediate Release Tab) 10 mg PO Q6 PRN PRN Reason: Pain, moderate (4-7) Last Admin: 02/12/18 12:37 Dose: 10 mg Sertraline HCl (Zoloft) 50 mg PO DAILY [facility] Last Admin: 02/12/18 08:26 Dose: 50 mg - Labs Labs: 02/12/18 06:05 02/12/18 06:05 PT 11.2 Seconds (9.8-13.1) 02/08/18 05:20 INR 1.0 02/08/18 05:20 APTT 25.5 Seconds (25.6-37.1) L 02/08/18 05:20 Assessment and Plan (1) Humeral head fracture Status: Acute (2) Fx humeral neck Status: Acute (3) Uncontrolled insulin dependent diabetes mellitus Status: Chronic (4) Hyperglycemia Status: Acute (5) Diabetes insipidus Status: Chronic (6) Diabetic retinopathy of both eyes Status: Chronic
[2018-02-12 16:06] VITALS: BP 123/72; PULSE 70; RESP 18; TEMP 98.7; O2SAT 96
--- NOTE | 2018-02-13 04:03 | PN ---
Copied To: Kelsey Rosenbaum MD Attending MD: Kelsey Rosenbaum MD DATE: 02/12/2018 ENDO FOLLOWUP NOTE LOCATION: Room 650. SUBJECTIVE: This is a 57-year-old female with recent uncontrolled type 2 insulin-requiring diabetes, now being followed closely for metabolic management. Her glycemic levels are fluctuating but improved and the latest glucose levels have ranged from 163 to 273 mg/dL. Her latest chemistry showed a BUN of 11, sodium 142, potassium 4.2, chloride 106, CO2 31, glucose 217, and creatinine 0.6. ASSESSMENT: She underwent a recent open reduction and internal fixation of the right humeral fracture as noted. PLAN OF MANAGEMENT: We will continue the same basal and bolus insulin regimen to allow for dose equilibration and keep her keep her on the Humalog given as 18 units subcu t.i.d. before meals as ordered. We will continue the Levemir given as 50 units subcu at bedtime daily as given. We will titrate incrementally as indicated to optimize metabolic control. We will follow and advise accordingly. Kelsey Rosenbaum MD
--- NOTE | 2018-02-13 07:18 | CP.PCM.DIS ---
Provider - Provider Date of Admission: 02/07/18 16:15 Attending physician: Huey Glaser MD Primary care physician: Huey Glaser MD Diagnosis - Discharge Diagnosis (1) Humeral head fracture Status: Acute Priority: High (2) Fx humeral neck Status: Acute Priority: High (3) Uncontrolled insulin dependent diabetes mellitus Status: Chronic Priority: High (4) Hyperglycemia Status: Acute Priority: High (5) Diabetes insipidus Status: Chronic Priority: High (6) Diabetic retinopathy of both eyes Status: Chronic Priority: High Hospital Course - Lab Results Lab Results: Most Recent Lab Values WBC 7.2 K/uL (4.8-10.8) 02/12/18 06:05 RBC 3.40 Mil/uL (3.80-5.20) L 02/12/18 06:05 Hgb 10.4 g/dL (12.0-16.0) L 02/12/18 06:05 Hct 30.7 % (34.0-47.0) L 02/12/18 06:05 MCV 90.3 fl (81.0-99.0) 02/12/18 06:05 MCH 30.7 pg (27.0-31.0) 02/12/18 06:05 MCHC 33.9 g/dL (33.0-37.0) 02/12/18 06:05 RDW 14.0 % (11.5-14.5) 02/12/18 06:05 Plt Count 272 K/uL (130-400) 02/12/18 06:05 MPV 9.0 fl (7.2-11.7) 02/07/18 16:00 Neut % (Auto) 79.8 % (50.0-75.0) H 02/07/18 16:00 Lymph % (Auto) 11.6 % (20.0-40.0) L 02/07/18 16:00 [place] % (Auto) 6.3 % (0.0-10.0) 02/07/18 16:00 Eos % (Auto) 1.8 % (0.0-4.0) 02/07/18 16:00 Baso % (Auto) 0.5 % (0.0-2.0) 02/07/18 16:00 Neut # (Auto) 6.7 K/uL (1.8-7.0) 02/07/18 16:00 Lymph # (Auto) 1.0 K/uL (1.0-4.3) 02/07/18 16:00 [place] # (Auto) 0.5 K/uL (0.0-0.8) 02/07/18 16:00 Eos # (Auto) 0.1 K/uL (0.0-0.7) 02/07/18 16:00 Baso # (Auto) 0.0 K/uL (0.0-0.2) 02/07/18 16:00 PT 11.2 Seconds (9.8-13.1) 02/08/18 05:20 INR 1.0 02/08/18 05:20 APTT 25.5 Seconds (25.6-37.1) L 02/08/18 05:20 Sodium 142 mmol/l (132-148) 02/12/18 06:05 Potassium 4.2 MMOL/L (3.6-5.0) 02/12/18 06:05 Chloride 106 mmol/L (98-107) 02/12/18 06:05 Carbon Dioxide 31 mmol/L (22-30) H 02/12/18 06:05 Anion Gap 9 (10-20) L 02/12/18 06:05 BUN 11 mg/dl (7-17) 02/12/18 06:05 Creatinine 0.6 mg/dl (0.7-1.2) L 02/12/18 06:05 Est GFR ( Amer) > 60 02/12/18 06:05 Est GFR (Non-Af Amer) > 60 02/12/18 06:05 POC Glucose (mg/dL) 147 mg/dL (65-110) H 02/12/18 15:37 Random Glucose 217 mg/dL (65-105) H 02/12/18 06:05 Hemoglobin A1c 11.8 % (4.2-6.5) H 02/08/18 11:03 Calcium 9.2 mg/dL (8.4-10.2) 02/12/18 06:05 Phosphorus 3.6 mg/dl (2.5-4.5) 02/09/18 06:05 Magnesium 1.6 MG/DL (1.6-2.3) 08/28/18 06:05 Iron 15 ug/dL (37-170) L 02/11/18 16:00 TIBC 275 ug/dL (250-450) 02/11/18 16:00 % Saturation 5 % (20-55) L 02/11/18 16:00 Ferritin 102.0 ng/Ml (11.1-264.0) 02/11/18 22:00 Total Bilirubin 0.5 mg/dl (0.2-1.3) 02/09/18 06:05 AST 30 U/L (14-36) 02/09/18 06:05 ALT 34 U/L (9-52) 02/09/18 06:05 Alkaline Phosphatase 66 U/L (38-126) 02/09/18 06:05 Total Protein 6.9 G/DL (6.3-8.2) 02/09/18 06:05 Albumin 3.7 g/dL (3.5-5.0) 02/09/18 06:05 Globulin 3.3 gm/dL (2.2-3.9) 02/09/18 06:05 Albumin/Globulin Ratio 1.1 (1.0-2.1) 02/09/18 06:05 Triglycerides 134 mg/DL (0-149) D 02/08/18 05:20 Cholesterol 161 mg/dL (0-199) 02/08/18 05:20 LDL Cholesterol Direct 80 mg/dL (0-129) 02/08/18 05:20 HDL Cholesterol 39 MG/DL (30-70) 02/08/18 05:20 Vitamin B12 538 pg/mL (239-931) 02/11/18 22:00 25-OH Vitamin D Total 23.6 NG/ML (30.0-100.0) L 02/09/18 09:17 Folate 11.7 ng/mL 02/11/18 22:00 Thyroxine (T4) 5.99 ug/dl (5.5-11.0) 02/08/18 05:20 TSH 3rd Generation 1.91 mIU/ML (0.46-4.68) 02/08/18 05:20 Cortisol AM Sample 21.0 ug/dL (4.46-22.7) 02/09/18 06:05 Plasma Cortisol PM 15.8 ug/dL (1.7-14.1) H 02/08/18 16:55 ACTH 40 pg/mL (6-50) 02/09/18 06:05 Urine Color Yellow (YELLOW) 02/08/18 17:13 Urine Clarity Slighty-cloudy (Clear) 02/08/18 17:13 Urine pH 6.0 (5.0-8.0) 02/08/18 17:13 Ur Specific [place] 1.029 (1.003-1.030) 02/08/18 17:13 Urine Protein Negative mg/dL (NEGATIVE) 02/08/18 17:13 Urine Glucose (UA) >=500 mg/dL (Normal) 02/08/18 17:13 Urine Ketones Negative mg/dL (NEGATIVE) 02/08/18 17:13 Urine Blood Negative (NEGATIVE) 02/08/18 17:13 Urine Nitrate Negative (NEGATIVE) 02/08/18 17:13 Urine Bilirubin Negative (NEGATIVE) 02/08/18 17:13 Urine Urobilinogen 0.2-1.0 mg/dL (0.2-1.0) 02/08/18 17:13 Ur Leukocyte Esterase Neg [place]/uL (Negative) 02/08/18 17:13 Urine RBC (Auto) 1 /hpf (0-3) 02/08/18 17:13 Urine Microscopic WBC 2 /hpf (0-5) 02/08/18 17:13 Ur Squamous Epith Cells 1 /hpf (0-5) 02/08/18 17:13 Urine Bacteria Few (<OCC) H 02/08/18 17:13 Blood Type A POSITIVE 02/09/18 10:30 Antibody Screen Negative 02/09/18 10:30 Crossmatch See Detail 02/09/18 10:30 BBK History Checked Patient has bt 02/09/18 10:30 Discharge Exam - Head Exam Head Exam: NORMAL INSPECTION Discharge Plan - Discharge Medications Prescriptions: Ibuprofen [Motrin] 600 mg PO Q6 PRN #30 tab PRN Reason: Pain, Moderate (4-7) - Follow Up Plan Condition: STABLE Disposition: HOME/ ROUTINE Instructions: Upper Arm Fracture, Shoulder Fracture (DC) Additional Instructions: follow up with primary MD and surgeon 1 week Referrals: Valentin Garrett III, MD [Staff Provider] - Kelsey Rosenbaum MD [Medical Doctor] - Benedicto Herrera MD [Staff Provider] - Huey Glaser MD [Primary Care Provider] -
== END 2018-02-12 20:00 | disposition home or self-care (01) | DRG 483 ==
LOC: H.ER 13:12 → H.ERHOLD 16:15 → H.MEDSURG1 17:58
PROVIDERS: ADMIT Internal Medicine Pulmonary Disease; ATTEND Internal Medicine Pulmonary Disease
PROC: 3E0T3BZ Introduction of Anesthetic Agent into Peripheral Nerves and Plexi, Percutaneous Approach (ICD-10-PCS; 2018-02-10)
PROC: 0RRJ00Z Replacement of Right Shoulder Joint with Reverse Ball and Socket Synthetic Substitute, Open Approach (ICD-10-PCS; principal; 2018-02-10 07:45)
PROC: 0PSC04Z Reposition Right Humeral Head with Internal Fixation Device, Open Approach (ICD-10-PCS; 2018-02-10 07:45)
PROC: 30233N1 Transfusion of Nonautologous Red Blood Cells into Peripheral Vein, Percutaneous Approach (ICD-10-PCS; 2018-02-11)
DX: M84.611A Pathological fracture in other disease, right shoulder, initial encounter for fracture (principal); D62 Acute posthemorrhagic anemia; E23.2 Diabetes insipidus; E11.319 Type 2 diabetes mellitus with unspecified diabetic retinopathy without macular edema; E11.40 Type 2 diabetes mellitus with diabetic neuropathy, unspecified; E11.65 Type 2 diabetes mellitus with hyperglycemia; E78.00 Pure hypercholesterolemia, unspecified; H54.8 Legal blindness, as defined in USA; Z79.4 Long term (current) use of insulin; Z88.0 Allergy status to penicillin; F31.9 Bipolar disorder, unspecified; I11.0 Hypertensive heart disease with heart failure; I50.9 Heart failure, unspecified; W01.0XXA Fall on same level from slipping, tripping and stumbling without subsequent striking against object, initial encounter; Y92.009 Unspecified place in unspecified non-institutional (private) residence as the place of occurrence of the external cause; R55 Syncope and collapse; E78.5 Hyperlipidemia, unspecified; F41.1 Generalized anxiety disorder; E55.9 Vitamin D deficiency, unspecified; M19.011 Primary osteoarthritis, right shoulder; M75.101 Unspecified rotator cuff tear or rupture of right shoulder, not specified as traumatic; M85.811 Other specified disorders of bone density and structure, right shoulder; S43.401A Unspecified sprain of right shoulder joint, initial encounter; I25.10 Atherosclerotic heart disease of native coronary artery without angina pectoris

== ENCOUNTER 2018-07-30 20:32 | Inpatient (IN) | payer OTHER ==
[2018-07-30 20:32] VITALS: BMI 28.7
--- NOTE | 2018-07-30 21:16 | ED PDOC ---
Syncope/Near Syncope/Dizziness Time Seen by Provider: 07/30/18 20:58 Chief Complaint (Nursing): Syncope Chief Complaint (Provider): Syncope History Per: Patient, Family History/Exam Limitations: no limitations Current Symptoms Are (Timing): Better Additional Complaint(s): 57 year old female with pmHx of diabetes, arrives to ED with for an evaluation of syncopal episode that occurred around 1300 earlier today. Patient states she laid on the floor for 15 minutes before she was found by her . She reports injuring her left shoulder but denies any headache, dizziness, chest pain, palpitations, or focal weakness prior to event. PCP: Dr. Huey Glaser Past Medical History Reviewed: Historical Data, Nursing Documentation, Vital Signs Vital Signs: Last Vital Signs Temp 98.3 F 07/30/18 20:47 Pulse 76 07/30/18 20:47 Resp 18 07/30/18 20:47 BP 124/58 L 07/30/18 20:47 Pulse Ox 99 07/30/18 20:47 - Medical History PMH: Anxiety, Bipolar Disorder, CHF, Depression, Diabetes, HTN, Hypercholesterolemia Denies: HIV, Chronic Kidney Disease - Surgical History Surgical History: (x 2) - Family History Family History: States: Unknown Family Hx - Immunization History Hx Tetanus Toxoid Vaccination: No Hx Influenza Vaccination: No Hx Pneumococcal Vaccination: No - Home Medications Home Medications: Ambulatory Orders Medication Instructions Recorded ARIPiprazole [Abilify] 2 mg PO DAILY 07/30/17 Aspirin [Ecotrin] 81 mg PO HS 07/30/17 Glimepiride [amaRYL] 4 mg PO BID 07/30/17 MetFORMIN [glucoPHAGE] 1,000 mg PO BID 07/30/17 Rosuvastatin Calcium [Crestor] 20 mg PO HS 07/30/17 Sertraline [Zoloft] 50 mg PO DAILY 07/30/17 Desmopressin (Nonrefrigerated) 1 spray YAMILE BID 01/27/18 [Desmopressin 10 Mcg/0.1 ml Spr] Insulin Detemir [Levemir] 40 units SC HS 01/27/18 Insulin Lispro [humALOG] 20 unit SC ACTID 01/27/18 Ferrous Sulfate [Feosol] 325 mg PO BID tab 02/12/18 Folic Acid 1 mg PO DAILY tab 02/12/18 Ibuprofen [Motrin] 600 mg PO Q6 PRN #30 tab 02/12/18 - Allergies Allergies/Adverse Reactions: Allergies Allergy/AdvReac Type Severity Reaction Status Date / Time Penicillins Allergy RASH Verified 07/30/18 20:46 Review of Systems ROS Statement: Except As Marked, All Systems Reviewed And Found Negative Cardiovascular: Negative for: Chest Pain, Palpitations Musculoskeletal: Positive for: Shoulder Pain (left) Neurological: Negative for: Weakness (focal), Headache, Dizziness Physical Exam - Reviewed Nursing Documentation Reviewed: Yes Vital Signs Reviewed: Yes - Physical Exam Appears: Positive for: No Acute Distress Head Exam: Positive for: ATRAUMATIC, NORMAL INSPECTION, NORMOCEPHALIC Skin: Positive for: Normal Color Eye Exam: Positive for: Normal appearance, EOMI, PERRL ENT: Positive for: Normal ENT Inspection Neck: Positive for: Normal, Painless ROM, Supple Cardiovascular/Chest: Positive for: Regular Rate, Rhythm, Chest Non Tender Respiratory: Positive for: Normal Breath Sounds. Negative for: Respiratory Distress Extremity: Positive for: Tenderness (left shoulder; lateral deltoid), Other (limited ROM of left arm secondary to pain). Negative for: Normal ROM, Deformity (left shoulder) Neurologic/Psych: Positive for: Alert, supervisor filter assembly II-XII (grossly intact), Oriented. Negative for: Motor/Sensory Deficits, Aphasia - Laboratory Results Result Diagrams: 07/30/18 21:37 07/30/18 21:37 - ECG O2 Sat by Pulse Oximetry: 99 (RA) Pulse Ox Interpretation: Normal Medical Decision Making Medical Decision Making: Time: 2109 Initial Plan: Syncopal event. ED work-up to rule out cardiac vs. neurological ideology. Left shoulder XR ordered to rule out fracture or dislocation. * CT head * EKG * Labs * CXR * XR left shoulder Scribe Attestation: Documented by Kelsey Huizar, acting as a scribe for Elvis Heaton MD. Provider Scribe Attestation: All medical record entries made by the Scribe were at my direction and personally dictated by me. I have reviewed the chart and agree that the record accurately reflects my personal performance of the history, physical exam, medical decision making, and the department course for this patient. I have also personally directed, reviewed, and agree with the discharge instructions and disposition. Disposition - Clinical Impression Clinical Impression: Syncope and collapse, Shoulder fracture - Patient ED Disposition Is Patient to be Admitted: Yes - Disposition Disposition Time: 22:26 Condition: FAIR Forms: ReturnHauler (Romansh) - Pt Status Changed To: Hospital Disposition Of: Inpatient - Admit Certification Admit to Inpatient:: After my assessment, the patient will require hospitalization for at least two midnights. This is because of the severity of symptoms shown, intensity of services needed, and/or the medical risk in this patient being treated as an outpatient. - POA Present On Arrival: None
[2018-07-30 21:46] LABS: BASO % 0.1 % (0.0-2.0); EOS % 0.2 % (0.0-4.0); HEMOGLOBIN 12.5 g/dL (12.0-16.0); LYMPH # 1.1 K/uL (1.0-4.3); LYMPH % 7.1 % (20.0-40.0); MEAN CELL VOLUME 88.2 fl (81.0-99.0); MEAN CORPUSCULAR HEMOGLOBIN 28.9 pg (27.0-31.0); MEAN CORPUSCULAR HGB CONC 32.7 g/dL (33.0-37.0); MEAN PLATELET VOLUME 8.8 fl (7.2-11.7); MONO # 0.6 K/uL (0.0-0.8); MONO % 3.8 % (0.0-10.0); NEUT # 13.1 K/uL (1.8-7.0); NEUT % 88.8 % (50.0-75.0); PLATELET COUNT 363 K/uL (130-400); RBC 4.33 Mil/uL (3.80-5.20); WHITE BLOOD COUNT 14.8 K/uL (4.8-10.8)
[2018-07-30 22:14] LABS: ALB/GLOB RATIO 1.3 (1.0-2.1); ALBUMIN 4.9 g/dL (3.5-5.0); ALT/SGPT 39 U/L (9-52); AST/SGOT 42 U/L (14-36); BLOOD UREA NITROGEN 37 mg/dl (7-17); CALCIUM 10.4 mg/dL (8.4-10.2); GFR NON-AFRICAN AMERICAN > 60
[2018-07-30] MEDS ORDERED: Insulin Regular 100 units/ml IV STA (22:27)
[2018-07-30] MEDS ORDERED: Sodium Chloride 0.9% 1,000 ML IV STA (22:27)
[2018-07-30] MEDS ORDERED: Albuterol 0.083% Inhal Sol (2.5 mg/3 mL) UD INH STA (22:38)
[2018-07-30 22:44] LABS: ABG ALLEN TEST YES; ARTERIAL BLOOD GAS HCO3 24.1 mmol/L (21-28); ARTERIAL BLOOD GAS O2 CAPACITY 17.4 mL/dL (16-24); ARTERIAL BLOOD GAS O2 CONTENT 16.5 ML/dL (15-23); ARTERIAL BLOOD GAS O2 SAT 94.7 % (95-98); ARTERIAL BLOOD GAS PCO2 37 mm/Hg (35-45); ARTERIAL BLOOD GAS PH 7.41 (7.35-7.45); ARTERIAL BLOOD GAS PO2 59 mm/Hg (80-100); ARTERIAL BLOOD GAS TCO2 24.6 mmol/L (22-28)
[2018-07-30 23:32] LABS: BANDS 4 % (0-2); LYMPHOCYTE 10 % (20-50); MONOCYTE 5 % (0-10); NEUTROPHIL 81 % (42-75); TOTAL CELLS COUNTED 100
[2018-07-30 23:33] LABS: ANISOCYTOSIS SLIGHT; HYPOCHROMIC SLIGHT; PLATELET ESTIMATE NORMAL (NORMAL)
[2018-07-31] MEDS ORDERED: Insulin Detemir 100 Units/ml Inj SC ONE (00:55)
[2018-07-31] MEDS: Morphine 4 MG/ML VIAL IVP PRN ×4 (01:16→20:11)
[2018-07-31] MEDS ORDERED: Morphine 4 MG/ML VIAL IVP ONE (03:39)
--- NOTE | 2018-07-31 07:51 | CT ---
Date of service: 07/30/2018 PROCEDURE: CT HEAD WITHOUT CONTRAST. HISTORY: r/o bleed COMPARISON: None available. TECHNIQUE: Axial computed tomography images were obtained through the head/brain without intravenous contrast. Radiation dose: Total exam DLP = 784.23 mGy-cm. This CT exam was performed using one or more of the following dose reduction techniques: Automated exposure control, adjustment of the mA and/or kV according to patient size, and/or use of iterative reconstruction technique. FINDINGS: HEMORRHAGE: No intracranial hemorrhage. BRAIN: No mass effect or edema. Mild atrophy. VENTRICLES: Unremarkable. No hydrocephalus. CALVARIUM: Unremarkable. PARANASAL SINUSES: Unremarkable as visualized. No significant inflammatory changes. MASTOID AIR CELLS: Unremarkable as visualized. No inflammatory changes. OTHER FINDINGS: None. IMPRESSION: Mild atrophy.
--- NOTE | 2018-07-31 07:56 | CT ---
Date of service: 07/30/2018 PROCEDURE: HISTORY: Left shoulder Fx COMPARISON: TECHNIQUE: FINDINGS: Comminuted fracture of the humeral head and neck. With associated subcutaneous edema. Osseous fusion/synostosis of the middle lateral aspect of the clavicle and scapular region of the coracoid process. Faint linear calcification between the lateral aspect of the clavicle and coracoid process possibly representing an accessory ligament/soft tissue calcification. Mild degenerative changes of the acromioclavicular joint. IMPRESSION: As above.
--- NOTE | 2018-07-31 08:31 | RAD ---
Date of service: 07/30/2018 PROCEDURE: Radiographs of the Left Shoulder HISTORY: trauma COMPARISON: No prior. FINDINGS: BONES: Impaction fracture of the humeral head and neck. Possible destructive changes of the coracoid process. JOINTS: Normal. Glenohumeral and acromioclavicular joints preserved. No osteoarthritis. SOFT TISSUES: Normal. OTHER FINDINGS: None. IMPRESSION: Impaction fracture of the humeral head and neck. Possible destructive changes of the coracoid process.
--- NOTE | 2018-07-31 08:34 | RAD ---
Date of service: 07/30/2018 HISTORY: syncope COMPARISON: No prior. TECHNIQUE: Chest PA and lateral FINDINGS: LUNGS: No active pulmonary disease. PLEURA: No significant pleural effusion identified. No pneumothorax apparent. CARDIOVASCULAR: No aortic atherosclerotic calcification present. Normal cardiac size. No pulmonary vascular congestion. OSSEOUS STRUCTURES: No significant abnormalities. VISUALIZED UPPER ABDOMEN: Normal. OTHER FINDINGS: None. IMPRESSION: No active disease.
[2018-07-31] MEDS ORDERED: Patient's Own Med (Cholecalciferol (Vitamin D3) [Vitamin D3] 2,000 UNIT) PO SCH (09:00)
[2018-07-31] MEDS: GlipiZIDE 10 mg SR Tab PO SCH ×2 (09:06→17:17)
[2018-07-31] MEDS: Insulin Lispro (humaLOG) 100 Units/ml Inj SC SCH ×3 (09:07→17:17)
[2018-07-31] MEDS: Cholecalciferol 1,000 INTLU TAB PO SCH (09:07)
[2018-07-31 11:09] LABS: HDL CHOLESTEROL 36 MG/DL (30-70)
[2018-07-31 11:19] LABS: LDL CHOLESTEROL 95 mg/dL (0-129)
--- NOTE | 2018-07-31 12:02 | CP.PCM.CON ---
History of Present Illness - History of Present Illness History of Present Illness: ID: 57 yo female well known to [facility]: severe L shoulder pain and rstricted ROM HPI: 57 yo female presents with pain and restricted rom L shoulder. pt sustained syncopal episode and presents with pain and restricted L shoulder ROM- [place] [facility] [place] with comminuted L proximal humerus fx with superior subluxation Review of Systems - Hematologic/Lymphatic Additional comments: ppt complained of dizzinerss and had sustained a syncopal episode Past Patient History - Past Medical History & Family History Past Medical History?: Yes - Past Social History Smoking Status: Never Smoked - CARDIAC Hx Cardiac Disorders: Yes - PULMONARY Hx Respiratory Disorders: No - NEUROLOGICAL Hx Neurological Disorder: Yes Hx Syncope: Yes - HEENT Hx HEENT Problems: Yes - RENAL Hx Chronic Kidney Disease: No - ENDOCRINE/METABOLIC Hx Endocrine Disorders: Yes Hx Diabetes Mellitus Type 2: Yes - HEMATOLOGICAL/ONCOLOGICAL Hx Blood Disorders: No Hx AIDS: No Hx Human Immunodeficiency Virus (HIV): No - INTEGUMENTARY Hx Dermatological Problems: No - MUSCULOSKELETAL/RHEUMATOLOGICAL Hx Musculoskeletal Disorders: Yes Hx Falls: Yes Hx Fractures: Yes - GASTROINTESTINAL Hx Gastrointestinal Disorders: Yes - GENITOURINARY/GYNECOLOGICAL Hx Genitourinary Disorders: No - PSYCHIATRIC Hx Psychophysiologic Disorder: Yes Hx Anxiety: Yes Hx Depression: Yes Hx Substance Use: No - SURGICAL HISTORY Hx Surgeries: Yes Hx Section: Yes (x2) Hx Joint Replacement: Yes (right shoulder joint) Other/Comment: "intestinal surgery for perforated intestines - ANESTHESIA Hx Anesthesia: Yes Hx Anesthesia Reactions: No Hx Malignant Hyperthermia: No Meds Allergies/Adverse Reactions: Allergies Allergy/AdvReac Type Severity Reaction Status Date / Time Penicillins Allergy RASH Verified 07/30/18 20:46 - Medications Medications: Current Medications Alprazolam (Xanax) 0.5 mg PO BID PRN PRN Reason: Anxiety Last Admin: 07/31/18 01:58 Dose: 0.5 mg Aripiprazole (Abilify) 2 mg PO DAILY [facility] Last Admin: 07/31/18 09:07 Dose: 2 mg Atorvastatin Calcium (Lipitor) 20 mg PO DAILY [facility] Last Admin: 07/31/18 09:07 Dose: 20 mg Cholecalciferol (Vitamin D) 2,000 intlu PO DAILY [facility] Last Admin: 07/31/18 09:07 Dose: 2,000 intlu Desmopressin Acetate (Ddavp) 1 spr YAMILE BID [facility] Last Admin: 07/31/18 09:20 Dose: Not Given Ferrous Sulfate (Feosol) 325 mg PO BID [facility] Last Admin: 07/31/18 09:07 Dose: 325 mg Folic Acid (Folic Acid) 1 mg PO DAILY [facility] Last Admin: 07/31/18 09:07 Dose: 1 mg Glipizide (Glucotrol Xl) 10 mg PO BIDWM [facility] Last Admin: 07/31/18 09:06 Dose: 10 mg Insulin Human Lispro (Humalog) 20 units SC ACTID [facility] Last Admin: 07/31/18 09:07 Dose: 20 u Midodrine (Proamatine) 5 mg PO TID [facility] Last Admin: 07/31/18 09:07 Dose: 5 mg Morphine Sulfate (Morphine) 4 mg IVP Q4 PRN PRN Reason: Pain, severe (8-10) Last Admin: 07/31/18 10:23 Dose: 4 mg Sertraline HCl (Zoloft) 50 mg PO DAILY [facility] Last Admin: 07/31/18 09:07 Dose: 50 mg Physical Exam - Additional Findings Additional findings: Systemic physical exam-as per DR Ramirez; Musculoskekltal exam stance/gait- defrred N/V intact L upper ext + swelling L shoulder restricted L shoulder ROM Results - Vital Signs Recent Vital Signs: Last Vital Signs Temp 98.1 F 07/31/18 08:32 Pulse 82 07/31/18 08:50 Resp 19 07/31/18 08:32 BP 104/70 07/31/18 08:32 Pulse Ox 97 07/31/18 08:32 - Labs Result Diagrams: 07/30/18 21:37 07/30/18 21:37 Labs: Laboratory Results - last 24 hr 07/30/18 07/30/18 07/30/18 21:37 21:37 22:25 WBC 14.8 H D RBC 4.33 Hgb 12.5 D Hct 38.2 MCV 88.2 D MCH 28.9 MCHC 32.7 L RDW 15.0 H Plt Count 363 MPV 8.8 Neut % (Auto) 88.8 H Lymph % (Auto) 7.1 L [place] % (Auto) 3.8 Eos % (Auto) 0.2 Baso % (Auto) 0.1 Neut # (Auto) 13.1 H Lymph # (Auto) 1.1 [place] # (Auto) 0.6 Eos # (Auto) 0.0 Baso # (Auto) 0.0 Neutrophils % (Manual) 81 H Band Neutrophils % 4 H Lymphocytes % (Manual) 10 L Monocytes % (Manual) 5 Platelet Estimate Normal Hypochromasia (manual) Slight Anisocytosis (manual) Slight pCO2 pO2 HCO3 ABG pH ABG Total CO2 ABG O2 Saturation ABG O2 Content ABG Base Excess ABG Hemoglobin ABG Carboxyhemoglobin POC ABG HHb (Measured) ABG Methemoglobin ABG O2 Capacity Les Test A-a O2 Difference Hgb O2 Saturation FiO2 Sodium 133 Potassium 5.5 H Chloride 90 L Carbon Dioxide 23 Anion Gap 26 H BUN 37 H Creatinine 0.9 Est GFR ( Amer) > 60 Est GFR (Non-Af Amer) > 60 POC Glucose (mg/dL) > 500 H* Random Glucose 559 H* D Calcium 10.4 H Total Bilirubin 0.7 AST 42 H D ALT 39 Alkaline Phosphatase 125 Troponin I < 0.0120 Total Protein 8.6 H Albumin 4.9 Globulin 3.8 Albumin/Globulin Ratio 1.3 Triglycerides Cholesterol LDL Cholesterol Direct HDL Cholesterol TSH 3rd Generation 07/30/18 07/30/18 07/31/18 22:39 23:53 02:02 WBC RBC Hgb Hct MCV MCH MCHC RDW Plt Count MPV Neut % (Auto) Lymph % (Auto) [place] % (Auto) Eos % (Auto) Baso % (Auto) Neut # (Auto) Lymph # (Auto) [place] # (Auto) Eos # (Auto) Baso # (Auto) Neutrophils % (Manual) Band Neutrophils % Lymphocytes % (Manual) Monocytes % (Manual) Platelet Estimate Hypochromasia (manual) Anisocytosis (manual) pCO2 37 pO2 59 L HCO3 24.1 ABG pH 7.41 ABG Total CO2 24.6 ABG O2 Saturation 94.7 L ABG O2 Content 16.5 ABG Base Excess -0.8 ABG Hemoglobin 13.0 ABG Carboxyhemoglobin 2.3 H POC ABG HHb (Measured) 5.0 ABG Methemoglobin 2.6 ABG O2 Capacity 17.4 Les Test Yes A-a O2 Difference 44.0 Hgb O2 Saturation 90.1 L FiO2 21.0 Sodium Potassium Chloride Carbon Dioxide Anion Gap BUN Creatinine Est GFR ( Amer) Est GFR (Non-Af Amer) POC Glucose (mg/dL) 396 H 408 H* Random Glucose Calcium Total Bilirubin AST ALT Alkaline Phosphatase Troponin I Total Protein Albumin Globulin Albumin/Globulin Ratio Triglycerides Cholesterol LDL Cholesterol Direct HDL Cholesterol TSH 3rd Generation 07/31/18 07/31/18 07/31/18 06:00 06:08 10:30 WBC RBC Hgb Hct MCV MCH MCHC RDW Plt Count MPV Neut % (Auto) Lymph % (Auto) [place] % (Auto) Eos % (Auto) Baso % (Auto) Neut # (Auto) Lymph # (Auto) [place] # (Auto) Eos # (Auto) Baso # (Auto) Neutrophils % (Manual) Band Neutrophils % Lymphocytes % (Manual) Monocytes % (Manual) Platelet Estimate Hypochromasia (manual) Anisocytosis (manual) pCO2 pO2 HCO3 ABG pH ABG Total CO2 ABG O2 Saturation ABG O2 Content ABG Base Excess ABG Hemoglobin ABG Carboxyhemoglobin POC ABG HHb (Measured) ABG Methemoglobin ABG O2 Capacity Les Test A-a O2 Difference Hgb O2 Saturation FiO2 Sodium Potassium Chloride Carbon Dioxide Anion Gap BUN Creatinine Est GFR ( Amer) Est GFR (Non-Af Amer) POC Glucose (mg/dL) 359 H Random Glucose Calcium Total Bilirubin AST ALT Alkaline Phosphatase Troponin I Total Protein Albumin Globulin Albumin/Globulin Ratio Triglycerides 178 H D Cholesterol 172 LDL Cholesterol Direct 95 HDL Cholesterol 36 TSH 3rd Generation 1.05 07/31/18 10:51 WBC RBC Hgb Hct MCV MCH MCHC RDW Plt Count MPV Neut % (Auto) Lymph % (Auto) [place] % (Auto) Eos % (Auto) Baso % (Auto) Neut # (Auto) Lymph # (Auto) [place] # (Auto) Eos # (Auto) Baso # (Auto) Neutrophils % (Manual) Band Neutrophils % Lymphocytes % (Manual) Monocytes % (Manual) Platelet Estimate Hypochromasia (manual) Anisocytosis (manual) pCO2 pO2 HCO3 ABG pH ABG Total CO2 ABG O2 Saturation ABG O2 Content ABG Base Excess ABG Hemoglobin ABG Carboxyhemoglobin POC ABG HHb (Measured) ABG Methemoglobin ABG O2 Capacity Les Test A-a O2 Difference Hgb O2 Saturation FiO2 Sodium Potassium Chloride Carbon Dioxide Anion Gap BUN Creatinine Est GFR ( Amer) Est GFR (Non-Af Amer) POC Glucose (mg/dL) 334 H Random Glucose Calcium Total Bilirubin AST ALT Alkaline Phosphatase Troponin I Total Protein Albumin Globulin Albumin/Globulin Ratio Triglycerides Cholesterol LDL Cholesterol Direct HDL Cholesterol TSH 3rd Generation - Impressions Impression: Xray- comminuted pathologic fx L proximal humerurs with superior subluxation L shoulder CT scan- displaced/comminuted L proximal humerus fracture pathologic in nature Assessment & Plan - Assessment and Plan (Free Text) Assessment: A- comminuted/displaced/angulated L proximal humeral fxwith subluxatioin of humeral head P- will attempt closed reduction/ probable L shpoulder reverse arthroplasty is indicated An attempt will be francoise aleman to treat conservatively with trial of closed reduction situation discussed at length with pt and her
[2018-07-31] MEDS: Oxycodone/Acetaminophen 5/325 mg Tab PO PRN (13:29)
--- NOTE | 2018-07-31 13:48 | CP.PCM.HP ---
History of Present Illness - History of Present Illness History of Present Illness: CC: Near syncope. 57 y/o F, with multiple chronic medical conditions, including; Recent Hx of Fall on January 2018 with R Humeral Fx, s/p total R Shoulder replacement (ORIF proximal humeral Fx) repair R rotator cuff, intrarticular bicepts tenodesis, HTN, CHF, Uncontrolled DMII, Diabetes Retinopathy, Diabetes Insipidus, Orthostatic Hypotension, Hx Vasovagal Syncope, Anxiety, Bipolar Disorder. Pt was brought to [facility] [place] on 07/30/18 to be evaluated for syncopal episode while at home on DOA, associated to dizziness, Pt was found on floor by her about 15 minutes after fall, c/o of pain on L shoulder, described as sharp, constant, severe intensity 10:10 with no relief. Worsening symptoms: Swollen L shoulder with restricted ROM. Fx of L shoulder, humeral head and neck, possible destructive changes of the caracoid process, found by Upper Extremity CT and X-Ray. BS: 408. Aggravated factor: Movements, change positions. Pt denied: Fever, chills, n/v/d, abdominal pain, urinary symptoms, CP, palpitations, SOB, cough, sick contact, recent travel out of [place]. [place] Head: Mild atrophy. Present on Admission - Present on Admission Any Indicators Present on Admission: Yes History of Uncontrolled Diabetes: Yes Review of Systems - Constitutional Constitutional: Frequent Falls, Weakness - EENT Eyes: Requires Corrective Lenses, Loss of Vision Ears: Other (negative) Nose/Mouth/Throat: Other (negative) - Cardiovascular Cardiovascular: Other (negative) - Respiratory Respiratory: Other (negative) - Gastrointestinal Gastrointestinal: Other (negative) - Genitourinary Genitourinary: Other (negative) - Musculoskeletal Musculoskeletal: Other (L shoulder pain with restricted ROM 2nd to Fx. R shoulder decreased ROM 2nd to Fx.) - Integumentary Integumentary: Other (ngative) - Neurological Neurological: Dizziness, Syncope, Weakness - Psychiatric Psychiatric: Anxiety, Depression - Endocrine Endocrine: Other (negative) - Hematologic/Lymphatic Hematologic: Other (negative) Past Patient History - Past Medical History & Family History Past Medical History?: Yes Pertinent Family History: Unknown - Past Social History Smoking Status: Never Smoked Alcohol: None Drugs: Denies Home Situation {Lives}: With Family - CARDIAC Hx Cardiac Disorders: Yes Hx Congestive Heart Failure: Yes Hx Hypertension: Yes Hx Hypotension: Yes Other/Comment: recurrent near syncopal episodes at home, while standing, low BP at home, Patient on Midodrin for postural hypotension - PULMONARY Hx Respiratory Disorders: No - NEUROLOGICAL Hx Neurological Disorder: Yes Hx Syncope: Yes - HEENT Hx HEENT Problems: Yes 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) - RENAL Hx Chronic Kidney Disease: No - ENDOCRINE/METABOLIC Hx Endocrine Disorders: Yes Hx Diabetes Mellitus Type 2: Yes Other/Comment: Patient very uncompliant with diet and Insulin regimen - HEMATOLOGICAL/ONCOLOGICAL Hx Blood Disorders: No Hx AIDS: No Hx Human Immunodeficiency Virus (HIV): No - INTEGUMENTARY Hx Dermatological Problems: No - MUSCULOSKELETAL/RHEUMATOLOGICAL Hx Musculoskeletal Disorders: Yes Hx Falls: Yes Hx Fractures: Yes - GASTROINTESTINAL Hx Gastrointestinal Disorders: Yes Hx Bowel Surgery: Yes (1981) - GENITOURINARY/GYNECOLOGICAL Hx Genitourinary Disorders: No - PSYCHIATRIC Hx Psychophysiologic Disorder: Yes Hx Anxiety: Yes Hx Bipolar Disorder: Yes Hx Depression: Yes Hx Substance Use: No - SURGICAL HISTORY Hx Surgeries: Yes Hx Section: Yes (x2) Hx Joint Replacement: Yes (right shoulder joint) Other/Comment: "intestinal surgery for perforated intestines - ANESTHESIA Hx Anesthesia: Yes Hx Anesthesia Reactions: No Hx Malignant Hyperthermia: No Meds Allergies/Adverse Reactions: Allergies Allergy/AdvReac Type Severity Reaction Status Date / Time Penicillins Allergy RASH Verified 07/30/18 20:46 Physical Exam - Constitutional Appears: No Acute Distress - Head Exam Head Exam: NORMAL INSPECTION - Eye Exam Eye Exam: PERRL - ENT Exam ENT Exam: Normal Exam - Neck Exam Neck exam: Positive for: Normal Inspection - Respiratory Exam Respiratory Exam: NORMAL BREATHING PATTERN - Cardiovascular Exam Cardiovascular Exam: REGULAR RHYTHM, Systolic Murmur - GI/Abdominal Exam GI & Abdominal Exam: Normal Bowel Sounds, Soft - Extremities Exam Extremities exam: Positive for: tenderness (R shoulder) Additional comments: L shoulder with tenderness and swelling, ROM decreased, Neuromuscular status distal good. R shoulder healed surgical scar, ROM decreased. - Back Exam Back exam: NORMAL INSPECTION - Neurological Exam Neurological exam: Alert, Oriented x3 Additional comments: Strength and sensation intact. - Psychiatric Exam Psychiatric exam: Anxious, Depressed - Skin Skin Exam: Warm Results - Vital Signs Recent Vital Signs: Last Vital Signs Temp 97.5 F L 02/16/19 12:36 Pulse 65 07/31/18 12:36 Resp 18 07/31/18 12:36 BP 102/62 07/31/18 12:36 Pulse Ox 99 07/31/18 12:36 reviewed [place] - Labs Result Diagrams: 08/02/18 06:50 08/02/18 06:50 Labs: Laboratory Results - last 24 hr 07/30/18 07/30/18 07/30/18 21:37 21:37 22:25 WBC 14.8 H D RBC 4.33 Hgb 12.5 D Hct 38.2 MCV 88.2 D MCH 28.9 MCHC 32.7 L RDW 15.0 H Plt Count 363 MPV 8.8 Neut % (Auto) 88.8 H Lymph % (Auto) 7.1 L [place] % (Auto) 3.8 Eos % (Auto) 0.2 Baso % (Auto) 0.1 Neut # (Auto) 13.1 H Lymph # (Auto) 1.1 [place] # (Auto) 0.6 Eos # (Auto) 0.0 Baso # (Auto) 0.0 Neutrophils % (Manual) 81 H Band Neutrophils % 4 H Lymphocytes % (Manual) 10 L Monocytes % (Manual) 5 Platelet Estimate Normal Hypochromasia (manual) Slight Anisocytosis (manual) Slight pCO2 pO2 HCO3 ABG pH ABG Total CO2 ABG O2 Saturation ABG O2 Content ABG Base Excess ABG Hemoglobin ABG Carboxyhemoglobin POC ABG HHb (Measured) ABG Methemoglobin ABG O2 Capacity Les Test A-a O2 Difference Hgb O2 Saturation FiO2 Sodium 133 Potassium 5.5 H Chloride 90 L Carbon Dioxide 23 Anion Gap 26 H BUN 37 H Creatinine 0.9 Est GFR ( Amer) > 60 Est GFR (Non-Af Amer) > 60 POC Glucose (mg/dL) > 500 H* Random Glucose 559 H* D Calcium 10.4 H Total Bilirubin 0.7 AST 42 H D ALT 39 Alkaline Phosphatase 125 Troponin I < 0.0120 Total Protein 8.6 H Albumin 4.9 Globulin 3.8 Albumin/Globulin Ratio 1.3 Triglycerides Cholesterol LDL Cholesterol Direct HDL Cholesterol TSH 3rd Generation 07/30/18 07/30/18 07/31/18 22:39 23:53 02:02 WBC RBC Hgb Hct MCV MCH MCHC RDW Plt Count MPV Neut % (Auto) Lymph % (Auto) [place] % (Auto) Eos % (Auto) Baso % (Auto) Neut # (Auto) Lymph # (Auto) [place] # (Auto) Eos # (Auto) Baso # (Auto) Neutrophils % (Manual) Band Neutrophils % Lymphocytes % (Manual) Monocytes % (Manual) Platelet Estimate Hypochromasia (manual) Anisocytosis (manual) pCO2 37 pO2 59 L HCO3 24.1 ABG pH 7.41 ABG Total CO2 24.6 ABG O2 Saturation 94.7 L ABG O2 Content 16.5 ABG Base Excess -0.8 ABG Hemoglobin 13.0 ABG Carboxyhemoglobin 2.3 H POC ABG HHb (Measured) 5.0 ABG Methemoglobin 2.6 ABG O2 Capacity 17.4 Les Test Yes A-a O2 Difference 44.0 Hgb O2 Saturation 90.1 L FiO2 21.0 Sodium Potassium Chloride Carbon Dioxide Anion Gap BUN Creatinine Est GFR ( Amer) Est GFR (Non-Af Amer) POC Glucose (mg/dL) 396 H 408 H* Random Glucose Calcium Total Bilirubin AST ALT Alkaline Phosphatase Troponin I Total Protein Albumin Globulin Albumin/Globulin Ratio Triglycerides Cholesterol LDL Cholesterol Direct HDL Cholesterol TSH 3rd Generation 07/31/18 07/31/18 07/31/18 06:00 06:08 10:30 WBC RBC Hgb Hct MCV MCH MCHC RDW Plt Count MPV Neut % (Auto) Lymph % (Auto) [place] % (Auto) Eos % (Auto) Baso % (Auto) Neut # (Auto) Lymph # (Auto) [place] # (Auto) Eos # (Auto) Baso # (Auto) Neutrophils % (Manual) Band Neutrophils % Lymphocytes % (Manual) Monocytes % (Manual) Platelet Estimate Hypochromasia (manual) Anisocytosis (manual) pCO2 pO2 HCO3 ABG pH ABG Total CO2 ABG O2 Saturation ABG O2 Content ABG Base Excess ABG Hemoglobin ABG Carboxyhemoglobin POC ABG HHb (Measured) ABG Methemoglobin ABG O2 Capacity Les Test A-a O2 Difference Hgb O2 Saturation FiO2 Sodium Potassium Chloride Carbon Dioxide Anion Gap BUN Creatinine Est GFR ( Amer) Est GFR (Non-Af Amer) POC Glucose (mg/dL) 359 H Random Glucose Calcium Total Bilirubin AST ALT Alkaline Phosphatase Troponin I Total Protein Albumin Globulin Albumin/Globulin Ratio Triglycerides 178 H D Cholesterol 172 LDL Cholesterol Direct 95 HDL Cholesterol 36 TSH 3rd Generation 1.05 07/31/18 10:51 WBC RBC Hgb Hct MCV MCH MCHC RDW Plt Count MPV Neut % (Auto) Lymph % (Auto) [place] % (Auto) Eos % (Auto) Baso % (Auto) Neut # (Auto) Lymph # (Auto) [place] # (Auto) Eos # (Auto) Baso # (Auto) Neutrophils % (Manual) Band Neutrophils % Lymphocytes % (Manual) Monocytes % (Manual) Platelet Estimate Hypochromasia (manual) Anisocytosis (manual) pCO2 pO2 HCO3 ABG pH ABG Total CO2 ABG O2 Saturation ABG O2 Content ABG Base Excess ABG Hemoglobin ABG Carboxyhemoglobin POC ABG HHb (Measured) ABG Methemoglobin ABG O2 Capacity Les Test A-a O2 Difference Hgb O2 Saturation FiO2 Sodium Potassium Chloride Carbon Dioxide Anion Gap BUN Creatinine Est GFR ( Amer) Est GFR (Non-Af Amer) POC Glucose (mg/dL) 334 H Random Glucose Calcium Total Bilirubin AST ALT Alkaline Phosphatase Troponin I Total Protein Albumin Globulin Albumin/Globulin Ratio Triglycerides Cholesterol LDL Cholesterol Direct HDL Cholesterol TSH 3rd Generation reviewed J.P. - Imaging and Cardiology CT scan - head Status: Report reviewed by me (Arelis.) Chest x-ray Status: Report reviewed by me ([place]) Upper Extremity CT Status: Report reviewed by me R shoulder X-Ray Status: Report reviewed by me Assessment & Plan (1) Syncope and collapse Status: Acute Priority: High (2) Shoulder fracture, left Status: Acute Priority: High (3) Orthostatic hypotension Status: Acute Priority: High (4) Uncontrolled insulin dependent diabetes mellitus Status: Acute Priority: High (5) History of fracture of right shoulder Status: Chronic Priority: Medium (6) Diabetes insipidus Status: Chronic Priority: High (7) Anxiety and depression Status: Chronic Priority: High (8) Diabetic retinopathy of both eyes Status: Chronic Priority: Medium (9) Vitamin D deficiency Status: Acute Priority: Medium (10) HTN (hypertension) Status: Chronic Priority: Medium - Assessment and Plan (Free Text) Plan: F/U Echo, EKG, Head CTA, Hgb A1C, continue DDAVP, Morphine, Percocet, Folic Acid, Feosol, Vit D, Humalog, Xanax and rest of Tx. PT/OT eval. Orthopedic consult appreciated. Cardiology, Neurology and Endocrinology consult. - Date & Time Date: 07/31/18 Time: 12:00
--- NOTE | 2018-07-31 14:26 | CARD ---
APPROVED REPORT Date of service: 07/31/2018 EXAM: Two-dimensional and M-mode echocardiogram with Doppler and color Doppler. Other Information Quality : GoodRhythm : NSR INDICATION Syncope 2D DIMENSIONS IVSd1.42 (0.7-1.1cm)LVDd3.77 (3.9-5.9cm) LVOT Diameter2.17 (1.8-2.4cm)PWd1.04 (0.7-1.1cm) IVSs1.57 (0.8-1.2cm)LVDs2.57 (2.5-4.0cm) FS (%) 32.0 %PWs1.37 (0.8-1.2cm) M-Mode DIMENSIONS Left Atrium (MM)3.55 (2.5-4.0cm)IVSd1.57 (0.7-1.1cm) Aortic Root2.91 (2.2-3.7cm)LVDd3.53 (4.0-5.6cm) Aortic Cusp Exc.1.90 (1.5-2.0cm)PWd1.31 (0.7-1.1cm) IVSs1.67 cmFS (%) 38 % LVDs2.19 (2.0-3.8cm)PWs1.75 cm Aortic Valve AoV Peak Auiuvjri322.1cm/sAoV VTI24.1cmAO Peak GR.5mmHg LVOT Peak Meariljb65.0cm/sLVOT VTI17.52cmAO Mean GR.3mmHg EVA (VMAX)1.07ao2DPA (VTI)1.62cm2 Mitral Valve MV E Lkppeack98.6cm/sMV DECEL [id number] A Ejijjqvw861.0cm/s MV DAI56ruX/A ratio0.8MVA (PHT)2.73cm2 TDI Lateral E' Peak V7.82cm/sMedial E' Peak V6.36cm/sE/Lateral E'10.9 E/Medial E'13.5 LEFT VENTRICLE The left ventricle is normal size. There is mild concentric left ventricular hypertrophy. The left ventricular systolic function is normal. The estimated ejection fraction is 60-65% No regional wall motion abnormalities noted.. Transmitral Doppler flow pattern is Grade I-abnormal relaxation pattern. No left ventricle thrombus noted on this study. There is no ventricular septal defect visualized. There is no left ventricular aneurysm. There is no mass noted in the left ventricle. RIGHT VENTRICLE The right ventricle is normal size. There is normal right ventricular wall thickness. The right ventricular systolic function is normal. ATRIA The left atrium is mildly dilated. The right atrium size is normal. The interatrial septum is intact with no evidence for an atrial septal defect. AORTIC VALVE The aortic valve is normal in structure. No aortic regurgitation is present. There is no aortic valvular stenosis. There is no aortic valvular vegetation. MITRAL VALVE The mitral valve is normal in structure. There is no evidence of mitral valve prolapse. There is no mitral valve stenosis. There is no mitral valve regurgitation noted. TRICUSPID VALVE The tricuspid valve is normal in structure. There is no significant tricuspid valve regurgitation noted. There is no tricuspid valve prolapse or vegetation. There is no tricuspid valve stenosis. PULMONIC VALVE The pulmonary valve is normal in structure. There is trace pulmonic valvular regurgitation. There is no pulmonic valvular stenosis. GREAT VESSELS The aortic root is normal in size. The ascending aorta is normal in size. The pulmonary artery is normal. The IVC is not visualized. PERICARDIAL EFFUSION There is no pericardial effusion. There is no pleural effusion. <Conclusion> There is mild concentric left ventricular hypertrophy. The estimated ejection fraction is 60-65% Transmitral Doppler flow pattern is Grade I-abnormal relaxation pattern. The left atrium is mildly dilated. There is no significant tricuspid valve regurgitation noted. The IVC is not visualized.
[2018-07-31 15:00] LABS: ALB/GLOB RATIO 1.2 (1.0-2.1); ALBUMIN 3.8 g/dL (3.5-5.0); ALT/SGPT 34 U/L (9-52); AST/SGOT 29 U/L (14-36); BLOOD UREA NITROGEN 32 mg/dl (7-17); GFR NON-AFRICAN AMERICAN > 60
--- NOTE | 2018-07-31 16:23 | CP.PCM.CON ---
History of Present Illness - History of Present Illness History of Present Illness: Neurology Consult Note: Requested by Dr. Glaser The patient is a 57-year-old woman with a past medical history of DM, who had a syncopal episode yesterday that resulted in arm fracture. Currently, the patient is at her baseline mental status. Does not recall any tongue biting, urinary/bowel incontinence or abnormal movements. She does complain of dizziness and having spinning sensations lately when turning her head. Review of Systems - Constitutional Constitutional: As Per HPI - EENT Eyes: absent: As Per HPI, Blind Spots, Blurred Vision, Change in Vision, Decreased Night Vision, Diplopia, Discharge, Dry Eye, Exophthalmos, Floaters, Irritation, Itchy Eyes, Loss of Peripheral Vision, Pain, Photophobia, Requires Corrective Lenses, Sees Flashes, Spots in Vision, Tunnel Vision, Other Visual Disturbances, Loss of Vision, Other Ears: absent: As Per HPI, Decreased Hearing, Ear Discharge, Ear Pain, Tinnitus, Abnormal Hearing, Disequilibrium, Dizziness, Other Nose/Mouth/Throat: absent: As Per HPI, Epistaxis, Nasal Congestion, Nasal Discharge, Nasal Obstruction, Nasal Trauma, Nose Pain, Post Nasal Drip, Sinus Pain, Sinus Pressure, Bleeding Gums, Change in Voice, Dental Pain, Dry Mouth, Dysphagia, Halitosis, Hoarsness, Lip Swelling, Mouth Lesions, Mouth Pain, Odynophagia, Sore Throat, Throat Swelling, Tongue Swelling, Facial Pain, Neck Pain, Neck Mass, Other - Cardiovascular Cardiovascular: As Per HPI - Respiratory Respiratory: absent: As Per HPI, Cough, Dyspnea, Hemoptysis, Dyspnea on Exertion, Wheezing, Snoring, Stridor, Pain on Inspiration, Chest Congestion, Excessive Mucous Production, Change in Mucous Color, Pain with Coughing, Other - Musculoskeletal Musculoskeletal: As Per HPI - Integumentary Integumentary: absent: As Per HPI, Acne, Alopecia, Bleeding Lesions, Change in Hair, Change in Nails, Change in Pigmentation, Changing Lesions, Dry Skin, Erythema, Furuncle, Hirsutism, Lesions, New Lesions, Non-Healing Lesions, Photosensitivity, Pruritus, Rash, Skin Pain, Skin Ulcer, Sores, Striae, Swe lling, Unusual Bruising, Wounds, Jaundice, Other - Neurological Neurological: As Per HPI - Psychiatric Psychiatric: absent: As Per HPI, Abnormal Sleep Pattern, Anhedonia, Anxiety, Auditory Hallucinations, Behavioral Changes, Change in Appetite, Change in Libido, Confusion, Depression, Difficulty Concentrating, Hallucinations, Homicidal Ideation, Hopelessness, Irritability, Memory Loss, Mood Swings, Panic Attacks, Paranoia, Suicidal Ideation, Visual Hallucinations, Tactile Hallucinations, Other - Endocrine Endocrine: absent: As Per HPI, Change in Body Appearance, Change in Libido, Cold Intolorance, Deepening of Voice, Excessive Sweating, Fatigue, Flushing, Heat Intolorance, Increase in Ring/Shoe/Hat Size, Palpitations, Polydipsia, Polyphagia, Polyuria, Other - Hematologic/Lymphatic Hematologic: absent: As Per HPI, Easy Bleeding, Easy Bruising, Lymphadenopathy, Other Past Patient History - Past Medical History & Family History Past Medical History?: Yes - Past Social History Smoking Status: Never Smoked - CARDIAC Hx Cardiac Disorders: Yes - PULMONARY Hx Respiratory Disorders: No - NEUROLOGICAL Hx Neurological Disorder: Yes Hx Syncope: Yes - HEENT Hx HEENT Problems: Yes - RENAL Hx Chronic Kidney Disease: No - ENDOCRINE/METABOLIC Hx Endocrine Disorders: Yes Hx Diabetes Mellitus Type 2: Yes - HEMATOLOGICAL/ONCOLOGICAL Hx Blood Disorders: No Hx AIDS: No Hx Human Immunodeficiency Virus (HIV): No - INTEGUMENTARY Hx Dermatological Problems: No - MUSCULOSKELETAL/RHEUMATOLOGICAL Hx Musculoskeletal Disorders: Yes Hx Falls: Yes Hx Fractures: Yes - GASTROINTESTINAL Hx Gastrointestinal Disorders: Yes - GENITOURINARY/GYNECOLOGICAL Hx Genitourinary Disorders: No - PSYCHIATRIC Hx Psychophysiologic Disorder: Yes Hx Anxiety: Yes Hx Depression: Yes Hx Substance Use: No - SURGICAL HISTORY Hx Surgeries: Yes Hx Section: Yes (x2) Hx Joint Replacement: Yes (right shoulder joint) Other/Comment: "intestinal surgery for perforated intestines - ANESTHESIA Hx Anesthesia: Yes Hx Anesthesia Reactions: No Hx Malignant Hyperthermia: No Meds Allergies/Adverse Reactions: Allergies Allergy/AdvReac Type Severity Reaction Status Date / Time Penicillins Allergy RASH Verified 07/30/18 20:46 - Medications Medications: Current Medications Alprazolam (Xanax) 0.5 mg PO BID PRN PRN Reason: Anxiety Last Admin: 07/31/18 01:58 Dose: 0.5 mg Aripiprazole (Abilify) 2 mg PO DAILY [facility] Last Admin: 07/31/18 09:07 Dose: 2 mg Atorvastatin Calcium (Lipitor) 20 mg PO DAILY [facility] Last Admin: 07/31/18 09:07 Dose: 20 mg Cholecalciferol (Vitamin D) 2,000 intlu PO DAILY [facility] Last Admin: 07/31/18 09:07 Dose: 2,000 intlu Desmopressin Acetate (Ddavp) 1 spr YAMILE BID [facility] Last Admin: 07/31/18 16:04 Dose: Not Given Ferrous Sulfate (Feosol) 325 mg PO BID [facility] Last Admin: 07/31/18 09:07 Dose: 325 mg Folic Acid (Folic Acid) 1 mg PO DAILY [facility] Last Admin: 07/31/18 09:07 Dose: 1 mg Glipizide (Glucotrol Xl) 10 mg PO BIDWM [facility] Last Admin: 07/31/18 09:06 Dose: 10 mg Insulin Human Lispro (Humalog) 20 units SC ACTID [facility] Last Admin: 07/31/18 13:28 Dose: 20 u Midodrine (Proamatine) 5 mg PO TID [facility] Last Admin: 07/31/18 13:27 Dose: 5 mg Morphine Sulfate (Morphine) 4 mg IVP Q4 PRN PRN Reason: Pain, severe (8-10) Last Admin: 07/31/18 10:23 Dose: 4 mg Oxycodone/Acetaminophen (Percocet 5/325 Mg Tab) 1 tab PO Q4 PRN PRN Reason: Pain, moderate (4-7) Stop: 08/03/18 13:05 Last Admin: 07/31/18 13:29 Dose: 1 tab Sertraline HCl (Zoloft) 50 mg PO DAILY [facility] Last Admin: 07/31/18 09:07 Dose: 50 mg Physical Exam - Constitutional Appears: Well - Head Exam Head Exam: ATRAUMATIC, NORMAL INSPECTION, NORMOCEPHALIC - Eye Exam Eye Exam: EOMI, Normal appearance, PERRL Pupil Exam: NORMAL ACCOMODATION, PERRL - ENT Exam ENT Exam: Mucous Membranes Moist, Normal Exam - Neck Exam Neck exam: Positive for: Normal Inspection - Respiratory Exam Respiratory Exam: Clear to Auscultation Bilateral, NORMAL BREATHING PATTERN - Cardiovascular Exam Cardiovascular Exam: REGULAR RHYTHM, +S1, +S2 - GI/Abdominal Exam GI & Abdominal Exam: Normal Bowel Sounds, Soft. absent: Tenderness - Extremities Exam Additional comments: left arm in brace - Back Exam Back exam: NORMAL INSPECTION - Neurological Exam Neurological exam: Alert, CN II-XII Intact, Normal Gait, Oriented x3, Reflexes Normal Additional comments: Left arm in brace cannot be fully examined. Right side is normal. No difficulty with coordination. Strength and sensation are intact. Slight nystagmus noted on right lateral gaze. - Psychiatric Exam Psychiatric exam: Normal Affect, Normal Mood - Skin Skin Exam: Dry, Intact, Normal Color, Warm Results - Vital Signs Recent Vital Signs: Last Vital Signs Temp 97.5 F L 07/31/18 12:36 Pulse 65 07/31/18 12:36 Resp 18 07/31/18 12:36 BP 102/62 07/31/18 12:36 Pulse Ox 99 07/31/18 12:36 - Labs Result Diagrams: 07/30/18 21:37 07/31/18 14:00 Labs: Laboratory Results - last 24 hr 07/30/18 07/30/18 07/30/18 21:37 21:37 22:25 WBC 14.8 H D RBC 4.33 Hgb 12.5 D Hct 38.2 MCV 88.2 D MCH 28.9 MCHC 32.7 L RDW 15.0 H Plt Count 363 MPV 8.8 Neut % (Auto) 88.8 H Lymph % (Auto) 7.1 L [place] % (Auto) 3.8 Eos % (Auto) 0.2 Baso % (Auto) 0.1 Neut # (Auto) 13.1 H Lymph # (Auto) 1.1 [place] # (Auto) 0.6 Eos # (Auto) 0.0 Baso # (Auto) 0.0 Neutrophils % (Manual) 81 H Band Neutrophils % 4 H Lymphocytes % (Manual) 10 L Monocytes % (Manual) 5 Platelet Estimate Normal Hypochromasia (manual) Slight Anisocytosis (manual) Slight pCO2 pO2 HCO3 ABG pH ABG Total CO2 ABG O2 Saturation ABG O2 Content ABG Base Excess ABG Hemoglobin ABG Carboxyhemoglobin POC ABG HHb (Measured) ABG Methemoglobin ABG O2 Capacity Les Test A-a O2 Difference Hgb O2 Saturation FiO2 Sodium 133 Potassium 5.5 H Chloride 90 L Carbon Dioxide 23 Anion Gap 26 H BUN 37 H Creatinine 0.9 Est GFR ( Amer) > 60 Est GFR (Non-Af Amer) > 60 POC Glucose (mg/dL) > 500 H* Random Glucose 559 H* D Calcium 10.4 H Total Bilirubin 0.7 AST 42 H D ALT 39 Alkaline Phosphatase 125 Troponin I < 0.0120 Total Protein 8.6 H Albumin 4.9 Globulin 3.8 Albumin/Globulin Ratio 1.3 Triglycerides Cholesterol LDL Cholesterol Direct HDL Cholesterol TSH 3rd Generation 07/30/18 07/30/18 07/31/18 22:39 23:53 02:02 WBC RBC Hgb Hct MCV MCH MCHC RDW Plt Count MPV Neut % (Auto) Lymph % (Auto) Nicollet % (Auto) Eos % (Auto) Baso % (Auto) Neut # (Auto) Lymph # (Auto) Nicol[place] # (Auto) Eos # (Auto) Baso # (Auto) Neutrophils % (Manual) Band Neutrophils % Lymphocytes % (Manual) Monocytes % (Manual) Platelet Estimate Hypochromasia (manual) Anisocytosis (manual) pCO2 37 pO2 59 L HCO3 24.1 ABG pH 7.41 ABG Total CO2 24.6 ABG O2 Saturation 94.7 L ABG O2 Content 16.5 ABG Base Excess -0.8 ABG Hemoglobin 13.0 ABG Carboxyhemoglobin 2.3 H POC ABG HHb (Measured) 5.0 ABG Methemoglobin 2.6 ABG O2 Capacity 17.4 Les Test Yes A-a O2 Difference 44.0 Hgb O2 Saturation 90.1 L FiO2 21.0 Sodium Potassium Chloride Carbon Dioxide Anion Gap BUN Creatinine Est GFR ( Amer) Est GFR (Non-Af Amer) POC Glucose (mg/dL) 396 H 408 H* Random Glucose Calcium Total Bilirubin AST ALT Alkaline Phosphatase Troponin I Total Protein Albumin Globulin Albumin/Globulin Ratio Triglycerides Cholesterol LDL Cholesterol Direct HDL Cholesterol TSH 3rd Generation 07/31/18 07/31/18 07/31/18 06:00 06:08 10:30 WBC RBC Hgb Hct MCV MCH MCHC RDW Plt Count MPV Neut % (Auto) Lymph % (Auto) Nicollet % (Auto) Eos % (Auto) Baso % (Auto) Neut # (Auto) Lymph # (Auto) Nicol[place] # (Auto) Eos # (Auto) Baso # (Auto) Neutrophils % (Manual) Band Neutrophils % Lymphocytes % (Manual) Monocytes % (Manual) Platelet Estimate Hypochromasia (manual) Anisocytosis (manual) pCO2 pO2 HCO3 ABG pH ABG Total CO2 ABG O2 Saturation ABG O2 Content ABG Base Excess ABG Hemoglobin ABG Carboxyhemoglobin POC ABG HHb (Measured) ABG Methemoglobin ABG O2 Capacity Les Test A-a O2 Difference Hgb O2 Saturation FiO2 Sodium Potassium Chloride Carbon Dioxide Anion Gap BUN Creatinine Est GFR ( Amer) Est GFR (Non-Af Amer) POC Glucose (mg/dL) 359 H Random Glucose Calcium Total Bilirubin AST ALT Alkaline Phosphatase Troponin I Total Protein Albumin Globulin Albumin/Globulin Ratio Triglycerides 178 H D Cholesterol 172 LDL Cholesterol Direct 95 HDL Cholesterol 36 TSH 3rd Generation 1.05 07/31/18 07/31/18 10:51 14:00 WBC RBC Hgb Hct MCV MCH MCHC RDW Plt Count MPV Neut % (Auto) Lymph % (Auto) Nicollet % (Auto) Eos % (Auto) Baso % (Auto) Neut # (Auto) Lymph # (Auto) Nicol[place] # (Auto) Eos # (Auto) Baso # (Auto) Neutrophils % (Manual) Band Neutrophils % Lymphocytes % (Manual) Monocytes % (Manual) Platelet Estimate Hypochromasia (manual) Anisocytosis (manual) pCO2 pO2 HCO3 ABG pH ABG Total CO2 ABG O2 Saturation ABG O2 Content ABG Base Excess ABG Hemoglobin ABG Carboxyhemoglobin POC ABG HHb (Measured) ABG Methemoglobin ABG O2 Capacity Les Test A-a O2 Difference Hgb O2 Saturation FiO2 Sodium 133 Potassium 3.8 Chloride 94 L Carbon Dioxide 24 Anion Gap 19 BUN 32 H Creatinine 0.8 Est GFR ( Amer) > 60 Est GFR (Non-Af Amer) > 60 POC Glucose (mg/dL) 334 H Random Glucose 380 H Calcium 9.0 Total Bilirubin 0.3 AST 29 ALT 34 Alkaline Phosphatase 79 Troponin I Total Protein 7.0 Albumin 3.8 Globulin 3.2 Albumin/Globulin Ratio 1.2 Triglycerides Cholesterol LDL Cholesterol Direct HDL Cholesterol TSH 3rd Generation Assessment & Plan (1) Syncope and collapse Assessment and Plan: Likely neuro-cardiogenic or vasovagal syncope. I recommend obtaining a CTA of the head/neck to rule out VBI and consider cardiac work-up. Thank you for this consultation. Status: Acute
[2018-08-01] MEDS: Morphine 4 MG/ML VIAL IVP PRN ×2 (00:51→17:58)
--- NOTE | 2018-08-01 01:22 | CARD ---
APPROVED REPORT Date of service: 07/30/2018 EKG Measurement Heart [id number] <Conclusion> Normal sinus rhythm Poor R wave progression in Precordial leads Abnormal ECG
[2018-08-01] MEDS: GlipiZIDE 10 mg SR Tab PO SCH ×2 (08:31→18:00)
[2018-08-01] MEDS: Cholecalciferol 1,000 INTLU TAB PO SCH (08:31)
[2018-08-01] MEDS: Insulin Lispro (humaLOG) 100 Units/ml Inj SC SCH ×3 (08:32→16:20)
[2018-08-01] MEDS: Oxycodone/Acetaminophen 5/325 mg Tab PO PRN ×3 (08:38→23:05)
--- NOTE | 2018-08-01 10:50 | CP.PCM.CON ---
History of Present Illness - History of Present Illness History of Present Illness: Consultation for evaluation of syncope HPI: Review of Systems - Review of Systems Systems not reviewed;Unavailable: Acuity of Condition - Constitutional Constitutional: As Per HPI - EENT Eyes: As Per HPI Ears: As Per HPI - Breasts Breasts: As Per HPI - Cardiovascular Cardiovascular: As Per HPI - Respiratory Respiratory: As Per HPI - Gastrointestinal Gastrointestinal: As Per HPI - Genitourinary Genitourinary: As Per HPI - Reproductive: Female Reproductive:Female: As Per HPI - Menstruation Menstruation: As Per HPI - Musculoskeletal Musculoskeletal: As Per HPI - Integumentary Integumentary: As Per HPI - Neurological Neurological: As Per HPI - Psychiatric Psychiatric: As Per HPI - Endocrine Endocrine: As Per HPI - Hematologic/Lymphatic Hematologic: As Per HPI Past Patient History - Past Medical History & Family History Past Medical History?: Yes - Past Social History Smoking Status: Never Smoked Alcohol: None Drugs: Denies Home Situation {Lives}: With Family - CARDIAC Hx Cardiac Disorders: Yes Hx Congestive Heart Failure: Yes Hx Hypertension: Yes Hx Hypotension: Yes - PULMONARY Hx Respiratory Disorders: No - NEUROLOGICAL Hx Neurological Disorder: Yes Hx Syncope: Yes - HEENT Hx HEENT Problems: Yes 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) - RENAL Hx Chronic Kidney Disease: No - ENDOCRINE/METABOLIC Hx Endocrine Disorders: Yes Hx Diabetes Mellitus Type 2: Yes - HEMATOLOGICAL/ONCOLOGICAL Hx Blood Disorders: No Hx AIDS: No Hx Human Immunodeficiency Virus (HIV): No - INTEGUMENTARY Hx Dermatological Problems: No - MUSCULOSKELETAL/RHEUMATOLOGICAL Hx Musculoskeletal Disorders: Yes Hx Falls: Yes Hx Fractures: Yes - GASTROINTESTINAL Hx Gastrointestinal Disorders: Yes Hx Bowel Surgery: Yes (1981) - GENITOURINARY/GYNECOLOGICAL Hx Genitourinary Disorders: No - PSYCHIATRIC Hx Psychophysiologic Disorder: Yes Hx Anxiety: Yes Hx Bipolar Disorder: Yes Hx Depression: Yes Hx Substance Use: No - SURGICAL HISTORY Hx Surgeries: Yes Hx Section: Yes (x2) Hx Joint Replacement: Yes (right shoulder joint) Other/Comment: "intestinal surgery for perforated intestines - ANESTHESIA Hx Anesthesia: Yes Hx Anesthesia Reactions: No Hx Malignant Hyperthermia: No Meds Allergies/Adverse Reactions: Allergies Allergy/AdvReac Type Severity Reaction Status Date / Time Penicillins Allergy RASH Verified 07/30/18 20:46 - Medications Medications: Current Medications Alprazolam (Xanax) 0.5 mg PO BID PRN PRN Reason: Anxiety Last Admin: 07/31/18 01:58 Dose: 0.5 mg Aripiprazole (Abilify) 2 mg PO DAILY [facility] Last Admin: 08/01/18 08:31 Dose: 2 mg Atorvastatin Calcium (Lipitor) 20 mg PO DAILY [facility] Last Admin: 08/01/18 08:32 Dose: 20 mg Cholecalciferol (Vitamin D) 2,000 intlu PO DAILY [facility] Last Admin: 08/01/18 08:31 Dose: 2,000 intlu Desmopressin Acetate (Ddavp) 1 spr YAMILE BID [facility] Last Admin: 08/01/18 10:39 Dose: Not Given Ferrous Sulfate (Feosol) 325 mg PO BID [facility] Last Admin: 08/01/18 08:31 Dose: 325 mg Folic Acid (Folic Acid) 1 mg PO DAILY [facility] Last Admin: 08/01/18 08:31 Dose: 1 mg Glipizide (Glucotrol Xl) 10 mg PO BIDWM [facility] Last Admin: 08/01/18 08:31 Dose: 10 mg Insulin Human Lispro (Humalog) 20 units SC ACTID [facility] Last Admin: 08/01/18 08:32 Dose: 20 u Midodrine (Proamatine) 5 mg PO TID [facility] Last Admin: 08/01/18 08:31 Dose: 5 mg Morphine Sulfate (Morphine) 4 mg IVP Q4 PRN PRN Reason: Pain, severe (8-10) Last Admin: 08/01/18 00:51 Dose: 4 mg Oxycodone/Acetaminophen (Percocet 5/325 Mg Tab) 1 tab PO Q4 PRN PRN Reason: Pain, moderate (4-7) Stop: 08/03/18 13:05 Last Admin: 08/01/18 08:38 Dose: 1 tab Sertraline HCl (Zoloft) 50 mg PO DAILY [facility] Last Admin: 08/01/18 08:31 Dose: 50 mg Physical Exam - Constitutional Appears: Well - Head Exam Head Exam: ATRAUMATIC, NORMAL INSPECTION, NORMOCEPHALIC - Eye Exam Eye Exam: EOMI, Normal appearance, PERRL Pupil Exam: NORMAL ACCOMODATION, PERRL - ENT Exam ENT Exam: Mucous Membranes Moist, Normal Exam - Neck Exam Neck exam: Positive for: Normal Inspection - Respiratory Exam Respiratory Exam: Clear to Auscultation Bilateral, NORMAL BREATHING PATTERN - Cardiovascular Exam Cardiovascular Exam: REGULAR RHYTHM - GI/Abdominal Exam GI & Abdominal Exam: Normal Bowel Sounds, Soft. absent: Tenderness - Extremities Exam Extremities exam: Positive for: normal inspection - Back Exam Back exam: NORMAL INSPECTION - Neurological Exam Neurological exam: Alert, CN II-XII Intact, Normal Gait, Oriented x3, Reflexes Normal - Psychiatric Exam Psychiatric exam: Normal Affect, Normal Mood - Skin Skin Exam: Dry, Intact, Normal Color, Warm Results - Vital Signs Recent Vital Signs: Last Vital Signs Temp 98.1 F 08/01/18 07:59 Pulse 65 08/01/18 07:59 Resp 20 08/01/18 07:59 BP 104/63 08/01/18 07:59 Pulse Ox 97 08/01/18 07:59 - Labs Result Diagrams: 07/30/18 21:37 07/31/18 14:00 Labs: Laboratory Results - last 24 hr 07/31/18 07/31/18 07/31/18 06:00 10:30 10:51 Sodium Potassium Chloride Carbon Dioxide Anion Gap BUN Creatinine Est GFR ( Amer) Est GFR (Non-Af Amer) POC Glucose (mg/dL) 334 H Random Glucose Hemoglobin A1c 12.0 H Calcium Total Bilirubin AST ALT Alkaline Phosphatase Total Protein Albumin Globulin Albumin/Globulin Ratio Triglycerides 178 H D Cholesterol 172 LDL Cholesterol Direct 95 HDL Cholesterol 36 07/31/18 07/31/18 07/31/18 14:00 15:49 22:05 Sodium 133 Potassium 3.8 Chloride 94 L Carbon Dioxide 24 Anion Gap 19 BUN 32 H Creatinine 0.8 Est GFR ( Amer) > 60 Est GFR (Non-Af Amer) > 60 POC Glucose (mg/dL) 263 H 115 H Random Glucose 380 H Hemoglobin A1c Calcium 9.0 Total Bilirubin 0.3 AST 29 ALT 34 Alkaline Phosphatase 79 Total Protein 7.0 Albumin 3.8 Globulin 3.2 Albumin/Globulin Ratio 1.2 Triglycerides Cholesterol LDL Cholesterol Direct HDL Cholesterol 08/01/18 05:18 Sodium Potassium Chloride Carbon Dioxide Anion Gap BUN Creatinine Est GFR ( Amer) Est GFR (Non-Af Amer) POC Glucose (mg/dL) 237 H Random Glucose Hemoglobin A1c Calcium Total Bilirubin AST ALT Alkaline Phosphatase Total Protein Albumin Globulin Albumin/Globulin Ratio Triglycerides Cholesterol LDL Cholesterol Direct HDL Cholesterol Assessment & Plan (1) Syncope and collapse Status: Acute (2) HTN (hypertension) Status: Chronic Priority: Medium
--- NOTE | 2018-08-01 14:33 | CP.PCM.PN ---
Subjective - Date & Time of Evaluation Date of Evaluation: 08/01/18 Time of Evaluation: 13:00 - Subjective Subjective: F/U Syncope/collapse. Fx L shoulder. Pt c/o of pain in L shoulder early in the morning, had Percocet, felling better now. Objective - Vital Signs/Intake and Output Vital Signs (last 24 hours): Temp Pulse Resp BP Pulse Ox 97.4 F L 65 20 106/61 95 08/01/18 12:55 08/01/18 12:55 08/01/18 12:55 08/01/18 12:55 08/01/18 12:55 - Medications Medications: Current Medications Alprazolam (Xanax) 0.5 mg PO BID PRN PRN Reason: Anxiety Last Admin: 07/31/18 01:58 Dose: 0.5 mg Aripiprazole (Abilify) 2 mg PO DAILY [facility] Last Admin: 08/01/18 08:31 Dose: 2 mg Atorvastatin Calcium (Lipitor) 20 mg PO DAILY [facility] Last Admin: 08/01/18 08:32 Dose: 20 mg Cholecalciferol (Vitamin D) 2,000 intlu PO DAILY [facility] Last Admin: 08/01/18 08:31 Dose: 2,000 intlu Desmopressin Acetate (Ddavp) 1 spr YAMILE BID [facility] Last Admin: 08/01/18 10:39 Dose: Not Given Ferrous Sulfate (Feosol) 325 mg PO BID [facility] Last Admin: 08/01/18 08:31 Dose: 325 mg Folic Acid (Folic Acid) 1 mg PO DAILY [facility] Last Admin: 08/01/18 08:31 Dose: 1 mg Glipizide (Glucotrol Xl) 10 mg PO BIDWM [facility] Last Admin: 08/01/18 08:31 Dose: 10 mg Insulin Human Lispro (Humalog) 20 units SC ACTID [facility] Last Admin: 08/01/18 12:15 Dose: 20 u Midodrine (Proamatine) 5 mg PO TID [facility] Last Admin: 08/01/18 12:15 Dose: 5 mg Morphine Sulfate (Morphine) 4 mg IVP Q4 PRN PRN Reason: Pain, severe (8-10) Last Admin: 08/01/18 00:51 Dose: 4 mg Oxycodone/Acetaminophen (Percocet 5/325 Mg Tab) 1 tab PO Q4 PRN PRN Reason: Pain, moderate (4-7) Stop: 08/03/18 13:05 Last Admin: 08/01/18 08:38 Dose: 1 tab Sertraline HCl (Zoloft) 50 mg PO DAILY [facility] Last Admin: 08/01/18 08:31 Dose: 50 mg - Labs Labs: 07/30/18 21:37 07/31/18 14:00 - Constitutional Appears: No Acute Distress - Head Exam Head Exam: NORMAL INSPECTION - Eye Exam Eye Exam: PERRL - ENT Exam ENT Exam: Normal Exam - Neck Exam Neck Exam: Normal Inspection - Respiratory Exam Respiratory Exam: NORMAL BREATHING PATTERN - Cardiovascular Exam Cardiovascular Exam: REGULAR RHYTHM, Murmur (systolic) - GI/Abdominal Exam GI & Abdominal Exam: Soft, Normal Bowel Sounds - Extremities Exam Additional comments: L shoulder swollen and tenderness to touch, immobilized with sling to left arm. Neuromuscular distal status good R shoulder healed surgical scar 2nd to Fx. , ROM decreased b/l. - Back Exam Back Exam: NORMAL INSPECTION - Neurological Exam Neurological Exam: Alert, CN II-XII Intact, Oriented x3, Reflexes Normal - Psychiatric Exam Psychiatric exam: Normal Mood - Skin Skin Exam: Warm Assessment and Plan (1) Syncope and collapse Status: Acute (2) Shoulder fracture, left Status: Acute (3) Orthostatic hypotension Status: Acute (4) Uncontrolled insulin dependent diabetes mellitus Status: Acute (5) History of fracture of right shoulder Status: Chronic (6) Diabetes insipidus Status: Chronic (7) Anxiety and depression Status: Chronic (8) Diabetic retinopathy of both eyes Status: Chronic (9) Vitamin D deficiency Status: Acute (10) HTN (hypertension) Status: Chronic - Assessment and Plan (Free Text) Plan: Neurology order CT Angio of the Brain but could not be done due to Pt with difficulty getting into the CT machine, She refused CTA. Continue Percocet, Morphine, Abilify, Folic Acid, Humalog, Xanax and rest of Tx. Neurology and Cardiac consult appreciated.
[2018-08-02] MEDS: Morphine 4 MG/ML VIAL IVP PRN ×3 (02:42→22:53)
[2018-08-02] MEDS: Oxycodone/Acetaminophen 5/325 mg Tab PO PRN ×3 (06:37→20:31)
[2018-08-02 07:52] LABS: HEMOGLOBIN 10.7 g/dL (12.0-16.0); MEAN CELL VOLUME 87.9 fl (81.0-99.0); MEAN CORPUSCULAR HEMOGLOBIN 29.2 pg (27.0-31.0); MEAN CORPUSCULAR HGB CONC 33.3 g/dL (33.0-37.0); RBC 3.66 Mil/uL (3.80-5.20); RED CELL DISTRIBUTION WIDTH 15.1 % (11.5-14.5); WHITE BLOOD COUNT 7.1 K/uL (4.8-10.8)
[2018-08-02 08:11] LABS: ALB/GLOB RATIO 1.1 (1.0-2.1); ALBUMIN 3.9 g/dL (3.5-5.0); ALT/SGPT 35 U/L (9-52); AST/SGOT 29 U/L (14-36); BLOOD UREA NITROGEN 22 mg/dl (7-17); CALCIUM 9.9 mg/dL (8.4-10.2); GFR NON-AFRICAN AMERICAN > 60
[2018-08-02] MEDS: Insulin Lispro (humaLOG) 100 Units/ml Inj SC SCH ×3 (08:56→16:48)
[2018-08-02] MEDS: GlipiZIDE 10 mg SR Tab PO SCH ×2 (08:58→16:58)
[2018-08-02] MEDS: Cholecalciferol 1,000 INTLU TAB PO SCH (09:05)
--- NOTE | 2018-08-02 10:16 | CP.PCM.PN ---
Subjective - Date & Time of Evaluation Date of Evaluation: 08/02/18 Time of Evaluation: 08:00 - Subjective Subjective: Patient seen and examined at bedside comfortable. Pain well controlled. No acute events overnight. Currently denies CP/SOB/fever/dizziness. Objective - Vital Signs/Intake and Output Vital Signs (last 24 hours): Temp Pulse Resp BP Pulse Ox 98.4 F 65 18 128/74 94 L 08/02/18 07:53 08/02/18 07:53 08/02/18 07:53 08/02/18 07:53 08/02/18 07:53 - Medications Medications: Current Medications Alprazolam (Xanax) 0.5 mg PO BID PRN PRN Reason: Anxiety Last Admin: 07/31/18 01:58 Dose: 0.5 mg Aripiprazole (Abilify) 2 mg PO DAILY [facility] Last Admin: 08/02/18 08:57 Dose: 2 mg Atorvastatin Calcium (Lipitor) 20 mg PO DAILY [facility] Last Admin: 08/02/18 08:58 Dose: 20 mg Cholecalciferol (Vitamin D) 2,000 intlu PO DAILY [facility] Last Admin: 08/02/18 09:05 Dose: 2,000 intlu Desmopressin Acetate (Ddavp) 1 spr YAMILE BID [facility] Ferrous Sulfate (Feosol) 325 mg PO BID [facility] Last Admin: 08/02/18 08:58 Dose: 325 mg Folic Acid (Folic Acid) 1 mg PO DAILY [facility] Last Admin: 08/02/18 08:57 Dose: 1 mg Glipizide (Glucotrol Xl) 10 mg PO BIDWM [facility] Last Admin: 08/02/18 08:58 Dose: 10 mg Insulin Human Lispro (Humalog) 20 units SC ACTID [facility] Last Admin: 08/02/18 08:56 Dose: 20 unit Midodrine (Proamatine) 5 mg PO TID [facility] Last Admin: 08/02/18 08:57 Dose: 5 mg Morphine Sulfate (Morphine) 4 mg IVP Q4 PRN PRN Reason: Pain, severe (8-10) Last Admin: 08/02/18 02:42 Dose: 4 mg Oxycodone/Acetaminophen (Percocet 5/325 Mg Tab) 1 tab PO Q4 PRN PRN Reason: Pain, moderate (4-7) Stop: 08/03/18 13:05 Last Admin: 08/02/18 06:37 Dose: 1 tab Sertraline HCl (Zoloft) 50 mg PO DAILY [facility] Last Admin: 08/02/18 08:57 Dose: 50 mg - Labs Labs: 08/02/18 06:50 08/02/18 06:50 - Extremities Exam Additional comments: LUE: sling in place no lesions/masses/deformity moderate shoulder swelling and tenderness sensation intact AXN/MN/UN/RN motor intact MN/UN/RN radial pulse intact Assessment and Plan (1) Fracture of humeral head, left, closed Assessment & Plan: -Dr. Garrett recommends closed reduction versus L TSR in OR -awaiting cardiac/neurology/medical clearance -recommend endocrinology consult for clearance -NWB in sling LUE -above d/w Dr. Garrett in agreement Status: Acute
--- NOTE | 2018-08-02 10:30 | CP.PCM.PN ---
Subjective - Date & Time of Evaluation Date of Evaluation: 08/02/18 Time of Evaluation: 10:27 - Subjective Subjective: Neuro Follow-Up Note: Mrs. Frias was evaluated this morning at beside. present. Pt admits to having syncopal episodes for "months"; these episodes happen at any time of day. She does notice low BP at home normally. Pt also states that she has a loop recorder but has not had it checked since being placed. She has no n ew complaints now aside from some left shoulder pain (secondary to her fracture). She denies h/a, dizziness, visual changes, chest pain, sob, abd pain, n/v/d. Objective - Vital Signs/Intake and Output Vital Signs (last 24 hours): Temp Pulse Resp BP Pulse Ox 98.4 F 65 18 128/74 94 L 08/02/18 07:53 08/02/18 07:53 08/02/18 07:53 08/02/18 07:53 08/02/18 07:53 - Medications Medications: Current Medications Alprazolam (Xanax) 0.5 mg PO BID PRN PRN Reason: Anxiety Last Admin: 07/31/18 01:58 Dose: 0.5 mg Aripiprazole (Abilify) 2 mg PO DAILY [facility] Last Admin: 08/02/18 08:57 Dose: 2 mg Atorvastatin Calcium (Lipitor) 20 mg PO DAILY [facility] Last Admin: 08/02/18 08:58 Dose: 20 mg Cholecalciferol (Vitamin D) 2,000 intlu PO DAILY [facility] Last Admin: 08/02/18 09:05 Dose: 2,000 intlu Desmopressin Acetate (Ddavp) 1 spr YAMILE BID [facility] Ferrous Sulfate (Feosol) 325 mg PO BID [facility] Last Admin: 08/02/18 08:58 Dose: 325 mg Folic Acid (Folic Acid) 1 mg PO DAILY [facility] Last Admin: 08/02/18 08:57 Dose: 1 mg Glipizide (Glucotrol Xl) 10 mg PO BIDWM [facility] Last Admin: 08/02/18 08:58 Dose: 10 mg Insulin Human Lispro (Humalog) 20 units SC ACTID [facility] Last Admin: 08/02/18 08:56 Dose: 20 unit Midodrine (Proamatine) 5 mg PO TID [facility] Last Admin: 08/02/18 08:57 Dose: 5 mg Morphine Sulfate (Morphine) 4 mg IVP Q4 PRN PRN Reason: Pain, severe (8-10) Last Admin: 08/02/18 02:42 Dose: 4 mg Oxycodone/Acetaminophen (Percocet 5/325 Mg Tab) 1 tab PO Q4 PRN PRN Reason: Pain, moderate (4-7) Stop: 08/03/18 13:05 Last Admin: 08/02/18 06:37 Dose: 1 tab Sertraline HCl (Zoloft) 50 mg PO DAILY [facility] Last Admin: 08/02/18 08:57 Dose: 50 mg - Labs Labs: 08/02/18 06:50 08/02/18 06:50 - Constitutional Appears: Well, Non-toxic, Confused (periods of confusion and forgetfulness; poor historian) - Head Exam Head Exam: ATRAUMATIC, NORMAL INSPECTION, NORMOCEPHALIC - Eye Exam Eye Exam: EOMI, Normal appearance, PERRL Pupil Exam: PERRL - ENT Exam ENT Exam: Mucous Membranes Moist - Neck Exam Neck Exam: Normal Inspection - Respiratory Exam Respiratory Exam: NORMAL BREATHING PATTERN - Extremities Exam Extremities Exam: absent: Calf Tenderness, Full ROM, Pedal Edema Additional comments: LUE in sling 2/2 fracture of the shoulder Able to move RUE, RLE, LLE Some generalized weakness noted, ? deconditioning - Neurological Exam Neurological Exam: Alert, Awake, CN II-XII Intact, Oriented x3. absent: Reflexes Normal Neuro motor strength exam: Left Upper Extremity: 0 (unable to move 2/2 fr acture), Right Upper Extremity: 4 (manager php 4/5), Left Lower Extremity: 4 (plantar flexion 4/5), Right Lower Extremity: 4 (plantar flexion 4/5) Additional comments: AAOx3 Periods of forgetfulness and confusion noted during exam Speech clear, fluid No sensory deficits No tremors + hyperreflexia BLE Gait not assessed - Psychiatric Exam Psychiatric exam: Normal Affect, Normal Mood Additional comments: noted periods of confusion and forgetfulness during exam poor historian - Skin Skin Exam: Normal Color Assessment and Plan (1) Syncope and collapse Assessment & Plan: Imaging reviewed: -CT Head (07/30/18): Mild atrophy. -ECHO (07/31/18): EF 60-65%; no LV thrombus. -CTA Head and Neck ordered and pending--will f/u with results. -EEG ordered--will f/u with results. -Orthostatic vitals Q shift x24 hours. -Shoulder fracture being managed by ortho on case. I discussed with Dr. Garrett the neuro w/u and plan for now. -PT/OT per ortho recs. -Notify neuro team of any acute changes in pt's condition. Hyun Vázquez DNP, TESTING MACHINE OPERATOR Case discussed with Dr. Balbuena Status: Acute
[2018-08-02 10:41] LABS: SQUAMOUS EPITHIAL 2 /hpf (0-5); URINE BACTERIA OCC (<OCC); URINE BILIRUBIN NEGATIVE (NEGATIVE); URINE BLOOD NEGATIVE (NEGATIVE); URINE CLARITY CLEAR (Clear); URINE COLOR STRAW (YELLOW); URINE GLUCOSE (UA) >=500 mg/dL (NEGATIVE); URINE LEUKOCYTE ESTERASE NEG Leu/uL (Negative); URINE PROTEIN NEGATIVE (NEGATIVE); URINE UROBILINOGEN 0.2-1.0 mg/dL (0.2-1.0)
[2018-08-02] MEDS ORDERED: Sodium Chloride 0.9% 0 ML ONE (12:01)
[2018-08-02] MEDS ORDERED: Iodixanol 320 MG/ML 100 ML BOTTLE IV ONE (12:01)
--- NOTE | 2018-08-02 15:22 | CP.PCM.PN ---
Subjective - Date & Time of Evaluation Date of Evaluation: 08/02/18 Time of Evaluation: 11:00 - Subjective Subjective: F/U Syncope/collapse. Fx L shoulder. Pain L shoulder, requesting pain medication Objective - Vital Signs/Intake and Output Vital Signs (last 24 hours): Temp Pulse Resp BP Pulse Ox 98.3 F 67 18 114/72 94 L 08/02/18 12:05 08/02/18 12:05 08/02/18 12:05 08/02/18 12:05 08/02/18 12:05 - Medications Medications: Current Medications Alprazolam (Xanax) 0.5 mg PO BID PRN PRN Reason: Anxiety Last Admin: 07/31/18 01:58 Dose: 0.5 mg Aripiprazole (Abilify) 2 mg PO DAILY [facility] Last Admin: 08/02/18 08:57 Dose: 2 mg Atorvastatin Calcium (Lipitor) 20 mg PO DAILY [facility] Last Admin: 08/02/18 08:58 Dose: 20 mg Cholecalciferol (Vitamin D) 2,000 intlu PO DAILY [facility] Last Admin: 08/02/18 09:05 Dose: 2,000 intlu Docusate Sodium (Colace) 100 mg PO BID [facility] Ferrous Sulfate (Feosol) 325 mg PO BID [facility] Last Admin: 08/02/18 08:58 Dose: 325 mg Folic Acid (Folic Acid) 1 mg PO DAILY [facility] Last Admin: 08/02/18 08:57 Dose: 1 mg Glipizide (Glucotrol Xl) 10 mg PO BIDWM [facility] Last Admin: 08/02/18 08:58 Dose: 10 mg Home Med (Patient's Own Medication) 1 unit YAMILE BID [facility] Insulin Detemir (Levemir) 40 units SC HS [facility] Insulin Human Lispro (Humalog) 20 units SC ACTID [facility] Last Admin: 08/02/18 12:05 Dose: 20 unit Midodrine (Proamatine) 5 mg PO TID [facility] Last Admin: 08/02/18 13:33 Dose: 5 mg Morphine Sulfate (Morphine) 4 mg IVP Q4 PRN PRN Reason: Pain, severe (8-10) Last Admin: 08/02/18 02:42 Dose: 4 mg Oxycodone/Acetaminophen (Percocet 5/325 Mg Tab) 1 tab PO Q4 PRN PRN Reason: Pain, moderate (4-7) Stop: 08/03/18 13:05 Last Admin: 08/02/18 13:32 Dose: 1 tab Sertraline HCl (Zoloft) 50 mg PO DAILY [facility] Last Admin: 08/02/18 08:57 Dose: 50 mg - Labs Labs: 08/02/18 06:50 08/02/18 06:50 - Constitutional Appears: No Acute Distress - Head Exam Head Exam: NORMAL INSPECTION - Eye Exam Eye Exam: PERRL - ENT Exam ENT Exam: Normal Exam - Neck Exam Neck Exam: Normal Inspection - Respiratory Exam Respiratory Exam: NORMAL BREATHING PATTERN - Cardiovascular Exam Cardiovascular Exam: REGULAR RHYTHM, Murmur - GI/Abdominal Exam GI & Abdominal Exam: Soft, Normal Bowel Sounds - Extremities Exam Additional comments: L shoulder swollen, tenderness to touch, immobilized with sling to left arm. Neuromuscular distal status good. R shoulder with decreased ROM, healed surgical scar 2nd to recent Fx. - Back Exam Back Exam: NORMAL INSPECTION - Neurological Exam Neurological Exam: Alert, CN II-XII Intact, Oriented x3, Reflexes Normal - Psychiatric Exam Psychiatric exam: Normal Mood - Skin Skin Exam: Warm Assessment and Plan (1) Syncope and collapse Status: Acute (2) Shoulder fracture, left Status: Acute (3) Orthostatic hypotension Status: Acute (4) Uncontrolled insulin dependent diabetes mellitus Status: Acute (5) History of fracture of right shoulder Status: Chronic (6) Diabetes insipidus Status: Chronic (7) Anxiety and depression Status: Chronic (8) Diabetic retinopathy of both eyes Status: Chronic (9) Vitamin D deficiency Status: Acute (10) HTN (hypertension) Status: Chronic - Assessment and Plan (Free Text) Plan: ECHO mild LVH, LVEF 60-65%, continue Percocet, Humalog, Levemir, Accucheck with cooverage, plans for ORIF L arm on Thursday
[2018-08-02] MEDS: DESMOPRESSIN 0.1 MG/ML NAS SCH (16:42)
[2018-08-02] MEDS ORDERED: Insulin Detemir 100 Units/ml Inj SC SCH (22:00)
--- NOTE | 2018-08-02 23:25 | CON ---
DATE: 08/02/2018 ENDOCRINOLOGY CONSULT LOCATION: Room 410, bed 1. HISTORY OF PRESENT ILLNESS: This is a 57-year-old female with known history of type 2 insulin-requiring diabetes, presenting here with a sudden bout of dizziness and lightheadedness with supervening syncope and sustained an accidental fall with a subsequent left humeral fracture with superior subluxation. She is being referred now for diabetic evaluation because of persistent hyperglycemic accelerations as noted thereof. PAST MEDICAL HISTORY: History of type 2 insulin-requiring diabetes on a combination of Humalog given as 20 units t.i.d. with meals and Levemir at 40 units subcu at bedtime daily in combination with Amaryl given as 4 mg b.i.d. She is also on psychotropic medications for generalized anxiety and depression with underlying bipolar disorder. She is on Abilify given as 2 mg daily with Zoloft at 50 mg once daily. FAMILY HISTORY: Positive for hypertension and diabetes. SOCIAL HISTORY: The patient has supportive family. No known substance use. REVIEW OF SYSTEMS: As mentioned above. Admits to generalized body weakness with episodic bouts of dizziness and lightheadedness, worse on the day of admission. No chest pains or palpitations or PND's. Her oral intake has been variable with nausea and dyspepsia and vague upper abdominal pains with habitual constipation. PHYSICAL EXAMINATION: GENERAL: This is an average-built female, in no apparent distress. VITAL SIGNS: Blood pressure of 140/80, pulse of 100 beats per minute and regular, temperature 98, respirations 20. Height is 5 feet 2 inches, weight is 145 pounds. HEENT: Head: Normocephalic. Eyes: Anicteric with pink conjunctivae. Funduscopy not possible at this time. Ears, nose and throat otherwise normal. NECK: Supple. Thyroid gland is normal in size. No carotid bruits or any cervical adenopathy. CARDIOPULMONARY: Some adynamic precordium. S1, S2, is rapid and regular. LUNGS: Clear to auscultation. ABDOMEN: Flat, soft with positive bowel sounds. EXTREMITIES: No peripheral edema. Pulses are +2 bilaterally. LABORATORY DATA: Her chemistries showed a BUN of 22, sodium 140, potassium 4.4, chloride 98, CO2 of 28, glucose 240 and creatinine 0.6. Her glucose levels have ranged from 180 to 358 mg/dL. ASSESSMENT: This is a 57-year-old female with uncontrolled and decompensated type 2 insulin-requiring diabetes, presenting here with a sudden onset of syncope with supervening accidental fall at home and sustained a left comminuted fracture in the left humerus as noted thereof. PLAN OF MANAGEMENT: Discussed with the patient and staff, we will modify her current insulin regimen to obviate hypoglycemia and detailed orders have been given. We will also continue the current basal and bolus insulin regimen to allow for dose equilibration and keep her on the Humalog given as 20 units t.i.d. before meals as ordered. We will continue the Humalog given as 20 units t.i.d. before meals and continue the basal insulin with Levemir given as 40 units subcu at bedtime daily as given. We will modify the coverage scale to obviate hypoglycemia and detailed orders have been given. We will also obtain baseline thyroid studies and lipid panel and titrate incrementally as indicated to optimize metabolic control. We will also obtain a hemoglobin A1c to confirm her prior glycemic control and baseline thyroid function studies will be ordered. We will follow and advise accordingly. Kelsey Rosenbaum MD
[2018-08-03] MEDS: Oxycodone/Acetaminophen 5/325 mg Tab PO PRN (04:56)
[2018-08-03 06:28] LABS: BASO % 0.6 % (0.0-2.0); EOS # 0.2 K/uL (0.0-0.7); EOS % 3.3 % (0.0-4.0); HEMOGLOBIN 9.7 g/dL (12.0-16.0); LYMPH # 1.6 K/uL (1.0-4.3); LYMPH % 24.6 % (20.0-40.0); MEAN CELL VOLUME 86.6 fl (81.0-99.0); MEAN CORPUSCULAR HEMOGLOBIN 29.2 pg (27.0-31.0); MEAN CORPUSCULAR HGB CONC 33.7 g/dL (33.0-37.0); MONO # 0.5 K/uL (0.0-0.8); MONO % 7.9 % (0.0-10.0); NEUT # 4.1 K/uL (1.8-7.0); NEUT % 63.6 % (50.0-75.0); NRBC % 0.1 % (0.0-0.0); RBC 3.33 Mil/uL (3.80-5.20); RED CELL DISTRIBUTION WIDTH 14.8 % (11.5-14.5); WHITE BLOOD COUNT 6.5 K/uL (4.8-10.8)
[2018-08-03 06:32] LABS: PROTHROMBIN TIME 11.9 Seconds (9.8-13.1)
[2018-08-03 06:34] LABS: ALB/GLOB RATIO 1.1 (1.0-2.1); ALBUMIN 3.7 g/dL (3.5-5.0); ALT/SGPT 39 U/L (9-52); AST/SGOT 26 U/L (14-36); BLOOD UREA NITROGEN 18 mg/dl (7-17); CALCIUM 9.2 mg/dL (8.4-10.2); GFR NON-AFRICAN AMERICAN > 60; HDL CHOLESTEROL 34 MG/DL (30-70)
[2018-08-03 06:45] LABS: LDL CHOLESTEROL 89 mg/dL (0-129)
[2018-08-03] MEDS: Morphine 4 MG/ML VIAL IVP PRN ×2 (06:48→20:48)
--- NOTE | 2018-08-03 07:12 | CP.PCM.PN ---
Subjective - Date & Time of Evaluation Date of Evaluation: 08/03/18 Time of Evaluation: 07:10 - Subjective Subjective: Pt seen and examined this morning at bedside. Pt reports shoulder pain, but denies chest pain or SOB Objective - Vital Signs/Intake and Output Vital Signs (last 24 hours): Temp Pulse Resp BP Pulse Ox 98.3 F 71 18 131/75 93 L 08/03/18 05:01 08/03/18 05:01 08/03/18 05:01 08/03/18 05:01 08/03/18 05:01 - Medications Medications: Current Medications Alprazolam (Xanax) 0.5 mg PO BID PRN PRN Reason: Anxiety Last Admin: 08/03/18 01:08 Dose: 0.5 mg Aripiprazole (Abilify) 2 mg PO DAILY [facility] Last Admin: 08/02/18 08:57 Dose: 2 mg Atorvastatin Calcium (Lipitor) 20 mg PO DAILY [facility] Last Admin: 08/02/18 08:58 Dose: 20 mg Cholecalciferol (Vitamin D) 2,000 intlu PO DAILY [facility] Last Admin: 08/02/18 09:05 Dose: 2,000 intlu Docusate Sodium (Colace) 100 mg PO BID [facility] Last Admin: 08/02/18 16:43 Dose: 100 mg Ferrous Sulfate (Feosol) 325 mg PO BID [facility] Last Admin: 08/02/18 16:44 Dose: 325 mg Folic Acid (Folic Acid) 1 mg PO DAILY [facility] Last Admin: 08/02/18 08:57 Dose: 1 mg Glipizide (Glucotrol Xl) 10 mg PO BIDWM [facility] Last Admin: 08/02/18 16:58 Dose: 10 mg Home Med (Patient's Own Medication) 1 unit YAMILE BID [facility] Last Admin: 08/02/18 16:42 Dose: 1 unit Insulin Detemir (Levemir) 40 units SC HS [facility] Last Admin: 08/02/18 22:26 Dose: Not Given Insulin Human Lispro (Humalog) 20 units SC ACTID [facility] Last Admin: 08/02/18 16:48 Dose: 20 unit Midodrine (Proamatine) 5 mg PO TID [facility] Last Admin: 08/02/18 16:44 Dose: 5 mg Morphine Sulfate (Morphine) 4 mg IVP Q4 PRN PRN Reason: Pain, severe (8-10) Last Admin: 08/03/18 06:48 Dose: 4 mg Oxycodone/Acetaminophen (Percocet 5/325 Mg Tab) 1 tab PO Q4 PRN PRN Reason: Pain, moderate (4-7) Stop: 08/03/18 13:05 Last Admin: 08/03/18 04:56 Dose: 1 tab Sertraline HCl (Zoloft) 50 mg PO DAILY [facility] Last Admin: 08/02/18 08:57 Dose: 50 mg - Labs Labs: 08/03/18 05:30 08/03/18 05:30 PT 11.9 Seconds (9.8-13.1) 08/03/18 05:30 INR 1.0 08/03/18 05:30 - Constitutional Appears: No Acute Distress - Head Exam Head Exam: ATRAUMATIC, NORMOCEPHALIC - Eye Exam Eye Exam: EOMI - ENT Exam ENT Exam: Mucous Membranes Moist - Neck Exam Neck Exam: Full ROM - Respiratory Exam Respiratory Exam: Clear to Ausculation Bilateral, NORMAL BREATHING PATTERN. absent: Accessory Muscle Use - Cardiovascular Exam Cardiovascular Exam: RRR, +S1, +S2. absent: Diastolic murmur, Murmur - GI/Abdominal Exam GI & Abdominal Exam: Soft, Normal Bowel Sounds. absent: Tenderness - Extremities Exam Extremities Exam: Full ROM. absent: Calf Tenderness, Pedal Edema Additional comments: left arm/ shoulder in sling, tender to palpation - Neurological Exam Neurological Exam: Alert, Awake, Oriented x3 - Psychiatric Exam Psychiatric exam: Normal Affect, Normal Mood - Skin Skin Exam: Dry, Normal Color, Warm Assessment and Plan - Assessment and Plan (Free Text) Assessment: (1) Syncope and collapse Status: Acute (2) HTN (hypertension) Status: Chronic Priority: Medium Plan: Evaluation of syncope Troponin negative 07/30 HA1C 12 Random cortisol follow up EKG 07/30/18 NSR, no ST or T wave abnormalities ECHO 07/31/18 LVH, EF 60-65%, Grade 1 relaxation pattern Medication lipitor glipizide midodrine Pt seen, examined, assessment and plan discussed with Dr Javier Espinal PGY1
[2018-08-03] MEDS: DESMOPRESSIN 0.1 MG/ML NAS SCH ×2 (08:21→18:22)
[2018-08-03] MEDS: Cholecalciferol 1,000 INTLU TAB PO SCH (08:21)
[2018-08-03] MEDS: Insulin Lispro (humaLOG) 100 Units/ml Inj SC SCH ×3 (08:23→18:25)
[2018-08-03] MEDS: GlipiZIDE 10 mg SR Tab PO SCH ×2 (08:23→18:24)
--- NOTE | 2018-08-03 10:43 | CP.PCM.PN ---
Subjective - Date & Time of Evaluation Date of Evaluation: 08/03/18 Time of Evaluation: 10:43 - Subjective Subjective: Neuro Follow-Up Note: Mrs. Frias was evaluated this morning at beside prior to going for the CTA Head and Neck. Pt evaluated sitting in chair OOB. Pain to left shoulder is improving per pt. She still complains of dizziness on/off especially when she stands up from sitting and supine positions. Orthostatic BP readings reviewed with primary RN. Pt offers no other complaints at this time. She denies h/a, visual changes, chest pain, sob, abd pain, n/v/d. Objective - Vital Signs/Intake and Output Vital Signs (last 24 hours): Temp Pulse Resp BP Pulse Ox 98.1 F 73 20 122/72 93 L 08/03/18 07:58 08/03/18 07:58 08/03/18 07:58 08/03/18 07:58 08/03/18 07:58 - Medications Medications: Current Medications Alprazolam (Xanax) 0.5 mg PO BID PRN PRN Reason: Anxiety Last Admin: 08/03/18 01:08 Dose: 0.5 mg Aripiprazole (Abilify) 2 mg PO DAILY [facility] Last Admin: 08/03/18 08:22 Dose: 2 mg Atorvastatin Calcium (Lipitor) 20 mg PO DAILY [facility] Last Admin: 08/03/18 08:24 Dose: 20 mg Cholecalciferol (Vitamin D) 2,000 intlu PO DAILY [facility] Last Admin: 08/03/18 08:21 Dose: 2,000 intlu Docusate Sodium (Colace) 100 mg PO BID [facility] Last Admin: 08/03/18 08:22 Dose: 100 mg Ferrous Sulfate (Feosol) 325 mg PO BID [facility] Last Admin: 08/03/18 08:22 Dose: 325 mg Folic Acid (Folic Acid) 1 mg PO DAILY [facility] Last Admin: 08/03/18 08:23 Dose: 1 mg Glipizide (Glucotrol Xl) 10 mg PO BIDWM [facility] Last Admin: 08/03/18 08:23 Dose: 10 mg Home Med (Patient's Own Medication) 1 unit YAMILE BID [facility] Last Admin: 08/03/18 08:21 Dose: 1 unit Insulin Detemir (Levemir) 30 units SC HS [facility] Insulin Human Lispro (Humalog) 14 units SC ACTID [facility] Midodrine (Proamatine) 5 mg PO TID [facility] Last Admin: 08/03/18 08:22 Dose: 5 mg Morphine Sulfate (Morphine) 4 mg IVP Q4 PRN PRN Reason: Pain, severe (8-10) Last Admin: 08/03/18 06:48 Dose: 4 mg Oxycodone/Acetaminophen (Percocet 5/325 Mg Tab) 1 tab PO Q4 PRN PRN Reason: Pain, moderate (4-7) Stop: 08/03/18 13:05 Last Admin: 08/03/18 04:56 Dose: 1 tab Sertraline HCl (Zoloft) 50 mg PO DAILY [facility] Last Admin: 08/03/18 08:24 Dose: 50 mg - Labs Labs: 08/03/18 05:30 08/03/18 05:30 PT 11.9 Seconds (9.8-13.1) 08/03/18 05:30 INR 1.0 08/03/18 05:30 - Constitutional Appears: Non-toxic, No Acute Distress, Other (forgetful at times) - Head Exam Head Exam: ATRAUMATIC, NORMAL INSPECTION, NORMOCEPHALIC - Eye Exam Eye Exam: EOMI, Normal appearance. absent: Nystagmus Pupil Exam: NORMAL ACCOMODATION, PERRL - ENT Exam ENT Exam: Mucous Membranes Moist - Neck Exam Neck Exam: Full ROM, Normal Inspection - Respiratory Exam Respiratory Exam: NORMAL BREATHING PATTERN - Extremities Exam Extremities Exam: absent: Calf Tenderness, Full ROM, Pedal Edema Additional comments: LUE in sling 2/2 fracture of the shoulder Able to move RUE, RLE, LLE Some generalized weakness noted possibly 2/2 deconditioning - Neurological Exam Neurological Exam: Alert, Awake, CN II-XII Intact. absent: Reflexes Normal Neuro motor strength exam: Left Upper Extremity: 0 (shoulder fracture; arm in sling), Right Upper Extremity: 4, Left Lower Extremity: 4, Right Lower Extremity: 4 Additional comments: AAOx3 Periods of forgetfulness Speech clear, fluid No sensory deficits No tremors + hyperreflexia BLE Gait not assessed - Psychiatric Exam Psychiatric exam: Normal Affect, Normal Mood (periods of forgetfulness) - Skin Skin Exam: Normal Color Assessment and Plan (1) Syncope and collapse Assessment & Plan: Imaging reviewed: -CT Head (07/30/18): Mild atrophy. -ECHO (07/31/18): EF 60-65%; no LV thrombus. -CTA Head and Neck ordered, being done today--will f/u with results. -EEG ordered--will f/u with results. -Cardiology on case--pt's SBP drops from 120's to mid 70's (I reviewed orthostatic BP with primary RN). Dr. Herrera contacted on recommendations for Midodrine and Desmopressin dosing. -Shoulder fracture being managed by ortho on case. -PT/OT per ortho recs. -Notify neuro team of any acute changes in pt's condition. Hyun Vázquez DNP, [employer] Case discussed with Dr. Balbuena Status: Acute
[2018-08-03] MEDS ORDERED: Iodixanol 320 MG/ML 100 ML BOTTLE IV ONE (11:34)
[2018-08-03] MEDS ORDERED: Sodium Chloride 0.9% 50 ML IV ONE (11:34)
--- NOTE | 2018-08-03 11:40 | PN ---
DATE: 08/03/2018 LOCATION: Room 410. SUBJECTIVE: This is a 57-year-old female with a recent syncopal episode sustaining a left humeral comminuted fracture and is now being followed closely for metabolic management. Her glycemic levels are fluctuating, but improved and the glucose values overnight have ranged from 84-202 mg/dL. Her chemistry showed a BUN 18, sodium 134, potassium 4, chloride 93, CO2 of 30, glucose 219 and creatinine 0.5. Her TSH is 2.03 with a T4 of 6.7. Her lipid panel is optimal as noted. ASSESSMENT: This is a 57-year-old female with uncontrolled and decompensated type 2 insulin-requiring diabetes with extremes of glycemic fluctuations with the variability of her oral intake as noted thereof. She presented here with a sudden syncopal event and sustained a left humeral fracture as mentioned. PLAN: Plan of management, we will modify once again her basal and bolus insulin regimen and lower the Humalog to 14 units t.i.d. before meals to start today as ordered. We will continue also a much lower dose of the basal insulin with Levemir to be given as 30 units subcu at bedtime daily to start tonight as given. We will continue the low dose correction scale using Humalog insulin as ordered. We will obtain serial chemistries and supplement accordingly as needed. We will follow and advise accordingly. Kelsey Rosenbaum MD
--- NOTE | 2018-08-03 13:05 | CT ---
Date of service: 08/03/2018 PROCEDURE: CT Angiography of the neck and brain with contrast HISTORY: Syncope, possible VBI COMPARISON: Comparison made with CT scan brain 07/30/2018. TECHNIQUE: Contiguous axial images of the neck were obtained from the level of the vertex of the skull to the superior mediastinum in the arteriographic phase of enhancement. Coronal and sagittal reformats or also generated. IV contrast dose: 95 cc Visipaque 320 Radiation dose: Total exam DLP = 451.3 mGy-cm. This CT exam was performed using one or more of the following dose reduction techniques: Automated exposure control, adjustment of the mA and/or kV according to patient size, and/or use of iterative reconstruction technique. FINDINGS: The aortic arch widely patent on however there is some very minimal calcified atherosclerotic plaque seen along the transverse portion of the. There is also calcified plaque seen at the origin of the left subclavian and at the origin of the right subclavian artery as well. The common carotid arteries are widely patent. Some very minimal calcified atherosclerotic plaque seen along both mid common carotid artery's and both carotid bifurcations. No evidence of occlusion or significant stenosis. No evidence of dissection. The distal internal carotid arteries including the petrous cavernous and supraclinoid segments also patent however there is some minor calcified plaque changes at the level of both carotid siphons more so on the right side. The vertebral arteries are patent throughout. For the most part both vertebral arteries are relatively symmetric throughout their proximal portions though there is a slight caliber change of the distal intradural left vertebral artery which is smaller than the right. Basilar artery also patent. The visualized major branches of the [id number] are also patent. No evidence of large aneurysm nor vascular malformation. The distal branches of the anterior middle and posterior cerebral arteries are relatively symmetric so far as can be seen. OTHER FINDINGS: Minor multilevel degenerative spondylosis of the cervical spine. Partially empty sella IMPRESSION: No evidence of dissection, occlusion or significant stenosis. Some very minor calcified plaque changes seen along the mid common carotid arteries, both carotid bifurcations and cavernous siphons PE. No evidence of large aneurysm nor vascular malformation.
--- NOTE | 2018-08-03 14:38 | CP.PCM.PN ---
Subjective - Date & Time of Evaluation Date of Evaluation: 08/03/18 Time of Evaluation: 14:32 - Subjective Subjective: Patient states pain is controlled in left shoulder. No new complaints. Objective - Vital Signs/Intake and Output Vital Signs (last 24 hours): Temp Pulse Resp BP Pulse Ox 97.4 F L 85 20 122/72 94 L 08/03/18 12:11 08/03/18 12:11 08/03/18 12:11 08/03/18 07:58 08/03/18 12:11 - Medications Medications: Current Medications Alprazolam (Xanax) 0.5 mg PO BID PRN PRN Reason: Anxiety Last Admin: 08/03/18 01:08 Dose: 0.5 mg Aripiprazole (Abilify) 2 mg PO DAILY [facility] Last Admin: 08/03/18 08:22 Dose: 2 mg Atorvastatin Calcium (Lipitor) 20 mg PO DAILY [facility] Last Admin: 08/03/18 08:24 Dose: 20 mg Cholecalciferol (Vitamin D) 2,000 intlu PO DAILY [facility] Last Admin: 08/03/18 08:21 Dose: 2,000 intlu Docusate Sodium (Colace) 100 mg PO BID [facility] Last Admin: 08/03/18 08:22 Dose: 100 mg Ferrous Sulfate (Feosol) 325 mg PO BID [facility] Last Admin: 08/03/18 08:22 Dose: 325 mg Folic Acid (Folic Acid) 1 mg PO DAILY [facility] Last Admin: 08/03/18 08:23 Dose: 1 mg Glipizide (Glucotrol Xl) 10 mg PO BIDWM [facility] Last Admin: 08/03/18 08:23 Dose: 10 mg Home Med (Patient's Own Medication) 1 unit YAMILE BID [facility] Last Admin: 08/03/18 08:21 Dose: 1 unit Insulin Detemir (Levemir) 30 units SC HS [facility] Insulin Human Lispro (Humalog) 14 units SC ACTID [facility] Last Admin: 08/03/18 13:00 Dose: 14 units Midodrine (Proamatine) 10 mg PO TID [facility] Last Admin: 08/03/18 14:00 Dose: 10 mg Sertraline HCl (Zoloft) 50 mg PO DAILY [facility] Last Admin: 08/03/18 08:24 Dose: 50 mg - Labs Labs: 08/03/18 05:30 08/03/18 05:30 PT 11.9 Seconds (9.8-13.1) 08/03/18 05:30 INR 1.0 08/03/18 05:30 - Extremities Exam Additional comments: sling intact. +ROM fingers, has some difficulty with adduction but complains of pain. Sensation intact, but complains of some tingling in all her fingers except thumb and dorsum of hand. +radial pulse. Assessment and Plan (1) Closed fracture of neck of left humerus Assessment & Plan: plan for OR Saturday 08/05 pending medical/cardio/neuro optimization/clearance Sling pain medication d/w Dr. Garrett, agrees wt above Status: Acute (2) Acute blood loss anemia Assessment & Plan: labs in am type and cross for OR Status: Acute
--- NOTE | 2018-08-03 15:01 | CP.PCM.PN ---
Subjective - Date & Time of Evaluation Date of Evaluation: 08/03/18 Time of Evaluation: 11:40 - Subjective Subjective: F/U Syncope/Collapse. L shoulder Fx. Pain L shoulder, Pt requested Morphine last night, at times forgetful Objective - Vital Signs/Intake and Output Vital Signs (last 24 hours): Temp Pulse Resp BP Pulse Ox 97.4 F L 85 20 122/72 94 L 08/03/18 12:11 08/03/18 12:11 08/03/18 12:11 08/03/18 07:58 08/03/18 12:11 - Medications Medications: Current Medications Alprazolam (Xanax) 0.5 mg PO BID PRN PRN Reason: Anxiety Last Admin: 08/03/18 01:08 Dose: 0.5 mg Aripiprazole (Abilify) 2 mg PO DAILY [facility] Last Admin: 08/03/18 08:22 Dose: 2 mg Atorvastatin Calcium (Lipitor) 20 mg PO DAILY [facility] Last Admin: 08/03/18 08:24 Dose: 20 mg Cholecalciferol (Vitamin D) 2,000 intlu PO DAILY [facility] Last Admin: 08/03/18 08:21 Dose: 2,000 intlu Docusate Sodium (Colace) 100 mg PO BID [facility] Last Admin: 08/03/18 08:22 Dose: 100 mg Ferrous Sulfate (Feosol) 325 mg PO BID [facility] Last Admin: 08/03/18 08:22 Dose: 325 mg Folic Acid (Folic Acid) 1 mg PO DAILY [facility] Last Admin: 08/03/18 08:23 Dose: 1 mg Glipizide (Glucotrol Xl) 10 mg PO BIDWM [facility] Last Admin: 08/03/18 08:23 Dose: 10 mg Home Med (Patient's Own Medication) 1 unit YAMILE BID [facility] Last Admin: 08/03/18 08:21 Dose: 1 unit Insulin Detemir (Levemir) 30 units SC HS [facility] Insulin Human Lispro (Humalog) 14 units SC ACTID [facility] Last Admin: 08/03/18 13:00 Dose: 14 units Midodrine (Proamatine) 10 mg PO TID [facility] Last Admin: 08/03/18 14:00 Dose: 10 mg Sertraline HCl (Zoloft) 50 mg PO DAILY [facility] Last Admin: 08/03/18 08:24 Dose: 50 mg - Labs Labs: 08/03/18 05:30 08/03/18 05:30 PT 11.9 Seconds (9.8-13.1) 08/03/18 05:30 INR 1.0 08/03/18 05:30 - Constitutional Appears: No Acute Distress - Head Exam Head Exam: NORMAL INSPECTION - Eye Exam Eye Exam: PERRL - ENT Exam ENT Exam: Normal Exam - Neck Exam Neck Exam: Normal Inspection - Respiratory Exam Respiratory Exam: NORMAL BREATHING PATTERN - Cardiovascular Exam Cardiovascular Exam: REGULAR RHYTHM, Murmur (systolic) - GI/Abdominal Exam GI & Abdominal Exam: Soft, Normal Bowel Sounds - Extremities Exam Extremities Exam: Tenderness (L shoulder on palpation.) Additional comments: L shoulder swollen, with sling for immobilization, neuromuscular distal status good. R shoulder decreased ROM, healed surgical scar 2nd to recent Fx. - Back Exam Back Exam: NORMAL INSPECTION - Neurological Exam Neurological Exam: Alert, CN II-XII Intact, Oriented x3, Reflexes Normal - Psychiatric Exam Psychiatric exam: Normal Mood - Skin Skin Exam: Warm Assessment and Plan (1) Syncope and collapse Status: Acute (2) Shoulder fracture, left Status: Acute (3) Orthostatic hypotension Status: Acute (4) Uncontrolled insulin dependent diabetes mellitus Status: Acute (5) History of fracture of right shoulder Status: Chronic (6) Diabetes insipidus Status: Chronic (7) Anxiety and depression Status: Chronic (8) Diabetic retinopathy of both eyes Status: Chronic (9) Vitamin D deficiency Status: Acute (10) HTN (hypertension) Status: Chronic (11) Anemia Status: Acute - Assessment and Plan (Free Text) Plan: CTA Head and Neck negative, f/u EEG, Postural Hypotension, Cortisol am 4.6, F/U Endocrin, Pt on Midodrin 10 mg TID, DM BS better control, Hem A1C 11.8 Patient very uncompliant with diet and Insulin regimen as out patient, Hgb 9.7, Type cross macht for OR, Cardiology cleared, f/u Neurology clearance, for OR am
[2018-08-03] MEDS: Insulin Detemir 100 Units/ml Inj SC SCH (22:18)
[2018-08-04] MEDS: Morphine 4 MG/ML VIAL IVP PRN ×3 (03:45→16:14)
[2018-08-04 05:18] LABS: HEMOGLOBIN 9.9 g/dL (12.0-16.0); MEAN CELL VOLUME 87.1 fl (81.0-99.0); MEAN CORPUSCULAR HEMOGLOBIN 28.9 pg (27.0-31.0); MEAN CORPUSCULAR HGB CONC 33.2 g/dL (33.0-37.0); RBC 3.42 Mil/uL (3.80-5.20); RED CELL DISTRIBUTION WIDTH 14.9 % (11.5-14.5); WHITE BLOOD COUNT 7.1 K/uL (4.8-10.8)
[2018-08-04 05:33] LABS: BLOOD UREA NITROGEN 16 mg/dl (7-17); CALCIUM 9.3 mg/dL (8.4-10.2); GFR NON-AFRICAN AMERICAN > 60
[2018-08-04] MEDS: Insulin Lispro (humaLOG) 100 Units/ml Inj SC SCH ×3 (08:42→16:15)
[2018-08-04] MEDS: DESMOPRESSIN 0.1 MG/ML NAS SCH ×2 (08:43→16:16)
[2018-08-04] MEDS: GlipiZIDE 10 mg SR Tab PO SCH ×2 (08:44→16:16)
[2018-08-04] MEDS: Cholecalciferol 1,000 INTLU TAB PO SCH (08:45)
--- NOTE | 2018-08-04 08:52 | CP.PCM.PN ---
Subjective - Date & Time of Evaluation Date of Evaluation: 08/04/18 Time of Evaluation: 08:00 - Subjective Subjective: Patient seen and examined at bedside comfortable. L shoulder pain well controlled. No new complaints. Denies CP/SOB/dizziness/fever. Objective - Vital Signs/Intake and Output Vital Signs (last 24 hours): Temp Pulse Resp BP Pulse Ox 98.2 F 74 20 106/68 93 L 08/04/18 08:00 08/04/18 08:00 08/04/18 08:00 08/04/18 08:00 08/04/18 08:00 - Medications Medications: Current Medications Alprazolam (Xanax) 0.5 mg PO BID PRN PRN Reason: Anxiety Last Admin: 08/04/18 01:37 Dose: 0.5 mg Aripiprazole (Abilify) 2 mg PO DAILY [facility] Last Admin: 08/04/18 08:45 Dose: 2 mg Atorvastatin Calcium (Lipitor) 20 mg PO DAILY [facility] Last Admin: 08/04/18 08:45 Dose: 20 mg Cholecalciferol (Vitamin D) 2,000 intlu PO DAILY [facility] Last Admin: 08/04/18 08:45 Dose: 2,000 intlu Docusate Sodium (Colace) 100 mg PO BID [facility] Last Admin: 08/04/18 08:43 Dose: 100 mg Ferrous Sulfate (Feosol) 325 mg PO BID [facility] Last Admin: 08/04/18 08:44 Dose: 325 mg Folic Acid (Folic Acid) 1 mg PO DAILY [facility] Last Admin: 08/04/18 08:44 Dose: 1 mg Glipizide (Glucotrol Xl) 10 mg PO BIDWM [facility] Last Admin: 08/04/18 08:44 Dose: 10 mg Home Med (Patient's Own Medication) 1 unit YAMILE BID [facility] Last Admin: 08/04/18 08:43 Dose: 1 unit Insulin Detemir (Levemir) 30 units SC HS [facility] Last Admin: 08/03/18 22:18 Dose: Not Given Insulin Human Lispro (Humalog) 14 units SC ACTID [facility] Last Admin: 08/04/18 08:42 Dose: 14 units Midodrine (Proamatine) 10 mg PO TID [facility] Last Admin: 08/04/18 08:44 Dose: 10 mg Morphine Sulfate (Morphine) 4 mg IVP Q4 PRN PRN Reason: Pain, severe (8-10) Last Admin: 08/04/18 03:45 Dose: 4 mg Sertraline HCl (Zoloft) 50 mg PO DAILY [facility] Last Admin: 08/04/18 08:44 Dose: 50 mg - Labs Labs: 08/04/18 04:55 08/04/18 04:55 PT 11.9 Seconds (9.8-13.1) 08/03/18 05:30 INR 1.0 08/03/18 05:30 APTT 26.7 Seconds (25.6-37.1) 08/04/18 04:55 - Extremities Exam Additional comments: LUE: sling in place no lesions/masses/deformity moderate shoulder swelling and tenderness sensation intact AXN/MN/UN/RN motor intact MN/UN/RN radial pulse intact Assessment and Plan (1) Fracture of humeral head, left, closed Assessment & Plan: -L TSR in OR tomorrow -NPO pMN -awaiting cardiac/neurology/medical clearance notes -NWB in sling LUE -above d/w Dr. Garrett in agreement Status: Acute
--- NOTE | 2018-08-04 09:54 | CP.PCM.PN ---
Subjective - Date & Time of Evaluation Date of Evaluation: 08/04/18 Time of Evaluation: 09:53 - Subjective Subjective: Neuro Follow-Up Note: Mrs. Frias was evaluated this morning at beside. Pt evaluated sitting in chair OOB. Pain to left shoulder still present; about 6/10 now. Pt offers no other complaints at this time. She denies h/a, dizziness, visual changes, chest pain, palpitations, sob, cough, abd pain, n/v/d. Objective - Vital Signs/Intake and Output Vital Signs (last 24 hours): Temp Pulse Resp BP Pulse Ox 98.2 F 74 20 106/68 93 L 08/04/18 08:00 08/04/18 08:00 08/04/18 08:00 08/04/18 08:00 08/04/18 08:00 - Medications Medications: Current Medications Alprazolam (Xanax) 0.5 mg PO BID PRN PRN Reason: Anxiety Last Admin: 08/04/18 01:37 Dose: 0.5 mg Aripiprazole (Abilify) 2 mg PO DAILY [facility] Last Admin: 08/04/18 08:45 Dose: 2 mg Atorvastatin Calcium (Lipitor) 20 mg PO DAILY [facility] Last Admin: 08/04/18 08:45 Dose: 20 mg Cholecalciferol (Vitamin D) 2,000 intlu PO DAILY [facility] Last Admin: 08/04/18 08:45 Dose: 2,000 intlu Docusate Sodium (Colace) 100 mg PO BID [facility] Last Admin: 08/04/18 08:43 Dose: 100 mg Ferrous Sulfate (Feosol) 325 mg PO BID [facility] Last Admin: 08/04/18 08:44 Dose: 325 mg Folic Acid (Folic Acid) 1 mg PO DAILY [facility] Last Admin: 08/04/18 08:44 Dose: 1 mg Glipizide (Glucotrol Xl) 10 mg PO BIDWM [facility] Last Admin: 08/04/18 08:44 Dose: 10 mg Home Med (Patient's Own Medication) 1 unit YAMILE BID [facility] Last Admin: 08/04/18 08:43 Dose: 1 unit Insulin Detemir (Levemir) 30 units SC HS [facility] Last Admin: 08/03/18 22:18 Dose: Not Given Insulin Human Lispro (Humalog) 14 units SC ACTID [facility] Last Admin: 08/04/18 08:42 Dose: 14 units Midodrine (Proamatine) 10 mg PO TID [facility] Last Admin: 08/04/18 08:44 Dose: 10 mg Morphine Sulfate (Morphine) 4 mg IVP Q4 PRN PRN Reason: Pain, severe (8-10) Last Admin: 08/04/18 03:45 Dose: 4 mg Sertraline HCl (Zoloft) 50 mg PO DAILY [facility] Last Admin: 08/04/18 08:44 Dose: 50 mg - Labs Labs: 08/04/18 04:55 08/04/18 04:55 PT 11.9 Seconds (9.8-13.1) 08/03/18 05:30 INR 1.0 08/03/18 05:30 APTT 26.7 Seconds (25.6-37.1) 08/04/18 04:55 - Constitutional Appears: Well, Non-toxic, No Acute Distress - Head Exam Head Exam: ATRAUMATIC, NORMAL INSPECTION, NORMOCEPHALIC - Eye Exam Eye Exam: EOMI, Normal appearance, PERRL Pupil Exam: NORMAL ACCOMODATION, PERRL - ENT Exam ENT Exam: Mucous Membranes Moist - Neck Exam Neck Exam: Full ROM - Respiratory Exam Respiratory Exam: NORMAL BREATHING PATTERN - Extremities Exam Extremities Exam: absent: Calf Tenderness, Full ROM, Pedal Edema Additional comments: LUE in sling 2/2 fracture of the shoulder Able to move RUE, RLE, LLE Some generalized weakness noted possibly 2/2 deconditioning - Neurological Exam Neurological Exam: Alert, Awake, CN II-XII Intact. absent: Reflexes Normal Neuro motor strength exam: Left Upper Extremity: 0, Right Upper Extremity: 4, Le ft Lower Extremity: 4, Right Lower Extremity: 4 Additional comments: AAOx3 Periods of forgetfulness Speech clear, fluid No sensory deficits No tremors + hyperreflexia BLE Gait not assessed - Psychiatric Exam Psychiatric exam: Normal Affect, Normal Mood Additional comments: forgetful at times - Skin Skin Exam: Normal Color Assessment and Plan (1) Syncope and collapse Assessment & Plan: Imaging reviewed: -CTA Head and Neck (08/03/18) results reviewed: No evidence of dissection, occlusion or significant stenosis. Some very minor calcified plaque changes seen along the mid common carotid arteries, both carotid bifurcations and cavernous siphons PE. No evidence of large aneurysm nor vascular malformation. -CT Head (07/30/18): Mild atrophy. -ECHO (07/31/18): EF 60-65%; no LV thrombus. -EEG (08/02/18): normal, no seizures. -Neurologically clear for surgery tomorrow with ortho (left TSR). -Cardiology on case. Midodrine increased yesterday per cardio recs for pt's orthostatic hypotension. -PT/OT post-op per ortho recs. -Notify neuro team of any acute changes in pt's condition. Hyun Vázquez, [employer]VETTE, [employer] Case discussed with Dr. Balbuena Status: Acute
--- NOTE | 2018-08-04 13:08 | CP.PCM.PN ---
Subjective - Date & Time of Evaluation Date of Evaluation: 08/04/18 Time of Evaluation: 09:50 - Subjective Subjective: F/U Fx L shoulder, Syncope/collapse. Pt with less pain in L shoulder,requesting pain medications Objective - Vital Signs/Intake and Output Vital Signs (last 24 hours): Temp Pulse Resp BP Pulse Ox 97.6 F 65 18 139/78 97 08/04/18 12:17 08/04/18 12:17 08/04/18 12:17 08/04/18 12:17 08/04/18 12:17 - Medications Medications: Current Medications Alprazolam (Xanax) 0.5 mg PO BID PRN PRN Reason: Anxiety Last Admin: 08/04/18 01:37 Dose: 0.5 mg Aripiprazole (Abilify) 2 mg PO DAILY [facility] Last Admin: 08/04/18 08:45 Dose: 2 mg Atorvastatin Calcium (Lipitor) 20 mg PO DAILY [facility] Last Admin: 08/04/18 08:45 Dose: 20 mg Cholecalciferol (Vitamin D) 2,000 intlu PO DAILY [facility] Last Admin: 08/04/18 08:45 Dose: 2,000 intlu Docusate Sodium (Colace) 100 mg PO BID [facility] Last Admin: 08/04/18 08:43 Dose: 100 mg Ferrous Sulfate (Feosol) 325 mg PO BID [facility] Last Admin: 08/04/18 08:44 Dose: 325 mg Folic Acid (Folic Acid) 1 mg PO DAILY [facility] Last Admin: 08/04/18 08:44 Dose: 1 mg Glipizide (Glucotrol Xl) 10 mg PO BIDWM [facility] Last Admin: 08/04/18 08:44 Dose: 10 mg Home Med (Patient's Own Medication) 1 unit YAMILE BID [facility] Last Admin: 08/04/18 08:43 Dose: 1 unit Insulin Detemir (Levemir) 30 units SC HS [facility] Last Admin: 08/03/18 22:18 Dose: Not Given Insulin Human Lispro (Humalog) 14 units SC ACTID [facility] Last Admin: 08/04/18 11:44 Dose: 14 units Midodrine (Proamatine) 10 mg PO TID [facility] Last Admin: 08/04/18 08:44 Dose: 10 mg Morphine Sulfate (Morphine) 4 mg IVP Q4 PRN PRN Reason: Pain, severe (8-10) Last Admin: 08/04/18 11:42 Dose: 4 mg Sertraline HCl (Zoloft) 50 mg PO DAILY [facility] Last Admin: 08/04/18 08:44 Dose: 50 mg - Labs Labs: 08/04/18 04:55 08/04/18 04:55 PT 11.9 Seconds (9.8-13.1) 08/03/18 05:30 INR 1.0 08/03/18 05:30 APTT 26.7 Seconds (25.6-37.1) 08/04/18 04:55 - Constitutional Appears: No Acute Distress - Head Exam Head Exam: NORMAL INSPECTION - Eye Exam Eye Exam: PERRL - ENT Exam ENT Exam: Normal Exam - Neck Exam Neck Exam: Normal Inspection - Respiratory Exam Respiratory Exam: NORMAL BREATHING PATTERN - Cardiovascular Exam Cardiovascular Exam: REGULAR RHYTHM, Murmur (systolic) - GI/Abdominal Exam GI & Abdominal Exam: Soft, Normal Bowel Sounds - Extremities Exam Additional comments: L shoulder swollen, tenderness to touch with sling for immobilization, neuromuscular distal status good. R shoulder with decreased ROM, healed surgical scar 2nd to to recent Fx. - Back Exam Back Exam: NORMAL INSPECTION - Neurological Exam Neurological Exam: Alert, Oriented x3, Reflexes Normal - Psychiatric Exam Psychiatric exam: Normal Mood - Skin Skin Exam: Warm Assessment and Plan (1) Syncope and collapse Status: Acute (2) Shoulder fracture, left Status: Acute (3) Orthostatic hypotension Status: Acute (4) Uncontrolled insulin dependent diabetes mellitus Status: Acute (5) History of fracture of right shoulder Status: Chronic (6) Diabetes insipidus Status: Chronic (7) Anxiety and depression Status: Chronic (8) Diabetic retinopathy of both eyes Status: Chronic (9) Vitamin D deficiency Status: Acute (10) HTN (hypertension) Status: Chronic (11) Anemia Status: Acute - Assessment and Plan (Free Text) Plan: Continue Abilify, Morphine, Humalog, Folic Acid, Feosol, Xanax and rest of Tx., Patient was cleared for Surgery by Cardiolgist and Neurologist, Patient is medically cleared for Surgery.
--- NOTE | 2018-08-04 15:14 | CP.PCM.PN ---
Subjective - Date & Time of Evaluation Date of Evaluation: 08/04/18 Time of Evaluation: 08:00 - Subjective Subjective: Pt seen and examined at bedside. Pt denies chest pain, SOB. reports shoulder pain. Objective - Vital Signs/Intake and Output Vital Signs (last 24 hours): Temp Pulse Resp BP Pulse Ox 97.6 F 65 18 139/78 97 08/04/18 12:17 08/04/18 12:17 08/04/18 12:17 08/04/18 12:17 08/04/18 12:17 - Medications Medications: Current Medications Alprazolam (Xanax) 0.5 mg PO BID PRN PRN Reason: Anxiety Last Admin: 08/04/18 01:37 Dose: 0.5 mg Aripiprazole (Abilify) 2 mg PO DAILY [facility] Last Admin: 08/04/18 08:45 Dose: 2 mg Atorvastatin Calcium (Lipitor) 20 mg PO DAILY [facility] Last Admin: 08/04/18 08:45 Dose: 20 mg Cholecalciferol (Vitamin D) 2,000 intlu PO DAILY [facility] Last Admin: 08/04/18 08:45 Dose: 2,000 intlu Docusate Sodium (Colace) 100 mg PO BID [facility] Last Admin: 08/04/18 08:43 Dose: 100 mg Ferrous Sulfate (Feosol) 325 mg PO BID [facility] Last Admin: 08/04/18 08:44 Dose: 325 mg Folic Acid (Folic Acid) 1 mg PO DAILY [facility] Last Admin: 08/04/18 08:44 Dose: 1 mg Glipizide (Glucotrol Xl) 10 mg PO BIDWM [facility] Last Admin: 08/04/18 08:44 Dose: 10 mg Home Med (Patient's Own Medication) 1 unit YAMILE BID [facility] Last Admin: 08/04/18 08:43 Dose: 1 unit Insulin Detemir (Levemir) 30 units SC HS [facility] Last Admin: 08/03/18 22:18 Dose: Not Given Insulin Human Lispro (Humalog) 14 units SC ACTID [facility] Last Admin: 08/04/18 11:44 Dose: 14 units Midodrine (Proamatine) 10 mg PO TID [facility] Last Admin: 08/04/18 13:07 Dose: 10 mg Morphine Sulfate (Morphine) 4 mg IVP Q4 PRN PRN Reason: Pain, severe (8-10) Last Admin: 08/04/18 11:42 Dose: 4 mg Sertraline HCl (Zoloft) 50 mg PO DAILY [facility] Last Admin: 08/04/18 08:44 Dose: 50 mg - Labs Labs: 08/04/18 04:55 08/04/18 04:55 PT 11.9 Seconds (9.8-13.1) 08/03/18 05:30 INR 1.0 08/03/18 05:30 APTT 26.7 Seconds (25.6-37.1) 08/04/18 04:55 - Constitutional Appears: No Acute Distress - Head Exam Head Exam: ATRAUMATIC, NORMOCEPHALIC - Eye Exam Eye Exam: EOMI - ENT Exam ENT Exam: Mucous Membranes Moist - Neck Exam Neck Exam: Full ROM - Respiratory Exam Respiratory Exam: Clear to Ausculation Bilateral, NORMAL BREATHING PATTERN. absent: Accessory Muscle Use - Cardiovascular Exam Cardiovascular Exam: RRR, +S1, +S2. absent: Diastolic murmur, Murmur - GI/Abdominal Exam GI & Abdominal Exam: Soft, Normal Bowel Sounds - Extremities Exam Extremities Exam: Tenderness. absent: Calf Tenderness Additional comments: pain to palpation to right shoulder - Neurological Exam Neurological Exam: Alert, Oriented x3 - Psychiatric Exam Psychiatric exam: Normal Affect, Normal Mood - Skin Skin Exam: Dry, Intact, Normal Color Assessment and Plan - Assessment and Plan (Free Text) Assessment: (1) Syncope and collapse Status: Acute (2) HTN (hypertension) Status: Chronic Priority: Medium Plan: Evaluation of syncope, likely due to adrenal insufficiency will likely need steroid supplementation, would benefit from endocrinology consult Troponin negative 07/30 HA1C 11.8 Random cortisol 4.6 EKG 07/30/18 NSR, no ST or T wave abnormalities ECHO 07/31/18 LVH, EF 60-65%, Grade 1 relaxation pattern Pt risk stratified, determined to be a low risk for shoulder surgery Medication lipitor glipizide midodrine Pt seen, examined, assessment and plan discussed with Dr Javier Espinal PGY1
[2018-08-04] MEDS: Insulin Detemir 100 Units/ml Inj SC SCH ×2 (21:22→23:34)
--- NOTE | 2018-08-04 22:11 | PN ---
DATE: 08/04/2018 ENDOCRINOLOGY FOLLOWUP NOTE LOCATION: Room 410. This is a 57-year-old female with recent uncontrolled type 2 insulin-requiring diabetes, presenting here with accidental fall following a syncopal episode and sustained a left comminuted fracture in the humeral bone and is scheduled for surgery tomorrow and is now being followed closely for metabolic management. Her glycemic levels are fluctuating and have ranged from 202 to 241 mg/dL. Her A1c is elevated at 11.8% indicative of suboptimal metabolic control of her diabetic condition even prior to this admission. Her chemistry showed a BUN of 18, sodium 134, potassium 4, chloride 93, CO2 of 30, glucose 219, and creatinine 0.5. So at this time, we will continue the same basal and bolus insulin regimen as ordered with Humalog given as 14 units t.i.d. before meals as ordered. We will continue the same basal insulin given as Levemir at 30 units subcu at bedtime daily as given. We will titrate incrementally as indicated to optimize metabolic control. We will also continue the glipizide given as 10 mg b.i.d. with meals as ordered. We will hold the Humalog insulin tomorrow morning as the patient will be n.p.o. overnight as noted, but we will still give the same basal insulin given as Levemir at 30 units subcu at bedtime daily as ordered. We will obtain serial chemistries and supplement accordingly as needed. We will follow. Kelsey Rosenbaum MD
[2018-08-05] MEDS ORDERED: Morphine 5 MG/ML SYRINGE IVP PRN (04:45)
[2018-08-05] MEDS: Insulin Lispro (humaLOG) 100 Units/ml Inj SC SCH ×2 (07:35→11:19)
[2018-08-05] MEDS: DESMOPRESSIN 0.1 MG/ML NAS SCH ×2 (08:40→18:55)
[2018-08-05] MEDS: Cholecalciferol 1,000 INTLU TAB PO SCH (08:43)
[2018-08-05] MEDS: GlipiZIDE 10 mg SR Tab PO SCH ×2 (08:43→18:54)
--- NOTE | 2018-08-05 08:44 | CP.PCM.PN ---
Subjective - Date & Time of Evaluation Date of Evaluation: 08/05/18 Time of Evaluation: 08:00 - Subjective Subjective: Pt seen and examined this morning at bedside. No new complaints Objective - Vital Signs/Intake and Output Vital Signs (last 24 hours): Temp Pulse Resp BP Pulse Ox 98.5 F 66 18 115/66 94 L 08/05/18 08:29 08/05/18 08:29 08/05/18 08:29 08/05/18 08:29 08/05/18 07:57 Intake and Output: 08/05/18 08/05/18 06:59 18:59 Intake Total 0 Balance 0 - Medications Medications: Current Medications Alprazolam (Xanax) 0.5 mg PO BID PRN PRN Reason: Anxiety Last Admin: 08/04/18 23:36 Dose: 0.5 mg Aripiprazole (Abilify) 2 mg PO DAILY [facility] Last Admin: 08/04/18 08:45 Dose: 2 mg Atorvastatin Calcium (Lipitor) 20 mg PO DAILY [facility] Last Admin: 08/04/18 08:45 Dose: 20 mg Cholecalciferol (Vitamin D) 2,000 intlu PO DAILY [facility] Last Admin: 08/04/18 08:45 Dose: 2,000 intlu Docusate Sodium (Colace) 100 mg PO BID [facility] Last Admin: 08/04/18 16:16 Dose: 100 mg Ferrous Sulfate (Feosol) 325 mg PO BID [facility] Last Admin: 08/04/18 16:16 Dose: 325 mg Folic Acid (Folic Acid) 1 mg PO DAILY [facility] Last Admin: 08/04/18 08:44 Dose: 1 mg Glipizide (Glucotrol Xl) 10 mg PO BIDWM [facility] Last Admin: 08/04/18 16:16 Dose: 10 mg Home Med (Patient's Own Medication) 1 unit YAMILE BID [facility] Last Admin: 08/05/18 08:40 Dose: 1 unit Insulin Detemir (Levemir) 20 units SC HS [facility] Last Admin: 08/04/18 23:34 Dose: Not Given Insulin Human Lispro (Humalog) 10 units SC ACTID [facility] Last Admin: 08/05/18 07:35 Dose: Not Given Midodrine (Proamatine) 10 mg PO TID [facility] Last Admin: 08/05/18 08:39 Dose: 10 mg Morphine Sulfate (Morphine) 4 mg IVP Q4 PRN PRN Reason: Pain, severe (8-10) Last Admin: 08/05/18 04:44 Dose: 4 mg Sertraline HCl (Zoloft) 50 mg PO DAILY [facility] Last Admin: 08/04/18 08:44 Dose: 50 mg - Labs Labs: 08/04/18 04:55 08/04/18 04:55 PT 11.9 Seconds (9.8-13.1) 08/03/18 05:30 INR 1.0 08/03/18 05:30 APTT 26.7 Seconds (25.6-37.1) 08/04/18 04:55 - Constitutional Appears: No Acute Distress - Head Exam Head Exam: ATRAUMATIC, NORMOCEPHALIC - Eye Exam Eye Exam: EOMI - ENT Exam ENT Exam: Mucous Membranes Moist - Neck Exam Neck Exam: Full ROM - Respiratory Exam Respiratory Exam: Clear to Ausculation Bilateral, NORMAL BREATHING PATTERN. absent: Accessory Muscle Use - Cardiovascular Exam Cardiovascular Exam: RRR, +S1, +S2 - GI/Abdominal Exam GI & Abdominal Exam: Soft, Normal Bowel Sounds. absent: Tenderness - Extremities Exam Extremities Exam: Full ROM. absent: Calf Tenderness, Pedal Edema - Neurological Exam Neurological Exam: Alert, Awake, Oriented x3 - Psychiatric Exam Psychiatric exam: Normal Affect, Normal Mood - Skin Skin Exam: Dry, Normal Color, Warm Assessment and Plan - Assessment and Plan (Free Text) Assessment: (1) Syncope and collapse Status: Acute (2) HTN (hypertension) Status: Chronic Priority: Medium Plan: Evaluation of syncope, likely due to adrenal insufficiency will likely need steroid supplementation Endocrinology consulted, Dr Rosenbaum Troponin negative 07/30 HA1C 11.8 Random cortisol 4.6 EKG 07/30/18 NSR, no ST or T wave abnormalities ECHO 07/31/18 LVH, EF 60-65%, Grade 1 relaxation pattern Pt risk stratified, determined to be a low risk for shoulder surgery Medication lipitor glipizide midodrine Pt seen, examined, assessment and plan discussed with Dr Javier Espinal PGY1, Internal Medicine Resident
[2018-08-05] MEDS ORDERED: EPINEPHrine 1 mg/ml (1:1000) Inj ONE (12:09)
[2018-08-05] MEDS ORDERED: Absorbable Gelatin Sponge Size 12-7 ONE (12:09)
[2018-08-05] MEDS ORDERED: Rocuronium 10 mg/ml (5 ml) ONE ×2 (12:29→14:52)
[2018-08-05] MEDS ORDERED: Lidocaine 4% (Laryng-O-Jet) Kit MM ONE (12:29)
[2018-08-05] MEDS ORDERED: Propofol 10 mg/ml Inj (20 ML) ONE (12:29)
[2018-08-05] MEDS ORDERED: Midazolam 2 MG/2 ML VIAL ONE (12:29)
[2018-08-05] MEDS ORDERED: Vasopressin 20 Units/ml Inj ONE (12:33)
[2018-08-05] MEDS ORDERED: Ropivacaine 0.5% 30ML IV ONE (12:33)
[2018-08-05] MEDS ORDERED: Succinylcholine Chloride 20 mg/ml Syr (5 ml) IV ONE (12:34)
[2018-08-05] MEDS ORDERED: Lactated Ringer's 1,000 ML IV ONE ×2 (13:00→13:05)
[2018-08-05] MEDS ORDERED: Dexamethasone 4 mg/1 ml ONE (13:57)
[2018-08-05] MEDS ORDERED: HEMOSTATIC MATRIX 10 ML DIS.NEEDLE TOP ONE (15:30)
[2018-08-05] MEDS ORDERED: Bacitracin OINT 15GM TOP ONE (15:35)
[2018-08-05] MEDS ORDERED: Neostigmine 1:1000 (1 mg/ml) Inj ONE (15:38)
[2018-08-05] MEDS ORDERED: Bacitracin Ointment 30 GM TUBE ONE (15:42)
[2018-08-05] MEDS ORDERED: Oxycodone/Acetaminophen 5/325 mg Tab PO PRN (15:58)
[2018-08-05] MEDS ORDERED: HYDROmorphone 0.5 mg/0.5 ml ISec IVP PRN (16:17)
[2018-08-05] MEDS ORDERED: Insulin Lispro (humaLOG) 100 Units/ml Inj SC ONE (16:20)
--- NOTE | 2018-08-05 16:22 | PCM.ANESB1 ---
Interscalene Block - Brachial Plexus Date of Procedure: 08/05/18 Anesthesiologist: James Leavitt Pre-Procedure Diagnosis: Left shoulder fracture Post-Procedure Diagnosis: Same Procedure Performed: Interscalene Block of Brachial Plexus Left - Procedure Interscalene Block of Brachial Plexus: This procedure was explained to the patient that it is for post-operative pain management. Consent was obtained after a thorough discussion with the patient regarding the benefits and possible complications of local anesthetic block of the Brachial Plexus at the Interscalene area. The patient was brought to the Operating Room and standard monitors were applied. Time out was held with the circulating nurse to confirm the correct surgery and appropriate block. After applying Oxygen by nasal cannula and administering IV Sedation, the patient's head was gently rotated away from the __LEFT____operative shoulder and the anterior scalene groove was carefully palpated. The ultrasound transducer was then applied to the skin in the transverse plane and the brachial plexus was visualized lateral to the carotid artery and in between the anterior and middle scalene muscles. After identification,the anterior lateral portion of the neck was prepped with Chloraprep solution three times and Lidocaine 1% was injected subcutaneously for topical analgesia. At this point, a # 22 gauge Stimuplex 2 inches insulated needle was inserted into the interscalene groove and directed in a caudal and midline direction. The needle was inserted lateral to the ultrasound transducer in-plane towards the brachial plexus in a [id number] direction. Needle advancement was performed carefully under direct ultrasound visualization. Nerve stimulator was used and twitched of the affected extremity including the hand brachialis muscles, biceps and the deltoid was obtained at a current of __0.3___MA. After repeated negative aspiration,__5___cc of___0.5__, ropivacaine were injected and this was followed with __25___cc of __0.5___% ___ropivacaine . Under ultrasound guidance the local anesthetics were observed surrounding the roots of the brachial plexus. The needle was removed intact and sterile dressing was applied. The patient had stable vital signs, was conscious and in no apparent distress. The patient tolerated the interscalene block of the bracheal plexus well with stable vital signs and was prepared for subsequent surgery.
[2018-08-05] MEDS ORDERED: Clindamycin 600mg/50ml D5W 600 MG/50 ML VIAL IVPB SCH (17:00)
--- NOTE | 2018-08-05 18:18 | PCM.SURG1 ---
Surgeon's Initial Post Op Note - Surgeon's Notes Surgeon: Tami Bung Driver: 1st assist Joni Zuluaga PA-C/ 2nd assist Tiffanie Tai Type of Anesthesia: General Endo, Block Regional Anesthesia Administered By: Dr Dylan Leavitt Pre-Operative Diagnosis: Displaced/comminuted 4 part proximal humerus fracture. pre-existing oarthritis R shoulder. Rotator cuff teaR Operative Findings: DISPLACED/COMMINUTED 4 PART FRACTURE left proximal humerus fracture. arthritis L shoulder with glenoid compromise. rotator cuff tear L shoulder Post-Operative Diagnosis: as above Operation Performed: L Reverse Shoulder arthroplasty L shoulder. repair L rotator cuff. biceps tenodesis. arthtomy excision glenoid labrum L shoulder Specimen/Specimens Removed: bone tendon cartilage Estimated Blood Loss: EBL {In ML}: 70 Blood Products Given: PRBC Drains Used: No Drains Post-Op Condition: Fair Date of Surgery/Procedure: 08/05/18 Time of Surgery/Procedure: 14:15 (time in room /anaesthesia indcution time 1300)
--- NOTE | 2018-08-05 18:50 | PN ---
DATE: 08/05/2018 ENDOCRINOLOGY FOLLOWUP LOCATION: Room 410 SUBJECTIVE: This is a 57-year-old female with recent uncontrolled type 2 insulin-requiring diabetes presenting here with a syncopal episode and sustained an accidental fall with a fracture in the left humeral area and is currently undergoing orthopedic surgery this time today. Her glycemic levels are low normal with glucose values ranging from 92 to 137 mg/dL. Her chemistry showed a BUN of 16, sodium 132, potassium 3.9, chloride 91, CO2 of 30, glucose 140 and creatinine 0.5. So at this time, we will continue the low-dose correction scale using Humalog insulin as ordered. As her oral intake resumed postoperatively, then we will also resume her basal and bolus insulin drug regimen as ordered. We will continue the Levemir given as 20 units subcutaneous at bedtime daily as ordered and resume the Humalog given as 10 units t.i.d. before meals as ordered. We will obtain serial chemistries and supplement accordingly as needed. We will follow. Kelsey Rosenbaum MD
[2018-08-05] MEDS: Sodium Chloride 0.9% 1,000 ML IV SCH (21:25)
[2018-08-05] MEDS: Clindamycin 600 MG in Sodium Chloride 0.9% 100 ML IVPB SCH (21:25)
[2018-08-05] MEDS: Insulin Detemir 100 Units/ml Inj SC SCH (21:34)
--- NOTE | 2018-08-05 21:49 | CP.PCM.PN ---
Subjective - Date & Time of Evaluation Date of Evaluation: 08/05/18 Time of Evaluation: 19:20 - Subjective Subjective: F/U Fx L Shoulder. S/P surgery left shoulder (today) pain L shoulder relieved with pain medication Objective - Vital Signs/Intake and Output Vital Signs (last 24 hours): Temp Pulse Resp BP Pulse Ox 98.1 F 62 17 144/84 92 L 08/05/18 19:36 08/05/18 19:36 08/05/18 19:36 08/05/18 19:36 08/05/18 19:36 Intake and Output: 08/05/18 08/06/18 18:59 06:59 Intake Total 1700 Balance 1700 - Medications Medications: Current Medications Acetaminophen (Tylenol 325mg Tab) 650 mg PO Q4 PRN PRN Reason: Fever 101 degrees fahrenheit Alprazolam (Xanax) 0.5 mg PO BID PRN PRN Reason: Anxiety Last Admin: 08/04/18 23:36 Dose: 0.5 mg Aripiprazole (Abilify) 2 mg PO DAILY [facility] Last Admin: 08/05/18 08:43 Dose: Not Given Atorvastatin Calcium (Lipitor) 20 mg PO DAILY [facility] Last Admin: 08/05/18 08:43 Dose: Not Given Cholecalciferol (Vitamin D) 2,000 intlu PO DAILY [facility] Last Admin: 08/05/18 08:43 Dose: Not Given Docusate Sodium (Colace) 100 mg PO BID [facility] Last Admin: 08/05/18 18:54 Dose: 100 mg Ferrous Sulfate (Feosol) 325 mg PO BID [facility] Last Admin: 08/05/18 18:54 Dose: 325 mg Folic Acid (Folic Acid) 1 mg PO DAILY [facility] Last Admin: 08/05/18 08:43 Dose: Not Given Glipizide (Glucotrol Xl) 10 mg PO BIDWM [facility] Last Admin: 08/05/18 18:54 Dose: 10 mg Home Med (Patient's Own Medication) 1 unit YAMILE BID [facility] Last Admin: 08/05/18 18:55 Dose: 1 unit Sodium Chloride (Sodium Chloride 0.9%) 1,000 mls @ 100 mls/hr IV .Q10H [facility] Stop: 08/06/18 16:00 Last Admin: 08/05/18 21:25 Dose: 100 mls/hr Clindamycin Phosphate 600 mg/ (Sodium Chloride) 104 mls @ 208 mls/hr IVPB Q8 [facility]; Protocol Stop: 08/06/18 01:29 Last Admin: 08/05/18 21:25 Dose: 208 mls/hr Insulin Detemir (Levemir) 20 units SC HS [facility] Last Admin: 08/05/18 21:34 Dose: 20 u Insulin Human Lispro (Humalog) 10 units SC ACTID [facility] Last Admin: 08/05/18 11:19 Dose: Not Given Midodrine (Proamatine) 10 mg PO TID [facility] Last Admin: 08/05/18 18:54 Dose: 10 mg Morphine Sulfate (Morphine) 4 mg IVP Q4 PRN PRN Reason: Pain, severe (8-10) Last Admin: 08/05/18 04:44 Dose: 4 mg Morphine Sulfate (Morphine) 2 mg IVP Q4 PRN PRN Reason: Pain, severe (8-10) Ondansetron HCl (Zofran Inj) 4 mg IVP ONCE PRN PRN Reason: Nausea/Vomiting Oxycodone/Acetaminophen (Percocet 5/325 Mg Tab) 1 tab PO Q4 PRN PRN Reason: Pain, Mild (1-3) Stop: 08/08/18 15:59 Oxycodone/Acetaminophen (Percocet 5/325 Mg Tab) 2 tab PO Q4 PRN PRN Reason: Pain, moderate (4-7) Stop: 08/08/18 15:59 Sertraline HCl (Zoloft) 50 mg PO DAILY [facility] Last Admin: 08/05/18 08:43 Dose: Not Given - Labs Labs: 08/04/18 04:55 08/04/18 04:55 PT 11.9 Seconds (9.8-13.1) 08/03/18 05:30 INR 1.0 08/03/18 05:30 APTT 26.7 Seconds (25.6-37.1) 08/04/18 04:55 - Constitutional Appears: No Acute Distress - Head Exam Head Exam: NORMAL INSPECTION - Eye Exam Eye Exam: PERRL - ENT Exam ENT Exam: Normal Exam - Neck Exam Neck Exam: Normal Inspection - Respiratory Exam Respiratory Exam: NORMAL BREATHING PATTERN - Cardiovascular Exam Cardiovascular Exam: REGULAR RHYTHM, Murmur (systolic) - GI/Abdominal Exam GI & Abdominal Exam: Soft, Normal Bowel Sounds - Extremities Exam Additional comments: Surgical dressing L shoulder s/p surgery today, neuromuscular status distal good R shoulder decreased ROM, healed surgical scar for recent Fx. - Back Exam Additional comments: Mild redness sacral area - Neurological Exam Neurological Exam: Alert, Awake, Oriented x3 Additional comments: no focal motor/sensory deficit - Psychiatric Exam Psychiatric exam: Normal Affect, Normal Mood - Skin Skin Exam: Warm Assessment and Plan (1) Syncope and collapse Status: Acute (2) Shoulder fracture, left Assessment & Plan: ORIF 08-05 Status: Acute (3) Orthostatic hypotension Status: Acute (4) Uncontrolled insulin dependent diabetes mellitus Status: Acute (5) History of fracture of right shoulder Status: Chronic (6) Diabetes insipidus Status: Chronic (7) Anxiety and depression Status: Chronic (8) Diabetic retinopathy of both eyes Status: Chronic (9) Vitamin D deficiency Status: Acute (10) HTN (hypertension) Status: Chronic (11) Anemia Status: Acute - Assessment and Plan (Free Text) Plan: stable pos-op Orif L shoulder today 08-05, continue Morphine, Percocet, Midodrin, Humalog, Levemir and rest of Tx
[2018-08-06] MEDS: Clindamycin 600 MG in Sodium Chloride 0.9% 100 ML IVPB SCH (05:08)
[2018-08-06 06:17] LABS: HEMOGLOBIN 11.7 g/dL (12.0-16.0); MEAN CELL VOLUME 87.1 fl (81.0-99.0); MEAN CORPUSCULAR HEMOGLOBIN 29.9 pg (27.0-31.0); MEAN CORPUSCULAR HGB CONC 34.3 g/dL (33.0-37.0); RBC 3.92 Mil/uL (3.80-5.20); RED CELL DISTRIBUTION WIDTH 14.7 % (11.5-14.5); WHITE BLOOD COUNT 8.2 K/uL (4.8-10.8)
[2018-08-06 06:26] LABS: BLOOD UREA NITROGEN 15 mg/dl (7-17); CALCIUM 8.8 mg/dL (8.4-10.2); GFR NON-AFRICAN AMERICAN > 60
--- NOTE | 2018-08-06 07:14 | CP.PCM.PN ---
Subjective - Date & Time of Evaluation Date of Evaluation: 08/06/18 Time of Evaluation: 06:40 - Subjective Subjective: Pt seen and examined this morning at bedside. Pt denies chest pain or SOB Objective - Vital Signs/Intake and Output Vital Signs (last 24 hours): Temp Pulse Resp BP Pulse Ox 98.9 F 70 18 121/68 95 08/06/18 04:47 08/06/18 04:47 08/06/18 04:47 08/06/18 04:47 08/06/18 04:47 - Medications Medications: Current Medications Acetaminophen (Tylenol 325mg Tab) 650 mg PO Q4 PRN PRN Reason: Fever 101 degrees fahrenheit Alprazolam (Xanax) 0.5 mg PO BID PRN PRN Reason: Anxiety Last Admin: 08/05/18 23:35 Dose: 0.5 mg Aripiprazole (Abilify) 2 mg PO DAILY [facility] Last Admin: 08/05/18 08:43 Dose: Not Given Atorvastatin Calcium (Lipitor) 20 mg PO DAILY [facility] Last Admin: 08/05/18 08:43 Dose: Not Given Cholecalciferol (Vitamin D) 2,000 intlu PO DAILY [facility] Last Admin: 08/05/18 08:43 Dose: Not Given Docusate Sodium (Colace) 100 mg PO BID [facility] Last Admin: 08/05/18 18:54 Dose: 100 mg Ferrous Sulfate (Feosol) 325 mg PO BID [facility] Last Admin: 08/05/18 18:54 Dose: 325 mg Folic Acid (Folic Acid) 1 mg PO DAILY [facility] Last Admin: 08/05/18 08:43 Dose: Not Given Glipizide (Glucotrol Xl) 10 mg PO BIDWM [facility] Last Admin: 08/05/18 18:54 Dose: 10 mg Home Med (Patient's Own Medication) 1 unit YAMILE BID [facility] Last Admin: 08/05/18 18:55 Dose: 1 unit Sodium Chloride (Sodium Chloride 0.9%) 1,000 mls @ 100 mls/hr IV .Q10H [facility] Stop: 08/06/18 16:00 Last Admin: 08/05/18 21:25 Dose: 100 mls/hr Insulin Detemir (Levemir) 20 units SC [facility] Last Admin: 08/05/18 21:34 Dose: 20 u Insulin Human Lispro (Humalog) 10 units SC ACTID [facility] Last Admin: 08/05/18 11:19 Dose: Not Given Midodrine (Proamatine) 10 mg PO TID [facility] Last Admin: 08/05/18 18:54 Dose: 10 mg Morphine Sulfate (Morphine) 4 mg IVP Q4 PRN PRN Reason: Pain, severe (8-10) Last Admin: 08/05/18 04:44 Dose: 4 mg Morphine Sulfate (Morphine) 2 mg IVP Q4 PRN PRN Reason: Pain, severe (8-10) Ondansetron HCl (Zofran Inj) 4 mg IVP ONCE PRN PRN Reason: Nausea/Vomiting Oxycodone/Acetaminophen (Percocet 5/325 Mg Tab) 1 tab PO Q4 PRN PRN Reason: Pain, Mild (1-3) Stop: 08/08/18 15:59 Oxycodone/Acetaminophen (Percocet 5/325 Mg Tab) 2 tab PO Q4 PRN PRN Reason: Pain, moderate (4-7) Stop: 08/08/18 15:59 Sertraline HCl (Zoloft) 50 mg PO DAILY [facility] Last Admin: 08/05/18 08:43 Dose: Not Given - Labs Labs: 08/06/18 05:45 08/06/18 05:45 PT 11.9 Seconds (9.8-13.1) 08/03/18 05:30 INR 1.0 08/03/18 05:30 APTT 26.7 Seconds (25.6-37.1) 08/04/18 04:55 - Constitutional Appears: No Acute Distress - Head Exam Head Exam: ATRAUMATIC, NORMOCEPHALIC - Eye Exam Eye Exam: EOMI - ENT Exam ENT Exam: Mucous Membranes Moist - Neck Exam Neck Exam: Full ROM - Respiratory Exam Respiratory Exam: Clear to Ausculation Bilateral. absent: Accessory Muscle Use, Respiratory Distress - Cardiovascular Exam Cardiovascular Exam: RRR, +S1, +S2. absent: Diastolic murmur, Murmur - GI/Abdominal Exam GI & Abdominal Exam: Soft, Normal Bowel Sounds. absent: Tenderness - Extremities Exam Extremities Exam: Full ROM. absent: Pedal Edema - Neurological Exam Neurological Exam: Alert, Awake, Oriented x3 - Psychiatric Exam Psychiatric exam: Normal Affect, Normal Mood - Skin Skin Exam: Dry, Normal Color, Warm Assessment and Plan - Assessment and Plan (Free Text) Assessment: (1) Syncope and collapse Status: Acute (2) HTN (hypertension) Status: Chronic Priority: Medium Plan: Evaluation of syncope Possible due to adrenal insufficiency Troponin negative 07/30 HA1C 11.8 Random cortisol 4.6 EKG 07/30/18 NSR, no ST or T wave abnormalities ECHO 07/31/18 LVH, EF 60-65%, Grade 1 relaxation pattern Pt risk stratified, determined to be a low risk for shoulder surgery Medication lipitor glipizide midodrine Pt seen, examined, assessment and plan discussed with Dr Javier Espinal PGY1, Internal Medicine Resident
[2018-08-06] MEDS: Insulin Lispro (humaLOG) 100 Units/ml Inj SC SCH ×3 (08:30→17:59)
[2018-08-06] MEDS: GlipiZIDE 10 mg SR Tab PO SCH ×2 (08:32→16:32)
[2018-08-06] MEDS: Cholecalciferol 1,000 INTLU TAB PO SCH (08:32)
[2018-08-06] MEDS: DESMOPRESSIN 0.1 MG/ML NAS SCH ×2 (08:33→18:00)
[2018-08-06] MEDS: Sodium Chloride 0.9% 1,000 ML IV SCH (08:45)
--- NOTE | 2018-08-06 10:08 | CP.PCM.PN ---
Subjective - Date & Time of Evaluation Date of Evaluation: 08/06/18 Time of Evaluation: 10:06 - Subjective Subjective: Patient states she has some pain in shoulder, still feels it is numb around her shoulder from the block. Denies Cp/SOB/dizziness. Denies numbness/tingling in her hand. Objective - Vital Signs/Intake and Output Vital Signs (last 24 hours): Temp Pulse Resp BP Pulse Ox 98.6 F 68 18 131/72 97 08/06/18 07:53 08/06/18 07:53 08/06/18 07:53 08/06/18 07:53 08/06/18 07:53 - Medications Medications: Current Medications Acetaminophen (Tylenol 325mg Tab) 650 mg PO Q4 PRN PRN Reason: Fever 101 degrees fahrenheit Alprazolam (Xanax) 0.5 mg PO BID PRN PRN Reason: Anxiety Last Admin: 08/05/18 23:35 Dose: 0.5 mg Aripiprazole (Abilify) 2 mg PO DAILY [facility] Last Admin: 08/06/18 08:31 Dose: 2 mg Atorvastatin Calcium (Lipitor) 20 mg PO DAILY [facility] Last Admin: 08/06/18 08:32 Dose: 20 mg Cholecalciferol (Vitamin D) 2,000 intlu PO DAILY [facility] Last Admin: 08/06/18 08:32 Dose: 2,000 intlu Docusate Sodium (Colace) 100 mg PO BID [facility] Last Admin: 08/06/18 08:31 Dose: 100 mg Ferrous Sulfate (Feosol) 325 mg PO BID [facility] Last Admin: 08/06/18 08:31 Dose: 325 mg Folic Acid (Folic Acid) 1 mg PO DAILY [facility] Last Admin: 08/06/18 08:33 Dose: 1 mg Glipizide (Glucotrol Xl) 10 mg PO BIDWM [facility] Last Admin: 08/06/18 08:32 Dose: 10 mg Home Med (Patient's Own Medication) 1 unit YAMILE BID [facility] Last Admin: 08/06/18 08:33 Dose: 1 unit Sodium Chloride (Sodium Chloride 0.9%) 1,000 mls @ 100 mls/hr IV .Q10H [facility] Stop: 08/06/18 16:00 Last Admin: 08/06/18 08:45 Dose: 100 mls/hr Insulin Detemir (Levemir) 20 units SC HS [facility] Last Admin: 08/05/18 21:34 Dose: 20 u Insulin Human Lispro (Humalog) 10 units SC ACTID [facility] Last Admin: 08/06/18 08:30 Dose: 10 units Midodrine (Proamatine) 10 mg PO TID [facility] Last Admin: 08/06/18 08:32 Dose: 10 mg Morphine Sulfate (Morphine) 2 mg IVP Q4 PRN PRN Reason: Pain, severe (8-10) Last Admin: 08/06/18 08:29 Dose: 2 mg Ondansetron HCl (Zofran Inj) 4 mg IVP ONCE PRN PRN Reason: Nausea/Vomiting Oxycodone/Acetaminophen (Percocet 5/325 Mg Tab) 1 tab PO Q4 PRN PRN Reason: Pain, Mild (1-3) Stop: 08/08/18 15:59 Oxycodone/Acetaminophen (Percocet 5/325 Mg Tab) 2 tab PO Q4 PRN PRN Reason: Pain, moderate (4-7) Stop: 08/08/18 15:59 Sertraline HCl (Zoloft) 50 mg PO DAILY [facility] Last Admin: 08/06/18 08:33 Dose: 50 mg - Labs Labs: 08/06/18 05:45 08/06/18 05:45 PT 11.9 Seconds (9.8-13.1) 08/03/18 05:30 INR 1.0 08/03/18 05:30 APTT 26.7 Seconds (25.6-37.1) 08/04/18 04:55 - Extremities Exam Additional comments: LUE: dressing intact, no visible drainage. +ROM fingers/thumb flex/ext/add/abd, wrist flex/ext sensation intact to rad/ulnar/med nerves, admits to numbness to lateral shoulder at this time. +radial pulse, shoulder immob intact Assessment and Plan (1) Closed fracture of neck of left humerus Assessment & Plan: POD# 1 s/p left reverse total shoulder replacement ortho stable for d/c at this time encourage OOB, PT/OT anticoagulation for upper extremity arthroplasty is not standard of care, however patient has limited mobility of right arm and has been minimally mobile during hospitalization, so will defer to medical team (if indicated, can start 24 hours post op) d/c planning f/u Dr. Garrett in office 1 week call for appointment d/w Dr. Garrett, agrees with above Status: Acute (2) Acute blood loss anemia Status: Acute
--- NOTE | 2018-08-06 10:35 | PN ---
DATE: 08/06/2018 LOCATION: 410. This is a 57-year-old female with recent uncontrolled type 2 insulin-requiring diabetes, now being followed closely for metabolic management. She had a syncopal episode and sustained an accidental fall with a left humeral fracture as noted. She underwent a total shoulder replacement yesterday as noted. Her glycemic levels are fluctuating but improved and the glucose values have ranged from 204 to 246 mg/dL. Her chemistry showed a BUN of 15, sodium 129, potassium 4.2, chloride 90, CO2 of 25, glucose 233 and creatinine 0.6. So, at this time, with the variability of her oral intake, we will continue the same basal and bolus insulin regimen as given with Humalog given as 10 units t.i.d. before meals as ordered. We will continue the basal insulin given as Levemir at 20 units subcu at bedtime daily as given. We will also continue the glipizide given as 10 mg b.i.d. before meals as ordered. We will obtain serial chemistries and supplement accordingly as needed. We will follow. Kelsey Rosenbaum MD
--- NOTE | 2018-08-06 13:32 | OP ---
PROCEDURE DATE: 08/05/2018 TIME OF SURGERY: 14:15. TIME IN THE ROOM: 13:00. PREOPERATIVE DIAGNOSES: 1. Comminuted displaced four-part proximal humerus fracture. 2. Preexisting osteoarthritis of the left shoulder, left rotator cuff tear, left shoulder is the correct shoulder. POSTOPERATIVE DIAGNOSES: 1. Displaced comminuted four-part left proximal humerus fracture. 2. Arthritis of the left shoulder. 3. Rotator cuff tear. OPERATIVE FINDINGS: 1. Displaced comminuted four-part left proximal humerus fracture. 2. Preexisting osteoarthritis of the shoulder with glenoid compromise rotator cuff tear. OPERATIVE PROCEDURES: 1. Reverse shoulder arthroplasty, left shoulder. 2. Proximal humeral osteotomy. 3. Rotator cuff repair. 4. Biceps tenodesis. 5. Arthrotomy, excision of glenoid labrum. SURGEON: Valentin Garrett MD PLASTIC JOINT MAKER: Danial Zuluaga PA-C SECOND TANK TRUCK ENGINE MECHANIC: Sakina Monge, Certified Registered Nursing Transit Mix Operator. ANESTHESIA: General endotracheal anesthesia with regional block. ANESTHESIOLOGIST: Dylan Leavitt MD SPECIMENS REMOVED: Bone, tendon, cartilage. BLOOD LOSS: Approximately 70 mL. BLOOD PRODUCTS GIVEN: One unit of packed cells. DRAINS: None. POSTOPERATIVE CONDITION: Stable. OPERATIVE INDICATIONS: Katy Frias is a patient of Dr. Huey Glaser who presented after a syncopal episode and a fall. The patient presented with a severely comminuted left proximal humerus fracture. Pros, cons, risks and benefits of reverse shoulder arthroplasty were discussed. Various options were discussed. The possibility of benign neglect, possibility of closed reduction, the possibility of open reduction and internal fixation, the possibility of reverse shoulder arthroplasty was discussed; the possibility of mechanical failure, infection, thromboembolic disease, possibility of secondary or tertiary surgery was discussed. The patient can no longer stand the discomfort and wished the surgery to be accomplished. DESCRIPTION OF PROCEDURE: After having obtained informed consent, after having identified side, site and procedure and critical pause/time-out, after the satisfactory induction of the anesthetic, the patient identified as Katy Frias. In the modified miller chair position, the left upper extremity was prepped and free draped in usual fashion for upper extremity surgery. The left upper extremity was placed in the upper extremity positioner. The topographic anatomy of the shoulder was marked, the spine of scapula, lateral aspect of the acromion, coracoid process. An incision was described from the distal third of the clavicle to the deltoid tuberosity. The skin incision was insufflated with solution of 1:1000 epinephrine with 250 mL of saline. The skin incision was carried down through the skin and subcutaneous tissue. Hemostasis controlled with the Aquamantys. The deltopectoral interval was identified, the cephalic vein was identified, and at this point in time, the retractors were placed deep exposing the clavipectoral fascia. The clavipectoral fascia was divided. The conjoined tendon was identified and again, the proximal humerus was identified. There was found to be a tear of the rotator cuff. Completion of the rotator cuff tear was accomplished using the oscillating saw. The inferior subscapular vessels were controlled with Aquamantys. On further rotation of the humerus, severely comminuted and displaced proximal humerus fracture was identified. There was no hope for repairing this. The bone was osteopenic and there were at least seven fragments. This having been accomplished and humeral osteotomy having been accomplished, attention was turned to the proximal humerus. At this point in time, the rotator cuff was tagged with further rotation both medially and laterally. The biceps tendon was tenotomized. At this point in time, the humeral osteotomy was accomplished at the level of the fracture with comminution. This having been accomplished, the glenoid was identified. Arthrotomy of the glenohumeral joint was accomplished. Arthrotomy and excision of the glenoid labrum having been accomplished, attention was turned to the glenoid. This having been accomplished, the glenoid guide was introduced. The bur was used to perform an osteoplasty of the glenoid. The pin was introduced into the glenoid at the equator and this having been accomplished, reaming commenced. Reaming was accomplished. After this, the glenoid plate was introduced and fixation was accomplished of the appropriate size. Fixation was accomplished with 22-mm screw superiorly, 25-mm screw inferiorly. The glenosphere was impacted and controlled with the screw. At this point in time, attention was turned to the humerus. Humeral reaming was carried out to 15 mm, the 15-mm stem was introduced. The proximal body trial was affixed and the #3 polyethylene was employed. The shoulder was reduced and found to be stable in all planes. This having been accomplished, the definitive 15-mm humeral component was introduced. The proximal body was affixed with cold weld impaction supplemented with a screw. A 3-mm polyethylene was introduced. The shoulder was reduced, found to be stable in all planes. The wound was thoroughly irrigated. At this point in time with the arm in approximately 10 degrees of internal rotation and neutral, the rotator cuff was repaired through the fracture prosthesis and this having been accomplished, the biceps tenodesis was accomplished to the repair of mass. The wound was thoroughly irrigated. Closure of the deltopectoral interval was with 0 Quill followed by Vicryl and miguel for skin. Hemostasis was controlled with the Aquamantys prior to closure as well as the FloSeal. Compression dressing and shoulder immobilizer were applied. Valentin Garrett MD
--- NOTE | 2018-08-06 14:06 | RAD ---
Date of service: 08/05/2018 PROCEDURE: Radiographs of the Left Shoulder HISTORY: s/p L TSR COMPARISON: Preoperative study 07/30/2018. FINDINGS: BONES: Satisfactory position alignment of left shoulder replacement components. JOINTS: As above SOFT TISSUES: Normal. OTHER FINDINGS: None. IMPRESSION: Satisfactory postoperative status.
--- NOTE | 2018-08-06 14:46 | CP.PCM.PN ---
Subjective - Date & Time of Evaluation Date of Evaluation: 08/06/18 Time of Evaluation: 13:00 - Subjective Subjective: F/U Fx L Shoulder, S/P surgery, PO#2 Objective - Vital Signs/Intake and Output Vital Signs (last 24 hours): Temp Pulse Resp BP Pulse Ox 98.9 F 73 18 123/62 95 08/06/18 11:57 08/06/18 11:57 08/06/18 11:57 08/06/18 11:57 08/06/18 11:57 - Medications Medications: Current Medications Acetaminophen (Tylenol 325mg Tab) 650 mg PO Q4 PRN PRN Reason: Fever 101 degrees fahrenheit Alprazolam (Xanax) 0.5 mg PO BID PRN PRN Reason: Anxiety Last Admin: 08/05/18 23:35 Dose: 0.5 mg Aripiprazole (Abilify) 2 mg PO DAILY [facility] Last Admin: 08/06/18 08:31 Dose: 2 mg Atorvastatin Calcium (Lipitor) 20 mg PO DAILY [facility] Last Admin: 08/06/18 08:32 Dose: 20 mg Cholecalciferol (Vitamin D) 2,000 intlu PO DAILY [facility] Last Admin: 08/06/18 08:32 Dose: 2,000 intlu Docusate Sodium (Colace) 100 mg PO BID [facility] Last Admin: 08/06/18 08:31 Dose: 100 mg Ferrous Sulfate (Feosol) 325 mg PO BID [facility] Last Admin: 08/06/18 08:31 Dose: 325 mg Folic Acid (Folic Acid) 1 mg PO DAILY [facility] Last Admin: 08/06/18 08:33 Dose: 1 mg Glipizide (Glucotrol Xl) 10 mg PO BIDWM [facility] Last Admin: 08/06/18 08:32 Dose: 10 mg Home Med (Patient's Own Medication) 1 unit YAMILE BID [facility] Last Admin: 08/06/18 08:33 Dose: 1 unit Sodium Chloride (Sodium Chloride 0.9%) 1,000 mls @ 100 mls/hr IV .Q10H [facility] Stop: 08/06/18 16:00 Last Admin: 08/06/18 08:45 Dose: 100 mls/hr Sodium Chloride (Sodium Chloride 0.9%) 500 mls @ 50 mls/hr IV .Q10H [facility] Ibuprofen (Motrin Tab) 600 mg PO Q8 [facility] Insulin Detemir (Levemir) 20 units SC HS [facility] Last Admin: 08/05/18 21:34 Dose: 20 u Insulin Human Lispro (Humalog) 10 units SC ACTID [facility] Last Admin: 08/06/18 12:19 Dose: 10 units Midodrine (Proamatine) 10 mg PO TID [facility] Last Admin: 08/06/18 12:20 Dose: 10 mg Morphine Sulfate (Morphine) 2 mg IVP Q4 PRN PRN Reason: Pain, severe (8-10) Last Admin: 08/06/18 12:21 Dose: 2 mg Ondansetron HCl (Zofran Inj) 4 mg IVP ONCE PRN PRN Reason: Nausea/Vomiting Oxycodone/Acetaminophen (Percocet 5/325 Mg Tab) 1 tab PO Q4 PRN PRN Reason: Pain, Mild (1-3) Stop: 08/08/18 15:59 Oxycodone/Acetaminophen (Percocet 5/325 Mg Tab) 2 tab PO Q4 PRN PRN Reason: Pain, moderate (4-7) Stop: 08/08/18 15:59 Sertraline HCl (Zoloft) 50 mg PO DAILY [facility] Last Admin: 08/06/18 08:33 Dose: 50 mg - Labs Labs: 08/06/18 05:45 08/06/18 05:45 PT 11.9 Seconds (9.8-13.1) 08/03/18 05:30 INR 1.0 08/03/18 05:30 APTT 26.7 Seconds (25.6-37.1) 08/04/18 04:55 - Constitutional Appears: No Acute Distress - Head Exam Head Exam: NORMAL INSPECTION - Eye Exam Eye Exam: PERRL - ENT Exam ENT Exam: Normal Exam - Neck Exam Neck Exam: Normal Inspection - Respiratory Exam Respiratory Exam: NORMAL BREATHING PATTERN - Cardiovascular Exam Cardiovascular Exam: REGULAR RHYTHM, Murmur (systolic) - GI/Abdominal Exam GI & Abdominal Exam: Soft, Normal Bowel Sounds - Extremities Exam Additional comments: L shoulder dressing, immobilizer in place. - Back Exam Additional comments: mild sacral redness - Neurological Exam Neurological Exam: Alert, CN II-XII Intact, Oriented x3 Additional comments: No focal motor/sensory deficit. - Psychiatric Exam Psychiatric exam: Normal Mood - Skin Skin Exam: Warm Assessment and Plan (1) Syncope and collapse Status: Acute (2) Shoulder fracture, left Status: Acute (3) Orthostatic hypotension Status: Acute (4) Uncontrolled insulin dependent diabetes mellitus Status: Acute (5) History of fracture of right shoulder Status: Chronic (6) Diabetes insipidus Status: Chronic (7) Anxiety and depression Status: Chronic (8) Diabetic retinopathy of both eyes Status: Chronic (9) Vitamin D deficiency Status: Acute (10) HTN (hypertension) Status: Chronic (11) Anemia Status: Acute
[2018-08-06] MEDS: Oxycodone/Acetaminophen 5/325 mg Tab PO PRN ×2 (16:31→20:31)
[2018-08-06] MEDS: Insulin Detemir 100 Units/ml Inj SC SCH (22:38)
[2018-08-07 06:04] LABS: BLOOD UREA NITROGEN 16 mg/dl (7-17); CALCIUM 8.6 mg/dL (8.4-10.2); GFR NON-AFRICAN AMERICAN > 60; HEMOGLOBIN 11.1 g/dL (12.0-16.0); MEAN CELL VOLUME 88.2 fl (81.0-99.0); MEAN CORPUSCULAR HEMOGLOBIN 29.6 pg (27.0-31.0); MEAN CORPUSCULAR HGB CONC 33.6 g/dL (33.0-37.0); RBC 3.73 Mil/uL (3.80-5.20); RED CELL DISTRIBUTION WIDTH 14.8 % (11.5-14.5); WHITE BLOOD COUNT 6.9 K/uL (4.8-10.8)
[2018-08-07] MEDS: Insulin Lispro (humaLOG) 100 Units/ml Inj SC SCH ×4 (08:05→17:39)
[2018-08-07] MEDS: DESMOPRESSIN 0.1 MG/ML NAS SCH ×2 (08:38→18:37)
[2018-08-07] MEDS: Sodium Chloride 0.9% 500 ML IV SCH ×2 (08:38→18:40)
[2018-08-07] MEDS: Cholecalciferol 1,000 INTLU TAB PO SCH (08:51)
[2018-08-07] MEDS: GlipiZIDE 10 mg SR Tab PO SCH ×2 (08:51→17:38)
--- NOTE | 2018-08-07 14:22 | PN ---
DATE: 08/07/2018 ROOM: 410 SUBJECTIVE: This is a 57-year-old female with recent uncontrolled type 2 insulin-requiring diabetes, presented here with an accidental fall and sustained a left humeral fracture and underwent a total shoulder replacement a few days ago, is now being followed closely for metabolic management. LABORATORY DATA: Her glucose values have ranged from 117 to 187 mg/dL. Her chemistries showed a BUN of 15, . ASSESSMENT AND PLAN: 12 units t.i.d. before meals as ordered. We will continue the Levemir given as basal insulin at 20 units subcu at bedtime daily as given. We will continue also the glipizide given as 10 mg b.i.d. before meals as ordered. We will obtain serial chemistries and supplement accordingly as needed. We will follow this. Kelsey Rosenbaum MD
--- NOTE | 2018-08-07 15:51 | CP.PCM.PN ---
Subjective - Date & Time of Evaluation Date of Evaluation: 08/07/18 Time of Evaluation: 17:00 - Subjective Subjective: F/U Fx L Shoulder. S/P surgery. Pt c/o of pain in L shoulder, requesting pain medication. Objective - Vital Signs/Intake and Output Vital Signs (last 24 hours): Temp Pulse Resp BP Pulse Ox 97.8 F 70 20 105/69 96 08/07/18 13:07 08/07/18 13:07 08/07/18 13:07 08/07/18 13:07 08/07/18 13:07 - Medications Medications: Current Medications Acetaminophen (Tylenol 325mg Tab) 650 mg PO Q4 PRN PRN Reason: Fever 101 degrees fahrenheit Alprazolam (Xanax) 0.5 mg PO BID PRN PRN Reason: Anxiety Last Admin: 08/05/18 23:35 Dose: 0.5 mg Aripiprazole (Abilify) 2 mg PO DAILY [facility] Last Admin: 08/07/18 08:50 Dose: 2 mg Atorvastatin Calcium (Lipitor) 20 mg PO DAILY [facility] Last Admin: 08/07/18 08:50 Dose: 20 mg Cholecalciferol (Vitamin D) 2,000 intlu PO DAILY [facility] Last Admin: 08/07/18 08:51 Dose: 2,000 intlu Docusate Sodium (Colace) 100 mg PO BID [facility] Last Admin: 08/07/18 08:50 Dose: 100 mg Ferrous Sulfate (Feosol) 325 mg PO BID [facility] Last Admin: 08/07/18 08:51 Dose: 325 mg Folic Acid (Folic Acid) 1 mg PO DAILY [facility] Last Admin: 08/07/18 08:50 Dose: 1 mg Glipizide (Glucotrol Xl) 10 mg PO BIDWM [facility] Last Admin: 08/07/18 08:51 Dose: 10 mg Home Med (Patient's Own Medication) 1 unit YAMILE BID [facility] Last Admin: 08/07/18 08:38 Dose: 1 unit Sodium Chloride (Sodium Chloride 0.9%) 500 mls @ 50 mls/hr IV .Q10H [facility] Last Admin: 08/07/18 08:38 Dose: 50 mls/hr Ibuprofen (Motrin Tab) 600 mg PO Q8 [facility] Last Admin: 08/07/18 08:59 Dose: 600 mg Insulin Detemir (Levemir) 20 units SC HS [facility] Last Admin: 08/06/18 22:38 Dose: 20 u Insulin Human Lispro (Humalog) 10 units SC ACTID [facility] Last Admin: 08/07/18 12:38 Dose: 10 units Midodrine (Proamatine) 10 mg PO TID [facility] Last Admin: 08/07/18 13:36 Dose: 10 mg Morphine Sulfate (Morphine) 2 mg IVP Q4 PRN PRN Reason: Pain, severe (8-10) Last Admin: 08/06/18 12:21 Dose: 2 mg Ondansetron HCl (Zofran Inj) 4 mg IVP ONCE PRN PRN Reason: Nausea/Vomiting Oxycodone/Acetaminophen (Percocet 5/325 Mg Tab) 1 tab PO Q4 PRN PRN Reason: Pain, Mild (1-3) Stop: 08/08/18 15:59 Last Admin: 08/07/18 14:33 Dose: 1 tab Oxycodone/Acetaminophen (Percocet 5/325 Mg Tab) 2 tab PO Q4 PRN PRN Reason: Pain, moderate (4-7) Stop: 08/08/18 15:59 Last Admin: 08/06/18 20:31 Dose: 2 tab Sertraline HCl (Zoloft) 50 mg PO DAILY [facility] Last Admin: 08/07/18 08:51 Dose: 50 mg - Labs Labs: 08/07/18 04:30 08/07/18 04:30 PT 11.9 Seconds (9.8-13.1) 08/03/18 05:30 INR 1.0 08/03/18 05:30 APTT 26.7 Seconds (25.6-37.1) 08/04/18 04:55 - Constitutional Appears: No Acute Distress - Head Exam Head Exam: NORMAL INSPECTION - Eye Exam Eye Exam: PERRL - ENT Exam ENT Exam: Normal Exam - Neck Exam Neck Exam: Normal Inspection - Respiratory Exam Respiratory Exam: NORMAL BREATHING PATTERN - Cardiovascular Exam Cardiovascular Exam: REGULAR RHYTHM, Murmur (systolic) - GI/Abdominal Exam GI & Abdominal Exam: Soft, Normal Bowel Sounds - Extremities Exam Additional comments: L shoulder dressing in place, immobilizer in place. - Back Exam Additional comments: mild sacral redness - Neurological Exam Neurological Exam: Alert, Oriented x3, Reflexes Normal Additional comments: No focal motor/sensory deficit. - Psychiatric Exam Psychiatric exam: Normal Mood - Skin Skin Exam: Warm Assessment and Plan (1) Syncope and collapse Status: Acute (2) Shoulder fracture, left Status: Acute (3) Orthostatic hypotension Status: Acute (4) Uncontrolled insulin dependent diabetes mellitus Status: Acute (5) History of fracture of right shoulder Status: Chronic (6) Diabetes insipidus Status: Chronic (7) Anxiety and depression Status: Chronic (8) Diabetic retinopathy of both eyes Status: Chronic (9) Vitamin D deficiency Status: Acute (10) HTN (hypertension) Status: Chronic (11) Anemia Status: Acute - Assessment and Plan (Free Text) Plan: Continue Percocet and rest of Tx.
[2018-08-07] MEDS: Insulin Detemir 100 Units/ml Inj SC SCH (21:58)
[2018-08-08] MEDS: Oxycodone/Acetaminophen 5/325 mg Tab PO PRN (01:32)
[2018-08-08] MEDS: Sodium Chloride 0.9% 500 ML IV SCH (06:10)
[2018-08-08] MEDS: GlipiZIDE 10 mg SR Tab PO SCH ×2 (08:40→16:35)
[2018-08-08] MEDS: DESMOPRESSIN 0.1 MG/ML NAS SCH ×2 (09:49→16:35)
[2018-08-08] MEDS: Cholecalciferol 1,000 INTLU TAB PO SCH (10:55)
[2018-08-08] MEDS: Insulin Lispro (humaLOG) 100 Units/ml Inj SC SCH ×2 (12:05→16:35)
[2018-08-08 14:11] LABS: MEAN CELL VOLUME 87.6 fl (81.0-99.0); MEAN CORPUSCULAR HEMOGLOBIN 29.6 pg (27.0-31.0); MEAN CORPUSCULAR HGB CONC 33.8 g/dL (33.0-37.0); RBC 3.73 Mil/uL (3.80-5.20)
[2018-08-08 14:32] LABS: BLOOD UREA NITROGEN 12 mg/dl (7-17); CALCIUM 8.7 mg/dL (8.4-10.2); GFR NON-AFRICAN AMERICAN > 60
--- NOTE | 2018-08-08 14:45 | CP.PCM.PN ---
Subjective - Date & Time of Evaluation Date of Evaluation: 08/08/18 Time of Evaluation: 13:30 - Subjective Subjective: F/U Fx L shoulder, s/p sx. Pain in L shoulder, requesting pain medications. Objective - Vital Signs/Intake and Output Vital Signs (last 24 hours): Temp Pulse Resp BP Pulse Ox 97.6 F 68 20 142/92 H 98 08/08/18 12:47 08/08/18 12:47 08/08/18 12:47 08/08/18 12:47 08/08/18 12:47 Intake and Output: 08/08/18 08/08/18 06:59 18:59 Intake Total 540 Balance 540 - Medications Medications: Current Medications Acetaminophen (Tylenol 325mg Tab) 650 mg PO Q4 PRN PRN Reason: Fever 101 degrees fahrenheit Aripiprazole (Abilify) 2 mg PO DAILY [facility] Last Admin: 08/08/18 10:53 Dose: 2 mg Atorvastatin Calcium (Lipitor) 20 mg PO DAILY [facility] Last Admin: 08/08/18 10:52 Dose: 20 mg Cholecalciferol (Vitamin D) 2,000 intlu PO DAILY [facility] Last Admin: 08/08/18 10:55 Dose: 2,000 intlu Docusate Sodium (Colace) 100 mg PO BID [facility] Last Admin: 08/08/18 09:51 Dose: 100 mg Ferrous Sulfate (Feosol) 325 mg PO BID [facility] Last Admin: 08/08/18 09:51 Dose: 325 mg Folic Acid (Folic Acid) 1 mg PO DAILY [facility] Last Admin: 08/08/18 09:51 Dose: 1 mg Glipizide (Glucotrol Xl) 10 mg PO BIDWM [facility] Last Admin: 08/08/18 08:40 Dose: 10 mg Home Med (Patient's Own Medication) 1 unit YAMILE BID [facility] Last Admin: 08/08/18 09:49 Dose: 1 unit Sodium Chloride (Sodium Chloride 0.9%) 500 mls @ 50 mls/hr IV .Q10H [facility] Last Admin: 08/08/18 06:10 Dose: 50 mls/hr Ibuprofen (Motrin Tab) 600 mg PO Q8 [facility] Last Admin: 08/08/18 09:54 Dose: 600 mg Insulin Detemir (Levemir) 16 units SC HS [facility] Insulin Human Lispro (Humalog) 6 units SC ACTID [facility] Last Admin: 08/08/18 12:05 Dose: 6 units Midodrine (Proamatine) 10 mg PO TID [facility] Last Admin: 08/08/18 13:35 Dose: 10 mg Morphine Sulfate (Morphine) 2 mg IVP Q4 PRN PRN Reason: Pain, severe (8-10) Last Admin: 08/06/18 12:21 Dose: 2 mg Ondansetron HCl (Zofran Inj) 4 mg IVP ONCE PRN PRN Reason: Nausea/Vomiting Oxycodone/Acetaminophen (Percocet 5/325 Mg Tab) 1 tab PO Q4 PRN PRN Reason: Pain, Mild (1-3) Stop: 08/08/18 15:59 Last Admin: 08/07/18 14:33 Dose: 1 tab Oxycodone/Acetaminophen (Percocet 5/325 Mg Tab) 2 tab PO Q4 PRN PRN Reason: Pain, moderate (4-7) Stop: 08/08/18 15:59 Last Admin: 08/08/18 01:32 Dose: 2 tab Sertraline HCl (Zoloft) 50 mg PO DAILY [facility] Last Admin: 08/08/18 09:52 Dose: 50 mg - Labs Labs: 08/08/18 13:18 08/08/18 13:18 PT 11.9 Seconds (9.8-13.1) 08/03/18 05:30 INR 1.0 08/03/18 05:30 APTT 26.7 Seconds (25.6-37.1) 08/04/18 04:55 - Constitutional Appears: No Acute Distress - Head Exam Head Exam: NORMAL INSPECTION - Eye Exam Eye Exam: PERRL - ENT Exam ENT Exam: Normal Exam - Neck Exam Neck Exam: Normal Inspection - Respiratory Exam Respiratory Exam: NORMAL BREATHING PATTERN - Cardiovascular Exam Cardiovascular Exam: REGULAR RHYTHM, Murmur (systolic) - GI/Abdominal Exam GI & Abdominal Exam: Soft, Normal Bowel Sounds - Extremities Exam Extremities Exam: Normal Inspection - Back Exam Back Exam: NORMAL INSPECTION - Neurological Exam Neurological Exam: Alert, CN II-XII Intact, Oriented x3 Additional comments: No focal motor/sensory deficit. - Psychiatric Exam Psychiatric exam: Normal Mood - Skin Skin Exam: Warm Assessment and Plan (1) Syncope and collapse Status: Acute (2) Shoulder fracture, left Status: Acute (3) Orthostatic hypotension Status: Acute (4) Uncontrolled insulin dependent diabetes mellitus Status: Acute (5) History of fracture of right shoulder Status: Chronic (6) Diabetes insipidus Status: Chronic (7) Anxiety and depression Status: Chronic (8) Diabetic retinopathy of both eyes Status: Chronic (9) Vitamin D deficiency Status: Acute (10) HTN (hypertension) Status: Chronic (11) Anemia Status: Acute - Assessment and Plan (Free Text) Plan: Continue Percocet and rest of Tx, f/u Orthopedic.
[2018-08-08] MEDS ORDERED: Insulin Detemir 100 Units/ml Inj SC SCH (22:00)
[2018-08-09] MEDS: Insulin Lispro (humaLOG) 100 Units/ml Inj SC SCH ×3 (08:10→17:41)
--- NOTE | 2018-08-09 09:05 | CP.PCM.PN ---
Subjective - Date & Time of Evaluation Date of Evaluation: 08/09/18 Time of Evaluation: 07:45 - Subjective Subjective: Pt seen and examined this morning. Pt has no new complaints at this time Objective - Vital Signs/Intake and Output Vital Signs (last 24 hours): Temp Pulse Resp BP Pulse Ox 98.1 F 62 20 121/76 97 08/09/18 08:00 08/09/18 08:00 08/09/18 08:00 08/09/18 08:00 08/09/18 08:00 - Medications Medications: Current Medications Acetaminophen (Tylenol 325mg Tab) 650 mg PO Q4 PRN PRN Reason: Fever 101 degrees fahrenheit Aripiprazole (Abilify) 2 mg PO DAILY [facility] Last Admin: 08/08/18 10:53 Dose: 2 mg Atorvastatin Calcium (Lipitor) 20 mg PO DAILY [facility] Last Admin: 08/08/18 10:52 Dose: 20 mg Cholecalciferol (Vitamin D) 2,000 intlu PO DAILY [facility] Last Admin: 08/08/18 10:55 Dose: 2,000 intlu Docusate Sodium (Colace) 100 mg PO BID [facility] Last Admin: 08/08/18 16:35 Dose: 100 mg Ferrous Sulfate (Feosol) 325 mg PO BID [facility] Last Admin: 08/08/18 16:37 Dose: 325 mg Folic Acid (Folic Acid) 1 mg PO DAILY [facility] Last Admin: 08/08/18 09:51 Dose: 1 mg Glipizide (Glucotrol Xl) 10 mg PO BIDWM [facility] Last Admin: 08/08/18 16:35 Dose: 10 mg Home Med (Patient's Own Medication) 1 unit YAMILE BID [facility] Last Admin: 08/08/18 16:35 Dose: 1 unit Sodium Chloride (Sodium Chloride 0.9%) 500 mls @ 50 mls/hr IV .Q10H [facility] Last Admin: 08/08/18 06:10 Dose: 50 mls/hr Ibuprofen (Motrin Tab) 600 mg PO Q8 [facility] Last Admin: 08/09/18 00:00 Dose: 600 mg Insulin Detemir (Levemir) 16 units SC HS [facility] Last Admin: 08/08/18 21:00 Dose: 16 units Insulin Human Lispro (Humalog) 6 units SC ACTID [facility] Last Admin: 08/08/18 16:35 Dose: 6 units Midodrine (Proamatine) 10 mg PO TID [facility] Last Admin: 08/08/18 16:36 Dose: Not Given Ondansetron HCl (Zofran Inj) 4 mg IVP ONCE PRN PRN Reason: Nausea/Vomiting Sertraline HCl (Zoloft) 50 mg PO DAILY [facility] Last Admin: 08/08/18 09:52 Dose: 50 mg - Labs Labs: 08/08/18 13:18 08/08/18 13:18 PT 11.9 Seconds (9.8-13.1) 08/03/18 05:30 INR 1.0 08/03/18 05:30 APTT 26.7 Seconds (25.6-37.1) 08/04/18 04:55 - Constitutional Appears: No Acute Distress - Head Exam Head Exam: ATRAUMATIC, NORMOCEPHALIC - Eye Exam Eye Exam: EOMI - ENT Exam ENT Exam: Mucous Membranes Moist - Neck Exam Neck Exam: Full ROM - Respiratory Exam Respiratory Exam: Clear to Ausculation Bilateral, NORMAL BREATHING PATTERN. absent: Accessory Muscle Use - Cardiovascular Exam Cardiovascular Exam: RRR, +S1, +S2. absent: Diastolic murmur, Murmur - GI/Abdominal Exam GI & Abdominal Exam: Soft, Normal Bowel Sounds. absent: Tenderness - Extremities Exam Extremities Exam: absent: Calf Tenderness Additional comments: LUE in sling - Neurological Exam Neurological Exam: Alert, Awake, Oriented x3 - Psychiatric Exam Psychiatric exam: Normal Affect, Normal Mood - Skin Skin Exam: Dry, Normal Color, Warm Assessment and Plan - Assessment and Plan (Free Text) Assessment: (1) Syncope and collapse Status: Acute (2) HTN (hypertension) Status: Chronic Priority: Medium Plan: Evaluation of syncope Possible due to adrenal insufficiency Troponin negative 07/30 HA1C 11.8 Random cortisol 4.6, plasma cortisol PM 3.58 EKG 07/30/18 NSR, no ST or T wave abnormalities ECHO 07/31/18 LVH, EF 60-65%, Grade 1 relaxation pattern Pt risk stratified, determined to be a low risk for shoulder surgery Medication lipitor glipizide midodrine Pt seen, examined, assessment and plan discussed with Dr Javier Espinal PGY1, Internal Medicine Resident
[2018-08-09] MEDS: Cholecalciferol 1,000 INTLU TAB PO SCH (09:08)
[2018-08-09] MEDS: DESMOPRESSIN 0.1 MG/ML NAS SCH ×2 (09:08→17:31)
[2018-08-09] MEDS: GlipiZIDE 10 mg SR Tab PO SCH ×2 (09:09→17:32)
--- NOTE | 2018-08-09 09:44 | CP.PCM.PN ---
Subjective - Date & Time of Evaluation Date of Evaluation: 08/09/18 Time of Evaluation: 09:40 - Subjective Subjective: Patient states pain in shoulder is controlled. Denies numbness/tingling in left arm. Complains of tingling in right hand today, new complaints. Denies Cp/SOB/dizziness. Objective - Vital Signs/Intake and Output Vital Signs (last 24 hours): Temp Pulse Resp BP Pulse Ox 98.1 F 62 20 121/76 97 08/09/18 08:00 08/09/18 08:00 08/09/18 08:00 08/09/18 08:00 08/09/18 08:00 - Medications Medications: Current Medications Acetaminophen (Tylenol 325mg Tab) 650 mg PO Q4 PRN PRN Reason: Fever 101 degrees fahrenheit Aripiprazole (Abilify) 2 mg PO DAILY [facility] Last Admin: 08/09/18 09:09 Dose: 2 mg Atorvastatin Calcium (Lipitor) 20 mg PO DAILY [facility] Last Admin: 08/09/18 09:11 Dose: 20 mg Cholecalciferol (Vitamin D) 2,000 intlu PO DAILY [facility] Last Admin: 08/09/18 09:08 Dose: 2,000 intlu Docusate Sodium (Colace) 100 mg PO BID [facility] Last Admin: 08/09/18 09:09 Dose: 100 mg Ferrous Sulfate (Feosol) 325 mg PO BID [facility] Last Admin: 08/09/18 09:09 Dose: 325 mg Folic Acid (Folic Acid) 1 mg PO DAILY [facility] Last Admin: 08/09/18 09:12 Dose: 1 mg Glipizide (Glucotrol Xl) 10 mg PO BIDWM [facility] Last Admin: 08/09/18 09:09 Dose: 10 mg Home Med (Patient's Own Medication) 1 unit YAMILE BID [facility] Last Admin: 08/09/18 09:08 Dose: 1 unit Sodium Chloride (Sodium Chloride 0.9%) 500 mls @ 50 mls/hr IV .Q10H [facility] Last Admin: 08/08/18 06:10 Dose: 50 mls/hr Ibuprofen (Motrin Tab) 600 mg PO Q8 [facility] Last Admin: 08/09/18 09:18 Dose: 600 mg Insulin Detemir (Levemir) 16 units SC HS [facility] Last Admin: 08/08/18 21:00 Dose: 16 units Insulin Human Lispro (Humalog) 6 units SC ACTID [facility] Last Admin: 08/08/18 16:35 Dose: 6 units Midodrine (Proamatine) 10 mg PO TID [facility] Last Admin: 08/09/18 09:09 Dose: 10 mg Ondansetron HCl (Zofran Inj) 4 mg IVP ONCE PRN PRN Reason: Nausea/Vomiting Sertraline HCl (Zoloft) 50 mg PO DAILY [facility] Last Admin: 08/09/18 09:11 Dose: 50 mg - Labs Labs: 08/08/18 13:18 08/08/18 13:18 PT 11.9 Seconds (9.8-13.1) 08/03/18 05:30 INR 1.0 08/03/18 05:30 APTT 26.7 Seconds (25.6-37.1) 08/04/18 04:55 - Extremities Exam Additional comments: Left shoulder: dressing changed. +ROM fingers, wrist flex/ext/abd/add, sensation intact to rad/med/ulnar nerve distrib. +radial pulse, fingers, warm, incision intact, dry, no erythema, shoulder immobilizer intact RUE: paresthesia to ulnar nerve distrib, admits to some sensation, patient lying with elbow flexed and pressure on bed, likely due to irritation at cubital tunnel, advised patient not to put pressure on right elbow and to put cushion under, encourage OOB, full ROM fingers/wrist, limited ROM right shoulder (chronic due to prior fx/surgery) +radial pulse Assessment and Plan (1) Closed fracture of neck of left humerus Assessment & Plan: POD#4 s/p left total shoulder ortho stable for d/c continue shoulder immobilizer at all times, may adjust and remove for bathing and clothing changes f/u 7-[address] garrett call for appt in office encourage OOB dw/ Dr. Garrett, agrees with above Status: Acute (2) Acute blood loss anemia Assessment & Plan: stable Status: Acute
[2018-08-09 12:29] LABS: BLOOD UREA NITROGEN 8 mg/dl (7-17); CALCIUM 8.9 mg/dL (8.4-10.2); GFR NON-AFRICAN AMERICAN > 60
[2018-08-09] MEDS ORDERED: Potassium Chloride 20 mEq ER Tab PO ONE (12:46)
--- NOTE | 2018-08-09 13:03 | CP.PCM.PN ---
Subjective - Date & Time of Evaluation Date of Evaluation: 08/09/18 Time of Evaluation: 12:30 - Subjective Subjective: F/U Fx L shoulder, s/p sx. Objective - Vital Signs/Intake and Output Vital Signs (last 24 hours): Temp Pulse Resp BP Pulse Ox 98.1 F 74 20 120/62 95 08/09/18 08:00 08/09/18 11:45 08/09/18 08:00 08/09/18 11:45 08/09/18 11:45 - Medications Medications: Current Medications Acetaminophen (Tylenol 325mg Tab) 650 mg PO Q4 PRN PRN Reason: Fever 101 degrees fahrenheit Aripiprazole (Abilify) 2 mg PO DAILY [facility] Last Admin: 08/09/18 09:09 Dose: 2 mg Atorvastatin Calcium (Lipitor) 20 mg PO DAILY [facility] Last Admin: 08/09/18 09:11 Dose: 20 mg Cholecalciferol (Vitamin D) 2,000 intlu PO DAILY [facility] Last Admin: 08/09/18 09:08 Dose: 2,000 intlu Docusate Sodium (Colace) 100 mg PO BID [facility] Last Admin: 08/09/18 09:09 Dose: 100 mg Ferrous Sulfate (Feosol) 325 mg PO BID [facility] Last Admin: 08/09/18 09:09 Dose: 325 mg Folic Acid (Folic Acid) 1 mg PO DAILY [facility] Last Admin: 08/09/18 09:12 Dose: 1 mg Glipizide (Glucotrol Xl) 10 mg PO BIDWM [facility] Last Admin: 08/09/18 09:09 Dose: 10 mg Home Med (Patient's Own Medication) 1 unit YAMILE BID [facility] Last Admin: 08/09/18 09:08 Dose: 1 unit Sodium Chloride (Sodium Chloride 0.9%) 500 mls @ 50 mls/hr IV .Q10H [facility] Last Admin: 08/08/18 06:10 Dose: 50 mls/hr Ibuprofen (Motrin Tab) 600 mg PO Q8 [facility] Last Admin: 08/09/18 09:18 Dose: 600 mg Insulin Detemir (Levemir) 16 units SC HS [facility] Last Admin: 08/08/18 21:00 Dose: 16 units Insulin Human Lispro (Humalog) 6 units SC ACTID [facility] Last Admin: 08/08/18 16:35 Dose: 6 units Midodrine (Proamatine) 10 mg PO TID [facility] Last Admin: 08/09/18 09:09 Dose: 10 mg Ondansetron HCl (Zofran Inj) 4 mg IVP ONCE PRN PRN Reason: Nausea/Vomiting Potassium Chloride (K-Dur 20 Meq Er Tab) 20 meq PO ONCE ONE Stop: 08/09/18 12:47 Sertraline HCl (Zoloft) 50 mg PO DAILY [facility] Last Admin: 08/09/18 09:11 Dose: 50 mg - Labs Labs: 08/08/18 13:18 08/09/18 11:50 PT 11.9 Seconds (9.8-13.1) 08/03/18 05:30 INR 1.0 08/03/18 05:30 APTT 26.7 Seconds (25.6-37.1) 08/04/18 04:55 - Constitutional Appears: No Acute Distress - Head Exam Head Exam: NORMAL INSPECTION - Eye Exam Eye Exam: PERRL - ENT Exam ENT Exam: Normal Exam - Neck Exam Neck Exam: Normal Inspection - Respiratory Exam Respiratory Exam: NORMAL BREATHING PATTERN - Cardiovascular Exam Cardiovascular Exam: REGULAR RHYTHM, Murmur (systolic) - GI/Abdominal Exam GI & Abdominal Exam: Soft, Normal Bowel Sounds - Extremities Exam Additional comments: L shoulder with sling - Back Exam Back Exam: NORMAL INSPECTION - Neurological Exam Neurological Exam: Alert, Awake, Oriented x3 Additional comments: No focal mptor/sensory deficit. - Psychiatric Exam Psychiatric exam: Normal Mood - Skin Skin Exam: Warm Assessment and Plan (1) Syncope and collapse Status: Acute (2) Shoulder fracture, left Status: Acute (3) Orthostatic hypotension Status: Acute (4) Uncontrolled insulin dependent diabetes mellitus Status: Acute (5) History of fracture of right shoulder Status: Chronic (6) Diabetes insipidus Status: Chronic (7) Anxiety and depression Status: Chronic (8) Diabetic retinopathy of both eyes Status: Chronic (9) Vitamin D deficiency Status: Acute (10) HTN (hypertension) Status: Chronic (11) Anemia Status: Acute
[2018-08-09 15:51] VITALS: BP 163/80; PULSE 60; RESP 17; TEMP 98.7; O2SAT 98
--- NOTE | 2018-08-10 00:10 | PN ---
DATE: 08/09/2018 ENDO FOLLOWUP NOTE LOCATION: Room 410, bed 1. SUBJECTIVE: This is a 57-year-old female with recent uncontrolled type 2 insulin-requiring diabetes, now being followed closely for metabolic management. She had a recent left shoulder total replacement following an accidental fall and sustained a left humeral fracture as noted thereof. Her glycemic levels postoperatively have remarkably improved as noted with the glucose values overnight ranging from 91 to 175 mg/dL. Her chemistry showed a BUN of 8, sodium 123, potassium 3.5, chloride 83, CO2 of 26, glucose 138 and creatinine 0.4. PLAN: So, at this time, we will continue the same basal and bolus insulin regimen to allow for dose equilibration and keep her on the modified and lower dosing of the Humalog at 6 units t.i.d. before meals as ordered. We will continue the Levemir given as basal insulin at 16 units subcu at bedtime daily as given. We will obtain serial chemistries and supplement accordingly as needed. We will follow. Kelsey Rosenbaum MD
--- NOTE | 2018-08-10 09:14 | CP.PCM.DIS ---
Provider - Provider Date of Admission: 07/30/18 22:21 Attending physician: Huey Glaser MD Consults: 07/30/18 22:22 Physician Consult Stat Comment: Consulting Provider: Valentin Garrett III Consulting Physician: Valentin Garrett III Reason for Consult: Fractured shoulder 07/30/18 22:24 Physician Consult Stat Comment: Consulting Provider: Benedicto Herrera Consulting Physician: Benedicto Herrera Reason for Consult: Syncope Physician Consult Stat Comment: Consulting Provider: Lalito Metz Consulting Physician: Lalito Metz Reason for Consult: Syncope 08/02/18 10:51 Endocrinology Consult Routine Comment: Consulting Provider: Kelsey Rosenbaum Consulting Physician: Kelsey Rosenbaum Reason for Consult: Endocrine clearance/optimization for surgery 08/02/18 10:52 Endocrinology Consult Routine Comment: Consulting Provider: Kelsey Rosenbaum Consulting Physician: Kelsey Rosenbaum Reason for Consult: uncontrolled DM 08/05/18 15:58 Case Management Referral Routine Comment: Physician Instructions: Reason For Exam: Reason for Referral: Discharge Planning Time Spent in preparation of Discharge (in minutes): 35 Diagnosis - Discharge Diagnosis (1) Syncope and collapse Status: Acute Priority: High (2) Shoulder fracture, left Status: Acute Priority: High (3) Orthostatic hypotension Status: Acute Priority: High (4) Uncontrolled insulin dependent diabetes mellitus Status: Acute Priority: High (5) History of fracture of right shoulder Status: Chronic Priority: Medium (6) Diabetes insipidus Status: Chronic Priority: High (7) Anxiety and depression Status: Chronic Priority: High (8) Diabetic retinopathy of both eyes Status: Chronic Priority: Medium (9) Vitamin D deficiency Status: Acute Priority: Medium (10) HTN (hypertension) Status: Chronic Priority: Medium (11) Anemia Status: Acute Hospital Course - Lab Results Lab Results: Micro Results 08/02/18 10:30 Urine,Clean Catch Urine Culture - Final No Growth (<1,000 CFU/ML) Most Recent Lab Values WBC 7.0 K/uL (4.8-10.8) 08/08/18 13:18 RBC 3.73 Mil/uL (3.80-5.20) L 08/08/18 13:18 Hgb 11.0 g/dL (12.0-16.0) L 08/08/18 13:18 Hct 32.6 % (34.0-47.0) L 08/08/18 13:18 MCV 87.6 fl (81.0-99.0) 08/08/18 13:18 MCH 29.6 pg (27.0-31.0) 08/08/18 13:18 MCHC 33.8 g/dL (33.0-37.0) 08/08/18 13:18 RDW 15.0 % (11.5-14.5) H 08/08/18 13:18 Plt Count 306 K/uL (130-400) 08/08/18 13:18 MPV 8.0 fl (7.2-11.7) 08/03/18 05:30 Neut % (Auto) 63.6 % (50.0-75.0) 08/03/18 05:30 Lymph % (Auto) 24.6 % (20.0-40.0) 08/03/18 05:30 Vigo % (Auto) 7.9 % (0.0-10.0) 08/03/18 05:30 Eos % (Auto) 3.3 % (0.0-4.0) 08/03/18 05:30 Baso % (Auto) 0.6 % (0.0-2.0) 08/03/18 05:30 Neut # (Auto) 4.1 K/uL (1.8-7.0) 08/03/18 05:30 Lymph # (Auto) 1.6 K/uL (1.0-4.3) 08/03/18 05:30 Vigo # (Auto) 0.5 K/uL (0.0-0.8) 08/03/18 05:30 Eos # (Auto) 0.2 K/uL (0.0-0.7) 08/03/18 05:30 Baso # (Auto) 0.0 K/uL (0.0-0.2) 08/03/18 05:30 Neutrophils % (Manual) 81 % (42-75) H 07/30/18 21:37 Band Neutrophils % 4 % (0-2) H 07/30/18 21:37 Lymphocytes % (Manual) 10 % (20-50) L 07/30/18 21:37 Monocytes % (Manual) 5 % (0-10) 07/30/18 21:37 Platelet Estimate Normal (NORMAL) 07/30/18 21:37 Hypochromasia (manual) Slight 07/30/18 21:37 Anisocytosis (manual) Slight 07/30/18 21:37 PT 11.9 Seconds (9.8-13.1) 08/03/18 05:30 INR 1.0 08/03/18 05:30 APTT 26.7 Seconds (25.6-37.1) 08/04/18 04:55 pCO2 37 mm/Hg (35-45) 07/30/18 22:39 pO2 59 mm/Hg (80-100) L 07/30/18 22:39 HCO3 24.1 mmol/L (21-28) 07/30/18 22:39 ABG pH 7.41 (7.35-7.45) 07/30/18 22:39 ABG Total CO2 24.6 mmol/L (22-28) 07/30/18 22:39 ABG O2 Saturation 94.7 % (95-98) L 07/30/18 22:39 ABG O2 Content 16.5 ML/dL (15-23) 07/30/18 22:39 ABG Base Excess -0.8 mmol/L (-2.0-3.0) 07/30/18 22:39 ABG Hemoglobin 13.0 g/dL (11.7-17.4) 07/30/18 22:39 ABG Carboxyhemoglobin 2.3 % (0.5-1.5) H 07/30/18 22:39 POC ABG HHb (Measured) 5.0 % (0.0-5.0) 07/30/18 22:39 ABG Methemoglobin 2.6 % (0.0-3.0) 07/30/18 22:39 ABG O2 Capacity 17.4 mL/dL (16-24) 07/30/18 22:39 Les Test Yes 07/30/18 22:39 A-a O2 Difference 44.0 mm/Hg 07/30/18 22:39 Hgb O2 Saturation 90.1 % (95.0-98.0) L 07/30/18 22:39 FiO2 21.0 % 07/30/18 22:39 Sodium 123 mmol/l (132-148) L 08/09/18 11:50 Potassium 3.5 MMOL/L (3.6-5.0) L 08/09/18 11:50 Chloride 83 mmol/L (98-107) L 08/09/18 11:50 Carbon Dioxide 26 mmol/L (22-30) 08/09/18 11:50 Anion Gap 18 (10-20) 08/09/18 11:50 BUN 8 mg/dl (7-17) 08/09/18 11:50 Creatinine 0.4 mg/dl (0.7-1.2) L 08/09/18 11:50 Est GFR ( Amer) > 60 08/09/18 11:50 Est GFR (Non-Af Amer) > 60 08/09/18 11:50 POC Glucose (mg/dL) 130 mg/dL (65-110) H 08/09/18 15:55 Random Glucose 138 mg/dL (65-105) H 08/09/18 11:50 Hemoglobin A1c 11.8 % (4.2-6.5) H 08/03/18 05:30 Calcium 8.9 mg/dL (8.4-10.2) 08/09/18 11:50 Phosphorus 4.1 mg/dl (2.5-4.5) 08/02/18 06:50 Magnesium 1.9 MG/DL (1.6-2.3) 08/02/18 06:50 Total Bilirubin 0.3 mg/dl (0.2-1.3) 08/03/18 05:30 AST 26 U/L (14-36) 08/03/18 05:30 ALT 39 U/L (9-52) 08/03/18 05:30 Alkaline Phosphatase 91 U/L (38-126) 08/03/18 05:30 Troponin I < 0.0120 ng/mL (0.00-0.120) 07/30/18 21:37 Total Protein 7.0 G/DL (6.3-8.2) 08/03/18 05:30 Albumin 3.7 g/dL (3.5-5.0) 08/03/18 05:30 Globulin 3.3 gm/dL (2.2-3.9) 08/03/18 05:30 Albumin/Globulin Ratio 1.1 (1.0-2.1) 08/03/18 05:30 Triglycerides 161 mg/DL (0-149) H 08/03/18 05:30 Cholesterol 164 mg/dL (0-199) 08/03/18 05:30 LDL Cholesterol Direct 89 mg/dL (0-129) 08/03/18 05:30 HDL Cholesterol 34 MG/DL (30-70) 08/03/18 05:30 25-OH Vitamin D Total 34.4 NG/ML (30.0-100.0) 08/03/18 05:30 Thyroxine (T4) 6.79 ug/dl (5.5-11.0) 08/03/18 05:30 TSH 3rd Generation 2.03 mIU/ML (0.46-4.68) 08/03/18 05:30 Cortisol AM Sample 4.6 ug/dL (4.46-22.7) 08/03/18 09:52 Plasma Cortisol PM 3.58 ug/dL (1.7-14.1) 08/04/18 15:51 Urine Color Straw (YELLOW) 08/02/18 10:30 Urine Clarity Clear (Clear) 08/02/18 10:30 Urine pH 6.0 (5.0-8.0) 08/02/18 10:30 Ur Specific Antler 1.008 (1.003-1.030) 08/02/18 10:30 Urine Protein Negative mg/dL (NEGATIVE) 08/02/18 10:30 Urine Glucose (UA) >=500 mg/dL (NEGATIVE) 08/02/18 10:30 Urine Ketones Negative mg/dL (NEGATIVE) 08/02/18 10:30 Urine Blood Negative (NEGATIVE) 08/02/18 10:30 Urine Nitrate Negative (NEGATIVE) 08/02/18 10:30 Urine Bilirubin Negative (NEGATIVE) 08/02/18 10:30 Urine Urobilinogen 0.2-1.0 mg/dL (0.2-1.0) 08/02/18 10:30 Ur Leukocyte Esterase Neg Esther/uL (Negative) 08/02/18 10:30 Urine RBC (Auto) 1 /hpf (0-3) 08/02/18 10:30 Urine Microscopic WBC 1 /hpf (0-5) 08/02/18 10:30 Ur Squamous Epith Cells 2 /hpf (0-5) 08/02/18 10:30 Urine Bacteria Occ (<OCC) H 08/02/18 10:30 Blood Type A POSITIVE 08/04/18 04:55 Antibody Screen Negative 08/04/18 04:55 Crossmatch See Detail 08/04/18 04:55 BBK History Checked Patient has bt 08/04/18 04:55 - Date & Time of H&P Date of H&P: 07/31/18 Time of H&P: 12:00 Discharge Exam - Head Exam Head Exam: ATRAUMATIC, NORMOCEPHALIC Discharge Plan - Discharge Medications Prescriptions: Insulin Lispro [Humalog (Insulin Lispro)] 6 unit SQ ACHS 30 Days #100 cartridge - Follow Up Plan Condition: FAIR Disposition: REHAB FACILITY/REHAB UNIT Instructions: Syncope (Fainting) (DC), Shoulder Arthroscopy (DC) Additional Instructions: keep dressing dry and clean Do not remove immobilizer follow up with in 1 week on 08/17/18 for further orders. Referrals: Valentin Garrett III, MD [Staff Provider] - Med Chang MD [Family Provider] - Huey Glaser MD [Staff Provider] -
--- NOTE | 2018-08-10 15:50 | PQF ---
PROVIDER RESPONSE TEXT: Traumatic fracture due to fall REVIEWER QUERY TEXT: Fracture Cause Traumatic or Non-Trauma Please clarify whether the documented humerus fracture is due to traumatic or non-traumatic cause Such as: Traumatic: -- Traumatic compression fracture -- Traumatic fracture Non-traumatic: -- Chronic fracture -- Non-traumatic compression fracture -- Insufficiency -- Spontaneous -- Pathological fracture (specify cause such as osteoporosis or malignancy) -- Stress fracture -- Wedge fracture -- Other, please specify The patient's Clinical Indicators include: xx Query created by: Natalie Amezcua on 08/10/2018 3:43 PM Electronically signed by: Huey Glaser MD 08/10/2018 3:47 PM
== END 2018-08-09 18:20 | DRG 483 ==
LOC: H.ER 20:32 → H.ERHOLD 22:21 → H.TEL 07-31 00:05
PROVIDERS: ADMIT Internal Medicine Pulmonary Disease; ATTEND Internal Medicine Pulmonary Disease
PROC: 0RRK00Z Replacement of Left Shoulder Joint with Reverse Ball and Socket Synthetic Substitute, Open Approach (ICD-10-PCS; principal; 2018-08-05 13:45)
PROC: 0LS40ZZ Reposition Left Upper Arm Tendon, Open Approach (ICD-10-PCS; 2018-08-05 13:45)
DX: S42.242A 4-part fracture of surgical neck of left humerus, initial encounter for closed fracture (principal); E27.40 Unspecified adrenocortical insufficiency; D62 Acute posthemorrhagic anemia; I95.1 Orthostatic hypotension; E11.319 Type 2 diabetes mellitus with unspecified diabetic retinopathy without macular edema; E11.65 Type 2 diabetes mellitus with hyperglycemia; Z79.4 Long term (current) use of insulin; E55.9 Vitamin D deficiency, unspecified; I11.0 Hypertensive heart disease with heart failure; I50.9 Heart failure, unspecified; E78.00 Pure hypercholesterolemia, unspecified; Z88.0 Allergy status to penicillin; Z96.611 Presence of right artificial shoulder joint; Z79.82 Long term (current) use of aspirin; F31.9 Bipolar disorder, unspecified; F41.1 Generalized anxiety disorder; W19.XXXA Unspecified fall, initial encounter; S46.012A Strain of muscle(s) and tendon(s) of the rotator cuff of left shoulder, initial encounter; M19.012 Primary osteoarthritis, left shoulder; M85.812 Other specified disorders of bone density and structure, left shoulder

== ENCOUNTER 2018-08-15 17:31 | Inpatient (IN) | payer OTHER ==
--- NOTE | 2018-08-15 18:32 | ED PDOC ---
HPI: Altered Mental Status Time Seen by Provider: 08/15/18 17:59 Chief Complaint (Nursing): Altered Mental Status Chief Complaint (Provider): Altered Mental Status History Per: Patient, Family History/Exam Limitations: None Onset/Duration Of Symptoms: Days (x5) Current Symptoms Are (Timing): Still Present Additional Complaint(s): 57 y/o female with a PMHx of bipolar disorder brought in from [facility] for evaluation of altered mental status. Patient accompanied by who states patient has been there for five days and has been acting differently since arrival. notes patient seems dazed, confused and thinks people are talking about her outside of the room. Otherwise, patient offers no complaints at this time. PMD: Lexis Head NIHSS Stroke Scale - Date/Time Evaluation Performed Date Performed: 08/15/18 Time Performed: 17:59 - How Severe is the Stroke Level of Consciousness: 0=Alert LOC to Questions: 0=Both comments correct LOC to commands: 0=Obeys both correctly Best Gaze: 0=Normal Visual: 0=No visual loss Facial: 0=Normal Motor Arm - Left: 0=No drift Motor Arm - Right: 0=No drift Motor Leg - Left: 0=No drift Motor Leg - Right: 0=No drift Limb Ataxia: 0=Absent Sensory: 0=Normal Best Language: 0=No aphasia Dysarthia: 0=Normal articulation Extinction & Inattention (Neglect): 0=Normal, no object Score: 0 Past Medical History Reviewed: Historical Data, Nursing Documentation, Vital Signs Vital Signs: Last Vital Signs Temp 98.1 F 08/15/18 17:37 Pulse 77 08/15/18 17:37 Resp 18 08/15/18 17:37 BP 123/71 08/15/18 17:37 Pulse Ox 97 08/15/18 17:37 - Medical History PMH: Anxiety, Bipolar Disorder, CHF, Depression, Diabetes, Fractures, HTN, Hypercholesterolemia Denies: HIV, Chronic Kidney Disease - Surgical History Surgical History: (x 2) - Family History Family History: States: Unknown Family Hx - Immunization History Hx Tetanus Toxoid Vaccination: No Hx Influenza Vaccination: No Hx Pneumococcal Vaccination: No - Home Medications Home Medications: Ambulatory Orders Medication Instructions Recorded ARIPiprazole [Abilify] 2 mg PO HS 07/30/17 Aspirin [Ecotrin] 81 mg PO HS 07/30/17 Glimepiride [amaRYL] 4 mg PO BID 07/30/17 Rosuvastatin Calcium [Crestor] 20 mg PO HS 07/30/17 Sertraline [Zoloft] 50 mg PO DAILY 07/30/17 Desmopressin (Nonrefrigerated) 1 spray YAMILE BID 01/27/18 [Desmopressin 10 Mcg/0.1 ml Spr] Ferrous Sulfate [Feosol] 325 mg PO BID tab 02/12/18 Folic Acid 1 mg PO DAILY tab 02/12/18 Cholecalciferol (Vitamin D3) 2,000 unit PO DAILY 07/30/18 [Vitamin D3] Docusate [Colace] 100 mg PO BID cap 08/09/18 Ibuprofen [Motrin Tab] 600 mg PO Q8 tab 08/09/18 Midodrine [Proamatine] 10 mg PO TID tab 08/09/18 Acetaminophen [Tylenol 325mg tab] 650 mg PO Q4 PRN MDD 3 gram 08/15/18 Acetaminophen [Tylenol 325mg tab] 650 mg PO Q4 PRN MDD 3 gram 08/15/18 Bacitracin OINT 1 appl TOP DAILY 08/15/18 Insulin Detemir [Levemir] 16 units SQ HS 08/15/18 Insulin Lispro [Humalog (Insulin 6 unit SQ TID 08/15/18 Lispro)] Magnesium Hydroxide [Milk Of 30 ml PO DAILY PRN 08/15/18 Magnesia] Melatonin/Pyridoxine HCl (B6) 1 tab PO HS PRN 08/15/18 [Melatonin 3 mg Tablet] Povidone Iodine 10% [Betadine 10% 1 appl TOP DAILY 08/15/18 Topical Soln] - Allergies Allergies/Adverse Reactions: Allergies Allergy/AdvReac Type Severity Reaction Status Date / Time Penicillins Allergy RASH Verified 07/30/18 20:46 Review of Systems ROS Statement: Except As Marked, All Systems Reviewed And Found Negative Neurological: Positive for: Altered Mental Status Psych: Positive for: Depression Physical Exam - Reviewed Nursing Documentation Reviewed: Yes Vital Signs Reviewed: Yes - Physical Exam Appears: Positive for: No Acute Distress Head Exam: Positive for: ATRAUMATIC, NORMOCEPHALIC Skin: Positive for: Normal Color, Warm, Dry Eye Exam: Positive for: Normal appearance, EOMI, PERRL Neck: Positive for: Normal, Painless ROM, Supple Cardiovascular/Chest: Positive for: Regular Rate, Rhythm. Negative for: Murmur Respiratory: Positive for: Normal Breath Sounds. Negative for: Respiratory Distress Gastrointestinal/Abdominal: Positive for: Normal Exam, Soft. Negative for: Tenderness Back: Positive for: Normal Inspection. Negative for: L CVA Tenderness, R CVA Tenderness, Vertebral Tenderness Extremity: Positive for: Other (left arm noted to be in a sling s/p shoulder fracture. ) Neurologic/Psych: Positive for: Alert, Oriented (x3). Negative for: Motor/Sensory Deficits - Laboratory Results Result Diagrams: 08/16/18 04:03 08/17/18 04:55 - ECG O2 Sat by Pulse Oximetry: 97 (RA) Pulse Ox Interpretation: Normal Medical Decision Making Medical Decision Making: Time: 1817 Impression: Altered Mental Status Plan: -- CT Head w/o Contrast -- EKG -- CMP -- Troponin I -- ED Urine Dipstick -- CBC with Differentials -- PTT -- Prothrombin Time -- CXR Portable -- Glucose, Blood, POC -- Urinalysis Time: 1900 -- Patient endorsed to Dr. Ballesteros, pending ER workup and admit to Dr. Glaser's service. Scribe Attestation: Documented by Yessy Hernandez, acting as a scribe for Cindy Cameron MD. Provider Scribe Attestation: All medical record entries made by the Scribe were at my direction and personally dictated by me. I have reviewed the chart and agree that the record accurately reflects my personal performance of the history, physical exam, medical decision making, and the department course for this patient. I have also personally directed, reviewed, and agree with the discharge instructions and disposition. Disposition - Clinical Impression Clinical Impression: Hyponatremia, NSTEMI (non-ST elevated myocardial infarction) - Patient ED Disposition Is Patient to be Admitted: Transfer of Care - Disposition Disposition: Transfer of Care Disposition Time: :00 Condition: FAIR Patient Signed Over To: Morena Ballesteros Handoff Comments: Pending labs and imaging.
--- NOTE | 2018-08-15 19:35 | ED PDOC ---
- Laboratory Results Result Diagrams: 08/15/18 20:20 08/16/18 02:20 - ECG O2 Sat by Pulse Oximetry: 97 (RA) Pulse Ox Interpretation: Normal Medical Decision Making Medical Decision Making: Time: 1899 -- Patient endorsed to me by Dr. Cameron, pending workup and admit under Dr. Glaser's service. Time: 2017 CT RESULTS FINDINGS: BRAIN No acute intraparenchymal hemorrhage. No mass lesion. No CT evidence for acute territorial infarct. No midline shift or extra-axial collections. There is bifrontal temporal cortical atrophy noted which could indicate substance abuse or a neurodegenerative disorder. VENTRICLES: No hydrocephalus. ORBITS: The orbits are unremarkable. SINUSES AND MASTOIDS: Mucoperiosteal thickening is seen in the posterior right ethmoid sinuses and sphenoid sinus compatible with sinusitis. The remaining paranasal sinuses and mastoid air cells are clear. BONES: No fracture. SOFT TISSUES: Unremarkable. IMPRESSION: 1. No acute intracranial abnormality. 2. Bifrontal temporal cortical atrophy is noted. This could indicate substance abuse or a neurodegenerative disorder. 3. Posterior right ethmoid and sphenoid sinusitis. Electronically signed on Aug 15, 2018 8:18:49 PM EST by: Fuentes Wilkinson M.D., REBECCA Certified By [facility] Trained MRI and CT Specialist 23:08 Patient Troponin is 1.35 and Sodium is 111. Will call Dr. Glaser and supervisor public message service. Patient is to be admitted. 23:[address] Glaser. Patient has history of Diabetes insipidus and is noncompliant wit her DDAVP. Jailyn said to give her 1 dose of DDVAP and admit to ICU. Also spoke to Dr. Solis, supervisor public message service. Ordered consult with patient's PMD, Dr. Crockett. Scribe Attestation: Documented by Yessy Hernandez, acting as a scribe for Morena Ballesteros MD. Provider Scribe Attestation: All medical record entries made by the Scribe were at my direction and personally dictated by me. I have reviewed the chart and agree that the record accurately reflects my personal performance of the history, physical exam, medical decision making, and the department course for this patient. I have also personally directed, reviewed, and agree with the discharge instructions and disposition. Disposition Counseled Patient/Family Regarding: Studies Performed, Diagnosis, Need For Followup - Clinical Impression Clinical Impression: Hyponatremia, NSTEMI (non-ST elevated myocardial infarction) - POA Present On Arrival: None - Disposition Disposition: Admitted as In-Patient Disposition Time: 23:22 Condition: FAIR
[2018-08-15 20:48] LABS: PROTHROMBIN TIME 11.5 Seconds (9.8-13.1)
[2018-08-15 20:51] LABS: PARTIAL THROMBOPLASTIN TIME 26.1 Seconds (25.6-37.1)
[2018-08-15 20:56] LABS: BASO # 0.1 K/uL (0.0-0.2); BASO % 0.8 % (0.0-2.0); EOS % 0.4 % (0.0-4.0); HEMOGLOBIN 9.7 g/dL (12.0-16.0); LYMPH # 1.1 K/uL (1.0-4.3); LYMPH % 11.5 % (20.0-40.0); MEAN CELL VOLUME 83.5 fl (81.0-99.0); MEAN CORPUSCULAR HEMOGLOBIN 29.4 pg (27.0-31.0); MEAN CORPUSCULAR HGB CONC 35.2 g/dL (33.0-37.0); MEAN PLATELET VOLUME 7.7 fl (7.2-11.7); MONO # 0.7 K/uL (0.0-0.8); MONO % 7.1 % (0.0-10.0); NEUT # 7.5 K/uL (1.8-7.0); NEUT % 80.2 % (50.0-75.0); RBC 3.31 Mil/uL (3.80-5.20); WHITE BLOOD COUNT 9.4 K/uL (4.8-10.8)
[2018-08-15 23:05] LABS: ALB/GLOB RATIO 1.1 (1.0-2.1); ALBUMIN 3.4 g/dL (3.5-5.0); ALT/SGPT 51 U/L (9-52); AST/SGOT 40 U/L (14-36); BLOOD UREA NITROGEN 12 mg/dl (7-17); CALCIUM 8.6 mg/dL (8.4-10.2); GFR NON-AFRICAN AMERICAN > 60
[2018-08-15] MEDS ORDERED: Desmopressin 4 mcg/ml Inj (10 ml) IV ONE (23:19)
[2018-08-15 23:28] LABS: SQUAMOUS EPITHIAL 2 /hpf (0-5); URINE BACTERIA OCC (<OCC); URINE BILIRUBIN NEGATIVE (NEGATIVE); URINE BLOOD NEGATIVE (NEGATIVE); URINE CLARITY SLIGHTY-CLOUDY (Clear); URINE COLOR YELLOW (YELLOW); URINE GLUCOSE (UA) >=500 mg/dL (NEGATIVE); URINE LEUKOCYTE ESTERASE NEG Leu/uL (Negative); URINE PROTEIN 30 mg/dL (NEGATIVE); URINE UROBILINOGEN 0.2-1.0 mg/dL (0.2-1.0)
[2018-08-15] MEDS ORDERED: Sodium Chloride 3% 500 ML IV SCH (23:30)
[2018-08-16] MEDS ORDERED: Enoxaparin 80 mg Syringe SC STA (00:58)
--- NOTE | 2018-08-16 01:05 | CP.PCM.CON ---
History of Present Illness - History of Present Illness History of Present Illness: CC/Reason for ICU: severe hyponatremia, NSTEMI HPI: This is a 57 y/o female with MHx significant for DM2, diabetes insipidus, HLD, and low BPs as well as a recent L shoulder surgery, who comes in with 6 days of worsening confusion. History is via , as patient is confused. Per , patient is at [facility]/rehab currently, and he noticed that she had been getting more confused over the past few days, and today he had her sent in because she was not improving. state that patient was on DDAVP while at [facility] for the past week, but was on and off of it the week before. No changes have been made to psych medications (apiprazole, sertraline). Per patient has not had f/c/n/v/d. Patient denies CP or SOB. PCP: Jailyn MHx: DM2, DI, HLD, low BP SHx: b/l shoulder surgeries, last in July 2018, x 2 Allergies: ?PCN Medications: Per med rec Family Hx: Patient cannot provide at this time Social Hx: at 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) - RENAL Hx Chronic Kidney Disease: No - ENDOCRINE/METABOLIC Hx Endocrine Disorders: Yes - HEMATOLOGICAL/ONCOLOGICAL Hx Human Immunodeficiency Virus (HIV): No - INTEGUMENTARY Hx Dermatological Problems: No - MUSCULOSKELETAL/RHEUMATOLOGICAL Hx Fractures: Yes - GASTROINTESTINAL Hx Gastrointestinal Disorders: Yes Hx Bowel Surgery: Yes (1981) - GENITOURINARY/GYNECOLOGICAL Hx Genitourinary Disorders: No - PSYCHIATRIC Hx Anxiety: Yes Hx Bipolar Disorder: Yes Hx Depression: Yes - SURGICAL HISTORY Hx Surgeries: Yes Hx Section: Yes (x2) Hx Joint Replacement: Yes (right shoulder joint) Other/Comment: "intestinal surgery for perforated intestines - ANESTHESIA Hx Anesthesia: Yes Hx Anesthesia Reactions: No Hx Malignant Hyperthermia: No Meds Allergies/Adverse Reactions: Allergies Allergy/AdvReac Type Severity Reaction Status Date / Time Penicillins Allergy RASH Verified 07/30/18 20:46 - Medications Medications: Current Medications Aspirin (Aspirin) 325 mg PO DAILY [facility] Atorvastatin Calcium (Lipitor) 10 mg PO HS [facility] Last Admin: 08/16/18 00:33 Dose: 10 mg Atorvastatin Calcium (Lipitor) 20 mg PO DAILY [facility] Desmopressin Acetate (Ddavp) 1 spr YAMILE BID [facility] Docusate Sodium (Colace) 100 mg PO BID [facility] Enoxaparin Sodium (Lovenox) 70 mg SC STAT STA; Protocol Stop: 08/16/18 00:59 Ferrous Sulfate (Feosol) 325 mg PO BID [facility] Folic Acid (Folic Acid) 1 mg PO DAILY [facility] Sodium Chloride (Hypertonic Saline 3%) 500 mls @ 80 mls/hr IV .Q6H15M [facility] Stop: 08/16/18 23:24 Last Admin: 08/16/18 00:14 Dose: 80 mls/hr Insulin Detemir (Levemir) 16 units SC HS [facility] Insulin Human Lispro (Humalog) 0 units SC ACHS [facility]; Protocol Midodrine (Proamatine) 10 mg PO TID [facility] Physical Exam - Constitutional Appears: No Acute Distress, Confused - Head Exam Head Exam: ATRAUMATIC, NORMOCEPHALIC - Eye Exam Eye Exam: EOMI, PERRL - ENT Exam ENT Exam: Mucous Membranes Moist - Neck Exam Neck exam: Positive for: Full Rom - Respiratory Exam Respiratory Exam: Clear to Auscultation Bilateral, NORMAL BREATHING PATTERN - Cardiovascular Exam Cardiovascular Exam: REGULAR RHYTHM, +S1, +S2 - GI/Abdominal Exam GI & Abdominal Exam: Normal Bowel Sounds, Soft - Extremities Exam Extremities exam: Positive for: full ROM, normal inspection - Neurological Exam Additional comments: awake, can answer some questions; not alert and oriented. No gross focal motor deficits - Psychiatric Exam Psychiatric exam: Depressed Additional comments: constricted affect - Skin Skin Exam: Dry, Warm Results - Vital Signs Recent Vital Signs: Last Vital Signs Temp 99.1 F 08/16/18 00:38 Pulse 89 08/16/18 00:38 Resp 18 08/16/18 00:38 BP 112/67 08/16/18 00:38 Pulse Ox 97 08/16/18 00:20 - Labs Result Diagrams: 08/15/18 20:20 08/15/18 21:40 Labs: Laboratory Results - last 24 hr 08/15/18 08/15/18 08/15/18 19:07 20:20 20:20 WBC 9.4 RBC 3.31 L Hgb 9.7 L Hct 27.6 L MCV 83.5 D MCH 29.4 MCHC 35.2 RDW 15.0 H Plt Count 514 H D MPV 7.7 Neut % (Auto) 80.2 H Lymph % (Auto) 11.5 L [place] % (Auto) 7.1 Eos % (Auto) 0.4 Baso % (Auto) 0.8 Neut # (Auto) 7.5 H Lymph # (Auto) 1.1 [place] # (Auto) 0.7 Eos # (Auto) 0.0 Baso # (Auto) 0.1 PT 11.5 INR 1.0 APTT 26.1 Sodium Potassium Chloride Carbon Dioxide Anion Gap BUN Creatinine Est GFR ( Amer) Est GFR (Non-Af Amer) POC Glucose (mg/dL) 235 H Random Glucose Calcium Total Bilirubin AST ALT Alkaline Phosphatase Troponin I Total Protein Albumin Globulin Albumin/Globulin Ratio Urine Color Urine Clarity Urine pH Ur Specific Lamar Urine Protein Urine Glucose (UA) Urine Ketones Urine Blood Urine Nitrate Urine Bilirubin Urine Urobilinogen Ur Leukocyte Esterase Urine RBC (Auto) Urine Microscopic WBC Ur Squamous Epith Cells Urine Bacteria 08/15/18 08/15/18 08/16/18 21:40 23:18 00:59 WBC RBC Hgb Hct MCV MCH MCHC RDW Plt Count MPV Neut % (Auto) Lymph % (Auto) [place] % (Auto) Eos % (Auto) Baso % (Auto) Neut # (Auto) Lymph # (Auto) [place] # (Auto) Eos # (Auto) Baso # (Auto) PT INR APTT Sodium 111 L* Potassium 3.6 Chloride 73 L Carbon Dioxide 23 Anion Gap 19 BUN 12 Creatinine 0.4 L Est GFR ( Amer) > 60 Est GFR (Non-Af Amer) > 60 POC Glucose (mg/dL) 194 H Random Glucose 183 H Calcium 8.6 Total Bilirubin 0.4 AST 40 H D ALT 51 Alkaline Phosphatase 123 Troponin I 1.3500 H* Total Protein 6.6 Albumin 3.4 L Globulin 3.2 Albumin/Globulin Ratio 1.1 Urine Color Yellow Urine Clarity Slighty-cloudy Urine pH 6.0 Ur Specific Lamar 1.015 Urine Protein 30 Urine Glucose (UA) >=500 Urine Ketones 20 Urine Blood Negative Urine Nitrate Negative Urine Bilirubin Negative Urine Urobilinogen 0.2-1.0 Ur Leukocyte Esterase Neg Urine RBC (Auto) 2 Urine Microscopic WBC 5 Ur Squamous Epith Cells 2 Urine Bacteria Occ H - EKG Data EKG Interpreted by: Myself EKG shows normal: Sinus rhythm Rate: Normal - EKG Data EKG comments: poor R wave progression in septal/anterior leads - Imaging and Cardiology CT scan - head Status: Image reviewed by me, Report reviewed by me Chest x-ray Status: Image reviewed by me (b/l shoulder hardware, loop recorder) Assessment & Plan (1) Hyponatremia Assessment and Plan: Hyponatremia with Na 115 and confusion; no seizures. Appears to be in setting of diabetes insipidus and being off medications -Patient receiving 500 cc of hypertonic saline at 80 cc/hr; will check Na again at 2 AM -Patient received a dose of DDAVP in ER -Endocrinology consult in AM -Consider Renal consult in AM Status: Acute (2) Altered mental status Assessment and Plan: Likely 2/2 to hyponatremia; CT head without any gross abnormality Status: Acute (3) NSTEMI (non-ST elevated myocardial infarction) Assessment and Plan: Patient with significantly elevated troponins, but asymptomatic -Serial troponins, EKG in AM -Will give ASA 325 STAT now and then daily -Cont statin -No b-blockers given trend toward hypotension and being on midodrine -STAT dose of SQ Lovenox 1 mg/kg -Cardiology consult in AM Status: Acute (4) DM2 (diabetes mellitus, type 2) Assessment and Plan: Patient with DM2, relatively controlled -DM diet -ACHS accuchecks -SSI Status: Acute (5) DVT prophylaxis Assessment and Plan: Receiveing one treatment dose of Lovenox; redose tmrw depending on necessity of continued anticoagulation for ACS vs. just DVT PPx Status: Acute
[2018-08-16 02:46] LABS: BLOOD UREA NITROGEN 12 mg/dl (7-17); CALCIUM 8.3 mg/dL (8.4-10.2); GFR NON-AFRICAN AMERICAN > 60
[2018-08-16 04:51] LABS: BLOOD UREA NITROGEN 12 mg/dl (7-17); GFR NON-AFRICAN AMERICAN > 60; HEMOGLOBIN 8.9 g/dL (12.0-16.0); MEAN CELL VOLUME 84.8 fl (81.0-99.0); MEAN CORPUSCULAR HEMOGLOBIN 29.7 pg (27.0-31.0); RBC 2.99 Mil/uL (3.80-5.20); RED CELL DISTRIBUTION WIDTH 14.5 % (11.5-14.5); WHITE BLOOD COUNT 7.3 K/uL (4.8-10.8)
[2018-08-16] MEDS ORDERED: Insulin Lispro (humaLOG) 100 Units/ml Inj SC SCH (07:30)
--- NOTE | 2018-08-16 07:48 | CARD ---
APPROVED REPORT Date of service: 08/15/2018 EKG Measurement Heart [id number] CT [id number] <Conclusion> Normal sinus rhythm Poor R wave progression in Precordial leads Abnormal ECG
--- NOTE | 2018-08-16 07:50 | CARD ---
APPROVED REPORT Date of service: 08/15/2018 EKG Measurement Heart [id number] <Conclusion> Normal sinus rhythm Poor R wave progression in Precordial leads Abnormal ECG
--- NOTE | 2018-08-16 08:11 | CP.PCM.CON ---
History of Present Illness - History of Present Illness History of Present Illness: Ash Espinal PGY1, Cardio consult note for Dr Herrera Pt is a 57 yo female with a PMH of HTN, syncope, DM, and shoulder surgery who was transferred to the ICU after she was found to be hyponatremic. Pt was recent ly admitted for a syncopal event during which she fell and broke her shoulder and underwent surgery. Pt denies chest pain or SOB at this time. Pt was found to be having an NSTEMI with elevated troponins. A 12 point ROS was obtained and added to the HPI where appropriate. 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) - RENAL Hx Chronic Kidney Disease: No - ENDOCRINE/METABOLIC Hx Endocrine Disorders: Yes - HEMATOLOGICAL/ONCOLOGICAL Hx Human Immunodeficiency Virus (HIV): No - INTEGUMENTARY Hx Dermatological Problems: No - MUSCULOSKELETAL/RHEUMATOLOGICAL Hx Falls: No Hx Fractures: Yes - GASTROINTESTINAL Hx Gastrointestinal Disorders: Yes Hx Bowel Surgery: Yes (1982) - GENITOURINARY/GYNECOLOGICAL Hx Genitourinary Disorders: No - PSYCHIATRIC Hx Anxiety: Yes Hx Bipolar Disorder: Yes Hx Depression: Yes Hx Substance Use: No - SURGICAL HISTORY Hx Surgeries: Yes Hx Section: Yes (x2) Hx Joint Replacement: Yes (right shoulder joint) Other/Comment: "intestinal surgery for perforated intestines - ANESTHESIA Hx Anesthesia: Yes Hx Anesthesia Reactions: No Hx Malignant Hyperthermia: No Meds Allergies/Adverse Reactions: Allergies Allergy/AdvReac Type Severity Reaction Status Date / Time Penicillins Allergy RASH Verified 07/30/18 20:46 - Medications Medications: Current Medications Aspirin (Aspirin) 325 mg PO DAILY [facility] Atorvastatin Calcium (Lipitor) 20 mg PO DAILY [facility] Desmopressin Acetate (Ddavp) 1 spr YAMILE BID OSCAR Docusate Sodium (Colace) 100 mg PO BID [facility] Ferrous Sulfate (Feosol) 325 mg PO BID [facility] Folic Acid (Folic Acid) 1 mg PO DAILY OSCAR Sodium Chloride (Hypertonic Saline 3%) 500 mls @ 80 mls/hr IV .[id number] OSCAR Stop: 08/16/18 23:24 Last Admin: 08/16/18 00:14 Dose: 80 mls/hr Insulin Detemir (Levemir) 16 units SC HS OSCAR Insulin Human Lispro (Humalog) 0 units SC ACHS OSCAR; Protocol Midodrine (Proamatine) 10 mg PO TID OSCAR Physical Exam - Constitutional Appears: No Acute Distress - Head Exam Head Exam: ATRAUMATIC, NORMOCEPHALIC - Eye Exam Eye Exam: EOMI - ENT Exam ENT Exam: Mucous Membranes Moist - Neck Exam Neck exam: Positive for: Full Rom - Respiratory Exam Respiratory Exam: Clear to Auscultation Bilateral, NORMAL BREATHING PATTERN. absent: Accessory Muscle Use, Respiratory Distress - Cardiovascular Exam Cardiovascular Exam: RRR, +S1, +S2. absent: Diastolic murmur, Systolic Murmur - GI/Abdominal Exam GI & Abdominal Exam: Normal Bowel Sounds, Soft. absent: Tenderness - Extremities Exam Extremities exam: Positive for: full ROM, pedal pulses present. Negative for: calf tenderness, tenderness Additional comments: LUE in sling from shoulder surgery - Neurological Exam Neurological exam: Alert, Oriented x3 - Psychiatric Exam Psychiatric exam: Normal Affect, Normal Mood - Skin Skin Exam: Dry, Normal Color, Warm Results - Vital Signs Recent Vital Signs: Last Vital Signs Temp 98.1 F 08/16/18 07:45 Pulse 62 08/16/18 07:45 Resp 15 08/16/18 07:45 BP 94/54 L 08/16/18 07:45 Pulse Ox 99 08/16/18 07:45 - Labs Result Diagrams: 08/16/18 04:03 08/16/18 10:05 Labs: Laboratory Results - last 24 hr 08/15/18 08/15/18 08/15/18 19:07 20:20 20:20 WBC 9.4 RBC 3.31 L Hgb 9.7 L Hct 27.6 L MCV 83.5 D MCH 29.4 MCHC 35.2 RDW 15.0 H Plt Count 514 H D MPV 7.7 Neut % (Auto) 80.2 H Lymph % (Auto) 11.5 L Gregg % (Auto) 7.1 Eos % (Auto) 0.4 Baso % (Auto) 0.8 Neut # (Auto) 7.5 H Lymph # (Auto) 1.1 Gregg # (Auto) 0.7 Eos # (Auto) 0.0 Baso # (Auto) 0.1 PT 11.5 INR 1.0 APTT 26.1 Sodium Potassium Chloride Carbon Dioxide Anion Gap BUN Creatinine Est GFR ( Amer) Est GFR (Non-Af Amer) POC Glucose (mg/dL) 235 H Random Glucose Calcium Total Bilirubin AST ALT Alkaline Phosphatase Troponin I Total Protein Albumin Globulin Albumin/Globulin Ratio Urine Color Urine Clarity Urine pH Ur Specific Howell Urine Protein Urine Glucose (UA) Urine Ketones Urine Blood Urine Nitrate Urine Bilirubin Urine Urobilinogen Ur Leukocyte Esterase Urine RBC (Auto) Urine Microscopic WBC Ur Squamous Epith Cells Urine Bacteria 08/15/18 08/15/18 08/16/18 21:40 23:18 00:59 WBC RBC Hgb Hct MCV MCH MCHC RDW Plt Count MPV Neut % (Auto) Lymph % (Auto) Gregg % (Auto) Eos % (Auto) Baso % (Auto) Neut # (Auto) Lymph # (Auto) Gregg # (Auto) Eos # (Auto) Baso # (Auto) PT INR APTT Sodium 111 L* Potassium 3.6 Chloride 73 L Carbon Dioxide 23 Anion Gap 19 BUN 12 Creatinine 0.4 L Est GFR ( Amer) > 60 Est GFR (Non-Af Amer) > 60 POC Glucose (mg/dL) 194 H Random Glucose 183 H Calcium 8.6 Total Bilirubin 0.4 AST 40 H D ALT 51 Alkaline Phosphatase 123 Troponin I 1.3500 H* Total Protein 6.6 Albumin 3.4 L Globulin 3.2 Albumin/Globulin Ratio 1.1 Urine Color Yellow Urine Clarity Slighty-cloudy Urine pH 6.0 Ur Specific Howell 1.015 Urine Protein 30 Urine Glucose (UA) >=500 Urine Ketones 20 Urine Blood Negative Urine Nitrate Negative Urine Bilirubin Negative Urine Urobilinogen 0.2-1.0 Ur Leukocyte Esterase Neg Urine RBC (Auto) 2 Urine Microscopic WBC 5 Ur Squamous Epith Cells 2 Urine Bacteria Occ H 08/16/18 08/16/18 08/16/18 02:20 04:03 04:03 WBC 7.3 RBC 2.99 L Hgb 8.9 L Hct 25.3 L MCV 84.8 MCH 29.7 MCHC 35.0 RDW 14.5 Plt Count 415 H MPV Neut % (Auto) Lymph % (Auto) Gregg % (Auto) Eos % (Auto) Baso % (Auto) Neut # (Auto) Lymph # (Auto) Gregg # (Auto) Eos # (Auto) Baso # (Auto) PT INR APTT Sodium 112 L* 115 L* Potassium 4.4 3.6 Chloride 81 L 79 L Carbon Dioxide 18 L 22 Anion Gap 17 18 BUN 12 12 Creatinine 0.3 L 0.4 L Est GFR ( Amer) > 60 > 60 Est GFR (Non-Af Amer) > 60 > 60 POC Glucose (mg/dL) Random Glucose 189 H 184 H Calcium 8.3 L 8.0 L Total Bilirubin AST ALT Alkaline Phosphatase Troponin I 1.0400 H* Total Protein Albumin Globulin Albumin/Globulin Ratio Urine Color Urine Clarity Urine pH Ur Specific Howell Urine Protein Urine Glucose (UA) Urine Ketones Urine Blood Urine Nitrate Urine Bilirubin Urine Urobilinogen Ur Leukocyte Esterase Urine RBC (Auto) Urine Microscopic WBC Ur Squamous Epith Cells Urine Bacteria 08/16/18 08/16/18 06:03 07:57 WBC RBC Hgb Hct MCV MCH MCHC RDW Plt Count MPV Neut % (Auto) Lymph % (Auto) Gregg % (Auto) Eos % (Auto) Baso % (Auto) Neut # (Auto) Lymph # (Auto) Gregg # (Auto) Eos # (Auto) Baso # (Auto) PT INR APTT Sodium Potassium Chloride Carbon Dioxide Anion Gap BUN Creatinine Est GFR ( Amer) Est GFR (Non-Af Amer) POC Glucose (mg/dL) 186 H 158 H Random Glucose Calcium Total Bilirubin AST ALT Alkaline Phosphatase Troponin I Total Protein Albumin Globulin Albumin/Globulin Ratio Urine Color Urine Clarity Urine pH Ur Specific Howell Urine Protein Urine Glucose (UA) Urine Ketones Urine Blood Urine Nitrate Urine Bilirubin Urine Urobilinogen Ur Leukocyte Esterase Urine RBC (Auto) Urine Microscopic WBC Ur Squamous Epith Cells Urine Bacteria Assessment & Plan - Assessment and Plan (Free Text) Assessment: NSTEMI Hyponatremia HTN syncope DM Recent shoulder surgery Plan: NSTEMI Hyponatremia HTN syncope DM Recent shoulder surgery Trop 08/16 1.35, 1.04 HA1C 08/03 11.8 EKG 08/[address] or T wave abnormality ECHO 07/31/18 mild LVH, EF60-65% Medications ASA Lipitor midodrine DDAVP started Heparin drip Pt seen, examined, assessment and plan discussed with Dr Javier Espinal PGY1, Internal Medicine Resident - Date & Time Date: 08/16/18 Time: 07:00
--- NOTE | 2018-08-16 09:28 | RAD ---
Date of service: 08/15/2018 HISTORY: AMS COMPARISON: Chest radiographs 07/30/2018. FINDINGS: LUNGS: Limited patchy density obscures left miquel diaphragm likely reflecting atelectasis. Underlying infiltrate not excluded. Right perihilar patchy density is appreciated which may be a function rotation of the patient toward the left. PLEURA: Trace left pleural effusion not excluded. None is seen at the right. No pneumothorax bilaterally. CARDIOVASCULAR: Calcific atherosclerotic changes are seen related to the thoracic aorta. Normal cardiac size. No pulmonary vascular congestion. Event recorder identified over left heart once again. OSSEOUS STRUCTURES: Interval left total shoulder replacement hardware identified in situ with skin miguel noted superolaterally. VISUALIZED UPPER ABDOMEN: Gas seen within a few bowel loops at the left miquel abdomen. OTHER FINDINGS: None. IMPRESSION: Left basilar atelectasis favored over infiltrate left base with trace of pleural effusion not excluded.
[2018-08-16 10:49] LABS: ALB/GLOB RATIO 1.1 (1.0-2.1); ALBUMIN 3.1 g/dL (3.5-5.0); ALT/SGPT 38 U/L (9-52); AST/SGOT 33 U/L (14-36); BLOOD UREA NITROGEN 12 mg/dl (7-17); CALCIUM 8.3 mg/dL (8.4-10.2); GFR NON-AFRICAN AMERICAN > 60
[2018-08-16 11:39] VITALS: BMI 22.1
--- NOTE | 2018-08-16 12:12 | CT ---
Date of service: 08/15/2018 PROCEDURE: CT HEAD WITHOUT CONTRAST. HISTORY: AMS COMPARISON: 07/30/2018. CT head. Summary of findings on the comparison examination: Mild atrophy. TECHNIQUE: Axial computed tomography images were obtained through the head/brain without intravenous contrast. Supplemental Coronal and Sagittal projections created and reviewed. Radiation dose: Total exam DLP = 892.99 mGy-cm. This CT exam was performed using one or more of the following dose reduction techniques: Automated exposure control, adjustment of the mA and/or kV according to patient size, and/or use of iterative reconstruction technique. FINDINGS: HEMORRHAGE: No intracranial hemorrhage. BRAIN: No mass effect or edema. Cortical and cerebellar atrophy, periventricular small vessel disease. VENTRICLES: Unremarkable. No hydrocephalus. CALVARIUM: Unremarkable. PARANASAL SINUSES: Chronic ethmoid and sphenoid air cell disease. MASTOID AIR CELLS: Unremarkable as visualized. No inflammatory changes. OTHER FINDINGS: None. IMPRESSION: No acute intracranial abnormalities. No significant findings to account for the clinical presentation. No significant interval change compared to the prior examination(s). Concordant results (preliminary interpretation) provided by [facility]. Procedure Completed: 19:53. Preliminary Report: Interpreted and electronically signed: 20:18. Final Interpretation: August 16, 2018.
--- NOTE | 2018-08-16 15:44 | CP.PCM.HP ---
History of Present Illness - History of Present Illness History of Present Illness: 57 years old female admitted from [facility] s/p ORIF Fx L shoulder, CC: Altered mental status. Patient has been there for 5days patient noticed patient with progressive confusion, disoriented with confabulations. Patient was brought to ER [facility] was found with sodium of 115 also with elevated troponin. Patient denied SOB, chest pain,syncope Patient with history of diabetes insipidus and also diabetes mellitus, patient was admitted [facility] 07/30/2018 with Dx Fx L shouder, on discharge 08/10/2017 with a sodium of 123, patient was treated with Desmopressin intranasal, as per Patient's the same treatment continue while she was in [facility] . 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 [place], ORIF Fx L shoulder 07-30-18, recent ORIF Fx R shoulder Present on Admission - Present on Admission Any Indicators Present on Admission: Yes History of Uncontrolled Diabetes: Yes Review of Systems - Constitutional Constitutional: Weakness - EENT Eyes: Loss of Vision Ears: Other (negative) Nose/Mouth/Throat: Other (negative) - Cardiovascular Cardiovascular: Other (negative) - Respiratory Respiratory: Other (negative) - Gastrointestinal Gastrointestinal: Other (negative) - Genitourinary Genitourinary: Other (negative) - Musculoskeletal Musculoskeletal: Other (shoulders pain with decreased ROM 2nd to fx.) - Integumentary Integumentary: Other (negative) - Neurological Neurological: Confusion, Frequent Falls, Loss of Vision, Weakness - Psychiatric Psychiatric: Behavioral Changes, Confusion - Endocrine Endocrine: Other (negative) - Hematologic/Lymphatic Hematologic: Other (negative) Past Patient History - Past Medical History & Family History Past Medical History?: Yes Pertinent Family History: Unknown - Past Social History Smoking Status: Never Smoked Alcohol: None Drugs: Denies Home Situation {Lives}: With Family - CARDIAC Hx Cardiac Disorders: Yes Hx Hypercholesterolemia: Yes Hx Hypertension: Yes Hx Hypotension: Yes (Orthostatic Hypotension) - PULMONARY Hx Respiratory Disorders: No - NEUROLOGICAL Hx Neurological Disorder: Yes Hx Dizziness: Yes Hx Syncope: Yes - HEENT Hx HEENT Problems: Yes 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) - RENAL Hx Chronic Kidney Disease: No - ENDOCRINE/METABOLIC Hx Endocrine Disorders: Yes Hx Diabetes Insipidus: Yes Hx Diabetes Mellitus Type 2: Yes - HEMATOLOGICAL/ONCOLOGICAL Hx Blood Disorders: No Hx Human Immunodeficiency Virus (HIV): No - INTEGUMENTARY Hx Dermatological Problems: No - MUSCULOSKELETAL/RHEUMATOLOGICAL Hx Musculoskeletal Disorders: Yes Hx Falls: Yes Hx Fractures: Yes Other/Comment: ORIF L shoulder, ORIF R shoulder - GASTROINTESTINAL Hx Gastrointestinal Disorders: Yes Hx Bowel Surgery: Yes (1981) - GENITOURINARY/GYNECOLOGICAL Hx Genitourinary Disorders: No - PSYCHIATRIC Hx Psychophysiologic Disorder: Yes Hx Anxiety: Yes Hx Bipolar Disorder: Yes Hx Depression: Yes Hx Substance Use: No - SURGICAL HISTORY Hx Surgeries: Yes Hx Section: Yes (x2) Hx Joint Replacement: Yes (right shoulder joint) Other/Comment: "intestinal surgery for perforated intestines" ORIF R shoulder, ORIF L shoulder - ANESTHESIA Hx Anesthesia: Yes Hx Anesthesia Reactions: No Hx Malignant Hyperthermia: No Meds Allergies/Adverse Reactions: Allergies Allergy/AdvReac Type Severity Reaction Status Date / Time Penicillins Allergy RASH Verified 07/30/18 20:46 Physical Exam - Constitutional Appears: No Acute Distress - Head Exam Head Exam: NORMAL INSPECTION - Eye Exam Eye Exam: PERRL - ENT Exam ENT Exam: Normal Exam - Neck Exam Neck exam: Positive for: Normal Inspection - Respiratory Exam Respiratory Exam: NORMAL BREATHING PATTERN - Cardiovascular Exam Cardiovascular Exam: REGULAR RHYTHM - GI/Abdominal Exam GI & Abdominal Exam: Normal Bowel Sounds, Soft - Extremities Exam Additional comments: sling L shoulder, decreased ROM R-L arm, L>R. - Back Exam Additional comments: mild redness on sacrum - Neurological Exam Neurological exam: Alert Additional comments: Ox2, confused, forgetful, no focal motor/sensory deficit. - Psychiatric Exam Psychiatric exam: Normal Mood - Skin Skin Exam: Normal Color, Warm Results - Vital Signs Recent Vital Signs: Last Vital Signs Temp 98.1 F 08/16/18 07:45 Pulse 71 08/16/18 10:00 Resp 18 08/16/18 10:00 BP 110/53 L 08/16/18 10:00 Pulse Ox 96 08/16/18 10:00 reviewed [place] - Labs Result Diagrams: 08/16/18 04:03 08/17/18 08:25 Labs: Laboratory Results - last 24 hr 08/15/18 08/15/18 08/15/18 19:07 20:20 20:20 WBC 9.4 RBC 3.31 L Hgb 9.7 L Hct 27.6 L MCV 83.5 D MCH 29.4 MCHC 35.2 RDW 15.0 H Plt Count 514 H D MPV 7.7 Neut % (Auto) 80.2 H Lymph % (Auto) 11.5 L Gall[place] % (Auto) 7.1 Eos % (Auto) 0.4 Baso % (Auto) 0.8 Neut # (Auto) 7.5 H Lymph # (Auto) 1.1 Gall[place] # (Auto) 0.7 Eos # (Auto) 0.0 Baso # (Auto) 0.1 PT 11.5 INR 1.0 APTT 26.1 Sodium Potassium Chloride Carbon Dioxide Anion Gap BUN Creatinine Est GFR ( Amer) Est GFR (Non-Af Amer) POC Glucose (mg/dL) 235 H Random Glucose Serum Osmolality Calcium Phosphorus Magnesium Total Bilirubin AST ALT Alkaline Phosphatase Troponin I Total Protein Albumin Globulin Albumin/Globulin Ratio Urine Color Urine Clarity Urine pH Ur Specific Millis Urine Protein Urine Glucose (UA) Urine Ketones Urine Blood Urine Nitrate Urine Bilirubin Urine Urobilinogen Ur Leukocyte Esterase Urine RBC (Auto) Urine Microscopic WBC Ur Squamous Epith Cells Urine Bacteria 08/15/18 08/15/18 08/16/18 21:40 23:18 00:59 WBC RBC Hgb Hct MCV MCH MCHC RDW Plt Count MPV Neut % (Auto) Lymph % (Auto) Gall[place] % (Auto) Eos % (Auto) Baso % (Auto) Neut # (Auto) Lymph # (Auto) Gall[place] # (Auto) Eos # (Auto) Baso # (Auto) PT INR APTT Sodium 111 L* Potassium 3.6 Chloride 73 L Carbon Dioxide 23 Anion Gap 19 BUN 12 Creatinine 0.4 L Est GFR ( Amer) > 60 Est GFR (Non-Af Amer) > 60 POC Glucose (mg/dL) 194 H Random Glucose 183 H Serum Osmolality Calcium 8.6 Phosphorus Magnesium Total Bilirubin 0.4 AST 40 H D ALT 51 Alkaline Phosphatase 123 Troponin I 1.3500 H* Total Protein 6.6 Albumin 3.4 L Globulin 3.2 Albumin/Globulin Ratio 1.1 Urine Color Yellow Urine Clarity Slighty-cloudy Urine pH 6.0 Ur Specific Millis 1.015 Urine Protein 30 Urine Glucose (UA) >=500 Urine Ketones 20 Urine Blood Negative Urine Nitrate Negative Urine Bilirubin Negative Urine Urobilinogen 0.2-1.0 Ur Leukocyte Esterase Neg Urine RBC (Auto) 2 Urine Microscopic WBC 5 Ur Squamous Epith Cells 2 Urine Bacteria Occ H 08/16/18 08/16/18 08/16/18 02:20 04:03 04:03 WBC 7.3 RBC 2.99 L Hgb 8.9 L Hct 25.3 L MCV 84.8 MCH 29.7 MCHC 35.0 RDW 14.5 Plt Count 415 H MPV Neut % (Auto) Lymph % (Auto) Gall[place] % (Auto) Eos % (Auto) Baso % (Auto) Neut # (Auto) Lymph # (Auto) Gall[place] # (Auto) Eos # (Auto) Baso # (Auto) PT INR APTT Sodium 112 L* 115 L* Potassium 4.4 3.6 Chloride 81 L 79 L Carbon Dioxide 18 L 22 Anion Gap 17 18 BUN 12 12 Creatinine 0.3 L 0.4 L Est GFR ( Amer) > 60 > 60 Est GFR (Non-Af Amer) > 60 > 60 POC Glucose (mg/dL) Random Glucose 189 H 184 H Serum Osmolality Calcium 8.3 L 8.0 L Phosphorus Magnesium Total Bilirubin AST ALT Alkaline Phosphatase Troponin I 1.0400 H* Total Protein Albumin Globulin Albumin/Globulin Ratio Urine Color Urine Clarity Urine pH Ur Specific Millis Urine Protein Urine Glucose (UA) Urine Ketones Urine Blood Urine Nitrate Urine Bilirubin Urine Urobilinogen Ur Leukocyte Esterase Urine RBC (Auto) Urine Microscopic WBC Ur Squamous Epith Cells Urine Bacteria 08/16/18 08/16/18 08/16/18 06:03 07:57 10:05 WBC RBC Hgb Hct MCV MCH MCHC RDW Plt Count MPV Neut % (Auto) Lymph % (Auto) Gall[place] % (Auto) Eos % (Auto) Baso % (Auto) Neut # (Auto) Lymph # (Auto) Gall[place] # (Auto) Eos # (Auto) Baso # (Auto) PT INR APTT Sodium 121 L Potassium 3.8 Chloride 90 L Carbon Dioxide 21 L Anion Gap 14 BUN 12 Creatinine 0.4 L Est GFR ( Amer) > 60 Est GFR (Non-Af Amer) > 60 POC Glucose (mg/dL) 186 H 158 H Random Glucose 139 H Serum Osmolality Calcium 8.3 L Phosphorus 2.9 Magnesium 1.8 Total Bilirubin 0.4 AST 33 ALT 38 Alkaline Phosphatase 104 Troponin I 1.1600 H* Total Protein 6.0 L Albumin 3.1 L Globulin 2.9 Albumin/Globulin Ratio 1.1 Urine Color Urine Clarity Urine pH Ur Specific Millis Urine Protein Urine Glucose (UA) Urine Ketones Urine Blood Urine Nitrate Urine Bilirubin Urine Urobilinogen Ur Leukocyte Esterase Urine RBC (Auto) Urine Microscopic WBC Ur Squamous Epith Cells Urine Bacteria 08/16/18 08/16/18 08/16/18 10:05 11:27 12:00 WBC RBC Hgb Hct MCV MCH MCHC RDW Plt Count MPV Neut % (Auto) Lymph % (Auto) [place] % (Auto) Eos % (Auto) Baso % (Auto) Neut # (Auto) Lymph # (Auto) [place] # (Auto) Eos # (Auto) Baso # (Auto) PT INR APTT Sodium Potassium Chloride Carbon Dioxide Anion Gap BUN Creatinine Est GFR ( Amer) Est GFR (Non-Af Amer) POC Glucose (mg/dL) 142 H Random Glucose Serum Osmolality 252 L Calcium Phosphorus Magnesium Total Bilirubin AST ALT Alkaline Phosphatase Troponin I 1.1600 H* Total Protein Albumin Globulin Albumin/Globulin Ratio Urine Color Urine Clarity Urine pH Ur Specific Millis Urine Protein Urine Glucose (UA) Urine Ketones Urine Blood Urine Nitrate Urine Bilirubin Urine Urobilinogen Ur Leukocyte Esterase Urine RBC (Auto) Urine Microscopic WBC Ur Squamous Epith Cells Urine Bacteria reviewed J.P. - EKG Data EKG comments: reviewed J.P. - Imaging and Cardiology CT scan - head Status: Report reviewed by me (J.P.) Chest x-ray Status: Report reviewed by me (J.P.) Assessment & Plan (1) Altered mental status Status: Acute Priority: High Comment: 2nd to Hyponatremia and NSTEMI (2) Hyponatremia Status: Acute Priority: High (3) NSTEMI (non-ST elevated myocardial infarction) Status: Acute Priority: High (4) DM2 (diabetes mellitus, type 2) Status: Chronic (5) Hyperglycemia Status: Acute Priority: High (6) Diabetes insipidus Status: Chronic Priority: High (7) Diabetic retinopathy of both eyes Status: Chronic Priority: Medium (8) HTN (hypertension) Status: Chronic Priority: Medium (9) Orthostatic hypotension Status: Chronic Priority: High (10) History of fracture of right shoulder Status: Chronic Priority: Medium (11) History of fracture of left shoulder Status: Acute Priority: High (12) Anxiety and depression Status: Chronic Priority: High (13) Anemia Status: Acute - Assessment and Plan (Free Text) Plan: Continue Heparin drip, Proamatine, Desmopressin, Levemir, Humalog and rest of Tx, Cardiology consult appreciated, f/u Na, Hgb - Date & Time Date: 08/16/18 Time: 12:00
[2018-08-16] MEDS: Heparin 25,000units in D5W 25,000 UNITS/250 ML BAG IV SCH (16:14)
[2018-08-16 16:22] LABS: BLOOD UREA NITROGEN 12 mg/dl (7-17); CALCIUM 7.9 mg/dL (8.4-10.2); GFR NON-AFRICAN AMERICAN > 60
--- NOTE | 2018-08-16 16:25 | CARD ---
APPROVED REPORT Date of service: 08/16/2018 EKG Measurement Heart [id number] <Conclusion> Normal sinus rhythm Nonspecific ST-T changes Poor R wave progression in Precordial leads Abnormal ECG
[2018-08-16 20:56] LABS: ALT/SGPT 49 U/L (9-52); AST/SGOT 45 U/L (14-36); BLOOD UREA NITROGEN 12 mg/dl (7-17); CALCIUM 8.4 mg/dL (8.4-10.2); GFR NON-AFRICAN AMERICAN > 60
[2018-08-16] MEDS: Insulin Lispro (humaLOG) 100 Units/ml Inj SC SCH (21:42)
[2018-08-16] MEDS ORDERED: Insulin Detemir 100 Units/ml Inj SC SCH (22:00)
[2018-08-16] MEDS ORDERED: INSULIN DETEMIR 16 UNIT SQ SCH (22:00)
--- NOTE | 2018-08-17 01:22 | CON ---
DATE: 08/16/2018 ENDOCRINOLOGY CONSULT LOCATION: ICU, Room 424. HISTORY OF PRESENT ILLNESS: This is a 57-year-old female with known history of type 2 insulin-requiring diabetes presenting here from the [facility] with confusion, disorientation, and altered mental status, and is now being referred for evaluation of persistent hyponatremia. PAST MEDICAL HISTORY: As mentioned above, history of type 2 insulin-requiring diabetes, on a combination of Humalog given as 6 units t.i.d. before meals and Levemir given as 16 units subcutaneous at bedtime daily as given, history of hypertension and dyslipidemia, history of diabetes insipidus, and has been on desmopressin nasal spray for some years now, the exact nature and etiology are yet to be clarified . History of a recent left humeral fracture and underwent a shoulder replacement in the left arm as noted, and she was here about 2 weeks ago. History of bipolar disorder with generalized anxiety and depression. History of coronary artery disease with previous admissions for congestive heart failure. History of previous seizure disorder as noted. History of bipolar disorder with previous admissions for exacerbations of major depression. FAMILY HISTORY: Positive for hypertension and heart disease. SOCIAL HISTORY: The patient has a supportive family. No known substance use. REVIEW OF SYSTEMS: As mentioned above. Admits to generalized body weakness with increasing bouts of hypersomnolence and lethargy with worsening dizziness and lightheadedness, especially on the day of admission. She had previous bouts of syncopal episodes with previous admissions as noted thereof. She admits to precordial chest pains, episodic in nature with occasional shortness of breath, especially on exertion. Her oral intake has been variable with nausea, dyspepsia, and vague upper abdominal pains. No recent alterations of bowel and urinary patterns. PHYSICAL EXAMINATION: GENERAL: An average built female, in no apparent distress. VITAL SIGNS: Blood pressure of 140/80, pulse of 100 beats per minute and regular, temperature 98, respirations 20. Height is 6 feet, weight is 163 pounds. HEENT: Head is normocephalic. Eyes anicteric with pink conjunctivae. Funduscopy, not possible at this time. Ears, nose, and throat, otherwise, normal. NECK: Supple. Thyroid gland is normal in size. No carotid bruits or cervical adenopathy. CARDIOPULMONARY: Some adynamic precordium. S1, S2, rapid and regular. LUNGS: Clear to auscultation. ABDOMEN: Flat, soft with positive bowel sounds. EXTREMITIES: No peripheral edema. Pulses are +2 bilaterally. LABORATORY DATA: Her chemistry showed a BUN of 12, sodium 121, potassium 3.8, chloride 90, CO2 of 21, glucose 139, and creatinine 0.4. Her glucose levels have ranged from 142 to 158 mg/dL. ASSESSMENT: This is a 57-year-old female with euvolemic hyponatremia, most likely medication induced as the patient apparently has been on desmopressin nasal spray or DDAVP nasal spray for the longest time. The exact etiology of the diabetes insipidus has yet to be clarified at this time. She also has uncontrolled type 2 insulin-requiring diabetes on the aforementioned drug regimen as ordered. There is also recent acute non-ST elevation myocardial infarction with elevated troponin levels as noted and is being followed closely in the ICU for hemodynamic monitoring. PLAN OF MANAGEMENT: We will definitely discontinue the DDAVP or desmopressin nasal spray at this time which is the most likely plausible etiology for the euvolemic hyponatremia as noted thereof. We will obtain serial chemistries and supplement accordingly as needed. We will also obtain a hemoglobin A1c to confirm her prior glycemic control and baseline thyroid function studies will be ordered. We will also obtain baseline thyroid studies and a serum cortisol and adrenocorticotropic hormone level to exclude any underlying endocrinopathy although quite remote in possibility. We will obtain serial chemistries and supplement accordingly as needed. We will follow. Kelsey Rosenbaum MD
[2018-08-17 05:53] LABS: IRON 45 ug/dL (37-170)
[2018-08-17 06:02] LABS: % IRON SATURATION 15 % (20-55); TOTAL IRON BINDING CAPACITY 290 ug/dL (250-450)
[2018-08-17 06:03] LABS: LDL CHOLESTEROL 88 mg/dL (0-129)
[2018-08-17 06:23] LABS: ALT/SGPT 38 U/L (9-52); AST/SGOT 32 U/L (14-36); BLOOD UREA NITROGEN 11 mg/dl (7-17); CALCIUM 8.4 mg/dL (8.4-10.2); GFR NON-AFRICAN AMERICAN > 60; HDL CHOLESTEROL 37 MG/DL (30-70)
[2018-08-17] MEDS: Insulin Lispro (humaLOG) 100 Units/ml Inj SC SCH ×4 (07:01→21:28)
[2018-08-17 09:22] LABS: BLOOD UREA NITROGEN 11 mg/dl (7-17); CALCIUM 8.2 mg/dL (8.4-10.2); GFR NON-AFRICAN AMERICAN > 60
[2018-08-17 12:21] LABS: GFR NON-AFRICAN AMERICAN > 60
[2018-08-17 12:29] LABS: URIC ACID 2.1 mg/Dl (2.2-7.5)
[2018-08-17 12:38] LABS: ALB/GLOB RATIO 0.9 (1.0-2.1); ALT/SGPT 60 U/L (9-52); AST/SGOT 52 U/L (14-36); BLOOD UREA NITROGEN 11 mg/dl (7-17); CALCIUM 8.6 mg/dL (8.4-10.2); GFR NON-AFRICAN AMERICAN > 60
--- NOTE | 2018-08-17 13:38 | CP.PCM.PN ---
Subjective - Date & Time of Evaluation Date of Evaluation: 08/17/18 Time of Evaluation: 09:00 - Subjective Subjective: F/U AMS, NSTEMI Anxiety, vaguely disoriented, forgetful, no CP, no SOB. Objective - Vital Signs/Intake and Output Vital Signs (last 24 hours): Temp Pulse Resp BP Pulse Ox 98.5 F 80 22 162/85 H 98 08/17/18 12:00 08/17/18 12:00 08/17/18 12:00 08/17/18 12:00 08/17/18 12:00 Intake and Output: 08/17/18 08/17/18 06:59 18:59 Intake Total 465 154 Output Total 650 Balance -185 154 - Medications Medications: Current Medications Aspirin (Aspirin) 325 mg PO DAILY [facility] Last Admin: 08/17/18 11:41 Dose: 325 mg Atorvastatin Calcium (Lipitor) 20 mg PO DAILY [facility] Last Admin: 08/17/18 09:42 Dose: 20 mg Docusate Sodium (Colace) 100 mg PO BID [facility] Last Admin: 08/17/18 11:41 Dose: 100 mg Ferrous Sulfate (Feosol) 325 mg PO BID [facility] Last Admin: 08/17/18 09:42 Dose: 325 mg Folic Acid (Folic Acid) 1 mg PO DAILY [facility] Last Admin: 08/17/18 09:42 Dose: 1 mg Heparin Sodium/Dextrose (Heparin 25,000 Units/250ml In D5w) 25,000 units in 250 mls @ 9 mls/hr IV .Q24H [facility]; Protocol Last Titration: 08/17/18 06:09 Dose: 9 mls/hr Insulin Detemir (Levemir) 12 units SC [facility] Insulin Human Lispro (Humalog) 0 units SC [facility]; Protocol Last Admin: 08/17/18 11:55 Dose: Not Given Midodrine (Proamatine) 10 mg PO TID [facility] Last Admin: 08/17/18 09:43 Dose: 10 mg - Labs Labs: 08/16/18 04:03 08/17/18 11:50 PT 11.5 Seconds (9.8-13.1) 08/15/18 20:20 INR 1.0 08/15/18 20:20 APTT 46.6 Seconds (25.6-37.1) H 03/05/19 11:50 - Constitutional Appears: No Acute Distress - Head Exam Head Exam: NORMAL INSPECTION - Eye Exam Eye Exam: PERRL - ENT Exam ENT Exam: Normal Exam - Neck Exam Neck Exam: Normal Inspection - Respiratory Exam Respiratory Exam: NORMAL BREATHING PATTERN - Cardiovascular Exam Cardiovascular Exam: REGULAR RHYTHM - GI/Abdominal Exam GI & Abdominal Exam: Soft, Normal Bowel Sounds - Extremities Exam Additional comments: Sling L shoulder, decreased ROM R-L arm, L>R - Back Exam Additional comments: Sacral light redness - Neurological Exam Neurological Exam: Awake Additional comments: Forgetful, no focal motor/sensory deficit. - Psychiatric Exam Psychiatric exam: Normal Mood - Skin Skin Exam: Warm Assessment and Plan (1) Altered mental status Status: Acute (2) Hyponatremia Status: Acute (3) NSTEMI (non-ST elevated myocardial infarction) Status: Acute (4) DM2 (diabetes mellitus, type 2) Status: Chronic (5) Hyperglycemia Status: Acute (6) Diabetes insipidus Status: Chronic (7) Diabetic retinopathy of both eyes Status: Chronic (8) HTN (hypertension) Status: Chronic (9) Orthostatic hypotension Status: Chronic (10) History of fracture of right shoulder Status: Chronic (11) History of fracture of left shoulder Status: Acute (12) Anxiety and depression Status: Chronic (13) Anemia Status: Acute - Assessment and Plan (Free Text) Plan: Discussed with cardiology to have Cardiac Cath in [facility] in AM.
--- NOTE | 2018-08-17 14:26 | PN ---
DATE: 08/17/2018 LOCATION: 424 ICU. SUBJECTIVE: This is a 57-year-old female with recent uncontrolled type 2 insulin-requiring diabetes, presenting here with altered mental status and confusion and disorientation with supervening marked hyponatremia and is now being followed closely for metabolic management. Her glycemic levels are fluctuating but improved and the glucose values have ranged from 88 to 124 mg/dL. Her chemistry showed a BUN of 11, sodium 121, potassium 3.7, chloride 90, CO2 of 23, glucose 90 and creatinine 0.4. Her thyroid studies showed a TSH of 2.97. ASSESSMENT: This is a 57-year-old female with euvolemic hyponatremia, most likely medication induced with the previous usage of desmopressin or DDAVP for an apparent history of diabetes insipidus, which has yet to be clarified at this time. She also has uncontrolled type 2 insulin-requiring diabetes with extremes of glycemic fluctuations with the variability of her oral intake as noted thereof. PLAN OF MANAGEMENT: We will modify her current insulin regimen and lower the basal insulin with Levemir to be given as 12 units at bedtime daily to start tonight. We will obtain serial chemistries and supplement accordingly as needed. We will also continue the low-dose correction scale using Humalog insulin as given. We will follow and advise accordingly. We will also consider a modification of her drug therapy if persistent hyponatremia is noted by tomorrow. Somehow, the desmopressin was reordered for today which I discontinued yesterday. We will discuss with the medical and nursing staff accordingly. Kelsey Rosenbaum MD
[2018-08-17 14:53] VITALS: O2SAT 100
--- NOTE | 2018-08-17 15:42 | CP.PCM.PN ---
Subjective - Date & Time of Evaluation Date of Evaluation: 08/17/18 Time of Evaluation: 07:00 - Subjective Subjective: Pt seen and examined this morning at bedside in the ICU. Pt reports some mild SOB, denies chest pain Objective - Vital Signs/Intake and Output Vital Signs (last 24 hours): Temp Pulse Resp BP Pulse Ox 98.5 F 67 18 125/64 100 08/17/18 12:00 08/17/18 14:00 08/17/18 14:00 08/17/18 14:00 08/17/18 14:00 Intake and Output: 08/17/18 08/17/18 06:59 18:59 Intake Total 465 176 Output Total 650 Balance -185 176 - Medications Medications: Current Medications Aspirin (Aspirin) 325 mg PO DAILY [facility] Last Admin: 08/17/18 11:41 Dose: 325 mg Atorvastatin Calcium (Lipitor) 20 mg PO DAILY [facility] Last Admin: 08/17/18 09:42 Dose: 20 mg Demeclocycline HCl (Declomycin) 300 mg PO BID [facility]; Protocol Docusate Sodium (Colace) 100 mg PO BID [facility] Last Admin: 08/17/18 11:41 Dose: 100 mg Ferrous Sulfate (Feosol) 325 mg PO BID [facility] Last Admin: 08/17/18 09:42 Dose: 325 mg Folic Acid (Folic Acid) 1 mg PO DAILY [facility] Last Admin: 08/17/18 09:42 Dose: 1 mg Heparin Sodium/Dextrose (Heparin 25,000 Units/250ml In D5w) 25,000 units in 250 mls @ 9 mls/hr IV .Q24H [facility]; Protocol Last Titration: 08/17/18 06:09 Dose: 9 mls/hr Insulin Detemir (Levemir) 12 units SC [facility] Insulin Human Lispro (Humalog) 0 units SC [facility]; Protocol Last Admin: 08/17/18 11:55 Dose: Not Given Midodrine (Proamatine) 10 mg PO TID [facility] Last Admin: 08/17/18 09:43 Dose: 10 mg - Labs Labs: 08/16/18 04:03 08/17/18 11:50 PT 11.5 Seconds (9.8-13.1) 08/15/18 20:20 INR 1.0 08/15/18 20:20 APTT 46.6 Seconds (25.6-37.1) H 08/17/18 11:50 - Constitutional Appears: No Acute Distress - Head Exam Head Exam: ATRAUMATIC, NORMOCEPHALIC - Eye Exam Eye Exam: EOMI - ENT Exam ENT Exam: Mucous Membranes Moist - Neck Exam Neck Exam: Full ROM - Respiratory Exam Respiratory Exam: Clear to Ausculation Bilateral. absent: Accessory Muscle Use, Respiratory Distress - Cardiovascular Exam Cardiovascular Exam: RRR, +S1, +S2. absent: Diastolic murmur, Murmur - GI/Abdominal Exam GI & Abdominal Exam: Soft, Normal Bowel Sounds. absent: Tenderness - Extremities Exam Extremities Exam: absent: Calf Tenderness, Pedal Edema, Tenderness Additional comments: LUE in sling from surgery - Neurological Exam Neurological Exam: Alert, Awake, Oriented x3 - Psychiatric Exam Psychiatric exam: Normal Affect, Normal Mood - Skin Skin Exam: Dry, Intact, Normal Color Assessment and Plan - Assessment and Plan (Free Text) Assessment: NSTEMI Hyponatremia HTN syncope DM Recent shoulder surgery Plan: NSTEMI Hyponatremia HTN syncope DM Recent shoulder surgery Trop 08/16 1.35, 1.04, 1.16, 1.16, 1.28 HA1C 08/03 11.8 EKG 08/[address] or T wave abnormality ECHO 07/31/18 mild LVH, EF60-65% Cardiac cath at [facility] tomorrow 08/18/18 Medications ASA Lipitor midodrine started Heparin drip Pt seen, examined, assessment and plan discussed with Dr Javier Espinal PGY1, Internal Medicine Resident
[2018-08-17] MEDS: Heparin 25,000units in D5W 25,000 UNITS/250 ML BAG IV SCH (17:49)
--- NOTE | 2018-08-17 19:44 | CP.CCUPN ---
CCU Subjective - Physician Review Events Since Last Encounter (Free Text): 08/17/18 19:37 The patient was Seen/interviewed and examined by me at the bedside during ICU round, Medical records reviewed and Management issues were discussed and formulated with the house staff. Events reviewed 57 years old Female with PMHx of HTN, syncope, DM, S/P shoulder surgery and bipolar disorder brought in from [facility] for evaluation of altered mental status. She was transferred to the ICU after she was found to be hyponatremic Patient received a dose of DDAVP in the ER She receiving 500 cc of hypertonic saline then started at 80 cc/hr Renal and Encocrine consulted Awake, Comfortable, NAD 08/16 Repeat sodium level at 10AM 121up from 115, the hypertonis saline was discontinued, repeat sodium level at 2:45 PM remains 121 sodium level stable at 121 Repeat Trop elevated, Started on Heparin drip, cardiology consulted Scheduled for Cardiac cath tomorrow CCU Objective - Vital Signs / Intake & Output Vital Signs (Last 4 hours): Vital Signs Temp Pulse Resp BP Pulse Ox 08/17/18 17:50 63 17 126/61 100 08/17/18 16:00 98.3 F 63 22 126/71 100 Intake and Output (Last 8hrs): Intake & Output 08/17/18 08/17/18 08/17/18 06:59 14:59 22:59 Intake Total 405 176 259 Output Total 650 1200 Balance -245 176 -941 Weight 163 lb Intake: IV 75 76 159 Oral 330 100 100 Output: Urine 650 1200 Straight 650 1200 Other: # Bowel Movements 1 - Physical Exam Head: Positive for: Atraumatic, Normocephalic Pupils: Positive for: PERRL. Negative for: Sluggish, Non-Reactive, Pinpoint Extroacular Muscles: Positive for: EOMI Conjunctiva: Positive for: Normal. Negative for: Injected, Icteric Nose (Internal): Positive for: Normal Inspection Neck: Positive for: Normal Range of Motion, Trachea Midline. Negative for: Meningeal Signs, MIDLINE TENDERNESS, Paraspinal Tenderness, JVD, Lymphadenopathy, Bruit, Other Respiratory/Chest: Positive for: Clear to Auscultation, Good Air Exchange. Negative for: Respiratory Distress, Accessory Muscle Use Cardiovascular: Positive for: Regular Rate and Rhythm, Normal S1, S2, Peripheal Pulses Present. Negative for: Murmurs, Tachycardic, Bradycardic Abdomen: Positive for: Normal Bowel Sounds. Negative for: Tenderness, Distention, Peritoneal Signs Neurological: Positive for: GCS=15, CN II-XII Intact, Speech Normal Psychiatric: Positive for: Alert, Oriented x 3, Normal Insight, Normal Concen tration - Medications Active Medications: Active Medications Generic Name Dose Route Start Last Admin Trade Name Joseq PRN Reason Stop Dose Admin Aspirin 325 mg 08/16/18 09:00 08/17/18 11:41 Aspirin PO 325 mg DAILY [facility] Administration Atorvastatin Calcium 20 mg 08/16/18 09:00 08/17/18 09:42 Lipitor PO 20 mg DAILY [facility] Administration Demeclocycline HCl 300 mg 08/17/18 17:00 08/17/18 17:00 Declomycin PO 300 mg BID [facility] Administration Protocol Docusate Sodium 100 mg 08/16/18 09:00 08/17/18 17:00 Colace PO 100 mg BID [facility] Administration Ferrous Sulfate 325 mg 08/16/18 09:00 08/17/18 17:00 Feosol PO 325 mg BID [facility] Administration Folic Acid 1 mg 08/16/18 09:00 08/17/18 09:42 Folic Acid PO 1 mg DAILY [facility] Administration Heparin Sodium/Dextrose 25,000 units in 250 mls @ 9 mls/hr 08/16/18 16:00 08/17/18 17:49 Heparin 25,000 Units/250ml In D5w IV 9 mls/hr .Q24H [facility] Administration Protocol Insulin Detemir 12 units 08/17/18 22:00 Levemir SC HS [facility] Insulin Human Lispro 0 units 08/16/18 16:30 08/17/18 17:03 Humalog SC Not Given ACHS [facility] Protocol Midodrine 10 mg 08/16/18 09:00 08/17/18 17:05 Proamatine PO 10 mg TID [facility] Administration - Patient Studies Lab Studies: Microbiology Studies 08/16/18 04:00 MRSA Culture (Admit) - Final Naris MRSA NOT DETECTED Lab Studies 08/17/18 08/17/18 08/17/18 Range/Units 16:28 11:50 11:50 Retic Count (0.5-1.5) % APTT 46.6 H (25.6-37.1) Seconds Sodium (132-148) mmol/l Potassium (3.6-5.0) MMOL/L Chloride (98-107) mmol/L Carbon Dioxide (22-30) mmol/L Anion Gap (10-20) BUN (7-17) mg/dl Creatinine 0.4 L (0.7-1.2) mg/dl Est GFR ( Amer) > 60 Est GFR (Non-Af Amer) > 60 POC Glucose (mg/dL) (65-110) mg/dL Random Glucose (65-105) mg/dL Hemoglobin A1c (4.2-6.5) % Uric Acid 2.1 L (2.2-7.5) mg/Dl Calcium (8.4-10.2) mg/dL Phosphorus (2.5-4.5) mg/dl Magnesium (1.6-2.3) MG/DL Iron (37-170) ug/dL TIBC (250-450) ug/dL % Saturation (20-55) % Ferritin (11.1-264.0) ng/Ml Total Bilirubin (0.2-1.3) mg/dl AST (14-36) U/L ALT (9-52) U/L Alkaline Phosphatase (38-126) U/L Troponin I (0.00-0.120) ng/mL Total Protein (6.3-8.2) G/DL Albumin (3.5-5.0) g/dL Globulin (2.2-3.9) gm/dL Albumin/Globulin Ratio (1.0-2.1) Triglycerides (0-149) mg/DL Cholesterol (0-199) mg/dL LDL Cholesterol Direct (0-129) mg/dL HDL Cholesterol (30-70) MG/DL Vitamin B12 (239-931) pg/mL TSH 3rd Generation (0.46-4.68) mIU/ML Cortisol AM Sample (4.46-22.7) ug/dL Ur Random Sodium 6 meq/L Ur Random Potassium 9.7 mmol/L 08/17/18 08/17/18 08/17/18 Range/Units 11:30 11:18 08:25 Retic Count (0.5-1.5) % APTT (25.6-37.1) Seconds Sodium 121 L 120 L* (132-148) mmol/l Potassium 3.9 3.6 (3.6-5.0) MMOL/L Chloride 87 L 86 L (98-107) mmol/L Carbon Dioxide 22 20 L (22-30) mmol/L Anion Gap 16 18 (10-20) BUN 11 11 (7-17) mg/dl Creatinine 0.4 L 0.4 L (0.7-1.2) mg/dl Est GFR ( Amer) > 60 > 60 Est GFR (Non-Af Amer) > 60 > 60 POC Glucose (mg/dL) 150 H (65-110) mg/dL Random Glucose 155 H 145 H (65-105) mg/dL Hemoglobin A1c (4.2-6.5) % Uric Acid (2.2-7.5) mg/Dl Calcium 8.6 8.2 L (8.4-10.2) mg/dL Phosphorus 3.3 (2.5-4.5) mg/dl Magnesium 1.7 (1.6-2.3) MG/DL Iron (37-170) ug/dL TIBC (250-450) ug/dL % Saturation (20-55) % Ferritin (11.1-264.0) ng/Ml Total Bilirubin 0.2 (0.2-1.3) mg/dl AST 52 H D (14-36) U/L ALT 60 H D (9-52) U/L Alkaline Phosphatase 127 H (38-126) U/L Troponin I (0.00-0.120) ng/mL Total Protein 6.4 (6.3-8.2) G/DL Albumin 3.0 L (3.5-5.0) g/dL Globulin 3.4 (2.2-3.9) gm/dL Albumin/Globulin Ratio 0.9 L (1.0-2.1) Triglycerides (0-149) mg/DL Cholesterol (0-199) mg/dL LDL Cholesterol Direct (0-129) mg/dL HDL Cholesterol (30-70) MG/DL Vitamin B12 (239-931) pg/mL TSH 3rd Generation (0.46-4.68) mIU/ML Cortisol AM Sample (4.46-22.7) ug/dL Ur Random Sodium meq/L Ur Random Potassium mmol/L 08/17/18 08/17/18 08/17/18 Range/Units 06:37 05:00 05:00 Retic Count 1.8 H (0.5-1.5) % APTT 73.7 H (25.6-37.1) Seconds Sodium (132-148) mmol/l Potassium (3.6-5.0) MMOL/L Chloride (98-107) mmol/L Carbon Dioxide (22-30) mmol/L Anion Gap (10-20) BUN (7-17) mg/dl Creatinine (0.7-1.2) mg/dl Est GFR ( Amer) Est GFR (Non-Af Amer) POC Glucose (mg/dL) 88 (65-110) mg/dL Random Glucose (65-105) mg/dL Hemoglobin A1c (4.2-6.5) % Uric Acid (2.2-7.5) mg/Dl Calcium (8.4-10.2) mg/dL Phosphorus (2.5-4.5) mg/dl Magnesium (1.6-2.3) MG/DL Iron (37-170) ug/dL TIBC (250-450) ug/dL % Saturation (20-55) % Ferritin (11.1-264.0) ng/Ml Total Bilirubin (0.2-1.3) mg/dl AST (14-36) U/L ALT (9-52) U/L Alkaline Phosphatase (38-126) U/L Troponin I (0.00-0.120) ng/mL Total Protein (6.3-8.2) G/DL Albumin (3.5-5.0) g/dL Globulin (2.2-3.9) gm/dL Albumin/Globulin Ratio (1.0-2.1) Triglycerides (0-149) mg/DL Cholesterol (0-199) mg/dL LDL Cholesterol Direct (0-129) mg/dL HDL Cholesterol (30-70) MG/DL Vitamin B12 (239-931) pg/mL TSH 3rd Generation (0.46-4.68) mIU/ML Cortisol AM Sample (4.46-22.7) ug/dL Ur Random Sodium meq/L Ur Random Potassium mmol/L 08/17/18 08/17/18 08/17/18 Range/Units 04:55 04:55 04:55 Retic Count (0.5-1.5) % APTT (25.6-37.1) Seconds Sodium 121 L (132-148) mmol/l Potassium 3.7 (3.6-5.0) MMOL/L Chloride 90 L (98-107) mmol/L Carbon Dioxide 23 (22-30) mmol/L Anion Gap 12 (10-20) BUN 11 (7-17) mg/dl Creatinine 0.4 L (0.7-1.2) mg/dl Est GFR ( Amer) > 60 Est GFR (Non-Af Amer) > 60 POC Glucose (mg/dL) (65-110) mg/dL Random Glucose 90 (65-105) mg/dL Hemoglobin A1c (4.2-6.5) % Uric Acid (2.2-7.5) mg/Dl Calcium 8.4 (8.4-10.2) mg/dL Phosphorus (2.5-4.5) mg/dl Magnesium 1.8 (1.6-2.3) MG/DL Iron 45 (37-170) ug/dL TIBC 290 (250-450) ug/dL % Saturation 15 L (20-55) % Ferritin 218.0 (11.1-264.0) ng/Ml Total Bilirubin 0.2 (0.2-1.3) mg/dl AST 32 (14-36) U/L ALT 38 (9-52) U/L Alkaline Phosphatase 110 (38-126) U/L Troponin I (0.00-0.120) ng/mL Total Protein 5.9 L (6.3-8.2) G/DL Albumin 3.0 L (3.5-5.0) g/dL Globulin 2.9 (2.2-3.9) gm/dL Albumin/Globulin Ratio 1.0 (1.0-2.1) Triglycerides 80 D (0-149) mg/DL Cholesterol 150 (0-199) mg/dL LDL Cholesterol Direct 88 (0-129) mg/dL HDL Cholesterol 37 (30-70) MG/DL Vitamin B12 715 (239-931) pg/mL TSH 3rd Generation 2.97 (0.46-4.68) mIU/ML Cortisol AM Sample 7.1 (4.46-22.7) ug/dL Ur Random Sodium meq/L Ur Random Potassium mmol/L 08/17/18 08/16/18 08/16/18 Range/Units 04:30 21:46 20:59 Retic Count (0.5-1.5) % APTT 36.7 (25.6-37.1) Seconds Sodium (132-148) mmol/l Potassium (3.6-5.0) MMOL/L Chloride (98-107) mmol/L Carbon Dioxide (22-30) mmol/L Anion Gap (10-20) BUN (7-17) mg/dl Creatinine (0.7-1.2) mg/dl Est GFR ( Amer) Est GFR (Non-Af Amer) POC Glucose (mg/dL) 124 H (65-110) mg/dL Random Glucose (65-105) mg/dL Hemoglobin A1c 9.3 H D (4.2-6.5) % Uric Acid (2.2-7.5) mg/Dl Calcium (8.4-10.2) mg/dL Phosphorus (2.5-4.5) mg/dl Magnesium (1.6-2.3) MG/DL Iron (37-170) ug/dL TIBC (250-450) ug/dL % Saturation (20-55) % Ferritin (11.1-264.0) ng/Ml Total Bilirubin (0.2-1.3) mg/dl AST (14-36) U/L ALT (9-52) U/L Alkaline Phosphatase (38-126) U/L Troponin I (0.00-0.120) ng/mL Total Protein (6.3-8.2) G/DL Albumin (3.5-5.0) g/dL Globulin (2.2-3.9) gm/dL Albumin/Globulin Ratio (1.0-2.1) Triglycerides (0-149) mg/DL Cholesterol (0-199) mg/dL LDL Cholesterol Direct (0-129) mg/dL HDL Cholesterol (30-70) MG/DL Vitamin B12 (239-931) pg/mL TSH 3rd Generation (0.46-4.68) mIU/ML Cortisol AM Sample (4.46-22.7) ug/dL Ur Random Sodium meq/L Ur Random Potassium mmol/L 08/16/18 Range/Units 20:10 Retic Count (0.5-1.5) % APTT (25.6-37.1) Seconds Sodium 121 L (132-148) mmol/l Potassium 3.8 (3.6-5.0) MMOL/L Chloride 89 L (98-107) mmol/L Carbon Dioxide 24 (22-30) mmol/L Anion Gap 12 (10-20) BUN 12 (7-17) mg/dl Creatinine 0.5 L (0.7-1.2) mg/dl Est GFR ( Amer) > 60 Est GFR (Non-Af Amer) > 60 POC Glucose (mg/dL) (65-110) mg/dL Random Glucose 125 H (65-105) mg/dL Hemoglobin A1c (4.2-6.5) % Uric Acid (2.2-7.5) mg/Dl Calcium 8.4 (8.4-10.2) mg/dL Phosphorus 2.9 (2.5-4.5) mg/dl Magnesium 1.8 (1.6-2.3) MG/DL Iron (37-170) ug/dL TIBC (250-450) ug/dL % Saturation (20-55) % Ferritin (11.1-264.0) ng/Ml Total Bilirubin 0.2 (0.2-1.3) mg/dl AST 45 H D (14-36) U/L ALT 49 (9-52) U/L Alkaline Phosphatase 101 (38-126) U/L Troponin I 1.2800 H* (0.00-0.120) ng/mL Total Protein 6.0 L (6.3-8.2) G/DL Albumin 3.0 L (3.5-5.0) g/dL Globulin 2.9 (2.2-3.9) gm/dL Albumin/Globulin Ratio 1.0 (1.0-2.1) Triglycerides (0-149) mg/DL Cholesterol (0-199) mg/dL LDL Cholesterol Direct (0-129) mg/dL HDL Cholesterol (30-70) MG/DL Vitamin B12 (239-931) pg/mL TSH 3rd Generation (0.46-4.68) mIU/ML Cortisol AM Sample (4.46-22.7) ug/dL Ur Random Sodium meq/L Ur Random Potassium mmol/L Laboratory Results - last 24 hr 08/16/18 08/16/18 08/16/18 20:10 20:59 21:46 Retic Count APTT 36.7 Sodium 121 L Potassium 3.8 Chloride 89 L Carbon Dioxide 24 Anion Gap 12 BUN 12 Creatinine 0.5 L Est GFR ( Amer) > 60 Est GFR (Non-Af Amer) > 60 POC Glucose (mg/dL) 124 H Random Glucose 125 H Hemoglobin A1c Uric Acid Calcium 8.4 Phosphorus 2.9 Magnesium 1.8 Iron TIBC % Saturation Ferritin Total Bilirubin 0.2 AST 45 H D ALT 49 Alkaline Phosphatase 101 Troponin I 1.2800 H* Total Protein 6.0 L Albumin 3.0 L Globulin 2.9 Albumin/Globulin Ratio 1.0 Triglycerides Cholesterol LDL Cholesterol Direct HDL Cholesterol Vitamin B12 TSH 3rd Generation Cortisol AM Sample Ur Random Sodium Ur Random Potassium 08/17/18 08/17/18 08/17/18 04:30 04:55 04:55 Retic Count APTT Sodium 121 L Potassium 3.7 Chloride 90 L Carbon Dioxide 23 Anion Gap 12 BUN 11 Creatinine 0.4 L Est GFR ( Amer) > 60 Est GFR (Non-Af Amer) > 60 POC Glucose (mg/dL) Random Glucose 90 Hemoglobin A1c 9.3 H D Uric Acid Calcium 8.4 Phosphorus Magnesium 1.8 Iron TIBC % Saturation Ferritin 218.0 Total Bilirubin 0.2 AST 32 ALT 38 Alkaline Phosphatase 110 Troponin I Total Protein 5.9 L Albumin 3.0 L Globulin 2.9 Albumin/Globulin Ratio 1.0 Triglycerides 80 D Cholesterol 150 LDL Cholesterol Direct 88 HDL Cholesterol 37 Vitamin B12 715 TSH 3rd Generation 2.97 Cortisol AM Sample 7.1 Ur Random Sodium Ur Random Potassium 08/17/18 08/17/18 08/17/18 04:55 05:00 05:00 Retic Count 1.8 H APTT 73.7 H Sodium Potassium Chloride Carbon Dioxide Anion Gap BUN Creatinine Est GFR ( Amer) Est GFR (Non-Af Amer) POC Glucose (mg/dL) Random Glucose Hemoglobin A1c Uric Acid Calcium Phosphorus Magnesium Iron 45 TIBC 290 % Saturation 15 L Ferritin Total Bilirubin AST ALT Alkaline Phosphatase Troponin I Total Protein Albumin Globulin Albumin/Globulin Ratio Triglycerides Cholesterol LDL Cholesterol Direct HDL Cholesterol Vitamin B12 TSH 3rd Generation Cortisol AM Sample Ur Random Sodium Ur Random Potassium 08/17/18 08/17/18 08/17/18 06:37 08:25 11:18 Retic Count APTT Sodium 120 L* Potassium 3.6 Chloride 86 L Carbon Dioxide 20 L Anion Gap 18 BUN 11 Creatinine 0.4 L Est GFR ( Amer) > 60 Est GFR (Non-Af Amer) > 60 POC Glucose (mg/dL) 88 150 H Random Glucose 145 H Hemoglobin A1c Uric Acid Calcium 8.2 L Phosphorus Magnesium Iron TIBC % Saturation Ferritin Total Bilirubin AST ALT Alkaline Phosphatase Troponin I Total Protein Albumin Globulin Albumin/Globulin Ratio Triglycerides Cholesterol LDL Cholesterol Direct HDL Cholesterol Vitamin B12 TSH 3rd Generation Cortisol AM Sample Ur Random Sodium Ur Random Potassium 08/17/18 08/17/18 08/17/18 11:30 11:50 11:50 Retic Count APTT 46.6 H Sodium 121 L Potassium 3.9 Chloride 87 L Carbon Dioxide 22 Anion Gap 16 BUN 11 Creatinine 0.4 L 0.4 L Est GFR ( Amer) > 60 > 60 Est GFR (Non-Af Amer) > 60 > 60 POC Glucose (mg/dL) Random Glucose 155 H Hemoglobin A1c Uric Acid 2.1 L Calcium 8.6 Phosphorus 3.3 Magnesium 1.7 Iron TIBC % Saturation Ferritin Total Bilirubin 0.2 AST 52 H D ALT 60 H D Alkaline Phosphatase 127 H Troponin I Total Protein 6.4 Albumin 3.0 L Globulin 3.4 Albumin/Globulin Ratio 0.9 L Triglycerides Cholesterol LDL Cholesterol Direct HDL Cholesterol Vitamin B12 TSH 3rd Generation Cortisol AM Sample Ur Random Sodium Ur Random Potassium 08/17/18 16:28 Retic Count APTT Sodium Potassium Chloride Carbon Dioxide Anion Gap BUN Creatinine Est GFR ( Amer) Est GFR (Non-Af Amer) POC Glucose (mg/dL) Random Glucose Hemoglobin A1c Uric Acid Calcium Phosphorus Magnesium Iron TIBC % Saturation Ferritin Total Bilirubin AST ALT Alkaline Phosphatase Troponin I Total Protein Albumin Globulin Albumin/Globulin Ratio Triglycerides Cholesterol LDL Cholesterol Direct HDL Cholesterol Vitamin B12 TSH 3rd Generation Cortisol AM Sample Ur Random Sodium 6 Ur Random Potassium 9.7 Fingerstick Blood Sugar Results: 196 Review of Systems - Cardiovascular Cardiovascular: absent: As Per HPI, Acrocyanosis, Chest Pain, Chest Pain at Rest, Chest Pain with Activity, Claudication, Diaphoresis, Dyspnea, Dyspnea on Exertion, Edema, Irregular Heart Rhythm, Pain Radiating to Arm/Neck/Jaw, Leg Edema, Leg Ulcers, Lightheadedness, Orthopnea, Palpitations, Paroxysmal Nocturnal Dyspnea, Pedal Edema, Radiating Pain, Rapid Heart Rate, Slow Heart Rat e, Syncope, Other, UNREMARKABLE - Respiratory Respiratory: absent: As Per HPI, Cough, Dyspnea, Hemoptysis, Dyspnea on Exertion, Wheezing, Snoring, Stridor, Pain on Inspiration, Chest Congestion, Excessive Mucous Production, Change in Mucous Color, Pain with Coughing, Other, UNREMARKABLE Critical Care Progress Note - Extremities/Vascular Does the Patient have a Central Venous Catheter?: No Does the Patient need a Central Venous Catheter?: No Does the Patient have a Galvan Catheter?: No Does the Patient need a Galvan Catheter?: No - Nutrition Nutrition: Nutrition Category Date Time Status Dysphagia/Modified Consistency Diet [DIET] Diets 08/18/18 Breakfast Active Heart Healthy Diet [DIET] Diets 08/16/18 Dinner Active Assessment/Plan (1) Altered mental status Current Visit: Yes Status: Acute Priority: High (2) Hyponatremia Current Visit: Yes Status: Acute Priority: High (3) NSTEMI (non-ST elevated myocardial infarction) Current Visit: Yes Status: Acute Priority: High (4) DM2 (diabetes mellitus, type 2) Current Visit: Yes Status: Chronic Priority: High (5) Orthostatic hypotension Current Visit: Yes Status: Chronic Priority: High (6) Bipolar disorder Current Visit: No Status: Chronic Priority: Medium
[2018-08-17 21:08] LABS: BLOOD UREA NITROGEN 9 mg/dl (7-17); CALCIUM 9.1 mg/dL (8.4-10.2); GFR NON-AFRICAN AMERICAN > 60
[2018-08-17] MEDS ORDERED: Insulin Detemir 100 Units/ml Inj SC SCH (22:00)
--- NOTE | 2018-08-17 23:14 | CP.PCM.CON ---
History of Present Illness - History of Present Illness History of Present Illness: pt is seen and examined, full consult is dictated #[id number] 1. Hyponatremia, most likely sec to hypotonic hypovolemic hyponatremia, ( low s osm, high u osm, low u na normal tsh, serum cortisol), not c/w siadh , no evidence of central DI at this time no need for demeclocycline start NS o.9 % 70 ml/hr, repeat bmp at 12 1am and 6 am case d/w ICu attending Past Patient History - Past Medical History & Family History Past Medical History?: Yes - Past Social History Smoking Status: Never Smoked Alcohol: None Drugs: Denies Home Situation {Lives}: With Family - CARDIAC Hx Cardiac Disorders: Yes Hx Hypercholesterolemia: Yes Hx Hypertension: Yes Hx Hypotension: Yes (Orthostatic Hypotension) - PULMONARY Hx Respiratory Disorders: No - NEUROLOGICAL Hx Neurological Disorder: Yes Hx Dizziness: Yes Hx Syncope: Yes - HEENT Hx HEENT Problems: Yes 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) - RENAL Hx Chronic Kidney Disease: No - ENDOCRINE/METABOLIC Hx Endocrine Disorders: Yes Hx Diabetes Insipidus: Yes Hx Diabetes Mellitus Type 2: Yes - HEMATOLOGICAL/ONCOLOGICAL Hx Blood Disorders: No Hx Human Immunodeficiency Virus (HIV): No - INTEGUMENTARY Hx Dermatological Problems: No - MUSCULOSKELETAL/RHEUMATOLOGICAL Hx Musculoskeletal Disorders: Yes Hx Falls: Yes Hx Fractures: Yes Other/Comment: ORIF L shoulder, ORIF R shoulder - GASTROINTESTINAL Hx Gastrointestinal Disorders: Yes Hx Bowel Surgery: Yes (1981) - GENITOURINARY/GYNECOLOGICAL Hx Genitourinary Disorders: No - PSYCHIATRIC Hx Psychophysiologic Disorder: Yes Hx Anxiety: Yes Hx Bipolar Disorder: Yes Hx Depression: Yes Hx Substance Use: No - SURGICAL HISTORY Hx Surgeries: Yes Hx Section: Yes (x2) Hx Joint Replacement: Yes (right shoulder joint) Other/Comment: "intestinal surgery for perforated intestines" ORIF R shoulder, ORIF L shoulder - ANESTHESIA Hx Anesthesia: Yes Hx Anesthesia Reactions: No Hx Malignant Hyperthermia: No Meds Allergies/Adverse Reactions: Allergies Allergy/AdvReac Type Severity Reaction Status Date / Time Penicillins Allergy RASH Verified 07/30/18 20:46 - Medications Medications: Current Medications Aspirin (Aspirin) 325 mg PO DAILY [facility] Last Admin: 08/17/18 11:41 Dose: 325 mg Atorvastatin Calcium (Lipitor) 20 mg PO DAILY [facility] Last Admin: 08/17/18 09:42 Dose: 20 mg Demeclocycline HCl (Declomycin) 300 mg PO BID [facility]; Protocol Last Admin: 08/17/18 17:00 Dose: 300 mg Docusate Sodium (Colace) 100 mg PO BID [facility] Last Admin: 08/17/18 17:00 Dose: 100 mg Ferrous Sulfate (Feosol) 325 mg PO BID [facility] Last Admin: 08/17/18 17:00 Dose: 325 mg Folic Acid (Folic Acid) 1 mg PO DAILY [facility] Last Admin: 08/17/18 09:42 Dose: 1 mg Heparin Sodium/Dextrose (Heparin 25,000 Units/250ml In D5w) 25,000 units in 250 mls @ 9 mls/hr IV .Q24H [facility]; Protocol Last Admin: 08/17/18 17:49 Dose: 9 mls/hr Insulin Detemir (Levemir) 12 units SC HS [facility] Last Admin: 08/17/18 21:36 Dose: 12 units Insulin Human Lispro (Humalog) 0 units SC ACHS [facility]; Protocol Last Admin: 08/17/18 21:28 Dose: Not Given Midodrine (Proamatine) 10 mg PO TID [facility] Last Admin: 08/17/18 17:05 Dose: 10 mg Results - Vital Signs Recent Vital Signs: Last Vital Signs Temp 98.2 F 08/17/18 20:00 Pulse 61 08/17/18 22:00 Resp 16 08/17/18 22:00 BP 122/59 L 08/17/18 22:00 Pulse Ox 100 08/17/18 22:00 - Labs Result Diagrams: 08/16/18 04:03 08/17/18 20:33 Labs: Laboratory Results - last 24 hr 08/17/18 08/17/18 08/17/18 04:30 04:55 04:55 Retic Count APTT Sodium 121 L Potassium 3.7 Chloride 90 L Carbon Dioxide 23 Anion Gap 12 BUN 11 Creatinine 0.4 L Est GFR ( Amer) > 60 Est GFR (Non-Af Amer) > 60 POC Glucose (mg/dL) Random Glucose 90 Hemoglobin A1c 9.3 H D Uric Acid Calcium 8.4 Phosphorus Magnesium 1.8 Iron TIBC % Saturation Ferritin 218.0 Total Bilirubin 0.2 AST 32 ALT 38 Alkaline Phosphatase 110 Total Protein 5.9 L Albumin 3.0 L Globulin 2.9 Albumin/Globulin Ratio 1.0 Triglycerides 80 D Cholesterol 150 LDL Cholesterol Direct 88 HDL Cholesterol 37 Vitamin B12 715 TSH 3rd Generation 2.97 Cortisol AM Sample 7.1 Ur Random Sodium Ur Random Potassium 08/17/18 08/17/18 08/17/18 04:55 05:00 05:00 Retic Count 1.8 H APTT 73.7 H Sodium Potassium Chloride Carbon Dioxide Anion Gap BUN Creatinine Est GFR ( Amer) Est GFR (Non-Af Amer) POC Glucose (mg/dL) Random Glucose Hemoglobin A1c Uric Acid Calcium Phosphorus Magnesium Iron 45 TIBC 290 % Saturation 15 L Ferritin Total Bilirubin AST ALT Alkaline Phosphatase Total Protein Albumin Globulin Albumin/Globulin Ratio Triglycerides Cholesterol LDL Cholesterol Direct HDL Cholesterol Vitamin B12 TSH 3rd Generation Cortisol AM Sample Ur Random Sodium Ur Random Potassium 08/17/18 08/17/18 08/17/18 06:37 08:25 11:18 Retic Count APTT Sodium 120 L* Potassium 3.6 Chloride 86 L Carbon Dioxide 20 L Anion Gap 18 BUN 11 Creatinine 0.4 L Est GFR ( Amer) > 60 Est GFR (Non-Af Amer) > 60 POC Glucose (mg/dL) 88 150 H Random Glucose 145 H Hemoglobin A1c Uric Acid Calcium 8.2 L Phosphorus Magnesium Iron TIBC % Saturation Ferritin Total Bilirubin AST ALT Alkaline Phosphatase Total Protein Albumin Globulin Albumin/Globulin Ratio Triglycerides Cholesterol LDL Cholesterol Direct HDL Cholesterol Vitamin B12 TSH 3rd Generation Cortisol AM Sample Ur Random Sodium Ur Random Potassium 08/17/18 08/17/18 08/17/18 11:30 11:50 11:50 Retic Count APTT 46.6 H Sodium 121 L Potassium 3.9 Chloride 87 L Carbon Dioxide 22 Anion Gap 16 BUN 11 Creatinine 0.4 L 0.4 L Est GFR ( Amer) > 60 > 60 Est GFR (Non-Af Amer) > 60 > 60 POC Glucose (mg/dL) Random Glucose 155 H Hemoglobin A1c Uric Acid 2.1 L Calcium 8.6 Phosphorus 3.3 Magnesium 1.7 Iron TIBC % Saturation Ferritin Total Bilirubin 0.2 AST 52 H D ALT 60 H D Alkaline Phosphatase 127 H Total Protein 6.4 Albumin 3.0 L Globulin 3.4 Albumin/Globulin Ratio 0.9 L Triglycerides Cholesterol LDL Cholesterol Direct HDL Cholesterol Vitamin B12 TSH 3rd Generation Cortisol AM Sample Ur Random Sodium Ur Random Potassium 08/17/18 08/17/18 08/17/18 16:28 20:30 20:33 Retic Count APTT 84.3 H Sodium 125 L Potassium 4.5 Chloride 89 L Carbon Dioxide 25 Anion Gap 16 BUN 9 Creatinine 0.4 L Est GFR ( Amer) > 60 Est GFR (Non-Af Amer) > 60 POC Glucose (mg/dL) Random Glucose 168 H Hemoglobin A1c Uric Acid Calcium 9.1 Phosphorus Magnesium Iron TIBC % Saturation Ferritin Total Bilirubin AST ALT Alkaline Phosphatase Total Protein Albumin Globulin Albumin/Globulin Ratio Triglycerides Cholesterol LDL Cholesterol Direct HDL Cholesterol Vitamin B12 TSH 3rd Generation Cortisol AM Sample Ur Random Sodium 6 Ur Random Potassium 9.7
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
[2018-08-18 05:24] LABS: HEMOGLOBIN 10.1 g/dL (12.0-16.0); MEAN CELL VOLUME 87.7 fl (81.0-99.0); MEAN CORPUSCULAR HEMOGLOBIN 30.1 pg (27.0-31.0); MEAN CORPUSCULAR HGB CONC 34.3 g/dL (33.0-37.0); RBC 3.36 Mil/uL (3.80-5.20); RED CELL DISTRIBUTION WIDTH 15.2 % (11.5-14.5); WHITE BLOOD COUNT 6.8 K/uL (4.8-10.8)
[2018-08-18 05:52] LABS: ALB/GLOB RATIO 0.9 (1.0-2.1); ALBUMIN 2.9 g/dL (3.5-5.0); ALT/SGPT 55 U/L (9-52); AST/SGOT 32 U/L (14-36); BLOOD UREA NITROGEN 9 mg/dl (7-17); CALCIUM 9.2 mg/dL (8.4-10.2); GFR NON-AFRICAN AMERICAN > 60
[2018-08-18] MEDS: Insulin Lispro (humaLOG) 100 Units/ml Inj SC SCH ×2 (06:44→11:04)
--- NOTE | 2018-08-18 07:35 | CP.PCM.PN ---
Subjective - Date & Time of Evaluation Date of Evaluation: 08/18/18 Time of Evaluation: 07:00 - Subjective Subjective: Pt seen and examined this morning in ICU. Pt reports mild SOB Objective - Vital Signs/Intake and Output Vital Signs (last 24 hours): Temp Pulse Resp BP Pulse Ox 98.3 F 76 14 123/64 99 08/18/18 00:00 08/18/18 06:00 08/18/18 06:00 08/18/18 06:00 08/18/18 06:00 Intake and Output: 08/18/18 08/18/18 06:59 18:59 Intake Total 1228 Output Total 3100 Balance -1872 - Medications Medications: Current Medications Aspirin (Aspirin) 325 mg PO DAILY [facility] Last Admin: 08/17/18 11:41 Dose: 325 mg Atorvastatin Calcium (Lipitor) 20 mg PO DAILY [facility] Last Admin: 08/17/18 09:42 Dose: 20 mg Demeclocycline HCl (Declomycin) 300 mg PO BID [facility]; Protocol Last Admin: 08/17/18 17:00 Dose: 300 mg Docusate Sodium (Colace) 100 mg PO BID [facility] Last Admin: 08/17/18 17:00 Dose: 100 mg Ferrous Sulfate (Feosol) 325 mg PO BID [facility] Last Admin: 08/17/18 17:00 Dose: 325 mg Folic Acid (Folic Acid) 1 mg PO DAILY [facility] Last Admin: 08/17/18 09:42 Dose: 1 mg Heparin Sodium/Dextrose (Heparin 25,000 Units/250ml In D5w) 25,000 units in 250 mls @ 9 mls/hr IV .Q24H [facility]; Protocol Last Admin: 08/17/18 17:49 Dose: 9 mls/hr Insulin Detemir (Levemir) 12 units SC HS [facility] Last Admin: 08/17/18 21:36 Dose: 12 units Insulin Human Lispro (Humalog) 0 units SC ACHS [facility]; Protocol Last Admin: 08/18/18 06:44 Dose: Not Given Midodrine (Proamatine) 10 mg PO TID [facility] Last Admin: 08/17/18 17:05 Dose: 10 mg - Labs Labs: 08/18/18 04:20 08/18/18 04:20 PT 11.5 Seconds (9.8-13.1) 08/15/18 20:20 INR 1.0 08/15/18 20:20 APTT 57.9 Seconds (25.6-37.1) H 08/18/18 03:30 - Constitutional Appears: No Acute Distress - Head Exam Head Exam: ATRAUMATIC, NORMOCEPHALIC - Eye Exam Eye Exam: EOMI - ENT Exam ENT Exam: Mucous Membranes Moist - Neck Exam Neck Exam: Full ROM - Respiratory Exam Respiratory Exam: Clear to Ausculation Bilateral. absent: Accessory Muscle Use, Respiratory Distress - Cardiovascular Exam Cardiovascular Exam: RRR, +S1, +S2. absent: Diastolic murmur - GI/Abdominal Exam GI & Abdominal Exam: Soft, Normal Bowel Sounds. absent: Tenderness - Extremities Exam Extremities Exam: Full ROM. absent: Calf Tenderness, Pedal Edema, Tenderness - Neurological Exam Neurological Exam: Alert, Awake, Oriented x3 - Psychiatric Exam Psychiatric exam: Normal Affect, Normal Mood - Skin Skin Exam: Dry, Normal Color, Warm Assessment and Plan - Assessment and Plan (Free Text) Assessment: NSTEMI Hyponatremia HTN syncope DM Recent shoulder surgery Plan: NSTEMI Hyponatremia HTN syncope DM Recent shoulder surgery Trop 08/16 1.35, 1.04, 1.16, 1.16, 1.28 HA1C 08/03 11.8, 08/17/18 9.3 EKG 08/[address] or T wave abnormality ECHO 07/31/18 mild LVH, EF60-65% Cardiac cath at [facility] [place] 08/18/18: diffuse triple vessel disease, recommend that pt be transferred to [place] for evaluation for possible CABG, pt may have to wait for a bed hold plavix at this time Medications ASA Lipitor Heparin drip metoprolol cozaar midodrine Pt seen, examined, assessment and plan discussed with Dr Javier Espinal PGY1, Internal Medicine Resident
[2018-08-18 09:31] VITALS: TEMP 98.5
[2018-08-18 10:11] VITALS: BP 128/61; PULSE 75; RESP 22
--- NOTE | 2018-08-18 11:15 | CP.CCUPN ---
CCU Subjective - Physician Review Subjective (Free Text): Leaving for cardiac cath now, no chest discomfort or SOB at bed rest, off Heparin drip for procedure. Afebrile, BP 128/61, HR 75, RR 22, 98% on NC. Other vitals and I/O's reviewed. No polyuria noted. ROS: No other pertinent negs or positives on 10+ system review PMSFH: All other Nursing and physician documentation reviewed to date; no new pertinent info noted relevant to current medical problems. EXAM- HEENT: no icterus, no gaze preference, pupils with normal reactivity noted, no nystagmus NECK: no JVD visible, supple, carotids equal upstroke bilat/no bruit CHEST: clear BS bilat, no wheezes audible HEART: regular, distant, S1S2, no rubs ABD: soft, no distension, no focal tenderness, no tympany, no guarding, no organomegaly, BS hypoactive. EXT: no LE edema, no mottling; no calf tenderness or palpable cords, distal pulses intact and symmetrical, no cyanosis. NEURO: No gross focal motor deficits SKIN: no rashes, warm and dry LABS: WBC= 6.8 HGB= 10.1 PLTs= 442K PTT = 65.4 Na= 133 K= 4.3 CL= 99 HCO3= 25 BUN/Cr= 9/0.5 BS= 168 Fe satn = IMPRESSION / MAJOR PROBLEMS NOW: 1. ACS / NSTEMI 2. Hyponatremia 3. Metabolic Encephalopathy 2 Hyponatremia 4. Chronic disease Anemia PLAN: 1. Coronary angiography today, continue IVF hydration. On statin, ASA. Consider adding beta larissa therapy. 2. Stop any supplemental sodium input. Serum sodium at acceptable levels. 3. Iron supplements for Fe deficiency state. 4. Tele bed.
== END 2018-08-18 16:42 | disposition short-term general hospital (02) | DRG 280 ==
LOC: H.ER 17:31 → H.ERHOLD 23:12 → H.ICU/CCU 08-16 01:21
PROVIDERS: ADMIT Internal Medicine Pulmonary Disease; ATTEND Internal Medicine Pulmonary Disease
DX: I21.4 Non-ST elevation (NSTEMI) myocardial infarction (principal); G93.41 Metabolic encephalopathy; E87.1 Hypo-osmolality and hyponatremia; E23.2 Diabetes insipidus; J32.2 Chronic ethmoidal sinusitis; J32.3 Chronic sphenoidal sinusitis; H54.8 Legal blindness, as defined in USA; E11.319 Type 2 diabetes mellitus with unspecified diabetic retinopathy without macular edema; Z88.0 Allergy status to penicillin; F31.9 Bipolar disorder, unspecified; I11.0 Hypertensive heart disease with heart failure; I50.9 Heart failure, unspecified; E78.00 Pure hypercholesterolemia, unspecified; Z79.82 Long term (current) use of aspirin; E11.65 Type 2 diabetes mellitus with hyperglycemia; Z91.19 Patient's noncompliance with other medical treatment and regimen; I95.1 Orthostatic hypotension; Z79.4 Long term (current) use of insulin; Z96.611 Presence of right artificial shoulder joint; D63.8 Anemia in other chronic diseases classified elsewhere; F41.1 Generalized anxiety disorder; E78.5 Hyperlipidemia, unspecified; I25.10 Atherosclerotic heart disease of native coronary artery without angina pectoris